=== PATIENT | female | born 1975 | race Hispanic/Latino ===

== ENCOUNTER → 2018-03-12 11:50 | Outpatient (CLI) | payer OTHER, SELFPAY ==
--- NOTE | 2018-03-12 11:51 | DI.MRI.S_ITS ---
BREAST MRI OF BOTH BREASTS - POST LUMPECTOMY: 03/12/2018 CLINICAL: Breast cancer. Comparison is made to exams dated: 11/07/2017 breast MRI, 08/16/2017 breast MRI, and 07/25/2017 ultrasound biopsy [facility]. Informed consent was obtained from the patient. Axial T1, T2, and pre and post contrast T1 images were obtained. Bilateral background breast enhancement is mild. Minimal improvement in size and mild improvement in enhancement of upper outer right breast non masslike enhancement. It demonstrates mixed internal enhancement kinetics. Precise measurements are precluded by the now very indistinct margins of the enhancement. The known post biopsy marker is poorly seen on this study. There is no abnormal enhancement, masses, or distortion in the left breast. There are benign known hepatic hemangiomas. Axillary lymph nodes are normal on MRI. IMPRESSION: KNOWN BIOPSY PROVEN MALIGNANCY 1. Continued improvement in size and enhancement of upper outer right breast non-masslike enhancement representing the known malignancy. Margins are now very indistinct precluding precise measurements. Findings are consistent with a positive response to therapy although radiologically response is less than seen between the 11/07/17 and 08/16/2017 MRIs. 2. There is no MRI evidence of left breast malignancy. This exam was interpreted at Station ID: [id number]. Electronically Signed By: Vish Smith M.D. cj/:03/12/2018 16:51:13 ACR BI-RADS Category 6: Known biopsy proven malignancy 3346F
== END ==
PROVIDERS: PCP Family Medicine; Visit Provider Internal Medicine Hematology & Oncology
DX: C50.411 Malignant neoplasm of upper-outer quadrant of right female breast (principal)
CPT/HCPCS: A9579; C8908

== ENCOUNTER 2018-04-16 09:58 | Inpatient (IN) | payer OTHER, SELFPAY ==
[2018-04-02 13:44] VITALS: BMI 32.1
[2018-04-16] VITALS (14 sets, daily range): BP systolic 113–139; BP diastolic 59–84; PULSE 71–109; RESP 5–24; TEMP 36.1–36.6; O2SAT 93–99; BMI 31.8
--- NOTE | 2018-04-16 | PATH_ITS ---
[facility] Accession Number: [id number] . 01 Material submitted: . PART A: LEFT BREAST (PROPHYLACTIC MASTECTOMY) PART B: RIGHT BREAST PART C: RIGHT AXILLARY CONTENTS . 01 Clinical history: . A: LEFT BREAST (PROPHYLACTIC MASTECTOMY) B: RIGHT BREAST * LONG STITCH TAIL OF HEARD, SHORT SUPERIOR . 02 Diagnosis: A. Left Breast, Prophylactic Skin Sparing Simple Mastectomy: Skin and nipple with no significant histomorphologic abnormality. Benign breast parenchyma; negative for atypia and malignancy. . B. Right Breast, Skin Sparing Simple Mastectomy: Invasive carcinoma of the breast. Please see CAP SUMMARY, below. . C. Right Axillary Contents, Lymph Node Dissection of Level I and II Nodes: Fourteen of twenty lymph nodes positive for metastatic carcinoma by H/E stain (14/20). . CAP CANCER CASE SUMMARY Invasive carcinoma of the right breast with the following features: . Procedure: Skin sparing simple mastectomy with right axillary lymph node dissection including level I and level II lymph nodes. Lymph node sampling: Present as right axillary dissection, level I and level II. Specimen Laterality: Right. . Tumor site: Central breast tissue. Tumor size: Widely dispersed viable tumor foci in a region of dense fibrosis with an overall greatest size of 10.9 cm. Histologic type: Infiltrating ductal carcinoma. Histologic grade: Dariana histologic score 6 of 9. Glandular/Tubular differentiation: Score 2 of 3. Nuclear Pleomorphism: Score 3 of 3. Mitotic Rate: Score 1 of 3. Overall Grade: Grade 2. Tumor focality: Unifocal. Ductal carcinoma in situ: Not identified. Lobular carcinoma in situ: Not identified. . Macroscopic and microscopic extent of tumor Skin: No tumor identified. Nipple: No tumor identified. Tumor is 3 mm from areolar surface. Skeletal muscle: Not applicable. . Margins Invasive carcinoma: Positive at the superior margin. Anterior: 3 mm. Posterior: 6 mm. Superior: Tumor present at the superior margin over a 1 mm region. Inferior: Greater than 10 mm. Medial: Greater than 10 mm. Lateral: Greater than 10 mm. . Lymph nodes Total number of lymph nodes examined: 20. Number of sentinel lymph nodes examined: 0. Lymph Node Involvement: Number of lymph nodes with macrometastases: 8. Number of lymph nodes with micrometastases: 6. Number of lymph nodes with isolated tumor cells: Not applicable. Extranodal Extension: Present in a multifocal fashion, greatest extent: 5 mm. Method of Evaluation of [place] Lymph Nodes: Not applicable. . Treatment effect: Response to Presurgical Therapy Breast: Fibrotic tissue present mixed with viable tumor, possible partial response. Lymph nodes: Two larger lymph nodes with fibrosis, possible partial response. Patient's previous core biopsy was reviewed and no significant modification in cellularity is identified when compared with the excised specimen. . Lymph-vascular invasion: Present. Dermal lymph-vascular invasion: Not identified. Pathologic staging: AJCC, 8th Edition Primary tumor: ypT3 Regional lymph nodes: ypN3a . Additional pathologic findings: Perineural tumor involvement present. . Ancillary studies: Biomarkers Performed Previously on Case: [facility] [id number]; 07/25/2017 Estrogen Receptor (ER) Status: Positive (moderate intensity, 100% of cells). Progesterone Receptor (PgR) Status: Positive (moderate intensity, 80% of cells). HER2 (by immunohistochemistry): Negative (score 1+). HER2 (ERBB2) (by in situ hybridization): Not applicable. I/04/19/2018 . 02 Comment: Results discussed with Dr. Talley at approximately 10:15 a.m. on 04/18/2018. . 02 Electronically signed: . Mirian Prado MD, Pathologist NPI- [id number] . 01 Gross description: . (A) Received in formalin, labeled left breast, is an unoriented breast (17.5 x 14.8 x 4.3 cm) with overlying skin (5.5 x 3.1 cm) containing the nipple areolar complex (3.0 x 2.8 cm). The breast cannot be oriented beyond anterior and posterior. No obvious axillary tail is present. No localization wire is present. The breast tissue is fibrofatty with no nodules, masses or lesions identified. The skin and nipple areolar complex are borja-pink and unremarkable. Ink code: purple-anterior; yellow-posterior. Section code: (A1) nipple; (A2) skin; (A3-A10) breast tissue, sales representative jewelry. (B) Received in formalin, labeled right breast, long stitch tail of staci, short superior, is a right breast (4.3 cm AP, 17.2 cm SI, 19.2 cm ML) with overlying skin (4.2 cm SI, 5.5 cm ML) containing the nipple areolar complex (4.2 x 3.2 cm). The specimen is oriented with two black sutures (long-tail of staci, short-superior). The tail of staci is approximately 9.5 x 5.5 x 4.0 cm, which has been included in the medial to lateral overall measurement. The specimen is serially sectioned ML into 37 slices with the medial and lateral resection margins as slices #1 and #37, respectively. The breast tissue is fatty and focally densely fibrous (10.9 x 10.5 x 7.2 cm) within slices #10-#30. The focally fibrous area is located 0.5 cm from the anterior, 0.8 cm from the posterior, 0.4 cm from the superior, 3.5 cm from the inferior, 4.7 cm from the medial, and 3.5 cm from the lateral resection margins. No definitive nodules masses or lesions are identified. The skin and nipple areolar complex are borja and unremarkable. A lymph node was performed on the portion of patrick of staci with no lymph nodes identified. Ink code: purple-anterior; yellow-posterior; black-superior; orange-inferior; blue-medial; green-lateral. Section code: (B1) nipple; (B2) skin; (B3) medial resection margin, perpendicularly sectioned, sales representative jewelry; (B4) slice #10, sales representative jewelry; (B5) slice #11, sales representative jewelry; (B6) slice #12, sales representative jewelry; (B7) slice #13, sales representative jewelry; (B8) slice #14, sales representative jewelry; (B9) slice #15, sales representative jewelry; (B10) slice #16, sales representative jewelry; (B11) slice #17, sales representative jewelry; (B12) slice #18, sales representative jewelry: (B13) slice #19, sales representative jewelry; (B14) slice #20, sales representative jewelry; (B15) slice #21, sales representative jewelry; (B16) slice #22, sales representative jewelry; (B17) slice #23, sales representative jewelry; (B18) slice #24, sales representative jewelry; (B19) slice #25, sales representative jewelry; (B20) slice #26, sales representative jewelry; (B21) slice #27,sales representative jewelry; (B22) slice #28, sales representative jewelry; (B23) slice #29, sales representative jewelry; (B24) slice #30, sales representative jewelry; (B25) lateral resection margin, perpendicularly sectioned, sales representative jewelry. Note: This specimen has been reviewed by Dr. Hillary Ortiz. Approximate total fixation time in formalin - 39 hours and 30 minutes calculated using a collection date of 04/16/2018 with no collection time given. ([id number]) (C) Received in formalin, labeled right axillary contents, are multiple pieces of adipose tissue (10.7 x 8.2 x 3.3 cm in aggregate) containing multiple possible lymph nodes (0.2 x 0.1 x 0.1 cm - 1.7 x 1.0 x 0.8 cm). Section code: (C1, C2) multiple intact lymph nodes; (C3-C5) two bisected lymph nodes in each cassette, one inked and one not inked; (C6) one bisected lymph node; (C7, C8) one intact lymph node in each cassette; (C9) one bisected lymph node. ([id number]) /[facility] . 02 Pathologist provided ICD-10: C50.911 . 02 CPT . 333406, [id number], [id number] Performed at: 01 [facility] [address] [id number] MD Shubham Farrar MD Phone: [phone] Performed at: 02 [facility] [address] [place], [place] [id number] MD Santos Frausto MD Phone: [phone]
[2018-04-16] MEDS: LACTATED RINGERS 1,000 ML 100 ML IV ×2 (10:40→16:54)
--- NOTE | 2018-04-16 11:37 | PM.PREOP ---
Pre-operative Note Interval Note Pre-op Check: Yes History & Physical Reviewed by Physician and Yes Exam Performed Changes: No H&P completed within 30 days and has changed as indicated here:: Patient seen and examined once again in the preoperative area today. She is marked accordingly for surgery. History physical examination as documented within the last 30 days on the chart has not changed. We will proceed with bilateral mastectomy, right axillary lymph node dissection, and port removal today as planned.
[2018-04-16] MEDS: CEFAZOLIN 2 GM/100 ML FROZ.PIGGY IV (11:45)
--- NOTE | 2018-04-16 12:07 | SUR.OPER ---
Supine on padded OR bed, head on pillow, arms secured on padded arm boards at <90 degrees abduction, legs uncrossed, safety belt at thigh, tape over blanket over lower legs.
[2018-04-16] MEDS: BUPIVACAINE 0.5% (PF) VIAL 30 ML INJ (12:19)
[2018-04-16] MEDS: LIDOCAINE 1% W/EPI INJ 20 ML INJ (12:20)
--- NOTE | 2018-04-16 12:49 | SUR.OPER ---
New consent modified in preop to add port a cath removal from the left chest.
--- NOTE | 2018-04-16 15:47 | SUR.OPER ---
LEFT BREAST WEIGHED 19.5 OZ, RIGHT BREAST WEIGHED 24 OZ
[2018-04-16] MEDS: CEFAZOLIN 1 GM VIAL IV (15:55)
--- NOTE | 2018-04-16 18:18 | SUR.PHASEI ---
o2 sats dropped to 85% on room air while patient dozed. 2lnc reapplied. Deep breaths encouraged. Sats 96% 2lnc.
--- NOTE | 2018-04-16 18:35 | PM.OP.1 ---
Operative Date/Time/Diagnoses Date of procedure: 04/16/18 Time of procedure: 18:35 Pre-op diagnosis: Locally advanced right breast cancer with metastatic Regional axillary lymph nodes status post neoadjuvant chemotherapy Post-op diagnosis: same Procedure & Clinicians Procedure: 1. removal of existing left subclavian vein tunneled central venous port device 2. bilateral skin sparing simple mastectomies 3. right axillary lymph node dissection including level 1 and level 2 lymph nodes Same procedure as scheduled: Yes Indications: 42-year-old female who presented with right breast cancer requiring neoadjuvant chemotherapy. She achieved an excellent response to initial therapy. After lengthy discussion and consultation she elected for bilateral mastectomy with a left mastectomy being for prophylactic purposes. She also agreed to right axillary lymph node dissection. She no longer required her existing Port-A-Cath device so she wished to have that removed as well. Surgeon: Paresh Talley Side Panel Padder: Cinthya Mccauley Click Yes if Unassisted: No Anesthesia Type: General Operative Notes Findings: 1. Intact left subclavian port device subsequently removed without difficulty 2. viable skin flaps and bilateral mastectomy sites at the conclusion of the surgery 3. intact thoracodorsal neurovascular bundle and long thoracic neurovascular bundle in right axillary region following removal of level 1 and level 2 lymph nodes Closure Type: primary Specimen(s): other ( 1. Left breast 2. Right breast 3. Right axillary contents) Implants & Drains: four individual 10 Tariq-Adams drains inserted through separate stab incisions with 2 being placed in the left mastectomy site and the other 2 in the right mastectomy site. Of note, the right lateral Tariq-Adams drain extends into the right axilla. Estimated Blood Loss (mL): 150 Blood products transfused: none Procedure in detail: after obtaining informed consent the patient was brought to the operating room placed supine on the table. After satisfactory induction of anesthesia the chest was prepped and draped in usual sterile fashion. A SCOAP time-out was performed per standard protocol. Attention was turned initially to removal of the existing left subclavian port device. Existing scar was incised with a 15. Scalpel blade. Bovie was used to achieve hemostasis. Dissection proceeded down sharply with Metzenbaum scissors until the port itself was encountered. Overlying fibrous connective tissue was divided sharply and the device was elevated off of the pectoralis fascia including the 2 existing sutures holding it in place. Meticulous sharp and blunt dissection was then employed to gently liberate the distal catheter from the fibrous sheath surrounding it. The catheter was then easily removed from the left subclavian vein. Catheter was noted to be intact. Catheter was discarded. Wound was irrigated with sterile saline solution and hemostasis verified. Skin was closed with running 4 0 Monocryl suture. Steri-Strips were applied. Instruments were discarded off of this stray and the entire field was prepped and draped again in the usual sterile fashion. Separate instruments were then brought onto the field for completion of the mastectomy and axillary dissection portion. I once again perform standard scrub and changed my gown and gloves for the remainder of the case. Bilateral skin sparing mastectomy incisions were then designed taking great care to measure accordingly to achieve the best symmetric cosmetic result possible. Attention was turned initially to the left mastectomy. Skin incision was created with a 10. Scalpel blade. Bovie was used to achieve hemostasis and carried the dissection down through the subcutaneous tissue to the breast tissue. [place] retractors were used to elevate the skin and breast tissue was then dissected along the subcutaneous plane sharply with the Bovie taking great care to avoid injury to the skin flaps as well as devascularization of the skin. [place]ma[place] retractors were then inserted once the dissection proceeded deeply to provide exposure. Large vessels were controlled with the Bovie. Medially the dissection proceeded toward the insertion of the pectoralis muscle at the sternum. Superiorly the margin included the clavipectoral fascia. inferior margin extended along the superior aspect of the costal margin at the insertion of the pectoralis muscle. Lateral border the pectoralis muscle was liberated from the overlying breast tissue extending toward the lateral chest wall and up throughout the entire tail of [place] which was removed as part of the specimen as well. Breast specimen was then liberated from the pectoralis fascia and sent for permanent section. Wound was irrigated with copious amounts of sterile saline solution and hemostasis was verified. 2 individual 10 Tariq-Adams drains were inserted into the wound bed through separate stab incisions laterally and inferiorly. Drains were secured to the skin using 2 individual interrupted 3 0 nylon sutures. Subcutaneous tissue was reapproximated with interrupted 3 0 Vicryl suture. Skin was closed with a running subcuticular 4 O Monocryl suture. Dermal adhesive was applied to the skin. In a similar fashion the right breast was also dissected and excised thereby completing bilateral mastectomies. Attention was then turned to the right axillary dissection. A separate incision was created in existing skin fold in the right axilla with a 10. Scalpel blade. Bovie was used to achieve hemostasis and carried the dissection through the subcutaneous tissue into the right axillary fat pad. Exposure was achieved with the cerebellar retractor. Dissection proceeded down to the border the pectoralis muscle were overlying fascia and lymph node bearing tissue was liberated sharply using the Bovie and Metzenbaum scissors. Dissection then proceeded superiorly deep to the muscle until the axillary vein was encountered. Vein was skeletonized of overlying lymph node bearing tissue. Multiple branches of the axillary vein were controlled with sharp dissection followed by right angle clamp. Vessels were controlled with a combination of 2 0 silk ties and hemoclips. Vessels were then divided. Dissection proceeded laterally and deeply toward the latissimus dorsi muscle. Medially dissection proceeded along the lateral chest wall. The long thoracic neurovascular bundle as well as the thoracodorsal neurovascular bundle were identified and preserved. Great care was taken to avoid injury to these structures. At the end of the case both neurovascular bundles were noted to be entirely intact. Stimulation of the both nerves showed normal muscular response. Level 1 and level 2 lymph node packet was then liberated using a combination of hemoclips and 2 0 silk ties. Specimen was then sent for permanent section. The most inferior aspect of the dissection was noted to connect with the lateral aspect of the right mastectomy through a small soft tissue defect. Two individual 10 Tariq-Adams drains were placed in the right mastectomy wound bed similar to what was previously done on the left side. However, the lateral drain was extended along the lateral mastectomy into the right axilla. Drains were again secured to the skin with 2 individual interrupted 3 0 nylon sutures. Wounds were irrigated and hemostasis verified once again. A 1 1 mixture 1% lidocaine with 1 100,000 epinephrine and 0.5% plain Marcaine was injected in the skin and subcutaneous tissue of the right axilla for postoperative analgesia. Subcutaneous tissue of both incisions on the right side was then reapproximated with interrupted 3 0 Vicryl sutures. Both skin incisions were then closed with running 4 O Monocryl sutures placed in subcuticular fashion. Dermal adhesive was applied. Sterile dressings were placed at the drain sites followed by a breast binder. Anesthesia was then reversed and the patient extubated in the operating room. She was taken recovery stable condition. Complications: none Condition: stable Disposition: PACU Plan for aftercare: 1. Admit to regular surgical floor for ongoing convalescence and drain management
--- NOTE | 2018-04-16 18:36 | SUR.PHASEI ---
Report called to Le
--- NOTE | 2018-04-16 19:01 | SUR.PHASEI ---
Pt transferred to the floor with pulse ox. Report to Marilynn Ortiz. VS stable. O2 sat 88-97%ra, 1lnc applied. Upper left chest guaze, kelly breast and rt axilla incisions lula/cdi. MADAY drain yumikogs cdi. MADAY drains emptied. belongings bag in room, spouse at bedside. IV saline locked.
[2018-04-16] MEDS: LACTATED RINGERS 1,000 ML 84 ML IV (19:18)
[2018-04-16] MEDS: ACETAMINOPHEN 325 MG TABLET 650 MG PO (20:27)
[2018-04-16] MEDS: ESCITALOPRAM 10 MG TABLET PO (20:27)
[2018-04-17] VITALS (8 sets, daily range): BP systolic 105–133; BP diastolic 62–76; PULSE 54–77; RESP 16; TEMP 36.4–37.2; O2SAT 97–100
[2018-04-17] MEDS: OXYCODONE IR 5 MG TABLET PO ×3 (02:20→11:06)
[2018-04-17 05:41] LABS: Add Manual Diff / Slide Review NO; Basophils Percent Auto 0.1 % (0-2); Hematocrit 34.2 % (36-46); Hemoglobin 11.5 g/dL (12.0-16.0); Lymphocytes Percent Auto 9.8 % (25-40); Mean Corpuscular HGB Conc 33.6 % (30-36); Mean Corpuscular Hemoglobin 28.2 PG (26-34); Mean Corpuscular Volume 83.9 fL (80-100); Neutrophils Absolute Auto 11600 /uL (3000-5900); Neutrophils Percent Auto 84.1 % (50-75); Platelet Count 277 X10^3/uL (150-400); Red Blood Cell Count 4.08 X10^6/uL (4.0-5.2); Red Cell Distribution Width 13.7 % (11.6-14.8); White Blood Cell Count 13.8 X10^3/uL (4.5-11.0)
[2018-04-17 05:49] LABS: BUN Creatinine Ratio 16.7 (6-22); Blood Urea Nitrogen 10 mg/dL (7-17); Calcium 9.1 mg/dL (8.4-10.2); Carbon Dioxide 30 mmol/L (22-32); Chloride 101 mmol/L (98-107); Estimated Glomerular Filt Rate > 60.0 mL/min (>60); Glucose 116 mg/dL (70-100); HEMOLYSIS < 15 (0-50); Potassium 4.7 mmol/L (3.4-5.1); Sodium 138 mmol/L (137-145)
[2018-04-17] MEDS: LACTATED RINGERS 1,000 ML 84 ML IV (09:41)
[2018-04-17] MEDS: SENNOSIDES 8.6 MG TABLET PO (11:06)
[2018-04-17] MEDS: DOCUSATE 100 MG CAPSULE PO (11:07)
[2018-04-17] MEDS: CYANOCOBALAMIN (VITAMIN B-12) 500 MCG TABLET 1000 MCG PO (11:07)
--- NOTE | 2018-04-17 13:29 | PM.PN.1 ---
Subjective Date Patient Seen: 04/17/18 Time Patient Seen: 13:29 Interval history: Patient is in good spirits, and her family is at the bedside. She states that her pain is somewhat controlled but not completely. She has been able to urinate without any issues. Denies any flatus or bowel movement since surgery yesterday. No chest pain or shortness of breath. Discomfort is mostly along the right chest wall and axilla. Exam Vital Signs (past 8 hours): - 04/17/18 07:40 04/17/18 07:50 04/17/18 11:35 Temperature 98.3 F 98.9 F Pulse Rate 65 67 Respiratory Rate 16 16 Blood Pressure 133/66 H 112/62 Pulse Oximetry 100 100 100 Oxygen Delivery Method Room Air Oxygen Flow Rate 0 Narrative Exam Narrative: Examination is performed with the at the bedside. Patient is alert oriented x3. Neck is supple All 3 incisions are healing nicely without evidence of any erythema, hematoma, or seroma. Drain sites are clean. Drain output is serosanguineous in all 4 drains. Output has been anywhere from 25 cc over the last 24 hr to 90 cc in the right lateral drain. This is not unanticipated. Skin flaps were flat and otherwise viable. Right axilla is mildly edematous but otherwise soft. No significant right upper extremity edema. Right shoulder range of motion is somewhat limited due to discomfort and edema. She has some chest wall edema superior to the incisions bilaterally exacerbated by breast binder. Abdomen is soft, nondistended, nontender. Objective Labs Result Diagrams: 04/17/18 05:20 04/17/18 05:20 Labs: Laboratory Results - last 24 hr 04/17/18 04/17/18 05:20 05:20 WBC 13.8 H RBC 4.08 Hgb 11.5 L Hct 34.2 L MCV 83.9 MCH 28.2 MCHC 33.6 RDW 13.7 Plt Count 277 Neut % (Auto) 84.1 H Lymph % (Auto) 9.8 L [place] % (Auto) 6.0 Eos % (Auto) 0.0 L Baso % (Auto) 0.1 Neut # (Auto) 24780 H Sodium 138 Potassium 4.7 Chloride 101 Carbon Dioxide 30 BUN 10 Creatinine 0.60 Estimated GFR > 60.0 BUN/Creatinine Ratio 16.7 Glucose 116 H Calcium 9.1 Assessment & Plan Plan: Assessment/Plan Narrative: 42-year-old female postoperative day 1 from bilateral mastectomy and right axillary level 1 and level 2 lymph node dissection along with Port-A-Cath removal who is in good condition. She is healing normally. We will increase her analgesia an attempt to provide better comfort. Drain care and teaching with the patient and her will be completed today. Continue regular diet as tolerated. Ambulate aggressively. Saline lock IV and discontinue all antibiotics at this point. I discussed anticipated ongoing wound healing over the next several weeks to months. Orders were written. All questions were answered to her satisfaction, and she voiced understanding. Possibly home tomorrow if pain control is adequate, and she is comfortable with drain care. Quality VTE Deep Vein Thrombosis/Pulmonary Embolism Present on Admission: No
--- NOTE | 2018-04-17 14:41 | CM.DANOTE ---
Discharge Planning/Care Management DCP: assessment: case received, EMR reviewed and met with pt, her and young child, at bedside. Introduced self and role. Pt is a 42 year old female who admitted for a scheduled Bilateral Simple Skin Sparing Mastectomy Surgeon: Dr. Talley with assist by Dr. Parisa Paul: [facility] Pt carries dx of R breast CA with metastic lymph nodes post chemotherapy. L mastectomy: prophylactic purposes. Dr. Talley notes plan is for home in next day or so, whenever pt is comfortable in terms of pain and able to manage her MADAY drains. Pt is aware DCP team will be checking in to assist with any d/c needs that may unfold. Anticipate she will be following up with [facility] surgeons for further care in the outpt setting. Discharge Assessment Start: 04/17/18 14:39 Freq: Status: Active Protocol: Document 04/17/18 14:40 ITV (Rec: 04/17/18 14:40 ITV [id number]) Discharge Planning Assessment Advance Directives? No: Information mailed to patient Advance Directives on File No History Provided By Patient Family Member Medical Record Prior Living Arrangements House Household Members spouse children Independent with ADL's Yes Is patient alert and oriented? Yes Whiteboard Updated in Patient Room with Yes name and ext. # of Audiologist Review Status In Process Next Review Type Continued Stay Review
[2018-04-17] MEDS: OXYCODONE IR 5 MG TABLET 10 MG PO ×2 (14:54→17:56)
[2018-04-17] MEDS: ESCITALOPRAM 10 MG TABLET PO (20:46)
--- NOTE | 2018-04-17 21:30 | PC.NURSE ---
Latrice shift note: Patient awake, alert, pleasant. Chest binder in place with drains x 4 draining sanguinous drainage, R > L. Patient demonstrated how to empty drain, she states feel comfortable with procedure.
[2018-04-18] MEDS: OXYCODONE IR 5 MG TABLET 10 MG PO ×2 (02:25→08:00)
--- NOTE | 2018-04-18 02:43 | PC.NURSE ---
Addendum entered by Mirza Sanchez R.N. 04/18/18 06:21: 0600: Pt teaching regarding emptying and compressing MADAY drains. Pt return demonstrated 3 of the JPs, and her technique was very good. Original Note: [place] Note: Pt alert, oriented X3. Bra binder intact over breast dressings, and 4 JPs intact and compressed. Dressing over removed portacath site is cdi. Medicated for pain as needed, with Oxycodone. Fresh ice to axillaries per patient request.
[2018-04-18 04:00] VITALS: BP 108/69; PULSE 66; RESP 16; TEMP 36.6; O2SAT 99
[2018-04-18 08:00] VITALS: BP 117/75; PULSE 67; RESP 16; TEMP 36.2; O2SAT 99
[2018-04-18] MEDS: SENNOSIDES 8.6 MG TABLET PO (08:05)
[2018-04-18] MEDS: CYANOCOBALAMIN (VITAMIN B-12) 500 MCG TABLET 1000 MCG PO (08:05)
[2018-04-18] MEDS: DOCUSATE 100 MG CAPSULE PO ×2 (08:06→20:55)
--- NOTE | 2018-04-18 10:44 | P.PN_ITS ---
Subjective Date Patient Seen: 04/18/18 Time Patient Seen: 10:40 Interval history: Patient complaining of persistent pain not entirely relieved with oral analgesics. In addition, the oxycodone she is receiving is making her feel relatively sedated which is inhibiting her ability to ambulate. She is tolerating a regular diet without difficulty. No nausea or vomiting. She has learned Tariq-Adams drain care appropriately and is comfortable with the procedure. Denies any subjective fever or chills. No chest pain or shortness of breath. Pain is mostly in the upper outer quadrant region of the right breast and right axilla. Exam Vital Signs (past 8 hours): - 04/18/18 04:00 04/18/18 08:00 Temperature 97.8 F 97.2 F L Pulse Rate 66 67 Respiratory Rate 16 16 Blood Pressure 108/69 117/75 Pulse Oximetry 99 99 Oxygen Delivery Method Room Air Oxygen Flow Rate 0 Narrative Exam Narrative: Well-nourished well-developed female lying comfortably in bed in no acute distress but she is in a more subdued mood this morning. Alert oriented x3 Sclera nonicteric Right axillary incision and bilateral mastectomy incisions are clean, dry, and intact. Skin flaps were completely viable. No hematomas or seromas. Axilla is soft. No right upper extremity edema. Port-A-Cath removal site is clean, dry , and intact as well. Abdomen soft, nondistended, nontender. Objective Labs Result Diagrams: 04/17/18 05:20 04/17/18 05:20 Labs: No new radiographic or laboratory studies for review Assessment & Plan Plan: Assessment/Plan Narrative: 42-year-old female now postoperative day 2 from bilateral mastectomy and right axillary lymph node dissection in conjunction with Port-A-Cath removal who overall is doing well and healing appropriately, but her analgesia remains an issue. Drain output is as anticipated and is serosanguineous at all drain sites. Continue the drains as she will require these for some time. She is comfortable with care at this point. Encouraged her to ambulate and shower today if she wishes. I encouraged her to ambulate multiple times in the hallway today with assistance. Continue regular diet. We will discontinue the oxycodone at this time and increased the frequency of Dilaudid. Add gabapentin for pain control also. I counseled her that the gabapentin may also make her somewhat sleepy. Final pathology still pending. I discussed all the above with the patient in detail. All questions were answered to her satisfaction, and she voiced understanding. I suspect she will require at least 1 more day in the hospital until her analgesia is better controlled. Orders were written. Quality VTE Deep Vein Thrombosis/Pulmonary Embolism Present on Admission: No
--- NOTE | 2018-04-18 10:59 | PC.NURSE ---
Dr. Talley reports that he changed dressings to incision sites when he checked patient today. Plan to change pain medications and regimen for better pain control today. Drain sites (x4) remain intact. Patient feeling kind of woozy with ambulation, vss, and back in bed at this time to rest. call light within reach.
[2018-04-18] MEDS: GABAPENTIN 300 MG CAPSULE PO ×3 (11:09→20:55)
[2018-04-18 12:00] VITALS: BP 128/87; PULSE 80; RESP 16; TEMP 37.1; O2SAT 98
[2018-04-18] MEDS: ACETAMINOPHEN 325 MG TABLET 650 MG PO ×2 (13:32→20:55)
[2018-04-18] MEDS: HYDROMORPHONE 2 MG TABLET PO ×3 (13:32→20:54)
[2018-04-18 15:37] VITALS: BP 116/61; PULSE 68; RESP 16; TEMP 36.6; O2SAT 99
[2018-04-18 20:22] VITALS: BP 122/76; PULSE 64; RESP 16; TEMP 35.9; O2SAT 99
[2018-04-18] MEDS: ESCITALOPRAM 10 MG TABLET PO (20:55)
[2018-04-18 23:55] VITALS: BP 114/65; PULSE 69; RESP 16; TEMP 36.4; O2SAT 99
[2018-04-19 01:00] VITALS: O2SAT 99
[2018-04-19 01:03] VITALS: TEMP 37
[2018-04-19 05:00] VITALS: BP 122/76; PULSE 66; RESP 16; TEMP 36.4; O2SAT 100
[2018-04-19] MEDS: HYDROMORPHONE 2 MG TABLET PO ×2 (05:14→09:37)
[2018-04-19 08:00] VITALS: BP 134/80; PULSE 92; RESP 16; TEMP 36.9; O2SAT 98
[2018-04-19] MEDS: GABAPENTIN 300 MG CAPSULE PO (09:38)
[2018-04-19] MEDS: DOCUSATE 100 MG CAPSULE PO (09:38)
[2018-04-19] MEDS: CYANOCOBALAMIN (VITAMIN B-12) 500 MCG TABLET 1000 MCG PO (09:38)
[2018-04-19] MEDS: SENNOSIDES 8.6 MG TABLET PO (09:38)
[2018-04-19 10:23] VITALS: O2SAT 98
--- NOTE | 2018-04-19 10:54 | P.DS_ITS ---
History of Present Illness Date Patient Seen: 04/19/18 Time Patient Seen: 10:46 Chief complaint: [id number] DORCAS MASTECTOMY & R AXILLARY DISSECTION Narrative: 42-year-old female with known right breast cancer and regionally metastatic lymph nodes status post neoadjuvant chemotherapy with measurable response who presented for ongoing treatment management. After lengthy discussion she elected for bilateral mastectomy with the left side being prophylactic. Right axillary lymph node dissection was also recommended. Port- A-Cath removal was planned as part of the procedure as she had completed chemotherapy, and medical oncology recommended removal of the device. Discharge Providers Date of admission: 04/16/18 09:58 Primary care physician: Emma Sunshine, Consults: 04/16/18 18:53 Consult to Discharge Planning Routine Comment: Discharge provider: Paresh Talley MD Summary Discharge Diagnosis: 1. Locally advanced infiltrating ductal carcinoma with regionally metastatic lymphadenopathy right breast 2. Neuropathy secondary to chemotherapy 3. History of depression 4. Status post left subclavian vein tunneled central venous port device insertion 5. History of image guided right breast biopsy 6. History of oral surgery 7. Status post bilateral mastectomy with skin sparing technique April 16, 2018 8. Status post right axillary lymph node dissection of level 1 and level 2 nodes April 16, 2018 9. Status post removal of left existing subclavian port device April 16, 2018 Hospital Course: Patient was admitted for the above surgical procedures on April 16, 2018 which she tolerated well. Postoperatively she was admitted to the regular surgical floor for ongoing convalescence and care. While there she remained afebrile and hemodynamically stable. She was tolerating a regular diet by postoperative day 1. She never had any nausea or vomiting. She had spontaneous return of bowel and bladder function. She is ambulating without significant difficulty. She did have issues with postoperative analgesia which required some management changes throughout her stay. At the time of discharge she is now doing quite well on oral Dilaudid and scheduled gabapentin. Her usual home medications have been continued as well. Her wounds are healing nicely without evidence of infection, breakdown, hematoma, or seroma. Skin flaps were viable. Her Tariq-Adams drains are collecting serosanguineous fluid as anticipated. She has been taught drain care and is comfortable with such. Because of her overall good condition she is discharged home on postoperative day 3. She will follow-up as scheduled next week for potential drain removal. She has been instructed to call or return sooner, however, for persistent nausea, vomiting, inability to tolerate diet, abnormal wound drainage , erythema, fever, chills, progressive uncontrolled pain or other concerns. Status at Discharge Cognitive/behavioral status at discharge: Alert oriented x3. She is in good spirits at the time of discharge. Functional status at discharge: independent ambulation Overall status at discharge: patient is progressing back to baseline Time Spent with Patient Less than 30 minutes Exam Vital Signs (past 8 hours): - 04/19/18 05:00 04/19/18 08:00 04/19/18 10:23 Temperature 97.6 F 98.5 F Pulse Rate 66 92 H Respiratory Rate 16 16 Blood Pressure 122/76 H 134/80 H Pulse Oximetry 100 98 98 Oxygen Delivery Method Room Air Oxygen Flow Rate 0 Narrative Exam Narrative: Well-nourished well-developed female resting comfortably in bed in no acute distress. Alert oriented x3 Sclera nonicteric Neck is supple Chest clear to auscultation bilaterally. Regular rate and rhythm. Bilateral mastectomy incisions as well as right axillary incision and are clean , dry, and intact. Skin flaps were viable. No hematoma or seroma. Drain sites are clean. Drains are collecting serosanguineous fluid as anticipated. Abdomen soft, nondistended, nontender Extremities show no clubbing, cyanosis, or edema. Right upper extremity shows no significant edema as well. Objective Labs Result Diagrams: 04/17/18 05:20 04/17/18 05:20 Labs: No new imaging studies review Final pathology is pending at the time of discharge Discharge Plan Discharge Plan Patient Disposition: Home Discharge Med Rec/Prescriptions Prescriptions: New hydromorphone [Dilaudid] 2 mg tablet 2 mg PO Q2H PRN (Reason: pain) Qty: 40 RF: 0 gabapentin 300 mg capsule 300 mg PO TID Qty: 60 RF: 1 docusate sodium [Colace] 100 mg capsule 100 mg PO BID Qty: 14 RF: 1 sennosides [Senokot] 8.6 mg tablet 8.6 mg PO BEDTIME Qty: 10 RF: 1 Continue cyanocobalamin (vitamin B-12) [Vitamin B-12] 1,000 MCG/1 ML drops 1,000 mcg PO Q DAY Qty: 0 RF: 0 escitalopram oxalate [Lexapro] 10 mg tablet 10 mg PO BEDTIME RF: 0 Discontinued hydromorphone [Dilaudid] 2 MG tablet 2 tab PO Q6HP PRN (Reason: Pain (Scale Score 1-3)) RF: 0 Follow up/Referrals: Paresh Talley MD [Physician] - 04/25/18 9:30 am Provider Discharge Instructions Diet: Diet as Tolerated Activity: No heavy lifting more than 20 lb until further notice May walk as much as desired May climb stairs May ride in vehicle No driving until further notice Cold/Heat Therapy: May apply ice packs to incisions as needed for comfort Other treatments: May shower Do not soak incisions in bathtub or pool until further notice Skin/Wound/Dressing Care Report to your healthcare provider any signs of infection, such as:: chills, fever, increased pain and unusual drainage Dressing: May apply gauze dressing over incisions as needed for comfort Continue to wear breast binder Empty and record drain output as instructed Discharge Data Primary Care Provider: Emma Sunshine Attending Provider: Paresh Talley Admit Date/Time: 04/16/18 09:58 Discharge Interventions Interventions: Discharge assessment Last Done: 04/19/18 09:32 Quality VTE Deep Vein Thrombosis/Pulmonary Embolism Present on Admission: No
--- NOTE | 2018-04-19 11:03 | CM.DPC ---
DCP Cont: Patient is to be discharged home today. Patient lives with spouse. Is to follow up next week for drain removal. No concerns returning home, no additional resources needed. P: Discharge home today, post-surgery. Ashley Durbin RN/Supply Service Worker
--- NOTE | 2018-04-19 11:20 | PC.NURSE ---
Pt ready for discharge home with Spouse and Son. Pt IV removed. Reviewed drain care, discharge meds, discussed s/s of infection and when to call MD, encouraged stool softeners and water intake to prevent constipation, and reviewed follow up appointment. Pt would like to shower and then is ready to discharge home with Spouse.
[2018-04-19 12:16] VITALS: BP 125/76; PULSE 64; O2SAT 97
--- NOTE | 2018-04-19 12:17 | PC.NURSE ---
Pt up to shower and upon completing shower because dizzy and light headed. Pt vitals taken and Spouse is at the bedside. Pt now sitting on the side of the bed eating lunch. Dsg's to chest incisions recovered with gauze and binder placed back on. Pt and Spouse state they feel comfortable discharging. Reported incident to Dr. Talley at 1212 and he stated Pt could continue with discharge plan. Pt states she will finish lunch and call when she is ready to be taken out via w/c to pov.
--- NOTE | 2018-04-19 12:39 | PC.NURSE ---
Pt finished lunch and departed the room with her . She did not notify staff that she was leaving but all discharge instructions and information had been reviewed. Pt's Spouse had already removed the bulk of their belongings earlier this morning and the rest when they left.
== END 2018-04-19 12:40 | disposition home or self-care (01) | DRG 580 ==
PROVIDERS: Admitting Provider Surgery; PCP Family Medicine; Visit Provider Surgery
PROC: 0HTV0ZZ Resection of Bilateral Breast, Open Approach (ICD-10-PCS; principal; 2018-04-16 10:15)
PROC: 0HTV0ZZ Resection of Bilateral Breast, Open Approach (ICD-10-PCS; CPT 36590; 2018-04-16 10:15)
DX: C50.911 Malignant neoplasm of unspecified site of right female breast (principal); C77.3 Secondary and unspecified malignant neoplasm of axilla and upper limb lymph nodes; F32.9 Major depressive disorder, single episode, unspecified; Z45.2 Encounter for adjustment and management of vascular access device; Z40.01 Encounter for prophylactic removal of breast; G62.9 Polyneuropathy, unspecified; T45.1X5S Adverse effect of antineoplastic and immunosuppressive drugs, sequela
CPT/HCPCS: 19303; 19307; 36415; 36590; 80048; 85025; J0690; J1100; J1170; J1885; J2250; J2405; J2704; J3010

== ENCOUNTER → 2018-05-02 14:14 | Outpatient (CLI) | payer OTHER, SELFPAY ==
[2018-04-16 19:04] VITALS: BMI 31.8
== END ==
PROVIDERS: PCP Family Medicine; Visit Provider Nurse Practitioner Gerontology
DX: C50.911 Malignant neoplasm of unspecified site of right female breast (principal); C77.3 Secondary and unspecified malignant neoplasm of axilla and upper limb lymph nodes; Z17.0 Estrogen receptor positive status [ER+]
CPT/HCPCS: 36415

== ENCOUNTER → 2018-06-04 11:24 | Outpatient (CLI) | payer OTHER, SELFPAY ==
[2018-04-16 19:04] VITALS: BMI 31.8
[2018-06-04 11:39] LABS: Add Manual Diff / Slide Review NO; Basophils Percent Auto 0.3 % (0-2); Eosinophils Percent Auto 1.1 % (2-4); Hematocrit 38.4 % (36-46); Hemoglobin 12.8 g/dL (12.0-16.0); Lymphocytes Percent Auto 33.9 % (25-40); Mean Corpuscular HGB Conc 33.3 % (30-36); Mean Corpuscular Hemoglobin 27.4 PG (26-34); Mean Corpuscular Volume 82.3 fL (80-100); Monocytes Percent Auto 4.7 % (3-14); Neutrophils Absolute Auto 3900 /uL (3000-5900); Platelet Count 270 X10^3/uL (150-400); Red Blood Cell Count 4.67 X10^6/uL (4.0-5.2); Red Cell Distribution Width 14.5 % (11.6-14.8); White Blood Cell Count 6.5 X10^3/uL (4.5-11.0)
[2018-06-04 12:20] LABS: Alanine Aminotransferase 31 IU/L (9-52); Albumin 4.3 g/dL (3.5-5.0); Albumin Globulin Ratio 1.5 (1.0-2.8); Alkaline Phosphatase 66 U/L (38-126); Aspartate Aminotransferase 26 IU/L (14-36); BUN Creatinine Ratio 16.7 (6-22); Bilirubin Total 0.6 mg/dL (0.2-1.3); Blood Urea Nitrogen 10 mg/dL (7-17); Calcium 9.6 mg/dL (8.4-10.2); Carbon Dioxide 28 mmol/L (22-32); Chloride 104 mmol/L (98-107); Estimated Glomerular Filt Rate > 60.0 mL/min (>60); Globulin 2.9 g/dL (1.7-4.1); Glucose 90 mg/dL (70-100); HEMOLYSIS < 15 (0-50); Potassium 4.6 mmol/L (3.4-5.1); Sodium 142 mmol/L (137-145); Total Protein 7.2 g/dL (6.3-8.2)
== END ==
PROVIDERS: PCP Family Medicine
DX: C50.911 Malignant neoplasm of unspecified site of right female breast (principal)
CPT/HCPCS: 36415; 80053; 85025

== ENCOUNTER → 2018-06-11 13:05 | Outpatient (CLI) | payer OTHER, SELFPAY ==
[2018-04-16 19:04] VITALS: BMI 31.8
[2018-06-11 13:22] LABS: Add Manual Diff / Slide Review NO; Basophils Percent Auto 0.3 % (0-2); Eosinophils Percent Auto 0.8 % (2-4); Hematocrit 39.2 % (36-46); Lymphocytes Percent Auto 19.7 % (25-40); Mean Corpuscular HGB Conc 33.2 % (30-36); Mean Corpuscular Hemoglobin 27.2 PG (26-34); Mean Corpuscular Volume 81.9 fL (80-100); Monocytes Percent Auto 4.8 % (3-14); Neutrophils Absolute Auto 5900 /uL (3000-5900); Neutrophils Percent Auto 74.4 % (50-75); Platelet Count 271 X10^3/uL (150-400); Red Blood Cell Count 4.78 X10^6/uL (4.0-5.2); Red Cell Distribution Width 14.4 % (11.6-14.8); White Blood Cell Count 7.9 X10^3/uL (4.5-11.0)
--- NOTE | 2018-06-11 16:13 | PC.NURSE ---
labs stable, next appt set for 06/18/18
== END ==
PROVIDERS: PCP Family Medicine
DX: C50.911 Malignant neoplasm of unspecified site of right female breast (principal); Z17.0 Estrogen receptor positive status [ER+]
CPT/HCPCS: 36415; 85025

== ENCOUNTER 2018-07-09 08:15 | Outpatient (RCR) | payer OTHER, SELFPAY ==
[2018-04-16 19:04] VITALS: BMI 31.8
--- NOTE | 2018-05-29 11:11 | PT.OIE ---
Current Diagnoses Malignant neoplasm of unspecified site of unspecified female breast (05/29/18) Past Medical History (Last Updated 04/02/18 @ 14:13 by Ines Umanzor RN) Breast cancer, right (Acute) Depression (Acute) History of chemotherapy (Acute) Neuropathy (Acute) Port-A-Cath in place (Acute) Past Surgical History (Last Reviewed 03/21/18 @ 12:11 by Paresh Talley MD) History of oral surgery Provider Visit Care Team Role Provider Type Emma Sunshine DO Primary Care Provider Physician Specialty: Family Practice Address: [address] [place] [address] Email: [email or web address] Paresh Talley MD Attending Provider Physician Specialty: General Surgery Address: [address] [place] [address] Email: [email or web address] Physical Therapy Initial Evaluation PT-OP-A Visit Information Start: 05/29/18 09:03 Freq: Status: Active Protocol: Document 05/29/18 09:03 [facility] (Rec: 05/29/18 11:05 [facility] [id number]) Out-Patient Physical Therapy Visit Information Visit Information Visit Type Initial Evaluation Visit Note 60 visits per year Visit Start Time 09:03 Visit Stop Time 09:48 Total Visit Minutes 45 Visit Number 1 Number of SMALL BUSINESS DIRECTOR Visits 0 Evaluation Information Evaluation Date 05/29/18 PT-OP-B Current Condition Start: 05/29/18 09:03 Freq: Status: Active Protocol: Document 05/29/18 09:03 [facility] (Rec: 05/29/18 09:53 [facility] [id number]) Current Condition History of Current Condition Onset Date 04/15/18 Current Complaints decreased ROM bilateral shoulders, pain left shoulder History of Current Condition bilateral mastectomy with axillary dissection right. Still doing chemo, starting radiation next week. History of injury left shoulder prior to surgery during rafting trip ; worse since surgery. States unable to reach overhead or behind her back due to pain left shoulder, rightness right . Swelling on and off in right axilla. Some neuropathy bilateral hands, knees, and feet. 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 Prior Treatments and Tests Mastectomy and chemo, currently still undergoing chemo, radiation to start 06/04 Treatment Goals Patient/Caregiver Goals Improve bilateral shoulder ROM to normal Prior Functional Status Baseline Function- ADL's Independent Baseline Function- Mobility Independent Baseline Function- Work/School independent without difficulty Current Functional Impairments (Reported) Functional Limitations- ADL's unable to reach fully overhead bilateral UE's left worse than right, unable to reach behind her back with left UE Functional Limitations- Work/School unable PT-OP-C Subjective Start: 05/29/18 09:03 Freq: Status: Active Protocol: Document 05/29/18 09:03 [facility] (Rec: 05/29/18 11:05 [facility] [id number]) Patient Questionnaires Upper Extremity Functional Scale UEFS Score 30 Upper Extremity Functional Scale 20 to 39% Impaired (Score 48- Impairment 62) OP-PT Pain Assessment Pain Assessment Grid Paper Pain Assessment Grid Completed No PT-OP-F Manual Assessment Start: 05/29/18 09:03 Freq: Status: Active Protocol: Document 05/29/18 09:03 [facility] (Rec: 05/29/18 11:05 [facility] [id number]) Manual Assessments Soft Tissue Assessment Soft Tissue Mobility Assessment Mod decrease in scar mobility bilateral mastectomy scars Joint Mobility Assessment Joint Mobility Assessment GH left painful left posterior glide. Decreased mobility in inferior glide, posterior glide left. Distraction GH caused tingling into left UE. Joint mobility WNL right GH. PT-OP-J Posture/Palpation/Skin Start: 05/29/18 09:03 Freq: Status: Active Protocol: Document 05/29/18 09:03 [facility] (Rec: 05/29/18 11:05 [facility] [id number]) Posture Evaluation Position Sitting Head/C-Spine Posture Forward Head T-Spine Posture Increased Kyphosis Shoulder Posture (L) Rounded (R) Rounded Scapula Posture (L) Protracted (R) Protracted (L) Rotated Down Palpation Assessment Location One Palpation Location bilateral UE's Palpation Details No fibrosis, mild increase tissue temperature right UE. No redness. No axillary cording Skin Assessment Incisional Assessment Incision Appearance/Comments well-healed mastectomy scars. PT-OP-K Range of Motion Start: 05/29/18 09:03 Freq: Status: Active Protocol: Document 05/29/18 09:03 [facility] (Rec: 05/29/18 11:05 [facility] [id number]) Shoulder Goniometric Range of Motion Shoulder Measured in Degrees Left Shoulder ROM WFL No Testing Position Sitting Flexion 130 Extension 12 Abduction 81 External Rotation at 45 degrees 20 Abduction Internal Rotation Behind Back (text) L1 Right Shoulder ROM WFL No Testing Position Sitting Flexion 152 Extension 22 Abduction 155 External Rotation at 45 degrees 48 Abduction Internal Rotation Behind Back (text) T4 Shoulder ROM Limitations Shoulder ROM Limitations Soft Tissue Tightness Pain PT-OP-N Lymphedema Start: 05/29/18 09:03 Freq: Status: Active Protocol: Document 05/29/18 09:03 [facility] (Rec: 05/29/18 11:05 [facility] [id number]) Lymphedema Measurements Upper Extremity Circumference Measurements Left MCP 19 cm Wrist 17.7 cm 10 cm From Distal Crease 20.7 cm 20 cm From Distal Crease 26.5 cm 30 cm From Distal Crease 29.3 cm 40 cm From Distal Crease 36.9 cm Axilla 42.3 cm Right MCP 19.8 cm Wrist 16.8 cm 10 cm From Distal Crease 20.8 cm 20 cm From Distal Crease 25.9 cm 30 cm From Distal Crease 28.2 cm 40 cm From Distal Crease 37 cm Axilla 40 cm PT-OP-Q Treatments Start: 05/29/18 09:03 Freq: Status: Active Protocol: Document 05/29/18 09:03 [facility] (Rec: 05/29/18 11:05 [facility] [id number]) Self-Care/Home Management Treatment Education Patient Education Home Exercise Program Other Education for shoulder ROM; instructed to work in pain-free ROM. ex modified for left UE to prevent exacerbation of pain. Lymphedema Treatment Patient Education Lymphedema Prevention handout given Lymphedema Precautions handout given PT-OP-T Assessment and Plan Start: 05/29/18 09:03 Freq: Status: Active Protocol: Document 05/29/18 09:03 [facility] (Rec: 05/29/18 11:05 [facility] [id number]) Physical Therapy Assessment Rehab Potential Rehabilitation Potential Good Evaluation Complexity Number of Personal Factors/Comorbidities 1-2 Number of Body Systems Impaired 3 Clinical Presentation at Evaluation Evolving Impairments Impairments Pain Posture ROM Soft Tissue Mobility Goals Four Impairment soft tissue mobility Three Impairment pain Two Impairment posture One Impairment ROM Assessment Summary Assessment Patient presents s/p bilateral mastectomies with decreased shoulder ROM, decreased soft tissue mobility, pain left shoulder, postural dysfunction . Baseline circumferential measurements taken with no evidence for lymphedema at this time, patient denies swelling except for occasional in right axilla. Additionally patient appears to have suffered a rotator cuff injury which has been exacerbated by overuse of left UE following surgery She was instructed in signs and symptoms and given a written handout regarding lymphedema prevention and precatations. Also instructed in ROM ex and issued written handout with instructions to ex in pain-free ROM. Would benefit from PT for therapeutic exercises, postural correction, pain management, manual techniques, patient education. Physical Therapy Plan Frequency and Duration Frequency of Treatment 2x/Week Duration of Treatment 2 months Plan of Care Start Date 05/29/18 Plan of Care End Date 07/29/18 Therapeutic Interventions Therapeutic Interventions Home Exercise Program Manual Therapy Patient/Caregiver Education Self-Care/Home Management Soft Tissue Mobilization Therapeutic Exercises Other Therapeutic Interventions Monitor for lymphedema, especially as patient begins radiation treatment next week. Next Visit Focus/Plan Next Note Type Treatment Note Next Visit Plan Review HEP, pulleys for shoulder ROM, gentle manual therapy for left shoulder dysfunction with treatment for apparent rotator cuff involvment
--- NOTE | 2018-05-29 11:12 | PT.OPPOC ---
Current Diagnoses Malignant neoplasm of unspecified site of unspecified female breast (05/29/18) Provider Visit Care Team Role Provider Type Emma Sunshine DO Primary Care Provider Physician Specialty: Family Practice Address: [address] [place] [address], [address] Email: [email or web address] Paresh Talley MD Attending Provider Physician Specialty: General Surgery Address: [address] [place] [address], [address] Email: [email or web address] Plan Of Care PT-OP-T Assessment and Plan Start: 05/29/18 09:03 Freq: Status: Active Protocol: Document 05/29/18 09:03 [facility] (Rec: 05/29/18 11:05 [facility] [id number]) Physical Therapy Assessment Rehab Potential Rehabilitation Potential Good Evaluation Complexity Number of Personal Factors/Comorbidities 1-2 Number of Body Systems Impaired 3 Clinical Presentation at Evaluation Evolving Impairments Impairments Pain Posture ROM Soft Tissue Mobility Goals Four Impairment soft tissue mobility Three Impairment pain Two Impairment posture One Impairment ROM Assessment Summary Assessment Patient presents s/p bilateral mastectomies with decreased shoulder ROM, decreased soft tissue mobility, pain left shoulder, postural dysfunction . Baseline circumferential measurements taken with no evidence for lymphedema at this time, patient denies swelling except for occasional in right axilla. Additionally patient appears to have suffered a rotator cuff injury which has been exacerbated by overuse of left UE following surgery She was instructed in signs and symptoms and given a written handout regarding lymphedema prevention and precatations. Also instructed in ROM ex and issued written handout with instructions to ex in pain-free ROM. Would benefit from PT for therapeutic exercises, postural correction, pain management, manual techniques, patient education. Physical Therapy Plan Frequency and Duration Frequency of Treatment 2x/Week Duration of Treatment 2 months Plan of Care Start Date 05/29/18 Plan of Care End Date 07/29/18 Therapeutic Interventions Therapeutic Interventions Home Exercise Program Manual Therapy Patient/Caregiver Education Self-Care/Home Management Soft Tissue Mobilization Therapeutic Exercises Other Therapeutic Interventions Monitor for lymphedema, especially as patient begins radiation treatment next week. Next Visit Focus/Plan Next Note Type Treatment Note Next Visit Plan Review HEP, pulleys for shoulder ROM, gentle manual therapy for left shoulder dysfunction with treatment for apparent rotator cuff involvment Plan of Care Dates Plan of Care Start Date 05/29/18 Plan of Care End Date 07/29/18 Please Sign and Return: I have reviewed this Plan of Care and certify that the skilled therapy services above are required to meet the patient?s needs. Physician Signature Date Printed Name and Credentials Clinical Instructor Signature Printed Name and Credentials
--- NOTE | 2018-06-05 09:43 | PT.OTN ---
Current Diagnoses Malignant neoplasm of unspecified site of unspecified female breast (06/04/18) Physical Therapy Treatment Note PT-OP-A Visit Information Start: 05/29/18 09:03 Freq: Status: Active Protocol: Document 06/04/18 08:13 [facility] (Rec: 06/04/18 08:59 [facility] [id number]) Out-Patient Physical Therapy Visit Information Visit Information Visit Type Treatment Note Visit Start Time 08:15 Visit Stop Time 09:00 Total Visit Minutes 45 Visit Number 2 Number of MOSS PICKER Visits 0 Evaluation Information Evaluation Date 05/29/18 PT-OP-B Current Condition Start: 05/29/18 09:03 Freq: Status: Active Protocol: Document 05/29/18 09:03 [facility] (Rec: 05/29/18 09:53 [facility] [id number]) Current Condition History of Current Condition Onset Date 04/15/18 Current Complaints decreased ROM bilateral shoulders, pain left shoulder History of Current Condition bilateral mastectomy with axillary dissection right. Still doing chemo, starting radiation next week. History of injury left shoulder prior to surgery during rafting trip ; worse since surgery. States unable to reach overhead or behind her back due to pain left shoulder, rightness right . Swelling on and off in right axilla. Some neuropathy bilateral hands, knees, and feet. 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 Prior Treatments and Tests Mastectomy and chemo, currently still undergoing chemo, radiation to start 06/04 Treatment Goals Patient/Caregiver Goals Improve bilateral shoulder ROM to normal Prior Functional Status Baseline Function- ADL's Independent Baseline Function- Mobility Independent Baseline Function- Work/School independent without difficulty Current Functional Impairments (Reported) Functional Limitations- ADL's unable to reach fully overhead bilateral UE's left worse than right, unable to reach behind her back with left UE Functional Limitations- Work/School unable PT-OP-C Subjective Start: 05/29/18 09:03 Freq: Status: Active Protocol: Document 05/29/18 09:03 [facility] (Rec: 05/29/18 11:05 [facility] [id number]) Patient Questionnaires Upper Extremity Functional Scale UEFS Score 30 Upper Extremity Functional Scale 20 to 39% Impaired (Score 48- Impairment 62) OP-PT Pain Assessment Pain Assessment Grid Paper Pain Assessment Grid Completed No PT-OP-F Manual Assessment Start: 05/29/18 09:03 Freq: Status: Active Protocol: Document 05/29/18 09:03 [facility] (Rec: 05/29/18 11:05 [facility] [id number]) Manual Assessments Soft Tissue Assessment Soft Tissue Mobility Assessment Mod decrease in scar mobility bilateral mastectomy scars Joint Mobility Assessment Joint Mobility Assessment GH left painful left posterior glide. Decreased mobility in inferior glide, posterior glide left. Distraction GH caused tingling into left UE. Joint mobility WNL right GH. PT-OP-J Posture/Palpation/Skin Start: 05/29/18 09:03 Freq: Status: Active Protocol: Document 05/29/18 09:03 [facility] (Rec: 05/29/18 11:05 [facility] [id number]) Posture Evaluation Position Sitting Head/C-Spine Posture Forward Head T-Spine Posture Increased Kyphosis Shoulder Posture (L) Rounded (R) Rounded Scapula Posture (L) Protracted (R) Protracted (L) Rotated Down Palpation Assessment Location One Palpation Location bilateral UE's Palpation Details No fibrosis, mild increase tissue temperature right UE. No redness. No axillary cording Skin Assessment Incisional Assessment Incision Appearance/Comments well-healed mastectomy scars. PT-OP-K Range of Motion Start: 05/29/18 09:03 Freq: Status: Active Protocol: Document 05/29/18 09:03 [facility] (Rec: 05/29/18 11:05 [facility] [id number]) Shoulder Goniometric Range of Motion Shoulder Measured in Degrees Left Shoulder ROM WFL No Testing Position Sitting Flexion 130 Extension 12 Abduction 81 External Rotation at 45 degrees 20 Abduction Internal Rotation Behind Back (text) L1 Right Shoulder ROM WFL No Testing Position Sitting Flexion 152 Extension 22 Abduction 155 External Rotation at 45 degrees 48 Abduction Internal Rotation Behind Back (text) T4 Shoulder ROM Limitations Shoulder ROM Limitations Soft Tissue Tightness Pain PT-OP-N Lymphedema Start: 05/29/18 09:03 Freq: Status: Active Protocol: Document 05/29/18 09:03 [facility] (Rec: 05/29/18 11:05 [facility] [id number]) Lymphedema Measurements Upper Extremity Circumference Measurements Left MCP 19 cm Wrist 17.7 cm 10 cm From Distal Crease 20.7 cm 20 cm From Distal Crease 26.5 cm 30 cm From Distal Crease 29.3 cm 40 cm From Distal Crease 36.9 cm Axilla 42.3 cm Right MCP 19.8 cm Wrist 16.8 cm 10 cm From Distal Crease 20.8 cm 20 cm From Distal Crease 25.9 cm 30 cm From Distal Crease 28.2 cm 40 cm From Distal Crease 37 cm Axilla 40 cm PT-OP-Q Treatments Start: 05/29/18 09:03 Freq: Status: Active Protocol: Document 06/04/18 08:13 [facility] (Rec: 06/04/18 08:59 [facility] [id number]) Gym Equipment Therapeutic Ball seated child's pose Exercise Details UE's on ball, roll forward Ball Size/Color 55 cm Body Position Sitting Reps/Duration 10x Therapeutic Exercises Supine Exercises horizontal abd withend-range stretch Reps/Minutes 5x shoulder flexion Equipment Used wand Reps/Minutes 5 Sidelying Exercises shoulder abduction Reps/Minutes 5x reach and roll Side bilateral Reps/Minutes 5x Sitting Exercises pulleys Sitting Exercise Name shoulder flex, scaption Reps/Minutes 10x scapular squeeze Reps/Minutes 5x shoulder shrugs Reps/Minutes 5x Manual Therapy Treatment Soft Tissue Mobilization cervical spine scapular region, pec major, min Mobilization Type Myofascial Release Rolling Intensity/Depth gentle Body Position Hooklying Comments for increased soft tissue and decreased pain Joint Mobilizations GH left Direction inferior glide, posterior glide Grade II Body Position Hooklying Reps/Duration 4 min PT-OP-T Assessment and Plan Start: 05/29/18 09:03 Freq: Status: Active Protocol: Document 06/04/18 08:13 [facility] (Rec: 06/05/18 09:43 [facility] [id number]) Physical Therapy Assessment Goals Five Impairment lacking appropriate HEP Electrotyper Helper Goal (LTG) Patient to be independent with HEP for shoulder ROM, gentle strengthening and pain managment. Four Impairment soft tissue mobility Shelter Goal (LTG) Improve soft tissue mobility of scars to WNL LTG Duration 2 months Three Impairment pain Shelter Goal (LTG) Decrease left shoulder pain to no greater than 1/10 including ability to reach overhead or behind his back LTG Duration 2 months Two Impairment posture Shelter Goal (LTG) Patient to demonstrate neutral postural alignment consistently to correct post- op forward head and shoulder posturing LTG Duration 3 months One Impairment ROM Shelter Goal (LTG) ROM bilateral shoulders WNL LTG Duration 3 months Assessment Summary Assessment Patient verbalized poor compliance to HEP due to busy week, but feels she will be able to this week. Improved ROM with ther ex today, good release of muscle tension throughout c/s and left UT with manual techniques. Physical Therapy Plan Next Visit Focus/Plan Next Note Type Treatment Note Next Visit Plan Continue with ther ex, manual therapy for improved shoulder ROM, left shoulder pain management
--- NOTE | 2018-06-12 09:14 | PT.OTN ---
Current Diagnoses Malignant neoplasm of unspecified site of unspecified female breast (06/12/18) Physical Therapy Treatment Note PT-OP-A Visit Information Start: 05/29/18 09:03 Freq: Status: Active Protocol: Document 06/12/18 08:16 [facility] (Rec: 06/12/18 09:07 [facility] [id number]) Out-Patient Physical Therapy Visit Information Visit Information Visit Type Treatment Note Visit Start Time 08:15 Visit Stop Time 09:00 Total Visit Minutes 45 Visit Number 3 Number of CLEARANCE COORDINATOR Visits 0 Evaluation Information Evaluation Date 05/29/18 PT-OP-B Current Condition Start: 05/29/18 09:03 Freq: Status: Active Protocol: Document 05/29/18 09:03 [facility]AK (Rec: 05/29/18 09:53 [facility] [id number]) Current Condition History of Current Condition Onset Date 04/15/18 Current Complaints decreased ROM bilateral shoulders, pain left shoulder History of Current Condition bilateral mastectomy with axillary dissection right. Still doing chemo, starting radiation next week. History of injury left shoulder prior to surgery during rafting trip ; worse since surgery. States unable to reach overhead or behind her back due to pain left shoulder, rightness right . Swelling on and off in right axilla. Some neuropathy bilateral hands, knees, and feet. 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 Prior Treatments and Tests Mastectomy and chemo, currently still undergoing chemo, radiation to start 06/04 Treatment Goals Patient/Caregiver Goals Improve bilateral shoulder ROM to normal Prior Functional Status Baseline Function- ADL's Independent Baseline Function- Mobility Independent Baseline Function- Work/School independent without difficulty Current Functional Impairments (Reported) Functional Limitations- ADL's unable to reach fully overhead bilateral UE's left worse than right, unable to reach behind her back with left UE Functional Limitations- Work/School unable PT-OP-C Subjective Start: 05/29/18 09:03 Freq: Status: Active Protocol: Document 06/12/18 09:14 [facility] (Rec: 06/12/18 09:14 [facility] [id number]) OP-PT Subjective Patient Comments Patient Comments Better compliance to HEP Patient Reported Progress Improving PT-OP-F Manual Assessment Start: 05/29/18 09:03 Freq: Status: Active Protocol: Document 05/29/18 09:03 [facility]AK (Rec: 05/29/18 11:05 [facility] [id number]) Manual Assessments Soft Tissue Assessment Soft Tissue Mobility Assessment Mod decrease in scar mobility bilateral mastectomy scars Joint Mobility Assessment Joint Mobility Assessment GH left painful left posterior glide. Decreased mobility in inferior glide, posterior glide left. Distraction GH caused tingling into left UE. Joint mobility WNL right GH. PT-OP-J Posture/Palpation/Skin Start: 05/29/18 09:03 Freq: Status: Active Protocol: Document 05/29/18 09:03 [facility] (Rec: 05/29/18 11:05 [facility] [id number]) Posture Evaluation Position Sitting Head/C-Spine Posture Forward Head T-Spine Posture Increased Kyphosis Shoulder Posture (L) Rounded (R) Rounded Scapula Posture (L) Protracted (R) Protracted (L) Rotated Down Palpation Assessment Location One Palpation Location bilateral UE's Palpation Details No fibrosis, mild increase tissue temperature right UE. No redness. No axillary cording Skin Assessment Incisional Assessment Incision Appearance/Comments well-healed mastectomy scars. PT-OP-K Range of Motion Start: 05/29/18 09:03 Freq: Status: Active Protocol: Document 05/29/18 09:03 [facility] (Rec: 05/29/18 11:05 [facility] [id number]) Shoulder Goniometric Range of Motion Shoulder Measured in Degrees Left Shoulder ROM WFL No Testing Position Sitting Flexion 130 Extension 12 Abduction 81 External Rotation at 45 degrees 20 Abduction Internal Rotation Behind Back (text) L1 Right Shoulder ROM WFL No Testing Position Sitting Flexion 152 Extension 22 Abduction 155 External Rotation at 45 degrees 48 Abduction Internal Rotation Behind Back (text) T4 Shoulder ROM Limitations Shoulder ROM Limitations Soft Tissue Tightness Pain PT-OP-N Lymphedema Start: 05/29/18 09:03 Freq: Status: Active Protocol: Document 05/29/18 09:03 [facility] (Rec: 05/29/18 11:05 [facility] [id number]) Lymphedema Measurements Upper Extremity Circumference Measurements Left MCP 19 cm Wrist 17.7 cm 10 cm From Distal Crease 20.7 cm 20 cm From Distal Crease 26.5 cm 30 cm From Distal Crease 29.3 cm 40 cm From Distal Crease 36.9 cm Axilla 42.3 cm Right MCP 19.8 cm Wrist 16.8 cm 10 cm From Distal Crease 20.8 cm 20 cm From Distal Crease 25.9 cm 30 cm From Distal Crease 28.2 cm 40 cm From Distal Crease 37 cm Axilla 40 cm PT-OP-Q Treatments Start: 05/29/18 09:03 Freq: Status: Active Protocol: Document 06/12/18 08:16 [facility] (Rec: 06/12/18 09:07 [facility] [id number]) Gym Equipment Therapeutic Ball seated child's pose Exercise Details UE's on ball, roll forward, lateral flex Ball Size/Color 55 cm Body Position Sitting Reps/Duration 10x Therapeutic Exercises Supine Exercises shoulder ER/IR Equipment Used towel roll under upper arm horizontal abd withend-range stretch Reps/Minutes 5x shoulder flexion Equipment Used wand Reps/Minutes 5 Sidelying Exercises shoulder abduction Reps/Minutes 5x reach and roll Side bilateral Reps/Minutes 5x Sitting Exercises shoulder ER Equipment Used L1 TB pulleys Sitting Exercise Name shoulder flex, scaption Reps/Minutes 10x scapular squeeze Reps/Minutes 5x shoulder shrugs Reps/Minutes 5x Standing Exercises wall slide Standing Exercise Name shoulder flex Equipment Used sliders Reps/Minutes 10x row Equipment Used L1 TB Reps/Minutes 10x Manual Therapy Treatment Soft Tissue Mobilization cervical spine scapular region, pec major, min Mobilization Type Myofascial Release Rolling Intensity/Depth gentle Body Position Hooklying Comments for increased soft tissue and decreased pain Joint Mobilizations GH left Direction inferior glide, posterior glide Grade II Body Position Hooklying Reps/Duration 4 min PT-OP-T Assessment and Plan Start: 05/29/18 09:03 Freq: Status: Active Protocol: Document 06/12/18 08:16 [facility] (Rec: 06/12/18 09:07 [facility] [id number]) Physical Therapy Assessment Goals Five Impairment lacking appropriate HEP Health Education Specialist Goal (LTG) Patient to be independent with HEP for shoulder ROM, gentle strengthening and pain managment. Four Impairment soft tissue mobility Health Education Specialist Goal (LTG) Improve soft tissue mobility of scars to WNL LTG Duration 2 months Three Impairment pain Shelter Goal (LTG) Decrease left shoulder pain to no greater than 1/10 including ability to reach overhead or behind his back LTG Duration 2 months Two Impairment posture Health Education Specialist Goal (LTG) Patient to demonstrate neutral postural alignment consistently to correct post- op forward head and shoulder posturing LTG Duration 3 months One Impairment ROM Shelter Goal (LTG) ROM bilateral shoulders WNL LTG Duration 3 months Assessment Summary Assessment Improving ROM, still with some impingement symptoms. Improved compliance to HEP. Physical Therapy Plan Frequency and Duration Frequency of Treatment 2x/Week Duration of Treatment 2 months Plan of Care Start Date 05/29/18 Plan of Care End Date 07/29/18 Therapeutic Interventions Therapeutic Interventions Home Exercise Program Manual Therapy Patient/Caregiver Education Self-Care/Home Management Soft Tissue Mobilization Therapeutic Exercises Other Therapeutic Interventions Monitor for lymphedema, especially as patient begins radiation treatment next week. Next Visit Focus/Plan Next Note Type Treatment Note Next Visit Plan Continue with ther ex, manual therapy for improved shoulder ROM, left shoulder pain management
--- NOTE | 2018-06-14 15:11 | PT.OTN ---
Current Diagnoses Malignant neoplasm of unspecified site of unspecified female breast (06/14/18) Physical Therapy Treatment Note PT-OP-A Visit Information Start: 05/29/18 09:03 Freq: Status: Active Protocol: Document 06/14/18 08:20 [facility] (Rec: 06/14/18 08:28 [facility] [id number]) Out-Patient Physical Therapy Visit Information Visit Information Visit Type Treatment Note Visit Start Time 08:15 Visit Stop Time 09:00 Total Visit Minutes 45 Visit Number 4 Number of CHIEF MARKETING OFFICER Visits 0 Evaluation Information Evaluation Date 05/29/18 PT-OP-B Current Condition Start: 05/29/18 09:03 Freq: Status: Active Protocol: Document 05/29/18 09:03 [facility] (Rec: 05/29/18 09:53 [facility] [id number]) Current Condition History of Current Condition Onset Date 04/15/18 Current Complaints decreased ROM bilateral shoulders, pain left shoulder History of Current Condition bilateral mastectomy with axillary dissection right. Still doing chemo, starting radiation next week. History of injury left shoulder prior to surgery during rafting trip ; worse since surgery. States unable to reach overhead or behind her back due to pain left shoulder, rightness right . Swelling on and off in right axilla. Some neuropathy bilateral hands, knees, and feet. 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 Prior Treatments and Tests Mastectomy and chemo, currently still undergoing chemo, radiation to start 06/04 Treatment Goals Patient/Caregiver Goals Improve bilateral shoulder ROM to normal Prior Functional Status Baseline Function- ADL's Independent Baseline Function- Mobility Independent Baseline Function- Work/School independent without difficulty Current Functional Impairments (Reported) Functional Limitations- ADL's unable to reach fully overhead bilateral UE's left worse than right, unable to reach behind her back with left UE Functional Limitations- Work/School unable PT-OP-C Subjective Start: 05/29/18 09:03 Freq: Status: Active Protocol: Document 06/14/18 08:20 [facility] (Rec: 06/14/18 15:10 [facility] [id number]) OP-PT Subjective Patient Comments Patient Comments Some soreness after last session, compliant to HEP. PT-OP-F Manual Assessment Start: 05/29/18 09:03 Freq: Status: Active Protocol: Document 05/29/18 09:03 [facility] (Rec: 05/29/18 11:05 [facility] [id number]) Manual Assessments Soft Tissue Assessment Soft Tissue Mobility Assessment Mod decrease in scar mobility bilateral mastectomy scars Joint Mobility Assessment Joint Mobility Assessment GH left painful left posterior glide. Decreased mobility in inferior glide, posterior glide left. Distraction GH caused tingling into left UE. Joint mobility WNL right GH. PT-OP-J Posture/Palpation/Skin Start: 05/29/18 09:03 Freq: Status: Active Protocol: Document 05/29/18 09:03 [facility] (Rec: 05/29/18 11:05 [facility] [id number]) Posture Evaluation Position Sitting Head/C-Spine Posture Forward Head T-Spine Posture Increased Kyphosis Shoulder Posture (L) Rounded (R) Rounded Scapula Posture (L) Protracted (R) Protracted (L) Rotated Down Palpation Assessment Location One Palpation Location bilateral UE's Palpation Details No fibrosis, mild increase tissue temperature right UE. No redness. No axillary cording Skin Assessment Incisional Assessment Incision Appearance/Comments well-healed mastectomy scars. PT-OP-K Range of Motion Start: 05/29/18 09:03 Freq: Status: Active Protocol: Document 05/29/18 09:03 [facility] (Rec: 05/29/18 11:05 [facility] [id number]) Shoulder Goniometric Range of Motion Shoulder Measured in Degrees Left Shoulder ROM WFL No Testing Position Sitting Flexion 130 Extension 12 Abduction 81 External Rotation at 45 degrees 20 Abduction Internal Rotation Behind Back (text) L1 Right Shoulder ROM WFL No Testing Position Sitting Flexion 152 Extension 22 Abduction 155 External Rotation at 45 degrees 48 Abduction Internal Rotation Behind Back (text) T4 Shoulder ROM Limitations Shoulder ROM Limitations Soft Tissue Tightness Pain PT-OP-N Lymphedema Start: 05/29/18 09:03 Freq: Status: Active Protocol: Document 05/29/18 09:03 [facility] (Rec: 05/29/18 11:05 [facility] [id number]) Lymphedema Measurements Upper Extremity Circumference Measurements Left MCP 19 cm Wrist 17.7 cm 10 cm From Distal Crease 20.7 cm 20 cm From Distal Crease 26.5 cm 30 cm From Distal Crease 29.3 cm 40 cm From Distal Crease 36.9 cm Axilla 42.3 cm Right MCP 19.8 cm Wrist 16.8 cm 10 cm From Distal Crease 20.8 cm 20 cm From Distal Crease 25.9 cm 30 cm From Distal Crease 28.2 cm 40 cm From Distal Crease 37 cm Axilla 40 cm PT-OP-Q Treatments Start: 05/29/18 09:03 Freq: Status: Active Protocol: Document 06/14/18 08:20 [facility] (Rec: 06/14/18 08:28 [facility] [id number]) Cardio Equipment Recumbent Elliptical (Biodex) Duration (Minutes) 5 Resistance 1 Gym Equipment Therapeutic Ball seated child's pose Exercise Details UE's on ball, roll forward, lateral flex Ball Size/Color 55 cm Body Position Sitting Reps/Duration 10x Therapeutic Exercises Supine Exercises serratus punch Reps/Minutes 10x shoulder ER/IR Equipment Used towel roll under upper arm horizontal abd withend-range stretch Reps/Minutes 5x shoulder flexion Equipment Used wand Reps/Minutes 5 Prone Exercises scapular clocks Resistance manual facilitation, resistance Sidelying Exercises scapular clock Resistance manual shoulder flexion Reps/Minutes 10x Comments manual scapular rotation shoulder abduction Reps/Minutes 5x reach and roll Side bilateral Reps/Minutes 5x Sitting Exercises shoulder ER Equipment Used L1 TB pulleys Sitting Exercise Name shoulder flex, scaption Reps/Minutes 10x Comments manual scapular rotation scapular squeeze Sitting Exercise Name clocks Reps/Minutes 5x shoulder shrugs Reps/Minutes 5x Manual Therapy Treatment Soft Tissue Mobilization cervical spine scapular region, pec major, min Mobilization Type Myofascial Release Rolling Intensity/Depth gentle Body Position Prone Comments for increased soft tissue and decreased pain. Incorporation of deep breathing to increase thoracic mobility left PT-OP-T Assessment and Plan Start: 05/29/18 09:03 Freq: Status: Active Protocol: Document 06/14/18 08:20 [facility] (Rec: 06/14/18 15:10 [facility] [id number]) Physical Therapy Assessment Goals Five Impairment lacking appropriate HEP Senior Care Goal (LTG) Patient to be independent with HEP for shoulder ROM, gentle strengthening and pain managment. Four Impairment soft tissue mobility Senior Care Goal (LTG) Improve soft tissue mobility of scars to WNL LTG Duration 2 months Three Impairment pain Photonic Laboratory Technician Goal (LTG) Decrease left shoulder pain to no greater than 1/10 including ability to reach overhead or behind his back LTG Duration 2 months Two Impairment posture Senior Care Goal (LTG) Patient to demonstrate neutral postural alignment consistently to correct post- op forward head and shoulder posturing LTG Duration 3 months One Impairment ROM Photonic Laboratory Technician Goal (LTG) ROM bilateral shoulders WNL LTG Duration 3 months Assessment Summary Assessment Further improvement in shoulder ROM especially with scapular mobilization with active movement, scapular clock exercises Physical Therapy Plan Frequency and Duration Frequency of Treatment 2x/Week Duration of Treatment 2 months Plan of Care Start Date 05/29/18 Plan of Care End Date 07/29/18 Therapeutic Interventions Therapeutic Interventions Home Exercise Program Manual Therapy Patient/Caregiver Education Self-Care/Home Management Soft Tissue Mobilization Therapeutic Exercises Other Therapeutic Interventions Monitor for lymphedema, especially as patient begins radiation treatment next week. Next Visit Focus/Plan Next Note Type Treatment Note Next Visit Plan Continue with ther ex, manual therapy for improved shoulder ROM, left shoulder pain management
--- NOTE | 2018-06-17 17:09 | PT.OTN ---
Current Diagnoses Malignant neoplasm of unspecified site of unspecified female breast (06/17/18) Physical Therapy Treatment Note PT-OP-A Visit Information Start: 05/29/18 09:03 Freq: Status: Active Protocol: Document 06/17/18 08:16 [facility] (Rec: 06/17/18 08:38 [facility] [id number]) Out-Patient Physical Therapy Visit Information Visit Information Visit Type Treatment Note Visit Start Time 08:15 Visit Stop Time 09:00 Total Visit Minutes 40 Visit Number 5 Number of SANITATION LABORER Visits 0 Evaluation Information Evaluation Date 05/29/18 PT-OP-B Current Condition Start: 05/29/18 09:03 Freq: Status: Active Protocol: Document 05/29/18 09:03 [facility] (Rec: 05/29/18 09:53 [facility] [id number]) Current Condition History of Current Condition Onset Date 04/15/18 Current Complaints decreased ROM bilateral shoulders, pain left shoulder History of Current Condition bilateral mastectomy with axillary dissection right. Still doing chemo, starting radiation next week. History of injury left shoulder prior to surgery during rafting trip ; worse since surgery. States unable to reach overhead or behind her back due to pain left shoulder, rightness right . Swelling on and off in right axilla. Some neuropathy bilateral hands, knees, and feet. 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 Prior Treatments and Tests Mastectomy and chemo, currently still undergoing chemo, radiation to start 06/04 Treatment Goals Patient/Caregiver Goals Improve bilateral shoulder ROM to normal Prior Functional Status Baseline Function- ADL's Independent Baseline Function- Mobility Independent Baseline Function- Work/School independent without difficulty Current Functional Impairments (Reported) Functional Limitations- ADL's unable to reach fully overhead bilateral UE's left worse than right, unable to reach behind her back with left UE Functional Limitations- Work/School unable PT-OP-C Subjective Start: 05/29/18 09:03 Freq: Status: Active Protocol: Document 06/17/18 08:16 [facility] (Rec: 06/17/18 08:38 [facility] [id number]) OP-PT Subjective Patient Comments Patient Comments A little sore after last session but improved motion Patient Reported Progress Improving PT-OP-F Manual Assessment Start: 05/29/18 09:03 Freq: Status: Active Protocol: Document 05/29/18 09:03 [facility] (Rec: 05/29/18 11:05 [facility] [id number]) Manual Assessments Soft Tissue Assessment Soft Tissue Mobility Assessment Mod decrease in scar mobility bilateral mastectomy scars Joint Mobility Assessment Joint Mobility Assessment GH left painful left posterior glide. Decreased mobility in inferior glide, posterior glide left. Distraction GH caused tingling into left UE. Joint mobility WNL right GH. PT-OP-J Posture/Palpation/Skin Start: 05/29/18 09:03 Freq: Status: Active Protocol: Document 05/29/18 09:03 [facility] (Rec: 05/29/18 11:05 [facility] [id number]) Posture Evaluation Position Sitting Head/C-Spine Posture Forward Head T-Spine Posture Increased Kyphosis Shoulder Posture (L) Rounded (R) Rounded Scapula Posture (L) Protracted (R) Protracted (L) Rotated Down Palpation Assessment Location One Palpation Location bilateral UE's Palpation Details No fibrosis, mild increase tissue temperature right UE. No redness. No axillary cording Skin Assessment Incisional Assessment Incision Appearance/Comments well-healed mastectomy scars. PT-OP-K Range of Motion Start: 05/29/18 09:03 Freq: Status: Active Protocol: Document 05/29/18 09:03 [facility] (Rec: 05/29/18 11:05 [facility] [id number]) Shoulder Goniometric Range of Motion Shoulder Measured in Degrees Left Shoulder ROM WFL No Testing Position Sitting Flexion 130 Extension 12 Abduction 81 External Rotation at 45 degrees 20 Abduction Internal Rotation Behind Back (text) L1 Right Shoulder ROM WFL No Testing Position Sitting Flexion 152 Extension 22 Abduction 155 External Rotation at 45 degrees 48 Abduction Internal Rotation Behind Back (text) T4 Shoulder ROM Limitations Shoulder ROM Limitations Soft Tissue Tightness Pain PT-OP-N Lymphedema Start: 05/29/18 09:03 Freq: Status: Active Protocol: Document 05/29/18 09:03 [facility] (Rec: 05/29/18 11:05 [facility] [id number]) Lymphedema Measurements Upper Extremity Circumference Measurements Left MCP 19 cm Wrist 17.7 cm 10 cm From Distal Crease 20.7 cm 20 cm From Distal Crease 26.5 cm 30 cm From Distal Crease 29.3 cm 40 cm From Distal Crease 36.9 cm Axilla 42.3 cm Right MCP 19.8 cm Wrist 16.8 cm 10 cm From Distal Crease 20.8 cm 20 cm From Distal Crease 25.9 cm 30 cm From Distal Crease 28.2 cm 40 cm From Distal Crease 37 cm Axilla 40 cm PT-OP-Q Treatments Start: 05/29/18 09:03 Freq: Status: Active Protocol: Document 06/17/18 08:16 [facility] (Rec: 06/17/18 08:38 [facility] [id number]) Gym Equipment Therapeutic Ball seated child's pose Exercise Details UE's on ball, roll forward, lateral flex Ball Size/Color 55 cm Body Position Sitting Reps/Duration 10x Therapeutic Exercises Supine Exercises serratus punch Reps/Minutes 10x shoulder ER/IR Equipment Used towel roll under upper arm horizontal abd withend-range stretch Reps/Minutes 5x shoulder flexion Equipment Used wand Reps/Minutes 5 Prone Exercises scapular clocks Resistance manual facilitation, resistance Sidelying Exercises scapular clock Resistance manual shoulder flexion Reps/Minutes 10x Comments manual scapular rotation shoulder abduction Reps/Minutes 5x reach and roll Side bilateral Reps/Minutes 5x Sitting Exercises shoulder ER Equipment Used L1 TB pulleys Sitting Exercise Name shoulder flex, scaption Reps/Minutes 10x Comments manual scapular rotation scapular squeeze Sitting Exercise Name clocks Reps/Minutes 5x shoulder shrugs Reps/Minutes 5x Standing Exercises wall slide Standing Exercise Name shoulder flex Equipment Used sliders Reps/Minutes 10x row Equipment Used L1 TB Reps/Minutes 10x Manual Therapy Treatment Joint Mobilizations GH left Direction inferior glide, posterior glide Grade II Body Position Hooklying Reps/Duration 4 min PT-OP-T Assessment and Plan Start: 05/29/18 09:03 Freq: Status: Active Protocol: Document 06/17/18 08:16 [facility] (Rec: 06/17/18 08:38 [facility] [id number]) Physical Therapy Assessment Goals Five Impairment lacking appropriate HEP Kettle Tender Goal (LTG) Patient to be independent with HEP for shoulder ROM, gentle strengthening and pain managment. Four Impairment soft tissue mobility Skilled Nursing Goal (LTG) Improve soft tissue mobility of scars to WNL LTG Duration 2 months Three Impairment pain Skilled Nursing Goal (LTG) Decrease left shoulder pain to no greater than 1/10 including ability to reach overhead or behind his back LTG Duration 2 months Two Impairment posture Kettle Tender Goal (LTG) Patient to demonstrate neutral postural alignment consistently to correct post- op forward head and shoulder posturing LTG Duration 3 months One Impairment ROM Kettle Tender Goal (LTG) ROM bilateral shoulders WNL LTG Duration 3 months Assessment Summary Assessment cont to improve with ROM especially after scapular mobilization Physical Therapy Plan Frequency and Duration Frequency of Treatment 2x/Week Duration of Treatment 2 months Plan of Care Start Date 05/29/18 Plan of Care End Date 07/29/18 Therapeutic Interventions Therapeutic Interventions Home Exercise Program Manual Therapy Patient/Caregiver Education Self-Care/Home Management Soft Tissue Mobilization Therapeutic Exercises Other Therapeutic Interventions Monitor for lymphedema, especially as patient begins radiation treatment next week. Next Visit Focus/Plan Next Note Type Treatment Note Next Visit Plan Continue PT to improve left shoulder ROM, decrease pain, improve flunction
--- NOTE | 2018-06-20 08:48 | PT.OTN ---
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 Still doing chemo, starting radiation next week. History of injury left shoulder prior to surgery during rafting trip ; worse since surgery. States unable to reach overhead or behind her back due to pain left shoulder, rightness right . Swelling on and off in right axilla. Some neuropathy bilateral hands, knees, and feet. 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 Prior Treatments and Tests Mastectomy and chemo, currently still undergoing chemo, radiation to start 06/04 Treatment Goals Patient/Caregiver Goals Improve bilateral shoulder ROM to normal Prior Functional Status Baseline Function- ADL's Independent Baseline Function- Mobility Independent Baseline Function- Work/School independent without difficulty Current Functional Impairments (Reported) Functional Limitations- ADL's unable to reach fully overhead bilateral UE's left worse than right, unable to reach behind her back with left UE Functional Limitations- Work/School unable PT-OP-C Subjective Start: 05/29/18 09:03 Freq: Status: Active Protocol: Document 06/20/18 08:29 [facility] (Rec: 06/20/18 08:48 [facility] [id number]) OP-PT Subjective Patient Comments Patient Comments No new c/o, saw doctor yesterday. PT-OP-F Manual Assessment Start: 05/29/18 09:03 Freq: Status: Active Protocol: Document 05/29/18 09:03 [facility] (Rec: 05/29/18 11:05 [facility] [id number]) Manual Assessments Soft Tissue Assessment Soft Tissue Mobility Assessment Mod decrease in scar mobility bilateral mastectomy scars Joint Mobility Assessment Joint Mobility Assessment GH left painful left posterior glide. Decreased mobility in inferior glide, posterior glide left. Distraction GH caused tingling into left UE. Joint mobility WNL right GH. PT-OP-J Posture/Palpation/Skin Start: 05/29/18 09:03 Freq: Status: Active Protocol: Document 05/29/18 09:03 [facility] (Rec: 05/29/18 11:05 [facility] [id number]) Posture Evaluation Position Sitting Head/C-Spine Posture Forward Head T-Spine Posture Increased Kyphosis Shoulder Posture (L) Rounded (R) Rounded Scapula Posture (L) Protracted (R) Protracted (L) Rotated Down Palpation Assessment Location One Palpation Location bilateral UE's Palpation Details No fibrosis, mild increase tissue temperature right UE. No redness. No axillary cording Skin Assessment Incisional Assessment Incision Appearance/Comments well-healed mastectomy scars. PT-OP-K Range of Motion Start: 05/29/18 09:03 Freq: Status: Active Protocol: Document 05/29/18 09:03 [facility] (Rec: 05/29/18 11:05 [facility] [id number]) Shoulder Goniometric Range of Motion Shoulder Measured in Degrees Left Shoulder ROM WFL No Testing Position Sitting Flexion 130 Extension 12 Abduction 81 External Rotation at 45 degrees 20 Abduction Internal Rotation Behind Back (text) L1 Right Shoulder ROM WFL No Testing Position Sitting Flexion 152 Extension 22 Abduction 155 External Rotation at 45 degrees 48 Abduction Internal Rotation Behind Back (text) T4 Shoulder ROM Limitations Shoulder ROM Limitations Soft Tissue Tightness Pain PT-OP-N Lymphedema Start: 05/29/18 09:03 Freq: Status: Active Protocol: Document 05/29/18 09:03 [facility] (Rec: 05/29/18 11:05 [facility] [id number]) Lymphedema Measurements Upper Extremity Circumference Measurements Left MCP 19 cm Wrist 17.7 cm 10 cm From Distal Crease 20.7 cm 20 cm From Distal Crease 26.5 cm 30 cm From Distal Crease 29.3 cm 40 cm From Distal Crease 36.9 cm Axilla 42.3 cm Right MCP 19.8 cm Wrist 16.8 cm 10 cm From Distal Crease 20.8 cm 20 cm From Distal Crease 25.9 cm 30 cm From Distal Crease 28.2 cm 40 cm From Distal Crease 37 cm Axilla 40 cm PT-OP-Q Treatments Start: 05/29/18 09:03 Freq: Status: Active Protocol: Document 06/20/18 08:29 [facility] (Rec: 06/20/18 08:48 [facility] [id number]) Cardio Equipment Recumbent Elliptical (Biodex) Duration (Minutes) 5 Resistance 1 Gym Equipment Therapeutic Ball seated child's pose Exercise Details UE's on ball, roll forward, lateral flex Ball Size/Color 55 cm Body Position Sitting Reps/Duration 10x Therapeutic Exercises Supine Exercises serratus punch Reps/Minutes 10x shoulder ER/IR Equipment Used towel roll under upper arm horizontal abd withend-range stretch Reps/Minutes 5x shoulder flexion Equipment Used wand Reps/Minutes 5 Sitting Exercises row Side bilateral Resistance L1 Reps/Minutes 10x Manual Therapy Treatment Joint Mobilizations GH left Direction inferior glide, posterior glide Grade II Body Position Hooklying Reps/Duration 4 min PT-OP-T Assessment and Plan Start: 05/29/18 09:03 Freq: Status: Active Protocol: Document 06/20/18 08:29 [facility] (Rec: 06/20/18 08:48 [facility] [id number]) Physical Therapy Assessment Goals Five Impairment lacking appropriate HEP Skin Drier Goal (LTG) Patient to be independent with HEP for shoulder ROM, gentle strengthening and pain managment. Four Impairment soft tissue mobility Skin Drier Goal (LTG) Improve soft tissue mobility of scars to WNL LTG Duration 2 months Three Impairment pain Fpc Goal (LTG) Decrease left shoulder pain to no greater than 1/10 including ability to reach overhead or behind his back LTG Duration 2 months Two Impairment posture Skin Drier Goal (LTG) Patient to demonstrate neutral postural alignment consistently to correct post- op forward head and shoulder posturing LTG Duration 3 months One Impairment ROM Fpc Goal (LTG) ROM bilateral shoulders WNL LTG Duration 3 months Assessment Summary Assessment cont to improve with ROM especially after scapular mobilization Physical Therapy Plan Frequency and Duration Frequency of Treatment 2x/Week Duration of Treatment 2 months Plan of Care Start Date 05/29/18 Plan of Care End Date 07/29/18 Therapeutic Interventions Therapeutic Interventions Home Exercise Program Manual Therapy Patient/Caregiver Education Self-Care/Home Management Soft Tissue Mobilization Therapeutic Exercises Other Therapeutic Interventions Monitor for lymphedema, especially as patient begins radiation treatment next week. Next Visit Focus/Plan Next Note Type Treatment Note Next Visit Plan Continue PT per POC.
--- NOTE | 2018-06-25 09:43 | PT.OTN ---
Current Diagnoses Malignant neoplasm of unspecified site of unspecified female breast (06/25/18) Physical Therapy Treatment Note PT-OP-A Visit Information Start: 05/29/18 09:03 Freq: Status: Active Protocol: Document 06/25/18 08:17 [facility] (Rec: 06/25/18 08:38 [facility] [id number]) Out-Patient Physical Therapy Visit Information Visit Information Visit Type Treatment Note Visit Start Time 08:15 Visit Stop Time 09:00 Total Visit Minutes 45 Visit Number 7 Number of IMPLEMENTATION ANALYST Visits 0 Evaluation Information Evaluation Date 05/29/18 PT-OP-B Current Condition Start: 05/29/18 09:03 Freq: Status: Active Protocol: Document 05/29/18 09:03 [facility] (Rec: 05/29/18 09:53 [facility] [id number]) Current Condition History of Current Condition Onset Date 04/15/18 Current Complaints decreased ROM bilateral shoulders, pain left shoulder History of Current Condition bilateral mastectomy with axillary dissection right. Still doing chemo, starting radiation next week. History of injury left shoulder prior to surgery during rafting trip ; worse since surgery. States unable to reach overhead or behind her back due to pain left shoulder, rightness right . Swelling on and off in right axilla. Some neuropathy bilateral hands, knees, and feet. 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 Prior Treatments and Tests Mastectomy and chemo, currently still undergoing chemo, radiation to start 06/04 Treatment Goals Patient/Caregiver Goals Improve bilateral shoulder ROM to normal Prior Functional Status Baseline Function- ADL's Independent Baseline Function- Mobility Independent Baseline Function- Work/School independent without difficulty Current Functional Impairments (Reported) Functional Limitations- ADL's unable to reach fully overhead bilateral UE's left worse than right, unable to reach behind her back with left UE Functional Limitations- Work/School unable PT-OP-C Subjective Start: 05/29/18 09:03 Freq: Status: Active Protocol: Document 06/25/18 08:17 [facility] (Rec: 06/25/18 08:38 [facility] [id number]) OP-PT Subjective Patient Comments Patient Comments Left shoulder doing better, right shoulder being a bit cranky PT-OP-F Manual Assessment Start: 05/29/18 09:03 Freq: Status: Active Protocol: Document 05/29/18 09:03 [facility] (Rec: 05/29/18 11:05 [facility] [id number]) Manual Assessments Soft Tissue Assessment Soft Tissue Mobility Assessment Mod decrease in scar mobility bilateral mastectomy scars Joint Mobility Assessment Joint Mobility Assessment GH left painful left posterior glide. Decreased mobility in inferior glide, posterior glide left. Distraction GH caused tingling into left UE. Joint mobility WNL right GH. PT-OP-J Posture/Palpation/Skin Start: 05/29/18 09:03 Freq: Status: Active Protocol: Document 05/29/18 09:03 [facility] (Rec: 05/29/18 11:05 [facility] [id number]) Posture Evaluation Position Sitting Head/C-Spine Posture Forward Head T-Spine Posture Increased Kyphosis Shoulder Posture (L) Rounded (R) Rounded Scapula Posture (L) Protracted (R) Protracted (L) Rotated Down Palpation Assessment Location One Palpation Location bilateral UE's Palpation Details No fibrosis, mild increase tissue temperature right UE. No redness. No axillary cording Skin Assessment Incisional Assessment Incision Appearance/Comments well-healed mastectomy scars. PT-OP-K Range of Motion Start: 05/29/18 09:03 Freq: Status: Active Protocol: Document 05/29/18 09:03 [facility] (Rec: 05/29/18 11:05 [facility] [id number]) Shoulder Goniometric Range of Motion Shoulder Measured in Degrees Left Shoulder ROM WFL No Testing Position Sitting Flexion 130 Extension 12 Abduction 81 External Rotation at 45 degrees 20 Abduction Internal Rotation Behind Back (text) L1 Right Shoulder ROM WFL No Testing Position Sitting Flexion 152 Extension 22 Abduction 155 External Rotation at 45 degrees 48 Abduction Internal Rotation Behind Back (text) T4 Shoulder ROM Limitations Shoulder ROM Limitations Soft Tissue Tightness Pain PT-OP-N Lymphedema Start: 05/29/18 09:03 Freq: Status: Active Protocol: Document 05/29/18 09:03 [facility] (Rec: 05/29/18 11:05 [facility] [id number]) Lymphedema Measurements Upper Extremity Circumference Measurements Left MCP 19 cm Wrist 17.7 cm 10 cm From Distal Crease 20.7 cm 20 cm From Distal Crease 26.5 cm 30 cm From Distal Crease 29.3 cm 40 cm From Distal Crease 36.9 cm Axilla 42.3 cm Right MCP 19.8 cm Wrist 16.8 cm 10 cm From Distal Crease 20.8 cm 20 cm From Distal Crease 25.9 cm 30 cm From Distal Crease 28.2 cm 40 cm From Distal Crease 37 cm Axilla 40 cm PT-OP-Q Treatments Start: 05/29/18 09:03 Freq: Status: Active Protocol: Document 06/25/18 08:17 [facility] (Rec: 06/25/18 08:38 [facility] [id number]) Cardio Equipment Recumbent Elliptical (Biodex) Duration (Minutes) 5 Resistance 1 Therapeutic Exercises Supine Exercises serratus punch Reps/Minutes 10x shoulder ER/IR Equipment Used towel roll under upper arm horizontal abd withend-range stretch Reps/Minutes 5x shoulder flexion Equipment Used wand Reps/Minutes 5 Prone Exercises scapular clocks Resistance manual facilitation, resistance Sidelying Exercises shoulder flexion Reps/Minutes 10x Comments manual scapular rotation shoulder abduction Reps/Minutes 5x reach and roll Side bilateral Reps/Minutes 5x Sitting Exercises pulleys Sitting Exercise Name shoulder flex, scaption Reps/Minutes 10x Comments manual scapular rotation scapular squeeze Sitting Exercise Name clocks Reps/Minutes 5x shoulder shrugs Reps/Minutes 10x Comments shoulder rolls Standing Exercises shld IR Equipment Used L1 TB Reps/Minutes 10x shld ER Equipment Used L1 TB Reps/Minutes 10x shoulder ext Equipment Used wand Reps/Minutes 10x shld ad Resistance L1 Reps/Minutes 10x sh ext Equipment Used L1 TB Reps/Minutes 10x wall slide Standing Exercise Name shoulder flex Equipment Used sliders Reps/Minutes 10x row Equipment Used L1 TB Reps/Minutes 10x Manual Therapy Treatment Soft Tissue Mobilization cervical spine scapular region, pec major, min Mobilization Type Myofascial Release Rolling Intensity/Depth gentle Body Position Prone Comments for increased soft tissue and decreased pain. Incorporation of deep breathing to increase thoracic mobility left Joint Mobilizations GH left Direction inferior glide, posterior glide Grade II Body Position Hooklying Reps/Duration 4 min PT-OP-T Assessment and Plan Start: 05/29/18 09:03 Freq: Status: Active Protocol: Document 06/25/18 08:17 [facility] (Rec: 06/25/18 09:42 [facility] [id number]) Physical Therapy Assessment Goals Five Impairment lacking appropriate HEP Chcf Goal (LTG) Patient to be independent with HEP for shoulder ROM, gentle strengthening and pain managment. Four Impairment soft tissue mobility Chcf Goal (LTG) Improve soft tissue mobility of scars to WNL LTG Duration 2 months Three Impairment pain Em Physician Goal (LTG) Decrease left shoulder pain to no greater than 1/10 including ability to reach overhead or behind his back LTG Duration 2 months Two Impairment posture Chcf Goal (LTG) Patient to demonstrate neutral postural alignment consistently to correct post- op forward head and shoulder posturing LTG Duration 3 months One Impairment ROM Em Physician Goal (LTG) ROM bilateral shoulders WNL LTG Duration 3 months Progress Towards Goals Progress Towards Goals Progressing Toward Goals Assessment Summary Assessment Good progress with shoulder ROM, some symptoms of impingement, so scapular stren gthening and stabiliztion continue. Physical Therapy Plan Frequency and Duration Frequency of Treatment 2x/Week Duration of Treatment 2 months Plan of Care Start Date 05/29/18 Plan of Care End Date 07/29/18 Therapeutic Interventions Therapeutic Interventions Home Exercise Program Manual Therapy Patient/Caregiver Education Self-Care/Home Management Soft Tissue Mobilization Therapeutic Exercises Other Therapeutic Interventions Monitor for lymphedema, especially as patient begins radiation treatment next week. Next Visit Focus/Plan Next Note Type Treatment Note Next Visit Plan Continue PT per to improve ROM , decrease pain.
--- NOTE | 2018-06-28 12:41 | PT.OTN ---
Current Diagnoses Malignant neoplasm of unspecified site of unspecified female breast (06/28/18) Physical Therapy Treatment Note PT-OP-A Visit Information Start: 05/29/18 09:03 Freq: Status: Active Protocol: Document 06/28/18 08:27 ML (Rec: 06/28/18 08:46 ML [id number]) Out-Patient Physical Therapy Visit Information Visit Information Visit Type Treatment Note Visit Start Time 08:25 Visit Stop Time 09:05 Total Visit Minutes 40 Visit Number 8 Number of EXTENSION CLERK Visits 0 PT-OP-B Current Condition Start: 05/29/18 09:03 Freq: Status: Active Protocol: Document 05/29/18 09:03 SAK (Rec: 05/29/18 09:53 SAK [id number]) Current Condition History of Current Condition Onset Date 04/15/18 Current Complaints decreased ROM bilateral shoulders, pain left shoulder History of Current Condition bilateral mastectomy with axillary dissection right. Still doing chemo, starting radiation next week. History of injury left shoulder prior to surgery during rafting trip ; worse since surgery. States unable to reach overhead or behind her back due to pain left shoulder, rightness right . Swelling on and off in right axilla. Some neuropathy bilateral hands, knees, and feet. 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 Prior Treatments and Tests Mastectomy and chemo, currently still undergoing chemo, radiation to start 06/04 Treatment Goals Patient/Caregiver Goals Improve bilateral shoulder ROM to normal Prior Functional Status Baseline Function- ADL's Independent Baseline Function- Mobility Independent Baseline Function- Work/School independent without difficulty Current Functional Impairments (Reported) Functional Limitations- ADL's unable to reach fully overhead bilateral UE's left worse than right, unable to reach behind her back with left UE Functional Limitations- Work/School unable PT-OP-C Subjective Start: 05/29/18 09:03 Freq: Status: Active Protocol: Document 06/28/18 08:27 ML (Rec: 06/28/18 08:46 ML [id number]) OP-PT Subjective Patient Comments Patient Comments Pt requests today that we take it easy today in therapy . The pt notes that she has had R shoulder pain, pointing to the lat delt. PT-OP-F Manual Assessment Start: 05/29/18 09:03 Freq: Status: Active Protocol: Document 05/29/18 09:03 SAK (Rec: 05/29/18 11:05 [facility] [id number]) Manual Assessments Soft Tissue Assessment Soft Tissue Mobility Assessment Mod decrease in scar mobility bilateral mastectomy scars Joint Mobility Assessment Joint Mobility Assessment GH left painful left posterior glide. Decreased mobility in inferior glide, posterior glide left. Distraction GH caused tingling into left UE. Joint mobility WNL right GH. PT-OP-J Posture/Palpation/Skin Start: 05/29/18 09:03 Freq: Status: Active Protocol: Document 05/29/18 09:03 [facility] (Rec: 05/29/18 11:05 [facility] [id number]) Posture Evaluation Position Sitting Head/C-Spine Posture Forward Head T-Spine Posture Increased Kyphosis Shoulder Posture (L) Rounded (R) Rounded Scapula Posture (L) Protracted (R) Protracted (L) Rotated Down Palpation Assessment Location One Palpation Location bilateral UE's Palpation Details No fibrosis, mild increase tissue temperature right UE. No redness. No axillary cording Skin Assessment Incisional Assessment Incision Appearance/Comments well-healed mastectomy scars. PT-OP-K Range of Motion Start: 05/29/18 09:03 Freq: Status: Active Protocol: Document 05/29/18 09:03 [facility] (Rec: 05/29/18 11:05 [facility] [id number]) Shoulder Goniometric Range of Motion Shoulder Measured in Degrees Left Shoulder ROM WFL No Testing Position Sitting Flexion 130 Extension 12 Abduction 81 External Rotation at 45 degrees 20 Abduction Internal Rotation Behind Back (text) L1 Right Shoulder ROM WFL No Testing Position Sitting Flexion 152 Extension 22 Abduction 155 External Rotation at 45 degrees 48 Abduction Internal Rotation Behind Back (text) T4 Shoulder ROM Limitations Shoulder ROM Limitations Soft Tissue Tightness Pain PT-OP-N Lymphedema Start: 05/29/18 09:03 Freq: Status: Active Protocol: Document 05/29/18 09:03 [facility] (Rec: 05/29/18 11:05 [facility] [id number]) Lymphedema Measurements Upper Extremity Circumference Measurements Left MCP 19 cm Wrist 17.7 cm 10 cm From Distal Crease 20.7 cm 20 cm From Distal Crease 26.5 cm 30 cm From Distal Crease 29.3 cm 40 cm From Distal Crease 36.9 cm Axilla 42.3 cm Right MCP 19.8 cm Wrist 16.8 cm 10 cm From Distal Crease 20.8 cm 20 cm From Distal Crease 25.9 cm 30 cm From Distal Crease 28.2 cm 40 cm From Distal Crease 37 cm Axilla 40 cm PT-OP-Q Treatments Start: 05/29/18 09:03 Freq: Status: Active Protocol: Document 06/28/18 08:27 ML (Rec: 06/28/18 08:46 ML [id number]) Therapeutic Exercises Sitting Exercises scapular squeeze Sitting Exercise Name scapular squeeze Reps/Minutes 15x Comments mirror in front, tactile and verbal cueing for dec elevation/trap activatio Manual Therapy Treatment Soft Tissue Mobilization upper trap Body Location bilateral Mobilization Type Myofascial Release Rolling Sustained Pressure Intensity/Depth Moderate Body Position Hooklying Comments R>L Joint Mobilizations GH right Direction long axis distraction Grade II Body Position Hooklying Comments Pt reports pain when relaxing arm unsupported, supported with pillow to relieve pain Manual Techniques Pec stretch Type manual Body Position Hooklying passive ER Type ROM Body Location R shoulder Body Position Hooklying Comments few reps, terminated due to pain Self-Care/Home Management Treatment Education Patient Education Pain Management Posture Other Education use of gentle ice and heat PT-OP-R Modalities Start: 06/28/18 08:46 Freq: Status: Active Protocol: Document 06/28/18 08:27 ML (Rec: 06/28/18 08:48 ML [id number]) Electric Stimulation Electric Stimulation Interferential Current (IFC) Body Location R GH Duration (Minutes) 15 Combined With Heat/Cold Cold Pack PT-OP-T Assessment and Plan Start: 05/29/18 09:03 Freq: Status: Active Protocol: Document 06/28/18 08:27 ML (Rec: 06/28/18 08:46 ML [id number]) Physical Therapy Assessment Goals Five Impairment lacking appropriate HEP Service Loss Control Consultant Goal (LTG) Patient to be independent with HEP for shoulder ROM, gentle strengthening and pain managment. Four Impairment soft tissue mobility Service Loss Control Consultant Goal (LTG) Improve soft tissue mobility of scars to WNL LTG Duration 2 months Three Impairment pain Service Loss Control Consultant Goal (LTG) Decrease left shoulder pain to no greater than 1/10 including ability to reach overhead or behind his back LTG Duration 2 months Two Impairment posture Skilled Nursing Goal (LTG) Patient to demonstrate neutral postural alignment consistently to correct post- op forward head and shoulder posturing LTG Duration 3 months One Impairment ROM Service Loss Control Consultant Goal (LTG) ROM bilateral shoulders WNL LTG Duration 3 months Assessment Summary Assessment The pt presents to therapy with her R shoulder more ant than L. The pt's R shoulder pain was assessed with a belly press test that was positive and the pt indicates her pain on her lat deltoid. Pain was elicitied with ER and contralateral head tilt. When assessed for palpation, the pt indicates pain on the lat deltoid region, slightly ant, and some inflammation in the shoulder region. Pt shows signs and symptoms of impingement, especially rotator cuff (subscap). The pt 's R shoulder pain was addressed with gentle ROM, distraction, soft tissue mobilizations, and modalities. Physical Therapy Plan Frequency and Duration Frequency of Treatment 2x/Week Duration of Treatment 2 months Plan of Care Start Date 05/29/18 Plan of Care End Date 07/29/18 Next Visit Focus/Plan Next Note Type Treatment Note Next Visit Plan Reassess R shoulder pain, improve ROM, dec pain
--- NOTE | 2018-07-02 17:10 | PT.OTN ---
Current Diagnoses Malignant neoplasm of unspecified site of unspecified female breast (07/02/18) Physical Therapy Treatment Note PT-OP-A Visit Information Start: 05/29/18 09:03 Freq: Status: Active Protocol: Document 07/02/18 08:09 [facility] (Rec: 07/02/18 08:18 [facility] [id number]) Out-Patient Physical Therapy Visit Information Visit Information Visit Type Treatment Note Visit Start Time 08:10 Visit Stop Time 08:55 Total Visit Minutes 45 Visit Number 9 Number of LANDSCAPE PAINTER Visits 0 Evaluation Information Evaluation Date 05/29/18 PT-OP-B Current Condition Start: 05/29/18 09:03 Freq: Status: Active Protocol: Document 05/29/18 09:03 [facility] (Rec: 05/29/18 09:53 [facility] [id number]) Current Condition History of Current Condition Onset Date 04/15/18 Current Complaints decreased ROM bilateral shoulders, pain left shoulder History of Current Condition bilateral mastectomy with axillary dissection right. Still doing chemo, starting radiation next week. History of injury left shoulder prior to surgery during rafting trip ; worse since surgery. States unable to reach overhead or behind her back due to pain left shoulder, rightness right . Swelling on and off in right axilla. Some neuropathy bilateral hands, knees, and feet. 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 Prior Treatments and Tests Mastectomy and chemo, currently still undergoing chemo, radiation to start 06/04 Treatment Goals Patient/Caregiver Goals Improve bilateral shoulder ROM to normal Prior Functional Status Baseline Function- ADL's Independent Baseline Function- Mobility Independent Baseline Function- Work/School independent without difficulty Current Functional Impairments (Reported) Functional Limitations- ADL's unable to reach fully overhead bilateral UE's left worse than right, unable to reach behind her back with left UE Functional Limitations- Work/School unable PT-OP-C Subjective Start: 05/29/18 09:03 Freq: Status: Active Protocol: Document 07/02/18 08:09 [facility] (Rec: 07/02/18 08:18 [facility] [id number]) OP-PT Subjective Patient Comments Patient Comments Slipped and hit right shoulder against cupboards, reports increased pain. Also c/o pain and edema from radiation, requests gentle treatment today. PT-OP-F Manual Assessment Start: 05/29/18 09:03 Freq: Status: Active Protocol: Document 05/29/18 09:03 SAK (Rec: 05/29/18 11:05 [facility] [id number]) Manual Assessments Soft Tissue Assessment Soft Tissue Mobility Assessment Mod decrease in scar mobility bilateral mastectomy scars Joint Mobility Assessment Joint Mobility Assessment GH left painful left posterior glide. Decreased mobility in inferior glide, posterior glide left. Distraction GH caused tingling into left UE. Joint mobility WNL right GH. PT-OP-J Posture/Palpation/Skin Start: 05/29/18 09:03 Freq: Status: Active Protocol: Document 05/29/18 09:03 SAK (Rec: 05/29/18 11:05 [facility] [id number]) Posture Evaluation Position Sitting Head/C-Spine Posture Forward Head T-Spine Posture Increased Kyphosis Shoulder Posture (L) Rounded (R) Rounded Scapula Posture (L) Protracted (R) Protracted (L) Rotated Down Palpation Assessment Location One Palpation Location bilateral UE's Palpation Details No fibrosis, mild increase tissue temperature right UE. No redness. No axillary cording Skin Assessment Incisional Assessment Incision Appearance/Comments well-healed mastectomy scars. PT-OP-K Range of Motion Start: 05/29/18 09:03 Freq: Status: Active Protocol: Document 05/29/18 09:03 SAK (Rec: 05/29/18 11:05 [facility] [id number]) Shoulder Goniometric Range of Motion Shoulder Measured in Degrees Left Shoulder ROM WFL No Testing Position Sitting Flexion 130 Extension 12 Abduction 81 External Rotation at 45 degrees 20 Abduction Internal Rotation Behind Back (text) L1 Right Shoulder ROM WFL No Testing Position Sitting Flexion 152 Extension 22 Abduction 155 External Rotation at 45 degrees 48 Abduction Internal Rotation Behind Back (text) T4 Shoulder ROM Limitations Shoulder ROM Limitations Soft Tissue Tightness Pain PT-OP-N Lymphedema Start: 05/29/18 09:03 Freq: Status: Active Protocol: Document 05/29/18 09:03 SAK (Rec: 05/29/18 11:05 [facility] [id number]) Lymphedema Measurements Upper Extremity Circumference Measurements Left MCP 19 cm Wrist 17.7 cm 10 cm From Distal Crease 20.7 cm 20 cm From Distal Crease 26.5 cm 30 cm From Distal Crease 29.3 cm 40 cm From Distal Crease 36.9 cm Axilla 42.3 cm Right MCP 19.8 cm Wrist 16.8 cm 10 cm From Distal Crease 20.8 cm 20 cm From Distal Crease 25.9 cm 30 cm From Distal Crease 28.2 cm 40 cm From Distal Crease 37 cm Axilla 40 cm PT-OP-Q Treatments Start: 05/29/18 09:03 Freq: Status: Active Protocol: Document 07/02/18 08:09 SAK (Rec: 07/02/18 08:18 SAK [id number]) Therapeutic Exercises Supine Exercises shoulder ER/IR Reps/Minutes 10x Comments AAROM Manual Therapy Treatment Manual Techniques Pec stretch Type manual Body Position Hooklying passive ER Type ROM Body Location R shoulder Body Position Hooklying Comments few reps, terminated due to pain Self-Care/Home Management Treatment Education Patient Education Pain Management Posture Lymphedema Treatment Manual Lymphatic Drainage Location bilateral UE's, right anterior chest, lateral trunk Duration 40 Comments due to patient c/o right shoulder pain, feeling of swelling/edema with radiation right chest PT-OP-R Modalities Start: 06/28/18 08:46 Freq: Status: Active Protocol: Document 06/28/18 08:27 ML (Rec: 06/28/18 08:48 ML [id number]) Electric Stimulation Electric Stimulation Interferential Current (IFC) Body Location R GH Duration (Minutes) 15 Combined With Heat/Cold Cold Pack PT-OP-T Assessment and Plan Start: 05/29/18 09:03 Freq: Status: Active Protocol: Document 07/02/18 08:09 [facility] (Rec: 07/02/18 08:18 SAK [id number]) Physical Therapy Assessment Goals Five Impairment lacking appropriate HEP [facility] Goal (LTG) Patient to be independent with HEP for shoulder ROM, gentle strengthening and pain managment. Four Impairment soft tissue mobility [facility] Goal (LTG) Improve soft tissue mobility of scars to WNL LTG Duration 2 months Three Impairment pain [facility] Goal (LTG) Decrease left shoulder pain to no greater than 1/10 including ability to reach overhead or behind his back LTG Duration 2 months Two Impairment posture General Manager In Training Goal (LTG) Patient to demonstrate neutral postural alignment consistently to correct post- op forward head and shoulder posturing LTG Duration 3 months One Impairment ROM [facility] Goal (LTG) ROM bilateral shoulders WNL LTG Duration 3 months Assessment Summary Assessment Treatment modified today due to high pain level, swelling. Patient presented with increased reddening anterior right chest with small area opened skin in subaxillary region. Reported decreased pain after treatment. Physical Therapy Plan Frequency and Duration Frequency of Treatment 2x/Week Duration of Treatment 2 months Plan of Care Start Date 05/29/18 Plan of Care End Date 07/29/18 Therapeutic Interventions Therapeutic Interventions Home Exercise Program Manual Therapy Patient/Caregiver Education Self-Care/Home Management Soft Tissue Mobilization Therapeutic Exercises Other Therapeutic Interventions Monitor for lymphedema Next Visit Focus/Plan Next Note Type Treatment Note Next Visit Plan circumferential measurements, discuss and make recommendations regarding compression sleeve(s), gauntlet
--- NOTE | 2018-07-07 11:26 | PT.OTN ---
Current Diagnoses Malignant neoplasm of unspecified site of unspecified female breast (07/05/18) Physical Therapy Treatment Note PT-OP-A Visit Information Start: 05/29/18 09:03 Freq: Status: Active Protocol: Document 07/05/18 08:14 [facility] (Rec: 07/05/18 09:48 [facility] [id number]) Out-Patient Physical Therapy Visit Information Visit Information Visit Type Treatment Note Visit Start Time 08:15 Visit Stop Time 09:00 Total Visit Minutes 45 Visit Number 10 Number of COMMUNITY DEVELOPMENT AIDE Visits 0 Evaluation Information Evaluation Date 05/29/18 PT-OP-B Current Condition Start: 05/29/18 09:03 Freq: Status: Active Protocol: Document 05/29/18 09:03 SAK (Rec: 05/29/18 09:53 [facility] [id number]) Current Condition History of Current Condition Onset Date 04/15/18 Current Complaints decreased ROM bilateral shoulders, pain left shoulder History of Current Condition bilateral mastectomy with axillary dissection right. Still doing chemo, starting radiation next week. History of injury left shoulder prior to surgery during rafting trip ; worse since surgery. States unable to reach overhead or behind her back due to pain left shoulder, rightness right . Swelling on and off in right axilla. Some neuropathy bilateral hands, knees, and feet. 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 Prior Treatments and Tests Mastectomy and chemo, currently still undergoing chemo, radiation to start 06/04 Treatment Goals Patient/Caregiver Goals Improve bilateral shoulder ROM to normal Prior Functional Status Baseline Function- ADL's Independent Baseline Function- Mobility Independent Baseline Function- Work/School independent without difficulty Current Functional Impairments (Reported) Functional Limitations- ADL's unable to reach fully overhead bilateral UE's left worse than right, unable to reach behind her back with left UE Functional Limitations- Work/School unable PT-OP-C Subjective Start: 05/29/18 09:03 Freq: Status: Active Protocol: Document 07/05/18 08:14 [facility] (Rec: 07/05/18 09:48 [facility] [id number]) OP-PT Subjective Patient Comments Patient Comments Antibacterial prescribed due to open area in radiation region right chest. Still very sore, 9more radiation treatments scheduled. PT-OP-F Manual Assessment Start: 05/29/18 09:03 Freq: Status: Active Protocol: Document 05/29/18 09:03 [facility] (Rec: 05/29/18 11:05 [facility] [id number]) Manual Assessments Soft Tissue Assessment Soft Tissue Mobility Assessment Mod decrease in scar mobility bilateral mastectomy scars Joint Mobility Assessment Joint Mobility Assessment GH left painful left posterior glide. Decreased mobility in inferior glide, posterior glide left. Distraction GH caused tingling into left UE. Joint mobility WNL right GH. PT-OP-J Posture/Palpation/Skin Start: 05/29/18 09:03 Freq: Status: Active Protocol: Document 05/29/18 09:03 [facility] (Rec: 05/29/18 11:05 [facility] [id number]) Posture Evaluation Position Sitting Head/C-Spine Posture Forward Head T-Spine Posture Increased Kyphosis Shoulder Posture (L) Rounded (R) Rounded Scapula Posture (L) Protracted (R) Protracted (L) Rotated Down Palpation Assessment Location One Palpation Location bilateral UE's Palpation Details No fibrosis, mild increase tissue temperature right UE. No redness. No axillary cording Skin Assessment Incisional Assessment Incision Appearance/Comments well-healed mastectomy scars. PT-OP-K Range of Motion Start: 05/29/18 09:03 Freq: Status: Active Protocol: Document 05/29/18 09:03 [facility] (Rec: 05/29/18 11:05 [facility] [id number]) Shoulder Goniometric Range of Motion Shoulder Measured in Degrees Left Shoulder ROM WFL No Testing Position Sitting Flexion 130 Extension 12 Abduction 81 External Rotation at 45 degrees 20 Abduction Internal Rotation Behind Back (text) L1 Right Shoulder ROM WFL No Testing Position Sitting Flexion 152 Extension 22 Abduction 155 External Rotation at 45 degrees 48 Abduction Internal Rotation Behind Back (text) T4 Shoulder ROM Limitations Shoulder ROM Limitations Soft Tissue Tightness Pain PT-OP-N Lymphedema Start: 05/29/18 09:03 Freq: Status: Active Protocol: Document 05/29/18 09:03 [facility] (Rec: 05/29/18 11:05 [facility] [id number]) Lymphedema Measurements Upper Extremity Circumference Measurements Left MCP 19 cm Wrist 17.7 cm 10 cm From Distal Crease 20.7 cm 20 cm From Distal Crease 26.5 cm 30 cm From Distal Crease 29.3 cm 40 cm From Distal Crease 36.9 cm Axilla 42.3 cm Right MCP 19.8 cm Wrist 16.8 cm 10 cm From Distal Crease 20.8 cm 20 cm From Distal Crease 25.9 cm 30 cm From Distal Crease 28.2 cm 40 cm From Distal Crease 37 cm Axilla 40 cm PT-OP-Q Treatments Start: 05/29/18 09:03 Freq: Status: Active Protocol: Document 07/05/18 08:14 [facility] (Rec: 07/07/18 11:25 SAK [id number]) Manual Therapy Treatment Manual Techniques Pec stretch Type manual Body Position Hooklying passive ER Type ROM Body Location R shoulder Body Position Hooklying Comments few reps, terminated due to pain Self-Care/Home Management Treatment Education Patient Education Pain Management Posture Lymphedema Treatment Manual Lymphatic Drainage Location bilateral UE's, right anterior chest, lateral trunk Duration 40 Comments due to patient c/o right shoulder pain, feeling of swelling/edema with radiation right chest Other Other obtain compression sleeve, shapewear for compression to decrease edema PT-OP-R Modalities Start: 06/28/18 08:46 Freq: Status: Active Protocol: Document 06/28/18 08:27 ML (Rec: 06/28/18 08:48 ML [id number]) Electric Stimulation Electric Stimulation Interferential Current (IFC) Body Location R GH Duration (Minutes) 15 Combined With Heat/Cold Cold Pack PT-OP-T Assessment and Plan Start: 05/29/18 09:03 Freq: Status: Active Protocol: Document 07/05/18 08:14 [facility] (Rec: 07/07/18 11:25 [facility] [id number]) Physical Therapy Assessment Goals Six Impairment lymphedema Snf Goal (LTG) monitor for any increase in edema, especially related to radiation treatments and treat as indicated Five Impairment lacking appropriate HEP Production Aide Goal (LTG) Patient to be independent with HEP for shoulder ROM, gentle strengthening and pain managment. Four Impairment soft tissue mobility Production Aide Goal (LTG) Improve soft tissue mobility of scars to WNL LTG Duration 2 months Three Impairment pain Production Aide Goal (LTG) Decrease left shoulder pain to no greater than 1/10 including ability to reach overhead or behind his back LTG Duration 2 months Two Impairment posture Production Aide Goal (LTG) Patient to demonstrate neutral postural alignment consistently to correct post- op forward head and shoulder posturing LTG Duration 3 months One Impairment ROM Production Aide Goal (LTG) ROM bilateral shoulders WNL LTG Duration 3 months Assessment Summary Assessment circumferential measurements reveal increased edema subaxillary region, and right UE. Patient demonstrated good understanding of need for compression. Physical Therapy Plan Frequency and Duration Frequency of Treatment 2x/Week Duration of Treatment 2 months Plan of Care Start Date 05/29/18 Plan of Care End Date 07/29/18 Therapeutic Interventions Therapeutic Interventions Home Exercise Program Manual Therapy Patient/Caregiver Education Self-Care/Home Management Soft Tissue Mobilization Therapeutic Exercises Other Therapeutic Interventions Monitor for lymphedema Next Visit Focus/Plan Next Note Type Treatment Note Next Visit Plan circumferential measurements, discuss and make recommendations regarding compression sleeve(s), gauntlet
--- NOTE | 2018-07-09 11:13 | PT.OTN ---
Current Diagnoses Malignant neoplasm of unspecified site of unspecified female breast (07/09/18) Physical Therapy Treatment Note PT-OP-A Visit Information Start: 05/29/18 09:03 Freq: Status: Active Protocol: Document 07/09/18 08:14 [facility] (Rec: 07/09/18 08:59 [facility] [id number]) Out-Patient Physical Therapy Visit Information Visit Information Visit Type Treatment Note Visit Start Time 08:15 Visit Stop Time 09:00 Total Visit Minutes 45 Visit Number 11 Number of VESSEL ENGINEER Visits 0 Evaluation Information Evaluation Date 05/29/18 PT-OP-B Current Condition Start: 05/29/18 09:03 Freq: Status: Active Protocol: Document 05/29/18 09:03 [facility] (Rec: 05/29/18 09:53 [facility] [id number]) Current Condition History of Current Condition Onset Date 04/15/18 Current Complaints decreased ROM bilateral shoulders, pain left shoulder History of Current Condition bilateral mastectomy with axillary dissection right. Still doing chemo, starting radiation next week. History of injury left shoulder prior to surgery during rafting trip ; worse since surgery. States unable to reach overhead or behind her back due to pain left shoulder, rightness right . Swelling on and off in right axilla. Some neuropathy bilateral hands, knees, and feet. 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 Prior Treatments and Tests Mastectomy and chemo, currently still undergoing chemo, radiation to start 06/04 Treatment Goals Patient/Caregiver Goals Improve bilateral shoulder ROM to normal Prior Functional Status Baseline Function- ADL's Independent Baseline Function- Mobility Independent Baseline Function- Work/School independent without difficulty Current Functional Impairments (Reported) Functional Limitations- ADL's unable to reach fully overhead bilateral UE's left worse than right, unable to reach behind her back with left UE Functional Limitations- Work/School unable PT-OP-C Subjective Start: 05/29/18 09:03 Freq: Status: Active Protocol: Document 07/09/18 08:14 [facility] (Rec: 07/09/18 08:59 [facility] [id number]) OP-PT Subjective Patient Comments Patient Comments Open area under arm worse, radiation in that area was held; just doing targeted on scar. Will do 3 further radiation treatments next week . PT-OP-F Manual Assessment Start: 05/29/18 09:03 Freq: Status: Active Protocol: Document 05/29/18 09:03 [facility] (Rec: 05/29/18 11:05 [facility] [id number]) Manual Assessments Soft Tissue Assessment Soft Tissue Mobility Assessment Mod decrease in scar mobility bilateral mastectomy scars Joint Mobility Assessment Joint Mobility Assessment GH left painful left posterior glide. Decreased mobility in inferior glide, posterior glide left. Distraction GH caused tingling into left UE. Joint mobility WNL right GH. PT-OP-J Posture/Palpation/Skin Start: 05/29/18 09:03 Freq: Status: Active Protocol: Document 05/29/18 09:03 [facility] (Rec: 05/29/18 11:05 [facility] [id number]) Posture Evaluation Position Sitting Head/C-Spine Posture Forward Head T-Spine Posture Increased Kyphosis Shoulder Posture (L) Rounded (R) Rounded Scapula Posture (L) Protracted (R) Protracted (L) Rotated Down Palpation Assessment Location One Palpation Location bilateral UE's Palpation Details No fibrosis, mild increase tissue temperature right UE. No redness. No axillary cording Skin Assessment Incisional Assessment Incision Appearance/Comments well-healed mastectomy scars. PT-OP-K Range of Motion Start: 05/29/18 09:03 Freq: Status: Active Protocol: Document 05/29/18 09:03 [facility] (Rec: 05/29/18 11:05 [facility] [id number]) Shoulder Goniometric Range of Motion Shoulder Measured in Degrees Left Shoulder ROM WFL No Testing Position Sitting Flexion 130 Extension 12 Abduction 81 External Rotation at 45 degrees 20 Abduction Internal Rotation Behind Back (text) L1 Right Shoulder ROM WFL No Testing Position Sitting Flexion 152 Extension 22 Abduction 155 External Rotation at 45 degrees 48 Abduction Internal Rotation Behind Back (text) T4 Shoulder ROM Limitations Shoulder ROM Limitations Soft Tissue Tightness Pain PT-OP-N Lymphedema Start: 05/29/18 09:03 Freq: Status: Active Protocol: Document 05/29/18 09:03 [facility] (Rec: 05/29/18 11:05 [facility] [id number]) Lymphedema Measurements Upper Extremity Circumference Measurements Left MCP 19 cm Wrist 17.7 cm 10 cm From Distal Crease 20.7 cm 20 cm From Distal Crease 26.5 cm 30 cm From Distal Crease 29.3 cm 40 cm From Distal Crease 36.9 cm Axilla 42.3 cm Right MCP 19.8 cm Wrist 16.8 cm 10 cm From Distal Crease 20.8 cm 20 cm From Distal Crease 25.9 cm 30 cm From Distal Crease 28.2 cm 40 cm From Distal Crease 37 cm Axilla 40 cm PT-OP-Q Treatments Start: 05/29/18 09:03 Freq: Status: Active Protocol: Document 07/09/18 08:14 [facility] (Rec: 07/09/18 08:59 [facility] [id number]) Lymphedema Treatment Manual Lymphatic Drainage Location bilateral UE's, right anterior chest, lateral trunk Duration 40 Comments due to patient c/o right shoulder pain, feeling of swelling/edema with radiation right chest. Left anterior chest scar mobilization with myofascial release. Compression Garment Assessment Compression Garment Assessment Details Patient wearing under armor compression compression shirt with good fit. Patient Education Compression Garments patient has ordered per recommendations PT-OP-R Modalities Start: 06/28/18 08:46 Freq: Status: Active Protocol: Document 06/28/18 08:27 [facility] (Rec: 06/28/18 08:48 [facility] [id number]) Electric Stimulation Electric Stimulation Interferential Current (IFC) Body Location R GH Duration (Minutes) 15 Combined With Heat/Cold Cold Pack PT-OP-T Assessment and Plan Start: 05/29/18 09:03 Freq: Status: Active Protocol: Document 07/09/18 08:14 [facility] (Rec: 07/09/18 11:12 [facility] [id number]) Physical Therapy Assessment Goals Six Impairment lymphedema Neuropsychology Division Chief Goal (LTG) monitor for any increase in edema, especially related to radiation treatments and treat as indicated Five Impairment lacking appropriate HEP Neuropsychology Division Chief Goal (LTG) Patient to be independent with HEP for shoulder ROM, gentle strengthening and pain managment. Four Impairment soft tissue mobility [facility] Goal (LTG) Improve soft tissue mobility of scars to WNL LTG Duration 2 months Three Impairment pain Neuropsychology Division Chief Goal (LTG) Decrease left shoulder pain to no greater than 1/10 including ability to reach overhead or behind his back LTG Duration 2 months Two Impairment posture Neuropsychology Division Chief Goal (LTG) Patient to demonstrate neutral postural alignment consistently to correct post- op forward head and shoulder posturing LTG Duration 3 months One Impairment ROM [facility] Goal (LTG) ROM bilateral shoulders WNL LTG Duration 3 months Assessment Summary Assessment Swelling reduces with treatment, has ordered compression sleeve and wearing compression shirt. Open area subaxillary region on left. Physical Therapy Plan Frequency and Duration Frequency of Treatment 2x/Week Duration of Treatment 2 months Plan of Care Start Date 05/29/18 Plan of Care End Date 07/29/18 Therapeutic Interventions Therapeutic Interventions Home Exercise Program Manual Therapy Patient/Caregiver Education Self-Care/Home Management Soft Tissue Mobilization Therapeutic Exercises Other Therapeutic Interventions Monitor for lymphedema Next Visit Focus/Plan Next Note Type Treatment Note Next Visit Plan Continue PT for lymphedema mangement, ROM, pain management.
--- NOTE | 2018-09-30 16:00 | PT.OPDS ---
Current Diagnoses Malignant neoplasm of unspecified site of unspecified female breast (07/09/18) Provider Visit Care Team Role Provider Type Emma Sunshine DO Primary Care Provider Physician Specialty: Family Practice Address: [address] [place] [address], [id number] Email: [email or web address] Paresh Talley MD Attending Provider Physician Specialty: General Surgery Address: [address] [place] [address], [id number] Email: [email or web address] Visit Number Visit Number 11 Discharge Summary PT-OP-B Current Condition Start: 05/29/18 09:03 Freq: Status: Active Protocol: Document 05/29/18 09:03 [facility] (Rec: 05/29/18 09:53 [facility] [id number]) Current Condition History of Current Condition Onset Date 04/15/18 Current Complaints decreased ROM bilateral shoulders, pain left shoulder History of Current Condition bilateral mastectomy with axillary dissection right. Still doing chemo, starting radiation next week. History of injury left shoulder prior to surgery during rafting trip ; worse since surgery. States unable to reach overhead or behind her back due to pain left shoulder, rightness right . Swelling on and off in right axilla. Some neuropathy bilateral hands, knees, and feet. 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 Prior Treatments and Tests Mastectomy and chemo, currently still undergoing chemo, radiation to start 06/04 Treatment Goals Patient/Caregiver Goals Improve bilateral shoulder ROM to normal Prior Functional Status Baseline Function- ADL's Independent Baseline Function- Mobility Independent Baseline Function- Work/School independent without difficulty Current Functional Impairments (Reported) Functional Limitations- ADL's unable to reach fully overhead bilateral UE's left worse than right, unable to reach behind her back with left UE Functional Limitations- Work/School unable PT-OP-C Subjective Start: 05/29/18 09:03 Freq: Status: Active Protocol: Document 07/09/18 08:14 [facility] (Rec: 07/09/18 08:59 [facility]AK [id number]) OP-PT Subjective Patient Comments Patient Comments Open area under arm worse, radiation in that area was held; just doing targeted on scar. Will do 3 further radiation treatments next week . PT-OP-F Manual Assessment Start: 05/29/18 09:03 Freq: Status: Active Protocol: Document 05/29/18 09:03 [facility] (Rec: 05/29/18 11:05 [facility] [id number]) Manual Assessments Soft Tissue Assessment Soft Tissue Mobility Assessment Mod decrease in scar mobility bilateral mastectomy scars Joint Mobility Assessment Joint Mobility Assessment GH left painful left posterior glide. Decreased mobility in inferior glide, posterior glide left. Distraction GH caused tingling into left UE. Joint mobility WNL right GH. PT-OP-J Posture/Palpation/Skin Start: 05/29/18 09:03 Freq: Status: Active Protocol: Document 05/29/18 09:03 [facility] (Rec: 05/29/18 11:05 [facility] [id number]) Posture Evaluation Position Sitting Head/C-Spine Posture Forward Head T-Spine Posture Increased Kyphosis Shoulder Posture (L) Rounded (R) Rounded Scapula Posture (L) Protracted (R) Protracted (L) Rotated Down Palpation Assessment Location One Palpation Location bilateral UE's Palpation Details No fibrosis, mild increase tissue temperature right UE. No redness. No axillary cording Skin Assessment Incisional Assessment Incision Appearance/Comments well-healed mastectomy scars. PT-OP-K Range of Motion Start: 05/29/18 09:03 Freq: Status: Active Protocol: Document 05/29/18 09:03 [facility] (Rec: 05/29/18 11:05 [facility] [id number]) Shoulder Goniometric Range of Motion Shoulder Measured in Degrees Left Shoulder ROM WFL No Testing Position Sitting Flexion 130 Extension 12 Abduction 81 External Rotation at 45 degrees 20 Abduction Internal Rotation Behind Back (text) L1 Right Shoulder ROM WFL No Testing Position Sitting Flexion 152 Extension 22 Abduction 155 External Rotation at 45 degrees 48 Abduction Internal Rotation Behind Back (text) T4 Shoulder ROM Limitations Shoulder ROM Limitations Soft Tissue Tightness Pain PT-OP-N Lymphedema Start: 05/29/18 09:03 Freq: Status: Active Protocol: Document 05/29/18 09:03 [facility] (Rec: 05/29/18 11:05 [facility] [id number]) Lymphedema Measurements Upper Extremity Circumference Measurements Left MCP 19 cm Wrist 17.7 cm 10 cm From Distal Crease 20.7 cm 20 cm From Distal Crease 26.5 cm 30 cm From Distal Crease 29.3 cm 40 cm From Distal Crease 36.9 cm Axilla 42.3 cm Right MCP 19.8 cm Wrist 16.8 cm 10 cm From Distal Crease 20.8 cm 20 cm From Distal Crease 25.9 cm 30 cm From Distal Crease 28.2 cm 40 cm From Distal Crease 37 cm Axilla 40 cm PT-OP-T Assessment and Plan Start: 05/29/18 09:03 Freq: Status: Active Protocol: Document 09/30/18 15:58 [facility] (Rec: 09/30/18 16:00 [facility] [id number]) Physical Therapy Assessment Goals Six Impairment lymphedema Nursing Home Goal (LTG) monitor for any increase in edema, especially related to radiation treatments and treat as indicated Five Impairment lacking appropriate HEP Nursing Home Goal (LTG) Patient to be independent with HEP for shoulder ROM, gentle strengthening and pain managment. Four Impairment soft tissue mobility Nursing Home Goal (LTG) Improve soft tissue mobility of scars to WNL LTG Duration 2 months Three Impairment pain Service Support Representative Goal (LTG) Decrease left shoulder pain to no greater than 1/10 including ability to reach overhead or behind his back LTG Duration 2 months Two Impairment posture Nursing Home Goal (LTG) Patient to demonstrate neutral postural alignment consistently to correct post- op forward head and shoulder posturing LTG Duration 3 months One Impairment ROM Nursing Home Goal (LTG) ROM bilateral shoulders WNL LTG Duration 3 months Progress Towards Goals Progress Towards Goals Goals Met Assessment Summary Assessment Patient had appointment scheduled to obtain compression sleeve and was following up with her physician regarding open agea subaxillary region. No further PT needs at this time. Physical Therapy Plan Discharge Physical Therapy Discharge Reasons Goals Met
== END 2018-10-01 14:50 ==
LOC: PHYS 08:15
PROVIDERS: PCP Family Medicine; Visit Provider Surgery
DX: C50.919 Malignant neoplasm of unspecified site of unspecified female breast (principal)
CPT/HCPCS: 97014; 97110; 97140; 97162; 97535; G0283

== ENCOUNTER → 2018-08-26 09:03 | Outpatient (CLI) | payer OTHER, SELFPAY ==
[2018-04-16 19:04] VITALS: BMI 31.8
[2018-08-26 09:23] LABS: Add Manual Diff / Slide Review NO; Basophils Percent Auto 0.2 % (0-2); Eosinophils Percent Auto 1.5 % (2-4); Hematocrit 39.7 % (36-46); Hemoglobin 13.3 g/dL (12.0-16.0); Lymphocytes Percent Auto 21.6 % (25-40); Mean Corpuscular HGB Conc 33.5 % (30-36); Mean Corpuscular Hemoglobin 28.7 PG (26-34); Mean Corpuscular Volume 85.6 fL (80-100); Monocytes Percent Auto 6.7 % (3-14); Neutrophils Absolute Auto 3800 /uL (1500-7000); Platelet Count 257 X10^3/uL (150-400); Red Blood Cell Count 4.63 X10^6/uL (4.0-5.2); Red Cell Distribution Width 16.9 % (11.6-14.8); White Blood Cell Count 5.4 X10^3/uL (4.5-11.0)
[2018-08-26 09:31] LABS: Alanine Aminotransferase 24 IU/L (9-52); Albumin 4.1 g/dL (3.5-5.0); Albumin Globulin Ratio 1.5 (1.0-2.8); Alkaline Phosphatase 78 U/L (38-126); Aspartate Aminotransferase 41 IU/L (14-36); Bilirubin Total 0.7 mg/dL (0.2-1.3); Blood Urea Nitrogen 12 mg/dL (7-17); Calcium 9.1 mg/dL (8.4-10.2); Carbon Dioxide 24 mmol/L (22-32); Chloride 106 mmol/L (98-107); Estimated Glomerular Filt Rate > 60.0 mL/min (>60); Globulin 2.7 g/dL (1.7-4.1); Glucose 100 mg/dL (70-100); HEMOLYSIS < 15 (0-50); Potassium 4.3 mmol/L (3.4-5.1); Sodium 140 mmol/L (137-145); Total Protein 6.8 g/dL (6.3-8.2)
== END ==
PROVIDERS: Family Provider Family Medicine; PCP Family Medicine
DX: C50.919 Malignant neoplasm of unspecified site of unspecified female breast (principal)
CPT/HCPCS: 36415; 80053; 85025

== ENCOUNTER → 2019-03-07 12:53 | Outpatient (CLI) | payer OTHER, SELFPAY ==
[2018-04-16 19:04] VITALS: BMI 31.8
== END ==
PROVIDERS: Family Provider Family Medicine; PCP Family Medicine
DX: C50.911 Malignant neoplasm of unspecified site of right female breast (principal); M85.851 Other specified disorders of bone density and structure, right thigh; Z78.0 Asymptomatic menopausal state; Z82.62 Family history of osteoporosis
CPT/HCPCS: 77080

== ENCOUNTER → 2019-11-19 14:00 | Oncology outpatient (ONC) | payer OTHER, SELFPAY ==
[2018-04-16 19:04] VITALS: BMI 31.8
[2018-05-21 09:04] VITALS: BP 134/67; PULSE 81; RESP 18; TEMP 37; O2SAT 100
--- NOTE | 2018-05-21 09:37 | P.PNONC_ITS ---
PN -Subjective Interval history: Diagnosis: Breast cancer, ERPR positive HER2 negative. Previous treatment: 1. Neoadjuvant chemotherapy with 4 cycles of Adriamycin and Cytoxan followed by 12 weeks of Taxol. 2. Bilateral mastectomy in March 2018 with residual [id number] disease. Interval history: The patient is a 42-year-old woman who has history of breast cancer. She palpated a lesion in her right breast in June of 2017. She underwent a mammogram and ultrasound confirmed a suspicious lesion. 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 Her initial MRI showed a lesion that measured 2 cm with an additional 5.6 cm of a adjacent enhancement without any obvious mass. She underwent preoperative chemotherapy with Adriamycin and Cytoxan for 4 cycles. MRI showed improvement. She then had 12 weeks of Taxol. In March she had bilateral mastectomies performed. Unfortunately, pathology revealed 10.9 cm of residual tumor in the breast. There were 14 positive lymph nodes. She was seen at [facility]. Was recommended that she undergo radiation therapy with concurrent Xeloda followed by 6 months of adjuvant Xeloda. She will require hormone therapy after that. They also recommended a restaging with the PET scan. A Today, she is feeling reasonably well. She has had some postoperative pain in the axilla and along the chest wall. She has been using Dilaudid but has been cutting down on her dose. She is currently taking between 2 and 4 mg a day. She denies any nausea or vomiting. Her appetite his fair. Strength and energy level have been stable. Bowels have been moving normally. She denies any shortness of breath or cough. She has not noted any adenopathy. No fevers chills or sweats. She tells me that she was postmenopausal and replacement prior to her diagnosis of breast cancer. She did recently see a dentist. It appears that she may need a root canal. She would like to get the performed prior to starting her chemotherapy and radiation. She did meet with the radiation oncologist on and had simulation done. She has not yet heard back about when she will actually start. Her medications include Lexapro gabapentin and Dilaudid. - Additional ROS Additional ROS: She does have some residual neuropathy in the hands and feet from the Taxol. It is slowly improving. Home Medications and Allergies Home Medications Medication Instructions Recorded Confirmed Type cyanocobalamin (vitamin B-12) 1,000 mcg PO Q DAY #0 04/24/18 09/25/18 History [Vitamin B-12] hydromorphone [Dilaudid] 2 tab PO Q6HP PRN 01/01/18 05/21/18 History escitalopram oxalate [Lexapro] 10 mg PO BEDTIME 04/02/18 05/21/18 History gabapentin 300 mg PO TID #60 cap 04/19/18 05/21/18 Rx hydromorphone [Dilaudid] 2 mg PO Q2H PRN #40 tab 04/19/18 05/21/18 Rx hydromorphone 2 mg tablet 2 mg PO Q3H PRN #30 tab 05/01/18 05/21/18 Rx gabapentin 300 mg capsule 300 mg PO TID #90 cap 05/07/18 05/21/18 Rx capecitabine 625 mg/m2 PO Q12H #120 tab 05/21/18 Rx capecitabine 625 mg/m2 PO Q12H 30 Days #60 tab 05/21/18 Rx Allergies Allergy/AdvReac Type Severity Reaction Status Date / Time lactose Allergy Intermediate Gastrointestinal Verified 05/01/18 10:23 Upset Sulfa (Sulfonamide Allergy Mild Hives Verified 05/01/18 10:23 Antibiotics) egg AdvReac Intermediate Gastrointestinal Verified 05/01/18 10:23 Upset Exam Vital signs: Last Vital Signs Temp 98.6 F 05/21/18 09:04 Pulse 81 05/21/18 09:04 Resp 18 05/21/18 09:04 BP 134/67 05/21/18 09:04 Pulse Ox 100 05/21/18 09:04 - Constitutional positive no acute distress, positive average body habitus - Routine HEENT Exam Head: Present: normocephalic, atraumatic Eye: Present: EOMI, PERRL. Absent: conjunctival icterus, scleral injection ENT: Present: mucous membranes moist, oropharynx clear Comments: She does have some erythema on the buccal mucosa around the left upper tooth. - Routine Neck Exam Present: supple. Absent: lymphadenopathy, thyromegaly - Routine Chest/Breast/Axilla Exam Chest wall exam standard: Absent: tenderness, mass Breast: Present: right mastectomy, left mastectomy Axillae: Absent: lymphadenopathy - Routine Respiratory Exam Present: Clear to auscultation bilaterally. Absent: rales, wheezes - Routine Cardiovascular Exam Present: RRR, S1, S2. Absent: murmur - Routine Abdominal Exam Present: soft, normoactive bowel sounds. Absent: organomegaly, mass - Routine Extremities Exam Absent: cyanosis, clubbing, edema - Routine Back/Spine Exam Back/Spine: Absent: paraspinal tenderness, vertebral tenderness - Routine Skin Exam Present: intact. Absent: petechiae, rash - Routine Neurological Exam Present: alert, oriented X3 - Routine Psychiatric Exam Present: normal affect, normal thought process Results - Imaging Additional studies: Procedures Drainage of Chest Wall with Drainage Device, Open Approach (04/16/18) Excision of Right Axillary Lymphatic, Open Approach (04/16/18) Removal of Totally Implantable Vascular Access Device from Upper Extremity Subcutaneous Tissue and Fascia, Open Approach (04/16/18) Resection of Bilateral Breast, Open Approach (04/16/18) Assessment and Plan (1) Breast cancer Problem details: 42-year-old woman with aggressive breast cancer with the large residual tumor and many positive nodes following neoadjuvant chemotherapy. She will require postoperative radiation along with concurrent Xeloda. Will also plan on treating the full-dose Xeloda following the completion of radiation. Side effects including a low risk for alopecia nausea vomiting and myelosuppression reviewed. Higher risk for mucositis diarrhea and hand-foot reaction were reviewed. She is willing to proceed. She will call her dentist in trying proceed as quickly as possible for never procedures are needed there. I will also try and get her scheduled for a restaging evaluation with a PET scan. She return to clinic in about 3 weeks or so for follow-up but sooner should the need arise. Current visit: No Status : Acute
[2018-06-19 14:24] LABS: Add Manual Diff / Slide Review NO; Basophils Percent Auto 0.5 % (0-2); Eosinophils Percent Auto 0.7 % (2-4); Hemoglobin 13.1 g/dL (12.0-16.0); Lymphocytes Percent Auto 21.9 % (25-40); Mean Corpuscular HGB Conc 32.9 % (30-36); Mean Corpuscular Hemoglobin 27.1 PG (26-34); Mean Corpuscular Volume 82.5 fL (80-100); Monocytes Percent Auto 6.9 % (3-14); Neutrophils Absolute Auto 4900 /uL (3000-5900); Platelet Count 261 X10^3/uL (150-400); Red Blood Cell Count 4.85 X10^6/uL (4.0-5.2); Red Cell Distribution Width 14.9 % (11.6-14.8)
[2018-06-19 14:41] LABS: Alanine Aminotransferase 23 IU/L (9-52); Albumin 4.5 g/dL (3.5-5.0); Albumin Globulin Ratio 1.7 (1.0-2.8); Alkaline Phosphatase 75 U/L (38-126); Aspartate Aminotransferase 17 IU/L (14-36); BUN Creatinine Ratio 21.7 (6-22); Bilirubin Total 0.6 mg/dL (0.2-1.3); Blood Urea Nitrogen 13 mg/dL (7-17); Calcium 9.4 mg/dL (8.4-10.2); Carbon Dioxide 26 mmol/L (22-32); Chloride 103 mmol/L (98-107); Estimated Glomerular Filt Rate > 60.0 mL/min (>60); Globulin 2.7 g/dL (1.7-4.1); Glucose 108 mg/dL (70-100); HEMOLYSIS < 15 (0-50); Potassium 4.4 mmol/L (3.4-5.1); Sodium 143 mmol/L (137-145); Total Protein 7.2 g/dL (6.3-8.2)
[2018-06-19 14:49] VITALS: BP 127/92; PULSE 86; RESP 18; TEMP 36.2; O2SAT 99
--- NOTE | 2018-06-19 15:00 | ONC.PN ---
PN -Subjective Interval history: Diagnosis: Breast cancer, ERPR positive HER2 negative. Previous treatment: 1. Neoadjuvant chemotherapy with 4 cycles of Adriamycin and Cytoxan followed by 12 weeks of Taxol. 2. Bilateral mastectomy in March 2018 with residual [id number] disease. 3. Radiation therapy to the chest wall with concurrent Xeloda. She has completed about 2 and half weeks of treatment thus far Interval history: The patient is a 42-year-old woman who has history of breast cancer. She palpated a lesion in her right breast in June of 2017. She underwent a mammogram and ultrasound confirmed a suspicious lesion. 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 Her initial MRI showed a lesion that measured 2 cm with an additional 5.6 cm of a adjacent enhancement without any obvious mass. She underwent preoperative chemotherapy with Adriamycin and Cytoxan for 4 cycles. MRI showed improvement. She then had 12 weeks of Taxol. In March she had bilateral mastectomies performed. Unfortunately, pathology revealed 10.9 cm of residual tumor in the breast. There were 14 positive lymph nodes. She was seen at [facility]. Was recommended that she undergo radiation therapy with concurrent Xeloda followed by 6 months of adjuvant Xeloda. She will require hormone therapy after that. Since her last visit here, she started on radiation therapy. She has completed about 2 and half weeks of treatment and has about 4 weeks remaining. She has been tolerating it well to this point. She has had some fatigue although it has not been severe. He has had a little bit of discomfort in the axilla but no blistering or peeling. She has had some mild pinkish discoloration of the skin. She denies any shortness of breath or cough. She has had some nausea but no vomiting. No diarrhea. No mouth sores or skin rash. She has not noted any adenopathy. She denies any other changes in her health. Her medications include Lexapro Zofran and Xeloda - Patient Self-Reported Symptoms SR Constitution: Fatigue/Malaise SR Skin issues: Dry skin, Skin rash or itching, Nail changes SR Gastrointestinal issues: Poor or no appetite, Abdominal pain SR Genitourinary issues: Frequent urination SR Musculoskeletal issues: Joint pain or swelling, Back or neck pain SR Neuro issues: Headache Home Medications and Allergies Home Medications Medication Instructions Recorded Confirmed Type escitalopram oxalate [Lexapro] 10 mg PO BEDTIME 04/02/18 05/23/18 History capecitabine 625 mg/m2 PO Q12H #120 tab 05/21/18 05/23/18 Rx capecitabine 625 mg/m2 PO Q12H 30 Days #60 tab 05/21/18 05/23/18 Rx ondansetron HCl [Zofran] 8 mg PO Q6-12H PRN 06/19/18 06/19/18 History Allergies Allergy/AdvReac Type Severity Reaction Status Date / Time lactose Allergy Intermediate Gastrointestinal Verified 05/01/18 10:23 Upset Sulfa (Sulfonamide Allergy Mild Hives Verified 05/01/18 10:23 Antibiotics) egg AdvReac Intermediate Gastrointestinal Verified 05/01/18 10:23 Upset Exam - Constitutional positive no acute distress, positive average body habitus - Routine HEENT Exam Head: Present: normocephalic, atraumatic Eye: Present: EOMI, PERRL. Absent: scleral injection, conjunctivae pink ENT: Present: mucous membranes moist, oropharynx clear - Routine Neck Exam Present: supple. Absent: lymphadenopathy, thyromegaly - Routine Chest/Breast/Axilla Exam Breast: Present: right mastectomy Comments: This some very mild erythema of the chest wall on the right. There is no blistering or peeling. Her incision is healing well. There are no masses. - Routine Respiratory Exam Present: Clear to auscultation bilaterally. Absent: rales, wheezes - Routine Cardiovascular Exam Present: RRR, S1, S2. Absent: murmur - Routine Abdominal Exam Present: soft, normoactive bowel sounds. Absent: tenderness, organomegaly, mass - Routine Extremities Exam Absent: cyanosis, clubbing, edema - Routine Skin Exam Present: intact. Absent: petechiae, rash - Routine Neurological Exam Present: alert, oriented X3 - Routine Psychiatric Exam Present: normal affect, normal thought process Results - Labs Laboratory Last Values WBC 7.0 X10^3/uL (4.5-11.0) 06/19/18 14:14 RBC 4.85 X10^6/uL (4.0-5.2) 06/19/18 14:14 Hgb 13.1 g/dL (12.0-16.0) 06/19/18 14:14 Hct 40.0 % (36-46) 06/19/18 14:14 MCV 82.5 fL (80-100) 06/19/18 14:14 MCH 27.1 PG (26-34) 06/19/18 14:14 MCHC 32.9 % (30-36) 06/19/18 14:14 RDW 14.9 % (11.6-14.8) H 06/19/18 14:14 Plt Count 261 X10^3/uL (150-400) 06/19/18 14:14 Neut % (Auto) 70.0 % (50-75) 06/19/18 14:14 Lymph % (Auto) 21.9 % (25-40) L 06/19/18 14:14 [place] % (Auto) 6.9 % (3-14) 06/19/18 14:14 Eos % (Auto) 0.7 % (2-4) L 06/19/18 14:14 Baso % (Auto) 0.5 % (0-2) 06/19/18 14:14 Neut # (Auto) 4900 /uL (7871-2977) 06/19/18 14:14 Sodium 143 mmol/L (137-145) 06/19/18 14:15 Potassium 4.4 mmol/L (3.4-5.1) 06/19/18 14:15 Chloride 103 mmol/L (98-107) 06/19/18 14:15 Carbon Dioxide 26 mmol/L (22-32) 06/19/18 14:15 BUN 13 mg/dL (7-17) 06/19/18 14:15 Creatinine 0.60 mg/dL (0.52-1.04) 06/19/18 14:15 Estimated GFR > 60.0 mL/min (>60) 06/19/18 14:15 BUN/Creatinine Ratio 21.7 (6-22) 06/19/18 14:15 Glucose 108 mg/dL (70-100) H 06/19/18 14:15 Calcium 9.4 mg/dL (8.4-10.2) 06/19/18 14:15 Total Bilirubin 0.6 mg/dL (0.2-1.3) 06/19/18 14:15 AST 17 IU/L (14-36) 06/19/18 14:15 ALT 23 IU/L (9-52) 06/19/18 14:15 Alkaline Phosphatase 75 U/L (38-126) 06/19/18 14:15 Total Protein 7.2 g/dL (6.3-8.2) 06/19/18 14:15 Albumin 4.5 g/dL (3.5-5.0) 06/19/18 14:15 Globulin 2.7 g/dL (1.7-4.1) 06/19/18 14:15 Albumin/Globulin Ratio 1.7 (1.0-2.8) 06/19/18 14:15 - Imaging Additional studies: Procedures Drainage of Chest Wall with Drainage Device, Open Approach (04/16/18) Excision of Right Axillary Lymphatic, Open Approach (04/16/18) Removal of Totally Implantable Vascular Access Device from Upper Extremity Subcutaneous Tissue and Fascia, Open Approach (04/16/18) Resection of Bilateral Breast, Open Approach (04/16/18) Assessment and Plan (1) Breast cancer Problem details: 42-year-old woman with aggressive breast cancer with the large residual tumor and many positive nodes following neoadjuvant chemotherapy. Fortunately, her PET scan did not show any evidence of distant metastasis. She has been tolerating her radiation and chemotherapy well to this point and will continue with her current regimen. She will return to clinic in about 3 weeks for follow-up. After the completion of her chemo radiation, we will proceed with the Xeloda as a single agent. She did have a my Risk Assessment done. That did not show any clinically significant mutations. Current visit: No Status: Acute
[2018-06-26 11:54] LABS: Add Manual Diff / Slide Review NO; Basophils Percent Auto 0.3 % (0-2); Eosinophils Percent Auto 0.7 % (2-4); Hemoglobin 13.1 g/dL (12.0-16.0); Lymphocytes Percent Auto 23.4 % (25-40); Mean Corpuscular HGB Conc 33.5 % (30-36); Mean Corpuscular Hemoglobin 27.7 PG (26-34); Mean Corpuscular Volume 82.8 fL (80-100); Monocytes Percent Auto 6.6 % (3-14); Neutrophils Absolute Auto 3800 /uL (3000-5900); Platelet Count 242 X10^3/uL (150-400); Red Blood Cell Count 4.71 X10^6/uL (4.0-5.2); Red Cell Distribution Width 15.3 % (11.6-14.8); White Blood Cell Count 5.5 X10^3/uL (4.5-11.0)
[2018-07-03 08:45] LABS: Add Manual Diff / Slide Review NO; Basophils Percent Auto 0.4 % (0-2); Eosinophils Percent Auto 1.3 % (2-4); Hematocrit 39.1 % (36-46); Hemoglobin 13.1 g/dL (12.0-16.0); Lymphocytes Percent Auto 20.6 % (25-40); Mean Corpuscular HGB Conc 33.6 % (30-36); Mean Corpuscular Hemoglobin 28.1 PG (26-34); Mean Corpuscular Volume 83.7 fL (80-100); Monocytes Percent Auto 5.8 % (3-14); Neutrophils Absolute Auto 3600 /uL (3000-5900); Neutrophils Percent Auto 71.9 % (50-75); Platelet Count 207 X10^3/uL (150-400); Red Blood Cell Count 4.67 X10^6/uL (4.0-5.2); Red Cell Distribution Width 15.7 % (11.6-14.8); White Blood Cell Count 4.9 X10^3/uL (4.5-11.0)
[2018-07-10 13:26] LABS: Add Manual Diff / Slide Review NO; Basophils Percent Auto 0.3 % (0-2); Eosinophils Percent Auto 0.9 % (2-4); Hematocrit 38.9 % (36-46); Hemoglobin 12.9 g/dL (12.0-16.0); Lymphocytes Percent Auto 17.4 % (25-40); Mean Corpuscular HGB Conc 33.2 % (30-36); Mean Corpuscular Hemoglobin 27.8 PG (26-34); Mean Corpuscular Volume 83.7 fL (80-100); Monocytes Percent Auto 5.8 % (3-14); Neutrophils Absolute Auto 5600 /uL (3000-5900); Neutrophils Percent Auto 75.6 % (50-75); Platelet Count 249 X10^3/uL (150-400); Red Blood Cell Count 4.64 X10^6/uL (4.0-5.2); Red Cell Distribution Width 17.2 % (11.6-14.8); White Blood Cell Count 7.4 X10^3/uL (4.5-11.0)
[2018-07-10 13:39] LABS: Alanine Aminotransferase 25 IU/L (9-52); Albumin 4.3 g/dL (3.5-5.0); Albumin Globulin Ratio 1.6 (1.0-2.8); Alkaline Phosphatase 76 U/L (38-126); Aspartate Aminotransferase 20 IU/L (14-36); BUN Creatinine Ratio 23.3 (6-22); Bilirubin Total 0.7 mg/dL (0.2-1.3); Blood Urea Nitrogen 14 mg/dL (7-17); Calcium 9.3 mg/dL (8.4-10.2); Carbon Dioxide 26 mmol/L (22-32); Chloride 107 mmol/L (98-107); Estimated Glomerular Filt Rate > 60.0 mL/min (>60); Globulin 2.7 g/dL (1.7-4.1); Glucose 98 mg/dL (70-100); HEMOLYSIS < 15 (0-50); Potassium 4.6 mmol/L (3.4-5.1); Sodium 144 mmol/L (137-145)
[2018-07-10 13:41] VITALS: BP 140/91; PULSE 66; RESP 18; TEMP 36; O2SAT 99
--- NOTE | 2018-07-10 13:52 | P.PNONC_ITS ---
PN -Subjective Interval history: Diagnosis: Breast cancer, ERPR positive HER2 negative. BRCA 1 and 2 were wild type Previous treatment: 1. Neoadjuvant chemotherapy with 4 cycles of Adriamycin and Cytoxan followed by 12 weeks of Taxol. 2. Bilateral mastectomy in March 2018 with residual [id number] disease. 3. Radiation therapy to the chest wall with concurrent Xeloda. She has completed about 2 and half weeks of treatment thus far Interval history: The patient is a 42-year-old woman who has history of breast cancer. She palpated a lesion in her right breast in June of 2017. She underwent a mammogram and ultrasound confirmed a suspicious lesion. 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 Her initial MRI showed a lesion that measured 2 cm with an additional 5.6 cm of a adjacent enhancement without any obvious mass. She underwent preoperative chemotherapy with Adriamycin and Cytoxan for 4 cycles. MRI showed improvement. She then had 12 weeks of Taxol. In March she had bilateral mastectomies performed. Unfortunately, pathology revealed 10.9 cm of residual tumor in the breast. There were 14 positive lymph nodes. She was seen at [facility]. Was recommended that she undergo radiation therapy with concurrent Xeloda followed by 6 months of adjuvant Xeloda. She will require hormone therapy after that. Since her last visit here, she has been tolerating her radiation and chemotherapy without too much difficulty. She notes that she has had some skin reaction particularly in the axilla. There has been some blistering and desquamation. She has been using Silvadene cream. She denies any shortness of breath or cough. No chest pain. Appetite and energy level have been low but stable. She does have some fatigue occasionally but finds it manageable. No nausea or vomiting. No mouth sores or skin rash on the hands or feet. She denies any diarrhea. She has noticed some swelling in her right arm and has ordered a lymphedema sleeve but has not started using it yet. She denies any other changes in her health. Her medications include Lexapro Zofran and Xeloda - Patient Self-Reported Symptoms SR Constitution: Fatigue/Malaise SR ears, nose, mouth, throat issues: Hoarseness, Swollen glands SR respiratory issues: Cough SR Cardiovascular issues: Chest pain, discomfort, tightness, Extreme swelling SR Skin issues: Dry skin, Blistering or peeling, Nail changes SR Gastrointestinal issues: Poor or no appetite SR Genitourinary issues: Frequent urination SR Musculoskeletal issues: Joint pain or swelling, Back or neck pain SR Neuro issues: Numbness or tingling Home Medications and Allergies Home Medications Medication Instructions Recorded Confirmed Type escitalopram oxalate [Lexapro] 10 mg PO BEDTIME 04/02/18 07/08/18 History capecitabine 625 mg/m2 PO Q12H #120 tab 05/21/18 07/08/18 Rx ondansetron HCl [Zofran] 8 mg PO Q6-12H PRN 06/19/18 07/08/18 History Allergies Allergy/AdvReac Type Severity Reaction Status Date / Time lactose Allergy Intermediate Gastrointestinal Verified 05/01/18 10:23 Upset Sulfa (Sulfonamide Allergy Mild Hives Verified 05/01/18 10:23 Antibiotics) egg AdvReac Intermediate Gastrointestinal Verified 05/01/18 10:23 Upset Exam - Constitutional positive no acute distress, positive average body habitus - Routine HEENT Exam Head: Present: normocephalic, atraumatic Eye: Present: EOMI, PERRL. Absent: conjunctival icterus, scleral injection ENT: Present: mucous membranes moist, oropharynx clear - Routine Neck Exam Present: supple. Absent: lymphadenopathy, thyromegaly - Routine Chest/Breast/Axilla Exam Breast: Present: right mastectomy Comments: She does have an area of erythema and desquamation in the axilla as well as some darkening of the skin along her mastectomy incision. There is no nodularity or masses. No skin rash or masses on the left side. - Routine Respiratory Exam Present: Clear to auscultation bilaterally. Absent: rales, wheezes - Routine Cardiovascular Exam Present: RRR, S1, S2. Absent: murmur - Routine Abdominal Exam Present: soft, normoactive bowel sounds. Absent: tenderness, organomegaly, mass - Routine Extremities Exam Absent: cyanosis, clubbing, edema - Routine Back/Spine Exam Back/Spine: Absent: vertebral tenderness - Routine Skin Exam Present: intact, erythema. Absent: petechiae - Routine Neurological Exam Present: alert, oriented X3 - Routine Psychiatric Exam Present: normal affect, normal thought process Results - Labs Laboratory Last Values WBC 7.4 X10^3/uL (4.5-11.0) 07/10/18 13:19 RBC 4.64 X10^6/uL (4.0-5.2) 07/10/18 13:19 Hgb 12.9 g/dL (12.0-16.0) 07/10/18 13:19 Hct 38.9 % (36-46) 07/10/18 13:19 MCV 83.7 fL (80-100) 07/10/18 13:19 MCH 27.8 PG (26-34) 07/10/18 13:19 MCHC 33.2 % (30-36) 07/10/18 13:19 RDW 17.2 % (11.6-14.8) H 07/10/18 13:19 Plt Count 249 X10^3/uL (150-400) 07/10/18 13:19 Neut % (Auto) 75.6 % (50-75) H 07/10/18 13:19 Lymph % (Auto) 17.4 % (25-40) L 07/10/18 13:19 [place] % (Auto) 5.8 % (3-14) 07/10/18 13:19 Eos % (Auto) 0.9 % (2-4) L 07/10/18 13:19 Baso % (Auto) 0.3 % (0-2) 07/10/18 13:19 Neut # (Auto) 5600 /uL (1718-7152) 07/10/18 13:19 Sodium 144 mmol/L (137-145) 07/10/18 13:19 Potassium 4.6 mmol/L (3.4-5.1) 07/10/18 13:19 Chloride 107 mmol/L (98-107) 07/10/18 13:19 Carbon Dioxide 26 mmol/L (22-32) 07/10/18 13:19 BUN 14 mg/dL (7-17) 07/10/18 13:19 Creatinine 0.60 mg/dL (0.52-1.04) 07/10/18 13:19 Estimated GFR > 60.0 mL/min (>60) 07/10/18 13:19 BUN/Creatinine Ratio 23.3 (6-22) H 07/10/18 13:19 Glucose 98 mg/dL (70-100) 07/10/18 13:19 Calcium 9.3 mg/dL (8.4-10.2) 07/10/18 13:19 Total Bilirubin 0.7 mg/dL (0.2-1.3) 07/10/18 13:19 AST 20 IU/L (14-36) 07/10/18 13:19 ALT 25 IU/L (9-52) 07/10/18 13:19 Alkaline Phosphatase 76 U/L (38-126) 07/10/18 13:19 Total Protein 7.0 g/dL (6.3-8.2) 07/10/18 13:19 Albumin 4.3 g/dL (3.5-5.0) 07/10/18 13:19 Globulin 2.7 g/dL (1.7-4.1) 07/10/18 13:19 Albumin/Globulin Ratio 1.6 (1.0-2.8) 07/10/18 13:19 - Imaging Additional studies: Procedures Drainage of Chest Wall with Drainage Device, Open Approach (04/16/18) Excision of Right Axillary Lymphatic, Open Approach (04/16/18) Removal of Totally Implantable Vascular Access Device from Upper Extremity Subcutaneous Tissue and Fascia, Open Approach (04/16/18) Resection of Bilateral Breast, Open Approach (04/16/18) Assessment and Plan (1) Breast cancer Problem details: 42-year-old woman with aggressive breast cancer with the large residual tumor and many positive nodes following neoadjuvant chemotherapy. Fortunately, her PET scan did not show any evidence of distant metastasis. She has been tolerating her radiation and chemotherapy well to this point and will continue with her current regimen. She has only 1 more week of treatment remaining. She will then have a couple of weeks to recover. She will return to clinic in about 3 weeks for follow-up. After the completion of her chemo radiation, we will proceed with the Xeloda as a single agent. Current visit: No Status: Acute
[2018-07-29 09:44] LABS: Add Manual Diff / Slide Review NO; Basophils Percent Auto 0.4 % (0-2); Eosinophils Percent Auto 1.4 % (2-4); Hematocrit 38.6 % (36-46); Lymphocytes Percent Auto 16.3 % (25-40); Mean Corpuscular HGB Conc 33.5 % (30-36); Mean Corpuscular Hemoglobin 28.6 PG (26-34); Mean Corpuscular Volume 85.2 fL (80-100); Monocytes Percent Auto 10.4 % (3-14); Neutrophils Absolute Auto 3600 /uL (3000-5900); Neutrophils Percent Auto 71.5 % (50-75); Platelet Count 232 X10^3/uL (150-400); Red Blood Cell Count 4.54 X10^6/uL (4.0-5.2); Red Cell Distribution Width 17.9 % (11.6-14.8)
[2018-07-29 09:59] LABS: Alanine Aminotransferase 29 IU/L (9-52); Albumin 4.3 g/dL (3.5-5.0); Albumin Globulin Ratio 1.5 (1.0-2.8); Alkaline Phosphatase 81 U/L (38-126); Aspartate Aminotransferase 21 IU/L (14-36); BUN Creatinine Ratio 16.7 (6-22); Bilirubin Total 0.9 mg/dL (0.2-1.3); Blood Urea Nitrogen 10 mg/dL (7-17); Calcium 9.3 mg/dL (8.4-10.2); Carbon Dioxide 26 mmol/L (22-32); Chloride 104 mmol/L (98-107); Estimated Glomerular Filt Rate > 60.0 mL/min (>60); Globulin 2.9 g/dL (1.7-4.1); Glucose 91 mg/dL (70-100); HEMOLYSIS < 15 (0-50); Potassium 4.6 mmol/L (3.4-5.1); Sodium 143 mmol/L (137-145); Total Protein 7.2 g/dL (6.3-8.2)
[2018-07-30 16:03] LABS: CA 15-3 9 U/mL (< 32)
[2018-07-31 13:17] VITALS: BP 125/77; PULSE 69; RESP 18; TEMP 36.8; O2SAT 100
--- NOTE | 2018-07-31 13:39 | P.PNONC_ITS ---
PN -Subjective Interval history: Diagnosis: Breast cancer, ERPR positive HER2 negative. BRCA 1 and 2 were wild type Previous treatment: 1. Neoadjuvant chemotherapy with 4 cycles of Adriamycin and Cytoxan followed by 12 weeks of Taxol. 2. Bilateral mastectomy in March 2018 with residual [id number] disease. 3. Radiation therapy to the chest wall with concurrent Xeloda finishing June 2018. Interval history: The patient is a 42-year-old woman who has history of breast cancer. Since her last visit here, she has completed her radiation. She finished just before . She notes that she is starting to feel somewhat better though still has some areas of desquamation along her mastectomy incision. There has been clearish drainage. It is moderately tender. She denies any other new aches or pains. Her appetite and energy level have been good. She denies any nausea or vomiting. No diarrhea. No skin rash. No fevers chills or sweats. She has had some recent sinus congestion but denies any other changes in her health. Her medications include Lexapro Zofran and Xeloda - Patient Self-Reported Symptoms SR Constitution: Chills, Fatigue/Malaise SR ears, nose, mouth, throat issues: Congestion SR respiratory issues: Mucous SR Cardiovascular issues: Extreme swelling SR Skin issues: Skin rash or itching, Blistering or peeling, Nail changes SR Gastrointestinal issues: Poor or no appetite SR Genitourinary issues: Frequent urination, Sexual difficulties SR Musculoskeletal issues: Joint pain or swelling, Muscle weakness, Cold hands or feet, Bone pain SR Neuro issues: Numbness or tingling SR Hematologic issues: Slow healing SR Endocrine issues: Cold intolerance Home Medications and Allergies Home Medications Medication Instructions Recorded Confirmed Type escitalopram oxalate [Lexapro] 10 mg PO BEDTIME 04/02/18 07/08/18 History capecitabine 625 mg/m2 PO Q12H #120 tab 05/21/18 07/10/18 Rx ondansetron HCl [Zofran] 8 mg PO Q6-12H PRN 06/19/18 07/08/18 History capecitabine 1,000 mg/m2 PO Q12H 14 Days #112 07/31/18 Rx tab Allergies Allergy/AdvReac Type Severity Reaction Status Date / Time lactose Allergy Intermediate Gastrointestinal Verified 05/01/18 10:23 Upset Sulfa (Sulfonamide Allergy Mild Hives Verified 05/01/18 10:23 Antibiotics) egg AdvReac Intermediate Gastrointestinal Verified 05/01/18 10:23 Upset Exam - Constitutional positive no acute distress, positive average body habitus - Routine HEENT Exam Head: Present: normocephalic, atraumatic Eye: Present: EOMI, PERRL. Absent: conjunctival icterus, scleral injection ENT: Present: mucous membranes moist, oropharynx clear - Routine Neck Exam Present: supple. Absent: lymphadenopathy, thyromegaly - Routine Chest/Breast/Axilla Exam Comments: Chest wall shows a mastectomy incision. There is some erythema and desquamation with granulation tissue. There is no purulence. There is no axillary adenopathy. - Routine Respiratory Exam Present: Clear to auscultation bilaterally. Absent: rales, wheezes - Routine Cardiovascular Exam Present: RRR, S1, S2. Absent: murmur - Routine Abdominal Exam Present: soft, normoactive bowel sounds. Absent: tenderness, organomegaly, mass - Routine Extremities Exam Comments: She does have lymphedema sleeve. - Routine Back/Spine Exam Back/Spine: Absent: paraspinal tenderness, vertebral tenderness - Routine Skin Exam Present: intact. Absent: petechiae, rash - Routine Neurological Exam Present: alert, oriented X3 - Routine Psychiatric Exam Present: normal affect, normal thought process Results - Labs Laboratory Last Values WBC 5.0 X10^3/uL (4.5-11.0) 07/29/18 09:28 RBC 4.54 X10^6/uL (4.0-5.2) 07/29/18 09:28 Hgb 13.0 g/dL (12.0-16.0) 07/29/18 09:28 Hct 38.6 % (36-46) 07/29/18 09:28 MCV 85.2 fL (80-100) 07/29/18 09:28 MCH 28.6 PG (26-34) 07/29/18 09:28 MCHC 33.5 % (30-36) 07/29/18 09:28 RDW 17.9 % (11.6-14.8) H 07/29/18 09:28 Plt Count 232 X10^3/uL (150-400) 07/29/18 09:28 Neut % (Auto) 71.5 % (50-75) 07/29/18 09: Lymph % (Auto) 16.3 % (25-40) L 07/29/18 09: [place] % (Auto) 10.4 % (3-14) 07/29/18: Eos % (Auto) 1.4 % (2-4) L 07/29/18 09: Baso % (Auto) 0.4 % (0-2) 07/29/18 09: Neut # (Auto) 3600 /uL (0067-2210) 07/29/18 09:28 Sodium 143 mmol/L (137-145) 07/29/18 09:28 Potassium 4.6 mmol/L (3.4-5.1) 07/29/18: Chloride 104 mmol/L (98-107) 07/29/18: Carbon Dioxide 26 mmol/L (22-32) 07/29/18 09:28 BUN 10 mg/dL (7-17) 07/29/18: Creatinine 0.60 mg/dL (0.52-1.04) 07/29/18 09: Estimated GFR > 60.0 mL/min (>60) 07/29/18 09: BUN/Creatinine Ratio 16.7 (6-22) 07/29/18: Glucose 91 mg/dL (70-100) 07/29/18: Calcium 9.3 mg/dL (8.4-10.2) 07/29/18 09: Total Bilirubin 0.9 mg/dL (0.2-1.3) 07/29/18: AST 21 IU/L (14-36) 07/29/18 09:28 ALT 29 IU/L (9-52) 07/29/18 09:28 Alkaline Phosphatase 81 U/L (38-126) 07/29/18 09:28 Total Protein 7.2 g/dL (6.3-8.2) 07/29/18:28 Albumin 4.3 g/dL (3.5-5.0) 07/29/18:28 Globulin 2.9 g/dL (1.7-4.1) 07/29/18 09:28 Albumin/Globulin Ratio 1.5 (1.0-2.8) 07/29/18 09:28 Breast [employer] Ag 9 U/mL (< 32) 07/29/18 09:28 - Imaging Additional studies: Procedures Drainage of Chest Wall with Drainage Device, Open Approach (04/16/18) Excision of Right Axillary Lymphatic, Open Approach (04/16/18) Removal of Totally Implantable Vascular Access Device from Upper Extremity Subcutaneous Tissue and Fascia, Open Approach (04/16/18) Resection of Bilateral Breast, Open Approach (04/16/18) Assessment and Plan (1) Breast cancer Problem details: 42-year-old woman with aggressive breast cancer with the large residual tumor and many positive nodes following neoadjuvant chemotherapy. She is healing from her radiation. I think she will be ready to start her Xeloda in about a week and a half. She return to clinic here in about 4 weeks or so for follow-up but sooner should the need arise. I will plan on treating for a total of 8 cycles of Xeloda. Current visit: No Status: Acute
--- NOTE | 2018-07-31 14:33 | ONC.SCHED ---
Capecitabine-script faxed to [facility].
[2018-08-29 12:19] VITALS: BP 139/83; PULSE 69; RESP 18; TEMP 37; O2SAT 99
--- NOTE | 2018-08-29 12:53 | ONC.APRN.PN ---
PN -Subjective Interval history: Diagnosis: Breast cancer, ERPR positive HER2 negative. BRCA 1 and 2 were wild type Previous treatment: 1. Neoadjuvant chemotherapy with 4 cycles of Adriamycin and Cytoxan followed by 12 weeks of Taxol. 2. Bilateral mastectomy in March 2018 with residual [id number] disease. 3. Radiation therapy to the chest wall with concurrent Xeloda finishing June 2018. She remains on Xeloda 14 days on, 7 days off. Interval history: The patient is a 43-year-old woman who has history of breast cancer. Since her last visit here, she has completed her radiation with her last treatment late June 2018. She notes that she is starting to feel somewhat better though still has some fatigue. Per pt report chest wall is all better. She denies any other new aches or pains, no new lumps or bumps. Reports some mild swelling right upper extremity for which she is wearing a compression sleeve with good results. Her appetite is just ok. Some mild intermittent nause for which zofran has been effective. No vomiting. No diarrhea. No skin rash. No fevers chills or sweats. Her medications include Lexapro Zofran and Xeloda - Patient Self-Reported Symptoms SR Constitution: Chills, Fatigue/Malaise SR ears, nose, mouth, throat issues: Congestion SR respiratory issues: Mucous SR Cardiovascular issues: Extreme swelling SR Skin issues: Skin rash or itching, Blistering or peeling, Nail changes SR Gastrointestinal issues: Poor or no appetite SR Genitourinary issues: Frequent urination, Sexual difficulties SR Musculoskeletal issues: Joint pain or swelling, Muscle weakness, Cold hands or feet, Bone pain SR Neuro issues: Numbness or tingling SR Hematologic issues: Slow healing SR Endocrine issues: Cold intolerance Home Medications and Allergies Home Medications Medication Instructions Recorded Confirmed Type escitalopram oxalate [Lexapro] 10 mg PO BEDTIME 04/02/18 08/07/18 History capecitabine 625 mg/m2 PO Q12H #120 tab 05/21/18 08/07/18 Rx capecitabine 1,000 mg/m2 PO Q12H 14 Days #112 07/31/18 08/07/18 Rx tab ondansetron HCl [Zofran] 8 mg PO Q6-12H PRN #60 tab 08/29/18 Rx Allergies Allergy/AdvReac Type Severity Reaction Status Date / Time lactose Allergy Intermediate Gastrointestinal Verified 05/01/18 10:23 Upset Sulfa (Sulfonamide Allergy Mild Hives Verified 05/01/18 10:23 Antibiotics) egg AdvReac Intermediate Gastrointestinal Verified 05/01/18 10:23 Upset Exam - Constitutional positive no acute distress - Routine HEENT Exam Eye: Present: conjunctivae pink. Absent: conjunctival icterus, scleral injection ENT: Present: mucous membranes moist. Absent: oropharynx clear - Routine Neck Exam Present: supple. Absent: lymphadenopathy - Routine Chest/Breast/Axilla Exam Chest wall exam standard: Absent: tenderness, mass Axillae: Absent: lymphadenopathy, mass, tenderness - Routine Respiratory Exam Present: Clear to auscultation bilaterally. Absent: rales, rhonchi, wheezes - Routine Cardiovascular Exam Present: RRR, S1, S2. Absent: murmur, gallop, rubs, JVD - Routine Abdominal Exam Present: soft, normoactive bowel sounds. Absent: tenderness, distended, organomegaly - Routine Extremities Exam Present: edema. Absent: calf tenderness Comments: RUE lymphedema, mild. - Routine Skin Exam Present: intact, normal turgor. Absent: erythema, petechiae, rash - Routine Neurological Exam Present: alert, oriented X3 - Routine Psychiatric Exam Present: normal affect Results - Labs Laboratory Last Values WBC 5.0 X10^3/uL (4.5-11.0) 07/29/18 09:28 RBC 4.54 X10^6/uL (4.0-5.2) 07/29/18 09:28 Hgb 13.0 g/dL (12.0-16.0) 07/29/18 09:28 Hct 38.6 % (36-46) 07/29/18 09:28 MCV 85.2 fL (80-100) 07/29/18 09:28 MCH 28.6 PG (26-34) 07/29/18 09:28 MCHC 33.5 % (30-36) 07/29/18 09:28 RDW 17.9 % (11.6-14.8) H 07/29/18 09:28 Plt Count 232 X10^3/uL (150-400) 07/29/18 09:28 Neut % (Auto) 71.5 % (50-75) 07/29/18 09:28 Lymph % (Auto) 16.3 % (25-40) L 07/29/18: [place] % (Auto) 10.4 % (3-14) 07/29/18: Eos % (Auto) 1.4 % (2-4) L 07/29/18: Baso % (Auto) 0.4 % (0-2) 07/29/18: Neut # (Auto) 3600 /uL (4094-9181) 07/29/18: Sodium 143 mmol/L (137-145) 07/29/18: Potassium 4.6 mmol/L (3.4-5.1) 07/29/18: Chloride 104 mmol/L (98-107) 07/29/18 Carbon Dioxide 26 mmol/L (22-32) 07/29/18: BUN 10 mg/dL (7-17) 07/29/18: Creatinine 0.60 mg/dL (0.52-1.04) 07/29/18 Estimated GFR > 60.0 mL/min (>60) 07/29/18 BUN/Creatinine Ratio 16.7 (6-22) 07/29/18 Glucose 91 mg/dL (70-100) 07/29/18: Calcium 9.3 mg/dL (8.4-10.2) 07/29/18: Total Bilirubin 0.9 mg/dL (0.2-1.3) 07/29/18 AST 21 IU/L (14-36) 07/29/18: ALT 29 IU/L (9-52) 07/29/18: Alkaline Phosphatase 81 U/L (38-126) 07/29/18: Total Protein 7.2 g/dL (6.3-8.2) 07/29/18: Albumin 4.3 g/dL (3.5-5.0) 07/29/18: Globulin 2.9 g/dL (1.7-4.1) 07/29/18: Albumin/Globulin Ratio 1.5 (1.0-2.8) 07/29/18: Breast [employer] 9 U/mL (< 32) 07/29/18 09:28 - Imaging Additional studies: Procedures Drainage of Chest Wall with Drainage Device, Open Approach (04/16/18) Excision of Right Axillary Lymphatic, Open Approach (04/16/18) Removal of Totally Implantable Vascular Access Device from Upper Extremity Subcutaneous Tissue and Fascia, Open Approach (04/16/18) Resection of Bilateral Breast, Open Approach (04/16/18) Assessment and Plan (1) Breast cancer Problem details: 42-year-old woman with aggressive breast cancer with the large residual tumor and many positive nodes following neoadjuvant chemotherapy. She is healing from her radiation. I think she will be ready to start her Xeloda in about a week and a half. She return to clinic here in about 4 weeks or so for follow-up but sooner should the need arise. I will plan on treating for a total of 8 cycles of Xeloda. Current visit: No Status: Acute 43-year-old female with aggressive breast cancer ER SC positive, HER2 negative. BRCA 1 and 2 were wild type. Previous treatment: 1. Neoadjuvant chemotherapy with 4 cycles of Adriamycin and Cytoxan followed by 12 weeks of Taxol. 2. Bilateral mastectomy in March 2018 with residual [id number] disease. 3. Radiation therapy to the chest wall with concurrent Xeloda finishing June 2018. She remains on Xeloda 14 days on, 7 days off. Tolerating is xeloda without significant adverse effects. No diarrhea. No numbness tingling or pain in hands or feet. Activity level is stable. No shortness of breath. CBC unremarkable. CMP also unremarkable aside from very mild transaminitis with mildly elevated AST at 48 ALT 60. Bilirubin within normal limits at 0.8. RTC in 2 weeks cbc cmp only RTC [address] Lora cbc cmp Continue xeloda 14 days on, 7 days off. Plan remains to cont xeloda for a total of 8 weeks. Cont compression sleeve PRN (1) Breast cancer Qualifiers: Patient sex: female Laterality: right
--- NOTE | 2018-08-29 12:59 | P.PNONC_ITS ---
PN -Subjective Interval history: Diagnosis: Breast cancer, ERPR positive HER2 negative. BRCA 1 and 2 were wild type Previous treatment: 1. Neoadjuvant chemotherapy with 4 cycles of Adriamycin and Cytoxan followed by 12 weeks of Taxol. 2. Bilateral mastectomy in March 2018 with residual [id number] disease. 3. Radiation therapy to the chest wall with concurrent Xeloda finishing June 2018. She remains on Xeloda 14 days on, 7 days off. Interval history: The patient is a 43-year-old woman who has history of breast cancer. Since her last visit here, she has completed her radiation with her last treatment late June 2018. She notes that she is starting to feel somewhat better though still has some fatigue. Per pt report chest wall is all better. She denies any other new aches or pains, no new lumps or bumps. Reports some mild swelling right upper extremity for which she is wearing a compression sleeve with good results. Her appetite is just ok. Some mild intermittent nause for which zofran has been effective. No vomiting. No diarrhea. No skin rash. No fevers chills or sweats. Her medications include Lexapro Zofran and Xeloda - Patient Self-Reported Symptoms SR Constitution: Chills, Fatigue/Malaise SR ears, nose, mouth, throat issues: Congestion SR respiratory issues: Mucous SR Cardiovascular issues: Extreme swelling SR Skin issues: Skin rash or itching, Blistering or peeling, Nail changes SR Gastrointestinal issues: Poor or no appetite SR Genitourinary issues: Frequent urination, Sexual difficulties SR Musculoskeletal issues: Joint pain or swelling, Muscle weakness, Cold hands or feet, Bone pain SR Neuro issues: Numbness or tingling SR Hematologic issues: Slow healing SR Endocrine issues: Cold intolerance Home Medications and Allergies Home Medications Medication Instructions Recorded Confirmed Type escitalopram oxalate [Lexapro] 10 mg PO BEDTIME 04/02/18 08/07/18 History capecitabine 625 mg/m2 PO Q12H #120 tab 05/21/18 08/07/18 Rx capecitabine 1,000 mg/m2 PO Q12H 14 Days #112 07/31/18 08/07/18 Rx tab ondansetron HCl [Zofran] 8 mg PO Q6-12H PRN #60 tab 08/29/18 Rx Allergies Allergy/AdvReac Type Severity Reaction Status Date / Time lactose Allergy Intermediate Gastrointestinal Verified 05/01/18 10:23 Upset Sulfa (Sulfonamide Allergy Mild Hives Verified 05/01/18 10:23 Antibiotics) egg AdvReac Intermediate Gastrointestinal Verified 05/01/18 10:23 Upset Exam - Constitutional positive no acute distress - Routine HEENT Exam Eye: Present: conjunctivae pink. Absent: conjunctival icterus, scleral injection ENT: Present: mucous membranes moist. Absent: oropharynx clear - Routine Neck Exam Present: supple. Absent: lymphadenopathy - Routine Chest/Breast/Axilla Exam Chest wall exam standard: Absent: tenderness, mass Axillae: Absent: lymphadenopathy, mass, tenderness - Routine Respiratory Exam Present: Clear to auscultation bilaterally. Absent: rales, rhonchi, wheezes - Routine Cardiovascular Exam Present: RRR, S1, S2. Absent: murmur, gallop, rubs, JVD - Routine Abdominal Exam Present: soft, normoactive bowel sounds. Absent: tenderness, distended, organomegaly - Routine Extremities Exam Present: edema. Absent: calf tenderness Comments: RUE lymphedema, mild. - Routine Skin Exam Present: intact, normal turgor. Absent: erythema, petechiae, rash - Routine Neurological Exam Present: alert, oriented X3 - Routine Psychiatric Exam Present: normal affect Results - Labs Laboratory Last Values WBC 5.0 X10^3/uL (4.5-11.0) 07/29/18 09:28 RBC 4.54 X10^6/uL (4.0-5.2) 07/29/18 09:28 Hgb 13.0 g/dL (12.0-16.0) 07/29/18 09:28 Hct 38.6 % (36-46) 07/29/18 09:28 MCV 85.2 fL (80-100) 07/29/18 09:28 MCH 28.6 PG (26-34) 07/29/18 09:28 MCHC 33.5 % (30-36) 07/29/18 09:28 RDW 17.9 % (11.6-14.8) H 07/29/18 09:28 Plt Count 232 X10^3/uL (150-400) 07/29/18 09:28 Neut % (Auto) 71.5 % (50-75) 07/29/18 09:28 Lymph % (Auto) 16.3 % (25-40) L 07/29/18: [place] % (Auto) 10.4 % (3-14) 07/29/18: Eos % (Auto) 1.4 % (2-4) L 07/29/18: Baso % (Auto) 0.4 % (0-2) 07/29/18: Neut # (Auto) 3600 /uL (9161-2191) 07/29/18: Sodium 143 mmol/L (137-145) 07/29/18: Potassium 4.6 mmol/L (3.4-5.1) 07/29/18: Chloride 104 mmol/L (98-107) 07/29/18 Carbon Dioxide 26 mmol/L (22-32) 07/29/18: BUN 10 mg/dL (7-17) 07/29/18: Creatinine 0.60 mg/dL (0.52-1.04) 07/29/18 Estimated GFR > 60.0 mL/min (>60) 07/29/18 BUN/Creatinine Ratio 16.7 (6-22) 07/29/18 Glucose 91 mg/dL (70-100) 07/29/18: Calcium 9.3 mg/dL (8.4-10.2) 07/29/18: Total Bilirubin 0.9 mg/dL (0.2-1.3) 07/29/18 AST 21 IU/L (14-36) 07/29/18: ALT 29 IU/L (9-52) 07/29/18: Alkaline Phosphatase 81 U/L (38-126) 07/29/18: Total Protein 7.2 g/dL (6.3-8.2) 07/29/18: Albumin 4.3 g/dL (3.5-5.0) 07/29/18: Globulin 2.9 g/dL (1.7-4.1) 07/29/18: Albumin/Globulin Ratio 1.5 (1.0-2.8) 07/29/18: Breast [employer] Ag 9 U/mL (< 32) 07/29/18 09:28 - Imaging Additional studies: Procedures Drainage of Chest Wall with Drainage Device, Open Approach (04/16/18) Excision of Right Axillary Lymphatic, Open Approach (04/16/18) Removal of Totally Implantable Vascular Access Device from Upper Extremity Subcutaneous Tissue and Fascia, Open Approach (04/16/18) Resection of Bilateral Breast, Open Approach (04/16/18) Assessment and Plan (1) Breast cancer Problem details: 42-year-old woman with aggressive breast cancer with the large residual tumor and many positive nodes following neoadjuvant chemotherapy. She is healing from her radiation. I think she will be ready to start her Xeloda in about a week and a half. She return to clinic here in about 4 weeks or so for follow-up but sooner should the need arise. I will plan on treating for a total of 8 cycles of Xeloda. Current visit: No Status: Acute 43-year-old female with aggressive breast cancer ER MS positive, HER2 negative. BRCA 1 and 2 were wild type. Previous treatment: 1. Neoadjuvant chemotherapy with 4 cycles of Adriamycin and Cytoxan followed by 12 weeks of Taxol. 2. Bilateral mastectomy in March 2018 with residual [id number] disease. 3. Radiation therapy to the chest wall with concurrent Xeloda finishing June 2018. She remains on Xeloda 14 days on, 7 days off. Tolerating is xeloda without significant adverse effects. No diarrhea. No numbness tingling or pain in hands or feet. Activity level is stable. No shortness of breath. CBC unremarkable. CMP also unremarkable aside from very mild transaminitis with mildly elevated AST at 48 ALT 60. Bilirubin within normal limits at 0.8. RTC in 2 weeks cbc cmp only RTC [address] Lora cbc cmp Continue xeloda 14 days on, 7 days off. Plan remains to cont xeloda for a total of 8 weeks. Cont compression sleeve PRN (1) Breast cancer Qualifiers: Patient sex: female Laterality: right
[2018-09-12 10:50] LABS: Add Manual Diff / Slide Review NO; Basophils Absolute Auto 0 /uL (0-100); Basophils Percent Auto 0.6 % (0-2); Eosinophils Absolute Auto 100 /uL (0-450); Eosinophils Percent Auto 1.4 % (2-4); Hematocrit 40.3 % (36-46); Hemoglobin 13.4 g/dL (12.0-16.0); Lymphocytes Absolute Auto 1200 /uL (1100-4500); Mean Corpuscular HGB Conc 33.2 % (30-36); Mean Corpuscular Hemoglobin 29.1 PG (26-34); Mean Corpuscular Volume 87.6 fL (80-100); Monocytes Absolute Auto 400 /uL (0-900); Monocytes Percent Auto 5.8 % (3-14); Neutrophils Absolute Auto 4800 /uL (1500-7000); Neutrophils Percent Auto 74.2 % (50-75); Platelet Count 216 X10^3/uL (150-400); Red Blood Cell Count 4.59 X10^6/uL (4.0-5.2); Red Cell Distribution Width 16.3 % (11.6-14.8); White Blood Cell Count 6.4 X10^3/uL (4.5-11.0)
[2018-09-12 11:09] LABS: Alanine Aminotransferase 20 IU/L (9-52); Albumin 4.2 g/dL (3.5-5.0); Albumin Globulin Ratio 1.4 (1.0-2.8); Alkaline Phosphatase 79 U/L (38-126); Aspartate Aminotransferase 19 IU/L (14-36); BUN Creatinine Ratio 11.4 (6-22); Bilirubin Total 1.2 mg/dL (0.2-1.3); Blood Urea Nitrogen 8 mg/dL (7-17); Calcium 9.2 mg/dL (8.4-10.2); Carbon Dioxide 24 mmol/L (22-32); Chloride 105 mmol/L (98-107); Estimated Glomerular Filt Rate > 60.0 mL/min (>60); Glucose 104 mg/dL (70-100); HEMOLYSIS < 15 (0-50); Potassium 4.5 mmol/L (3.4-5.1); Sodium 142 mmol/L (137-145); Total Protein 7.2 g/dL (6.3-8.2)
--- NOTE | 2018-09-19 11:23 | ONC.NAV ---
Description: T/C re: FMLA questions Activity: Left a message for pt's , Rajinder, re: the FMLA forms he's wanting us to complete. Requested return call.
--- NOTE | 2018-09-23 11:17 | ONC.NAV ---
Description: FMLA forms Activity: Completed pt's spouse's FMLA forms. Will obtain signature from Dr. Lora tomorrow, then send out to the family.
[2018-09-25 12:49] LABS: Add Manual Diff / Slide Review NO; Basophils Absolute Auto 0 /uL (0-100); Basophils Percent Auto 0.5 % (0-2); Eosinophils Absolute Auto 100 /uL (0-450); Eosinophils Percent Auto 1.3 % (2-4); Hematocrit 39.8 % (36-46); Hemoglobin 13.3 g/dL (12.0-16.0); Lymphocytes Absolute Auto 1600 /uL (1100-4500); Mean Corpuscular HGB Conc 33.3 % (30-36); Mean Corpuscular Hemoglobin 29.9 PG (26-34); Mean Corpuscular Volume 89.7 fL (80-100); Monocytes Absolute Auto 400 /uL (0-900); Monocytes Percent Auto 6.4 % (3-14); Neutrophils Absolute Auto 3400 /uL (1500-7000); Neutrophils Percent Auto 62.8 % (50-75); Platelet Count 257 X10^3/uL (150-400); Red Blood Cell Count 4.44 X10^6/uL (4.0-5.2); Red Cell Distribution Width 17.4 % (11.6-14.8); White Blood Cell Count 5.5 X10^3/uL (4.5-11.0)
[2018-09-25 12:59] VITALS: BP 130/91; PULSE 73; RESP 18; TEMP 36.4; O2SAT 98
[2018-09-25 13:02] LABS: Alanine Aminotransferase 30 IU/L (9-52); Albumin 4.5 g/dL (3.5-5.0); Albumin Globulin Ratio 1.6 (1.0-2.8); Alkaline Phosphatase 113 U/L (38-126); Aspartate Aminotransferase 22 IU/L (14-36); BUN Creatinine Ratio 12.9 (6-22); Bilirubin Total 1.3 mg/dL (0.2-1.3); Blood Urea Nitrogen 9 mg/dL (7-17); Calcium 9.2 mg/dL (8.4-10.2); Carbon Dioxide 23 mmol/L (22-32); Chloride 106 mmol/L (98-107); Estimated Glomerular Filt Rate > 60.0 mL/min (>60); Globulin 2.9 g/dL (1.7-4.1); Glucose 92 mg/dL (70-100); HEMOLYSIS < 15 (0-50); Potassium 4.1 mmol/L (3.4-5.1); Sodium 140 mmol/L (137-145); Total Protein 7.4 g/dL (6.3-8.2)
--- NOTE | 2018-09-25 13:08 | ONC.PN ---
PN -Subjective Interval history: Diagnosis: Breast cancer, ERPR positive HER2 negative. BRCA 1 and 2 were wild type Previous treatment: 1. Neoadjuvant chemotherapy with 4 cycles of Adriamycin and Cytoxan followed by 12 weeks of Taxol. 2. Bilateral mastectomy in March 2018 with residual [id number] disease. 3. Radiation therapy to the chest wall with concurrent Xeloda finishing June 2018. 4. Xeloda 14 days on, 7 days off. She has completed 2 cycles. She currently is in the middle of her 3rd of 8 planned Interval history: The patient is a 43-year-old woman who has history of breast cancer. She unfortunately had extensive lymph node involvement following neoadjuvant chemotherapy. Postoperatively, she has had adjuvant radiation with concurrent Xeloda and has continued with adjuvant Xeloda. She has completed 2 cycles and is about mcc through the 3rd. She has been tolerating it fairly well. She has noted some fatigue has been relatively mild. She has noticed some decrease in her appetite. She denies any nausea or vomiting. She notes that the food still has some flavor. She has had some tingling in the mouth but no open sores or pain. No diarrhea. No skin rash. She notes that just after Hedy both her and her son had what sounds like gastroenteritis. It has since resolved. She has noted some tenderness in the right axilla but has not felt any masses. She denies any other changes in her health. Her medications include Lexapro Zofran and Xeloda - Patient Self-Reported Symptoms SR Constitution: Fatigue/Malaise SR eye issues: Vision changes SR ears, nose, mouth, throat issues: Ears ringing, Changes in taste SR respiratory issues: Mucous SR Cardiovascular issues: Chest pain, discomfort, tightness, Extreme swelling, Dizzy/lightheaded SR Skin issues: Dry skin SR Gastrointestinal issues: Poor or no appetite SR Genitourinary issues: Frequent urination, Sexual difficulties SR Musculoskeletal issues: Joint pain or swelling, Muscle weakness, Muscle pain or cramps, Cold hands or feet SR Neuro issues: Headache, Lightheaded/dizzy, Numbness or tingling SR Hematologic issues: Swollen lymph nodes SR Endocrine issues: Cold intolerance Home Medications and Allergies Home Medications Medication Instructions Recorded Confirmed Type escitalopram oxalate [Lexapro] 10 mg PO BEDTIME 04/02/18 08/07/18 History capecitabine 625 mg/m2 PO Q12H #120 tab 05/21/18 08/07/18 Rx capecitabine 1,000 mg/m2 PO Q12H 14 Days #112 07/31/18 08/07/18 Rx tab ondansetron HCl [Zofran] 8 mg PO Q6-12H PRN #60 tab 08/29/18 Rx Allergies Allergy/AdvReac Type Severity Reaction Status Date / Time lactose Allergy Intermediate Gastrointestinal Verified 05/01/18 10:23 Upset Sulfa (Sulfonamide Allergy Mild Hives Verified 05/01/18 10:23 Antibiotics) egg AdvReac Intermediate Gastrointestinal Verified 05/01/18 10:23 Upset Exam - Constitutional positive no acute distress, positive average body habitus - Routine HEENT Exam Head: Present: normocephalic, atraumatic Eye: Present: EOMI, PERRL. Absent: conjunctival icterus, scleral injection ENT: Present: mucous membranes moist, oropharynx clear - Routine Neck Exam Present: supple. Absent: lymphadenopathy, thyromegaly - Routine Chest/Breast/Axilla Exam Axillae: Absent: lymphadenopathy, tenderness Comments: She has radiation changes to the skin on the chest wall and axilla. I do not feel any masses or adenopathy. - Routine Respiratory Exam Present: Clear to auscultation bilaterally. Absent: rales, wheezes - Routine Cardiovascular Exam Present: RRR, S1, S2. Absent: murmur - Routine Abdominal Exam Present: soft, normoactive bowel sounds. Absent: tenderness, organomegaly, mass - Routine Extremities Exam Absent: cyanosis, clubbing, edema Comments: She does have a lymphedema sleeve on her right arm. - Routine Skin Exam Present: intact. Absent: petechiae, rash - Routine Neurological Exam Present: alert, oriented X3 Results - Labs Laboratory Last Values WBC 5.5 X10^3/uL (4.5-11.0) 09/25/18 12:43 RBC 4.44 X10^6/uL (4.0-5.2) 09/25/18 12:43 Hgb 13.3 g/dL (12.0-16.0) 09/25/18 12:43 Hct 39.8 % (36-46) 09/25/18 12:43 MCV 89.7 fL (80-100) 09/25/18 12:43 MCH 29.9 PG (26-34) 09/25/18 12:43 MCHC 33.3 % (30-36) 09/25/18 12:43 RDW 17.4 % (11.6-14.8) H 09/25/18 12:43 Plt Count 257 X10^3/uL (150-400) 09/25/18 12:43 Neut % (Auto) 62.8 % (50-75) 09/25/18 12:43 Lymph % (Auto) 29.0 % (25-40) 09/25/18 12:43 [place] % (Auto) 6.4 % (3-14) 09/25/18 12:43 Eos % (Auto) 1.3 % (2-4) L 09/25/18 12:43 Baso % (Auto) 0.5 % (0-2) 09/25/18 12:43 Neut # (Auto) 3400 /uL (1275-5220) 09/25/18 12:43 Lymph # (Auto) 1600 /uL (7966-4315) 09/25/18 12:43 [place] # (Auto) 400 /uL (0-900) 09/25/18 12:43 Eos # (Auto) 100 /uL (0-450) 09/25/18 12:43 Baso # (Auto) 0 /uL (0-100) 09/25/18 12:43 Sodium 140 mmol/L (137-145) 09/25/18 12:43 Potassium 4.1 mmol/L (3.4-5.1) 09/25/18 12:43 Chloride 106 mmol/L (98-107) 09/25/18 12:43 Carbon Dioxide 23 mmol/L (22-32) 09/25/18 12:43 BUN 9 mg/dL (7-17) 09/25/18 12:43 Creatinine 0.70 mg/dL (0.52-1.04) 09/25/18 12:43 Estimated GFR > 60.0 mL/min (>60) 09/25/18 12:43 BUN/Creatinine Ratio 12.9 (6-22) 09/25/18 12:43 Glucose 92 mg/dL (70-100) 09/25/18 12:43 Calcium 9.2 mg/dL (8.4-10.2) 09/25/18 12:43 Total Bilirubin 1.3 mg/dL (0.2-1.3) 09/25/18 12:43 AST 22 IU/L (14-36) 09/25/18 12:43 ALT 30 IU/L (9-52) 09/25/18 12:43 Alkaline Phosphatase 113 U/L (38-126) 09/25/18 12:43 Total Protein 7.4 g/dL (6.3-8.2) 09/25/18 12:43 Albumin 4.5 g/dL (3.5-5.0) 09/25/18 12:43 Globulin 2.9 g/dL (1.7-4.1) 09/25/18 12:43 Albumin/Globulin Ratio 1.6 (1.0-2.8) 09/25/18 12:43 Breast [employer] 9 U/mL (< 32) 07/29/18 09:28 - Imaging Additional studies: Procedures Drainage of Chest Wall with Drainage Device, Open Approach (04/16/18) Excision of Right Axillary Lymphatic, Open Approach (04/16/18) Removal of Totally Implantable Vascular Access Device from Upper Extremity Subcutaneous Tissue and Fascia, Open Approach (04/16/18) Resection of Bilateral Breast, Open Approach (04/16/18) Assessment and Plan (1) Breast cancer Problem details: 42-year-old woman with aggressive breast cancer with the large residual tumor and many positive nodes following neoadjuvant chemotherapy. She is tolerating her adjuvant Xeloda reasonably well. She will continue with her 3rd cycle. She will return to clinic in about 3 weeks for follow-up. She will be due for her 4th cycle around that time. Current visit: No Status: Acute (1) Breast cancer Qualifiers: Patient sex: female Laterality: right
--- NOTE | 2018-09-25 13:13 | P.PNONC_ITS ---
PN -Subjective Interval history: Diagnosis: Breast cancer, ERPR positive HER2 negative. BRCA 1 and 2 were wild type Previous treatment: 1. Neoadjuvant chemotherapy with 4 cycles of Adriamycin and Cytoxan followed by 12 weeks of Taxol. 2. Bilateral mastectomy in March 2018 with residual [id number] disease. 3. Radiation therapy to the chest wall with concurrent Xeloda finishing June 2018. 4. Xeloda 14 days on, 7 days off. She has completed 2 cycles. She currently is in the middle of her 3rd of 8 planned Interval history: The patient is a 43-year-old woman who has history of breast cancer. She unfortunately had extensive lymph node involvement following neoadjuvant chemotherapy. Postoperatively, she has had adjuvant radiation with concurrent Xeloda and has continued with adjuvant Xeloda. She has completed 2 cycles and is about prison through the 3rd. She has been tolerating it fairly well. She has noted some fatigue has been relatively mild. She has noticed some decrease in her appetite. She denies any nausea or vomiting. She notes that the food still has some flavor. She has had some tingling in the mouth but no open sores or pain. No diarrhea. No skin rash. She notes that just after Hedy both her and her son had what sounds like gastroenteritis. It has since resolved. She has noted some tenderness in the right axilla but has not felt any masses. She denies any other changes in her health. Her medications include Lexapro Zofran and Xeloda - Patient Self-Reported Symptoms SR Constitution: Fatigue/Malaise SR eye issues: Vision changes SR ears, nose, mouth, throat issues: Ears ringing, Changes in taste SR respiratory issues: Mucous SR Cardiovascular issues: Chest pain, discomfort, tightness, Extreme swelling, Dizzy/lightheaded SR Skin issues: Dry skin SR Gastrointestinal issues: Poor or no appetite SR Genitourinary issues: Frequent urination, Sexual difficulties SR Musculoskeletal issues: Joint pain or swelling, Muscle weakness, Muscle pain or cramps, Cold hands or feet SR Neuro issues: Headache, Lightheaded/dizzy, Numbness or tingling SR Hematologic issues: Swollen lymph nodes SR Endocrine issues: Cold intolerance Home Medications and Allergies Home Medications Medication Instructions Recorded Confirmed Type escitalopram oxalate [Lexapro] 10 mg PO BEDTIME 04/02/18 08/07/18 History capecitabine 625 mg/m2 PO Q12H #120 tab 05/21/18 08/07/18 Rx capecitabine 1,000 mg/m2 PO Q12H 14 Days #112 07/31/18 08/07/18 Rx tab ondansetron HCl [Zofran] 8 mg PO Q6-12H PRN #60 tab 08/29/18 Rx Allergies Allergy/AdvReac Type Severity Reaction Status Date / Time lactose Allergy Intermediate Gastrointestinal Verified 05/01/18 10:23 Upset Sulfa (Sulfonamide Allergy Mild Hives Verified 05/01/18 10:23 Antibiotics) egg AdvReac Intermediate Gastrointestinal Verified 05/01/18 10:23 Upset Exam - Constitutional positive no acute distress, positive average body habitus - Routine HEENT Exam Head: Present: normocephalic, atraumatic Eye: Present: EOMI, PERRL. Absent: conjunctival icterus, scleral injection ENT: Present: mucous membranes moist, oropharynx clear - Routine Neck Exam Present: supple. Absent: lymphadenopathy, thyromegaly - Routine Chest/Breast/Axilla Exam Axillae: Absent: lymphadenopathy, tenderness Comments: She has radiation changes to the skin on the chest wall and axilla. I do not feel any masses or adenopathy. - Routine Respiratory Exam Present: Clear to auscultation bilaterally. Absent: rales, wheezes - Routine Cardiovascular Exam Present: RRR, S1, S2. Absent: murmur - Routine Abdominal Exam Present: soft, normoactive bowel sounds. Absent: tenderness, organomegaly, mass - Routine Extremities Exam Absent: cyanosis, clubbing, edema Comments: She does have a lymphedema sleeve on her right arm. - Routine Skin Exam Present: intact. Absent: petechiae, rash - Routine Neurological Exam Present: alert, oriented X3 Results - Labs Laboratory Last Values WBC 5.5 X10^3/uL (4.5-11.0) 09/25/18 12:43 RBC 4.44 X10^6/uL (4.0-5.2) 09/25/18 12:43 Hgb 13.3 g/dL (12.0-16.0) 09/25/18 12:43 Hct 39.8 % (36-46) 09/25/18 12:43 MCV 89.7 fL (80-100) 09/25/18 12:43 MCH 29.9 PG (26-34) 09/25/18 12:43 MCHC 33.3 % (30-36) 09/25/18 12:43 RDW 17.4 % (11.6-14.8) H 09/25/18 12:43 Plt Count 257 X10^3/uL (150-400) 09/25/18 12:43 Neut % (Auto) 62.8 % (50-75) 09/25/18 12:43 Lymph % (Auto) 29.0 % (25-40) 09/25/18 12:43 [place] % (Auto) 6.4 % (3-14) 09/25/18 12:43 Eos % (Auto) 1.3 % (2-4) L 09/25/18 12:43 Baso % (Auto) 0.5 % (0-2) 09/25/18 12:43 Neut # (Auto) 3400 /uL (6857-1786) 09/25/18 12:43 Lymph # (Auto) 1600 /uL (5640-3005) 09/25/18 12:43 [place] # (Auto) 400 /uL (0-900) 09/25/18 12:43 Eos # (Auto) 100 /uL (0-450) 09/25/18 12:43 Baso # (Auto) 0 /uL (0-100) 09/25/18 12:43 Sodium 140 mmol/L (137-145) 09/25/18 12:43 Potassium 4.1 mmol/L (3.4-5.1) 09/25/18 12:43 Chloride 106 mmol/L (98-107) 09/25/18 12:43 Carbon Dioxide 23 mmol/L (22-32) 09/25/18 12:43 BUN 9 mg/dL (7-17) 09/25/18 12:43 Creatinine 0.70 mg/dL (0.52-1.04) 09/25/18 12:43 Estimated GFR > 60.0 mL/min (>60) 09/25/18 12:43 BUN/Creatinine Ratio 12.9 (6-22) 09/25/18 12:43 Glucose 92 mg/dL (70-100) 09/25/18 12:43 Calcium 9.2 mg/dL (8.4-10.2) 09/25/18 12:43 Total Bilirubin 1.3 mg/dL (0.2-1.3) 09/25/18 12:43 AST 22 IU/L (14-36) 09/25/18 12:43 ALT 30 IU/L (9-52) 09/25/18 12:43 Alkaline Phosphatase 113 U/L (38-126) 09/25/18 12:43 Total Protein 7.4 g/dL (6.3-8.2) 09/25/18 12:43 Albumin 4.5 g/dL (3.5-5.0) 09/25/18 12:43 Globulin 2.9 g/dL (1.7-4.1) 09/25/18 12:43 Albumin/Globulin Ratio 1.6 (1.0-2.8) 09/25/18 12:43 Breast [facility] Ag 9 U/mL (< 32) 07/29/18 09:28 - Imaging Additional studies: Procedures Drainage of Chest Wall with Drainage Device, Open Approach (04/16/18) Excision of Right Axillary Lymphatic, Open Approach (04/16/18) Removal of Totally Implantable Vascular Access Device from Upper Extremity Subcutaneous Tissue and Fascia, Open Approach (04/16/18) Resection of Bilateral Breast, Open Approach (04/16/18) Assessment and Plan (1) Breast cancer Problem details: 42-year-old woman with aggressive breast cancer with the large residual tumor and many positive nodes following neoadjuvant chemotherapy. She is tolerating her adjuvant Xeloda reasonably well. She will continue with her 3rd cycle. She will return to clinic in about 3 weeks for follow-up. She will be due for her 4th cycle around that time. Current visit: No Status: Acute (1) Breast cancer Qualifiers: Patient sex: female Laterality: right
--- NOTE | 2018-10-15 09:32 | P.PNONC_ITS ---
PN -Subjective Interval history: Diagnosis: Breast cancer, ERPR positive HER2 negative. BRCA 1 and 2 were wild type Previous treatment: 1. Neoadjuvant chemotherapy with 4 cycles of Adriamycin and Cytoxan followed by 12 weeks of Taxol. 2. Bilateral mastectomy in March 2018 with residual [id number] disease. 3. Radiation therapy to the chest wall with concurrent Xeloda finishing June 2018. 4. Xeloda 14 days on, 7 days off. She has completed 2 cycles. Today is day one of her 4th cycle. Interval history: The patient is a 43-year-old woman who has history of breast cancer. She unfortunately had extensive lymph node involvement following neoadjuvant chemotherapy. Postoperatively, she has had adjuvant radiation with concurrent X eloda and has continued with adjuvant Xeloda. She has completed 3 cycles and just began her 4th today. She reports dizziness which is associated with activity and change in position. No falls, no fainting episodes. Resolves when she sits down. She has noted some fatigue has been relatively mild. She has noticed some decrease in her appetite. She denies any nausea or vomiting. She notes that the food still has some flavor. She has had some tingling in the mouth but no open sores or pain. No diarrhea. No skin rash. Reports tingling in fingers and feet, specifically toes, all since her initial chemo. Denies pain. She has appointment with her surgeon Dr Talley Oct 23. Her medications include Lexapro Zofran and Xeloda - Patient Self-Reported Symptoms SR Constitution: Fatigue/Malaise SR eye issues: Vision changes SR ears, nose, mouth, throat issues: Ears ringing, Changes in taste SR respiratory issues: Mucous SR Cardiovascular issues: Chest pain, discomfort, tightness, Extreme swelling, Dizzy/lightheaded SR Skin issues: Dry skin SR Gastrointestinal issues: Poor or no appetite SR Genitourinary issues: Frequent urination, Sexual difficulties SR Musculoskeletal issues: Joint pain or swelling, Muscle weakness, Muscle pain or cramps, Cold hands or feet SR Neuro issues: Headache, Lightheaded/dizzy, Numbness or tingling SR Hematologic issues: Swollen lymph nodes SR Endocrine issues: Cold intolerance Home Medications and Allergies Home Medications Medication Instructions Recorded Confirmed Type escitalopram oxalate [Lexapro] 10 mg PO BEDTIME 04/02/18 08/07/18 History capecitabine 1,000 mg/m2 PO Q12H 14 Days #112 07/31/18 08/07/18 Rx tab ondansetron HCl [Zofran] 8 mg PO Q6-12H PRN #60 tab 08/29/18 Rx celecoxib [Celebrex] 100 mg PO BID #90 cap 10/15/18 Rx Allergies Allergy/AdvReac Type Severity Reaction Status Date / Time lactose Allergy Intermediate Gastrointestinal Verified 05/01/18 10:23 Upset Sulfa (Sulfonamide Allergy Mild Hives Verified 05/01/18 10:23 Antibiotics) egg AdvReac Intermediate Gastrointestinal Verified 05/01/18 10:23 Upset Exam - Constitutional positive no acute distress - Routine HEENT Exam Eye: Present: conjunctivae pink. Absent: conjunctival icterus, scleral injection ENT: Present: mucous membranes moist, oropharynx clear - Routine Neck Exam Present: supple. Absent: lymphadenopathy - Routine Chest/Breast/Axilla Exam Axillae: Present: tenderness, swelling. Absent: lymphadenopathy, mass - Routine Respiratory Exam Present: Clear to auscultation bilaterally. Absent: rales, rhonchi, wheezes - Routine Cardiovascular Exam Present: RRR, S1, S2. Absent: murmur, gallop, rubs, JVD - Routine Abdominal Exam Present: soft, normoactive bowel sounds. Absent: tenderness, distended, organomegaly - Routine Extremities Exam Absent: edema, calf tenderness - Routine Skin Exam Present: intact, normal turgor. Absent: rash - Routine Neurological Exam Present: alert, oriented X3 - Routine Psychiatric Exam Present: normal affect Results - Labs Laboratory Last Values WBC 5.5 X10^3/uL (4.5-11.0) 09/25/18 12:43 RBC 4.44 X10^6/uL (4.0-5.2) 09/25/18 12:43 Hgb 13.3 g/dL (12.0-16.0) 09/25/18 12:43 Hct 39.8 % (36-46) 09/25/18 12:43 MCV 89.7 fL (80-100) 09/25/18 12:43 MCH 29.9 PG (26-34) 09/25/18 12:43 MCHC 33.3 % (30-36) 09/25/18 12:43 RDW 17.4 % (11.6-14.8) H 09/25/18 12:43 Plt Count 257 X10^3/uL (150-400) 09/25/18 12:43 Neut % (Auto) 62.8 % (50-75) 09/25/18 12:43 Lymph % (Auto) 29.0 % (25-40) 09/25/18 12:43 [place] % (Auto) 6.4 % (3-14) 09/25/18 12:43 Eos % (Auto) 1.3 % (2-4) L 09/25/18 12:43 Baso % (Auto) 0.5 % (0-2) 09/25/18 12:43 Neut # (Auto) 3400 /uL (2976-7489) 09/25/18 12:43 Lymph # (Auto) 1600 /uL (3881-2391) 09/25/18 12:43 [place] # (Auto) 400 /uL (0-900) 09/25/18 12:43 Eos # (Auto) 100 /uL (0-450) 09/25/18 12:43 Baso # (Auto) 0 /uL (0-100) 09/25/18 12:43 Sodium 140 mmol/L (137-145) 09/25/18 12:43 Potassium 4.1 mmol/L (3.4-5.1) 09/25/18 12:43 Chloride 106 mmol/L (98-107) 09/25/18 12:43 Carbon Dioxide 23 mmol/L (22-32) 09/25/18 12:43 BUN 9 mg/dL (7-17) 09/25/18 12:43 Creatinine 0.70 mg/dL (0.52-1.04) 09/25/18 12:43 Estimated GFR > 60.0 mL/min (>60) 09/25/18 12:43 BUN/Creatinine Ratio 12.9 (6-22) 09/25/18 12:43 Glucose 92 mg/dL (70-100) 09/25/18 12:43 Calcium 9.2 mg/dL (8.4-10.2) 09/25/18 12:43 Total Bilirubin 1.3 mg/dL (0.2-1.3) 09/25/18 12:43 AST 22 IU/L (14-36) 09/25/18 12:43 ALT 30 IU/L (9-52) 09/25/18 12:43 Alkaline Phosphatase 113 U/L (38-126) 09/25/18 12:43 Total Protein 7.4 g/dL (6.3-8.2) 09/25/18 12:43 Albumin 4.5 g/dL (3.5-5.0) 09/25/18 12:43 Globulin 2.9 g/dL (1.7-4.1) 09/25/18 12:43 Albumin/Globulin Ratio 1.6 (1.0-2.8) 09/25/18 12:43 Breast [facility] [employer] Ag 9 U/mL (< 32) 07/29/18 09:28 - Imaging Additional studies: Procedures Drainage of Chest Wall with Drainage Device, Open Approach (04/16/18) Excision of Right Axillary Lymphatic, Open Approach (04/16/18) Removal of Totally Implantable Vascular Access Device from Upper Extremity Subcutaneous Tissue and Fascia, Open Approach (04/16/18) Resection of Bilateral Breast, Open Approach (04/16/18) Assessment and Plan (1) Breast cancer Problem details: 42-year-old woman with aggressive breast cancer with the large residual tumor and many positive nodes following neoadjuvant chemotherapy. She is tolerating her adjuvant Xeloda reasonably well. She will continue with her 3rd cycle. She will return to clinic in about 3 weeks for follow-up. She will be due for her 4th cycle around that time. Current visit: No Status: Acute 43-year-old female with aggressive breast cancer ER GA positive, HER2 negative. BRCA 1 and 2 were wild type. Previous treatment: 1. Neoadjuvant chemotherapy with 4 cycles of Adriamycin and Cytoxan followed by 12 weeks of Taxol. 2. Bilateral mastectomy in March 2018 with residual [id number] disease. 3. Radiation therapy to the chest wall with concurrent Xeloda finishing June 2018. She remains on Xeloda 14 days on, 7 days off, she began cycle 4 today . Tolerating Xeloda without diarrhea, nausea. She does report loss of appetite this is grade 1. Also fatigue which is grade 1 as well. She continues to have some tingling in her fingers and feet does not seem to be getting progressively worse. She does report ?bad? joint pain and swelling specifically fingers. I discussed with the patient will prescribe Celebrex 100 mg twice daily. I discussed the cardiac black box warning with the patient we also discussed this is very similar to the side effect profile of [id number] Motrin. Patient verbalizes understanding and agrees to try the prescription plan at this point is to continue for 4-6 weeks. Patient denies cough, fever, chills. No shortness of breath. CBC unremarkable. CMP also unremarkable. Bilirubin within normal limits at 0.8. RTC in 3 weeks cbc cmp only RTC [address] Lora cbc cmp Continue xeloda 14 days on, 7 days off, cycle 4 day 1 10/15/2018 Cont compression sleeve PRN Has follow up with Dr Urias surgeon Oct 23 (1) Breast cancer Qualifiers: Patient sex: female Laterality: right
[2018-10-15 10:58] VITALS: BP 123/77; PULSE 61; RESP 18; TEMP 36.4; O2SAT 99
[2018-10-15 10:59] LABS: Add Manual Diff / Slide Review NO; Basophils Absolute Auto 0 /uL (0-100); Basophils Percent Auto 0.4 % (0-2); Eosinophils Absolute Auto 100 /uL (0-450); Eosinophils Percent Auto 1.8 % (2-4); Lymphocytes Absolute Auto 1400 /uL (1100-4500); Lymphocytes Percent Auto 25.5 % (25-40); Mean Corpuscular HGB Conc 33.2 % (30-36); Mean Corpuscular Hemoglobin 30.2 PG (26-34); Mean Corpuscular Volume 90.9 fL (80-100); Monocytes Absolute Auto 300 /uL (0-900); Monocytes Percent Auto 5.9 % (3-14); Neutrophils Absolute Auto 3700 /uL (1500-7000); Neutrophils Percent Auto 66.4 % (50-75); Platelet Count 251 X10^3/uL (150-400); Red Blood Cell Count 4.63 X10^6/uL (4.0-5.2); Red Cell Distribution Width 17.7 % (11.6-14.8); White Blood Cell Count 5.6 X10^3/uL (4.5-11.0)
[2018-10-15 11:11] LABS: Alanine Aminotransferase 25 IU/L (9-52); Albumin 4.6 g/dL (3.5-5.0); Albumin Globulin Ratio 1.5 (1.0-2.8); Alkaline Phosphatase 107 U/L (38-126); Aspartate Aminotransferase 24 IU/L (14-36); BUN Creatinine Ratio 12.9 (6-22); Bilirubin Total 1.4 mg/dL (0.2-1.3); Blood Urea Nitrogen 9 mg/dL (7-17); Calcium 9.5 mg/dL (8.4-10.2); Carbon Dioxide 26 mmol/L (22-32); Chloride 103 mmol/L (98-107); Estimated Glomerular Filt Rate > 60.0 mL/min (>60); Globulin 3.1 g/dL (1.7-4.1); Glucose 94 mg/dL (70-100); HEMOLYSIS < 15 (0-50); Potassium 4.3 mmol/L (3.4-5.1); Sodium 139 mmol/L (137-145); Total Protein 7.7 g/dL (6.3-8.2)
[2018-10-22 14:17] VITALS: BP 138/87; PULSE 68; RESP 18; TEMP 36.4; O2SAT 98
--- NOTE | 2018-10-22 16:55 | ONC.APRN.PN ---
PN -Subjective Interval history: Diagnosis: Breast cancer, ERPR positive HER2 negative. BRCA 1 and 2 were wild type Previous treatment: 1. Neoadjuvant chemotherapy with 4 cycles of Adriamycin and Cytoxan followed by 12 weeks of Taxol. 2. Bilateral mastectomy in March 2018 with residual [id number] disease. 3. Radiation therapy to the chest wall with concurrent Xeloda finishing June 2018. 4. Xeloda 14 days on, 7 days off. She has completed 2 cycles. Today is day one of her 4th cycle. Interval history: The patient is a 43-year-old woman who has history of breast cancer. She unfortunately had extensive lymph node involvement following neoadjuvant chemotherapy. Postoperatively, she has had adjuvant radiation with concurrent Xeloda and has continued with adjuvant Xeloda. She has completed 3 cycles and just began her 4th today. She presents today for same day visit reporting chest congestion, hoarse voice. Symptoms began about 4-5 days ago. Patient denies fever. Denies chills. Denies fatigue, myalgias, arthralgias. No change in appetite patient states actually she has been feeling quite well aside from chest congestion, hoarse voice. No lumps or bumps. She occasionally does cough up some sputum which she states is yellow in color. No one else in the house seems to be sick at this point in time. She has appointment with her surgeon Dr Talley Oct 23. Her medications include Lexapro Zofran and Xeloda - Patient Self-Reported Symptoms SR Constitution: Fatigue/Malaise SR eye issues: Vision changes SR ears, nose, mouth, throat issues: Cough, Hoarseness SR respiratory issues: Mucous SR Cardiovascular issues: Chest pain, discomfort, tightness, Extreme swelling, Dizzy/lightheaded SR Skin issues: Dry skin SR Gastrointestinal issues: Poor or no appetite SR Genitourinary issues: Frequent urination, Sexual difficulties SR Musculoskeletal issues: Joint pain or swelling, Muscle weakness, Muscle pain or cramps, Cold hands or feet SR Neuro issues: Lightheaded/dizzy SR Hematologic issues: Swollen lymph nodes SR Endocrine issues: Cold intolerance Home Medications and Allergies Home Medications Medication Instructions Recorded Confirmed Type escitalopram oxalate [Lexapro] 10 mg PO BEDTIME 04/02/18 08/07/18 History capecitabine 1,000 mg/m2 PO Q12H 14 Days #112 07/31/18 08/07/18 Rx tab ondansetron HCl [Zofran] 8 mg PO Q6-12H PRN #60 tab 08/29/18 Rx celecoxib [Celebrex] 100 mg PO BID #90 cap 10/15/18 Rx azithromycin [Zithromax Z-Armani] See Rx Instructions .ROUTE 10/22/18 Rx .COMPLEX #6 tab Allergies Allergy/AdvReac Type Severity Reaction Status Date / Time lactose Allergy Intermediate Gastrointestinal Verified 05/01/18 10:23 Upset Sulfa (Sulfonamide Allergy Mild Hives Verified 05/01/18 10:23 Antibiotics) egg AdvReac Intermediate Gastrointestinal Verified 05/01/18 10:23 Upset Exam Vital signs: Vital Signs Temp Pulse Resp BP Pulse Ox 10/22/18 14:17 97.6 F 68 18 138/87 98 Intake and Output 10/22/18 10/22/18 10/22/18 07:59 15:59 23:59 Other: Weight 84.8 kg Patient Weight 10/23/18 07:59 Weight 84.8 kg - Constitutional positive no acute distress - Routine HEENT Exam Eye: Present: conjunctivae pink. Absent: conjunctival icterus, scleral injection ENT: Present: mucous membranes moist, oropharynx clear - Routine Neck Exam Present: supple. Absent: lymphadenopathy - Routine Respiratory Exam Present: Clear to auscultation bilaterally. Absent: rales, rhonchi, wheezes - Routine Cardiovascular Exam Present: RRR, S1, S2. Absent: murmur, gallop, rubs, JVD - Routine Skin Exam Present: intact, normal turgor. Absent: rash - Routine Neurological Exam Present: alert, oriented X3 Results - Labs Laboratory Last Values WBC 5.6 X10^3/uL (4.5-11.0) 10/15/18 10:38 RBC 4.63 X10^6/uL (4.0-5.2) 10/15/18 10:38 Hgb 14.0 g/dL (12.0-16.0) 10/15/18 10:38 Hct 42.0 % (36-46) 10/15/18 10:38 MCV 90.9 fL (80-100) 10/15/18 10:38 MCH 30.2 PG (26-34) 10/15/18 10:38 MCHC 33.2 % (30-36) 10/15/18 10:38 RDW 17.7 % (11.6-14.8) H 10/15/18 10:38 Plt Count 251 X10^3/uL (150-400) 10/15/18 10:38 Neut % (Auto) 66.4 % (50-75) 10/15/18 10:38 Lymph % (Auto) 25.5 % (25-40) 10/15/18 10:38 [place] % (Auto) 5.9 % (3-14) 10/15/18 10:38 Eos % (Auto) 1.8 % (2-4) L 10/15/18 10:38 Baso % (Auto) 0.4 % (0-2) 10/15/18 10:38 Neut # (Auto) 3700 /uL (3575-7531) 10/15/18 10:38 Lymph # (Auto) 1400 /uL (0744-3628) 10/15/18 10:38 [place] # (Auto) 300 /uL (0-900) 10/15/18 10:38 Eos # (Auto) 100 /uL (0-450) 10/15/18 10:38 Baso # (Auto) 0 /uL (0-100) 10/15/18 10:38 Sodium 139 mmol/L (137-145) 10/15/18 10:38 Potassium 4.3 mmol/L (3.4-5.1) 10/15/18 10:38 Chloride 103 mmol/L (98-107) 10/15/18 10:38 Carbon Dioxide 26 mmol/L (22-32) 10/15/18 10:38 BUN 9 mg/dL (7-17) 10/15/18 10:38 Creatinine 0.70 mg/dL (0.52-1.04) 10/15/18 10:38 Estimated GFR > 60.0 mL/min (>60) 10/15/18 10:38 BUN/Creatinine Ratio 12.9 (6-22) 10/15/18 10:38 Glucose 94 mg/dL (70-100) 10/15/18 10:38 Calcium 9.5 mg/dL (8.4-10.2) 10/15/18 10:38 Total Bilirubin 1.4 mg/dL (0.2-1.3) H 10/15/18 10:38 AST 24 IU/L (14-36) 10/15/18 10:38 ALT 25 IU/L (9-52) 10/15/18 10:38 Alkaline Phosphatase 107 U/L (38-126) 10/15/18 10:38 Total Protein 7.7 g/dL (6.3-8.2) 10/15/18 10:38 Albumin 4.6 g/dL (3.5-5.0) 10/15/18 10:38 Globulin 3.1 g/dL (1.7-4.1) 10/15/18 10:38 Albumin/Globulin Ratio 1.5 (1.0-2.8) 10/15/18 10:38 Breast [facility] [employer] Ag 9 U/mL (< 32) 07/29/18 09:28 - Imaging Additional studies: Procedures Drainage of Chest Wall with Drainage Device, Open Approach (04/16/18) Excision of Right Axillary Lymphatic, Open Approach (04/16/18) Removal of Totally Implantable Vascular Access Device from Upper Extremity Subcutaneous Tissue and Fascia, Open Approach (04/16/18) Resection of Bilateral Breast, Open Approach (04/16/18) Assessment and Plan (1) Breast cancer Problem details: 42-year-old woman with aggressive breast cancer with the large residual tumor and many positive nodes following neoadjuvant chemotherapy. She is tolerating her adjuvant Xeloda reasonably well. She will continue with her 3rd cycle. She will return to clinic in about 3 weeks for follow-up. She will be due for her 4th cycle around that time. Current visit: No Status: Acute 43-year-old female with aggressive breast cancer ER NV positive, HER2 negative. BRCA 1 and 2 were wild type. Previous treatment: 1. Neoadjuvant chemotherapy with 4 cycles of Adriamycin and Cytoxan followed by 12 weeks of Taxol. 2. Bilateral mastectomy in March 2018 with residual [id number] disease. 3. Radiation therapy to the chest wall with concurrent Xeloda finishing June 2018. She remains on Xeloda 14 days on, 7 days off, she began cycle 4 today 10/15/20179. Tolerating Xeloda without diarrhea, nausea. She does report loss of appetite this is grade 1. Also fatigue which is grade 1 as well. She continues to have some tingling in her fingers and feet does not seem to be getting progressively worse. She does report ?bad? joint pain and swelling specifically fingers. I discussed with the patient will prescribe Celebrex 100 mg twice daily. I discussed the cardiac black box warning with the patient we also discussed this is very similar to the side effect profile of [id number] Motrin. Patient verbalizes understanding and agrees to try the prescription plan at this point is to continue for 4-6 weeks. Patient denies cough, fever, chills. No shortness of breath. CBC unremarkable. CMP also unremarkable. Bilirubin within normal limits at 0.8. RTC in 3 weeks cbc cmp only RTC [address] Lora cbc cmp Continue xeloda 14 days on, 7 days off, cycle 4 day 1 10/15/2018 Cont compression sleeve PRN Has follow up with Dr Urias surgeon Oct 23 (2) Viral URI Current visit: Yes Status: Acute Patient is reporting chest congestion, hoarse voice for the last few days. No constitutional symptoms including fever, chills, malaise, myalgias, arthralgias. No other sick family members at this time. I do think this is most likely a viral upper respiratory infection. Recommend cool mist humidifier for her bedroom, warm saltwater gargles as needed. However, noting recent aggressive chemotherapy compromised immune system will prescribe a Z-Armani. Patient is instructed to return to clinic if symptoms not improving in the next 2 days or if at any time symptoms worsen. (1) Breast cancer Qualifiers: Patient sex: female Laterality: right
--- NOTE | 2018-10-22 17:01 | P.PNONC_ITS ---
PN -Subjective Interval history: Diagnosis: Breast cancer, ERPR positive HER2 negative. BRCA 1 and 2 were wild type Previous treatment: 1. Neoadjuvant chemotherapy with 4 cycles of Adriamycin and Cytoxan followed by 12 weeks of Taxol. 2. Bilateral mastectomy in March 2018 with residual [id number] disease. 3. Radiation therapy to the chest wall with concurrent Xeloda finishing June 2018. 4. Xeloda 14 days on, 7 days off. She has completed 2 cycles. Today is day one of her 4th cycle. Interval history: The patient is a 43-year-old woman who has history of breast cancer. She unfortunately had extensive lymph node involvement following neoadjuvant chemotherapy. Postoperatively, she has had adjuvant radiation with concurrent X eloda and has continued with adjuvant Xeloda. She has completed 3 cycles and just began her 4th today. She presents today for same day visit reporting chest congestion, hoarse voice. Symptoms began about 4-5 days ago. Patient denies fever. Denies chills. Denies fatigue, myalgias, arthralgias. No change in appetite patient states actually she has been feeling quite well aside from chest congestion, hoarse voice. No lumps or bumps. She occasionally does cough up some sputum which she states is yellow in color. No one else in the house seems to be sick at this point in time. She has appointment with her surgeon Dr Talley Oct 23. Her medications include Lexapro Zofran and Xeloda - Patient Self-Reported Symptoms SR Constitution: Fatigue/Malaise SR eye issues: Vision changes SR ears, nose, mouth, throat issues: Cough, Hoarseness SR respiratory issues: Mucous SR Cardiovascular issues: Chest pain, discomfort, tightness, Extreme swelling, Dizzy/lightheaded SR Skin issues: Dry skin SR Gastrointestinal issues: Poor or no appetite SR Genitourinary issues: Frequent urination, Sexual difficulties SR Musculoskeletal issues: Joint pain or swelling, Muscle weakness, Muscle pain or cramps, Cold hands or feet SR Neuro issues: Lightheaded/dizzy SR Hematologic issues: Swollen lymph nodes SR Endocrine issues: Cold intolerance Home Medications and Allergies Home Medications Medication Instructions Recorded Confirmed Type escitalopram oxalate [Lexapro] 10 mg PO BEDTIME 04/02/18 08/07/18 History capecitabine 1,000 mg/m2 PO Q12H 14 Days #112 07/31/18 08/07/18 Rx tab ondansetron HCl [Zofran] 8 mg PO Q6-12H PRN #60 tab 08/29/18 Rx celecoxib [Celebrex] 100 mg PO BID #90 cap 10/15/18 Rx azithromycin [Zithromax Z-Armani] See Rx Instructions .ROUTE 10/22/18 Rx .COMPLEX #6 tab Allergies Allergy/AdvReac Type Severity Reaction Status Date / Time lactose Allergy Intermediate Gastrointestinal Verified 05/01/18 10:23 Upset Sulfa (Sulfonamide Allergy Mild Hives Verified 05/01/18 10:23 Antibiotics) egg AdvReac Intermediate Gastrointestinal Verified 05/01/18 10:23 Upset Exam Vital signs: Vital Signs Temp Pulse Resp BP Pulse Ox 10/22/18 14:17 97.6 F 68 18 138/87 98 Intake and Output 10/22/18 10/22/18 10/22/18 07:59 15:59 23:59 Other: Weight 84.8 kg Patient Weight 10/23/18 07:59 Weight 84.8 kg - Constitutional positive no acute distress - Routine HEENT Exam Eye: Present: conjunctivae pink. Absent: conjunctival icterus, scleral injection ENT: Present: mucous membranes moist, oropharynx clear - Routine Neck Exam Present: supple. Absent: lymphadenopathy - Routine Respiratory Exam Present: Clear to auscultation bilaterally. Absent: rales, rhonchi, wheezes - Routine Cardiovascular Exam Present: RRR, S1, S2. Absent: murmur, gallop, rubs, JVD - Routine Skin Exam Present: intact, normal turgor. Absent: rash - Routine Neurological Exam Present: alert, oriented X3 Results - Labs Laboratory Last Values WBC 5.6 X10^3/uL (4.5-11.0) 10/15/18 10:38 RBC 4.63 X10^6/uL (4.0-5.2) 10/15/18 10:38 Hgb 14.0 g/dL (12.0-16.0) 10/15/18 10:38 Hct 42.0 % (36-46) 10/15/18 10:38 MCV 90.9 fL (80-100) 10/15/18 10:38 MCH 30.2 PG (26-34) 10/15/18 10:38 MCHC 33.2 % (30-36) 10/15/18 10:38 RDW 17.7 % (11.6-14.8) H 10/15/18 10:38 Plt Count 251 X10^3/uL (150-400) 10/15/18 10:38 Neut % (Auto) 66.4 % (50-75) 10/15/18 10:38 Lymph % (Auto) 25.5 % (25-40) 10/15/18 10:38 [place] % (Auto) 5.9 % (3-14) 10/15/18 10:38 Eos % (Auto) 1.8 % (2-4) L 10/15/18 10:38 Baso % (Auto) 0.4 % (0-2) 10/15/18 10:38 Neut # (Auto) 3700 /uL (4308-4902) 10/15/18 10:38 Lymph # (Auto) 1400 /uL (3916-4229) 10/15/18 10:38 [place] # (Auto) 300 /uL (0-900) 10/15/18 10:38 Eos # (Auto) 100 /uL (0-450) 10/15/18 10:38 Baso # (Auto) 0 /uL (0-100) 10/15/18 10:38 Sodium 139 mmol/L (137-145) 10/15/18 10:38 Potassium 4.3 mmol/L (3.4-5.1) 10/15/18 10:38 Chloride 103 mmol/L (98-107) 10/15/18 10:38 Carbon Dioxide 26 mmol/L (22-32) 10/15/18 10:38 BUN 9 mg/dL (7-17) 10/15/18 10:38 Creatinine 0.70 mg/dL (0.52-1.04) 10/15/18 10:38 Estimated GFR > 60.0 mL/min (>60) 10/15/18 10:38 BUN/Creatinine Ratio 12.9 (6-22) 10/15/18 10:38 Glucose 94 mg/dL (70-100) 10/15/18 10:38 Calcium 9.5 mg/dL (8.4-10.2) 10/15/18 10:38 Total Bilirubin 1.4 mg/dL (0.2-1.3) H 10/15/18 10:38 AST 24 IU/L (14-36) 10/15/18 10:38 ALT 25 IU/L (9-52) 10/15/18 10:38 Alkaline Phosphatase 107 U/L (38-126) 10/15/18 10:38 Total Protein 7.7 g/dL (6.3-8.2) 10/15/18 10:38 Albumin 4.6 g/dL (3.5-5.0) 10/15/18 10:38 Globulin 3.1 g/dL (1.7-4.1) 10/15/18 10:38 Albumin/Globulin Ratio 1.5 (1.0-2.8) 10/15/18 10:38 Breast [facility] [employer] Ag 9 U/mL (< 32) 07/29/18 09:28 - Imaging Additional studies: Procedures Drainage of Chest Wall with Drainage Device, Open Approach (04/16/18) Excision of Right Axillary Lymphatic, Open Approach (04/16/18) Removal of Totally Implantable Vascular Access Device from Upper Extremity Subcutaneous Tissue and Fascia, Open Approach (04/16/18) Resection of Bilateral Breast, Open Approach (04/16/18) Assessment and Plan (1) Breast cancer Problem details: 42-year-old woman with aggressive breast cancer with the large residual tumor and many positive nodes following neoadjuvant chemotherapy. She is tolerating her adjuvant Xeloda reasonably well. She will continue with her 3rd cycle. She will return to clinic in about 3 weeks for follow-up. She will be due for her 4th cycle around that time. Current visit: No Status: Acute 43-year-old female with aggressive breast cancer ER [place] positive, HER2 negative. BRCA 1 and 2 were wild type. Previous treatment: 1. Neoadjuvant chemotherapy with 4 cycles of Adriamycin and Cytoxan followed by 12 weeks of Taxol. 2. Bilateral mastectomy in March 2018 with residual [id number] disease. 3. Radiation therapy to the chest wall with concurrent Xeloda finishing June 2018. She remains on Xeloda 14 days on, 7 days off, she began cycle 4 today 10/15/20179. Tolerating Xeloda without diarrhea, nausea. She does report loss of appetite this is grade 1. Also fatigue which is grade 1 as well. She continues to have some tingling in her fingers and feet does not seem to be getting progressively worse. She does report ?bad? joint pain and swelling specifically fingers. I discussed with the patient will prescribe Celebrex 100 mg twice daily. I discussed the cardiac black box warning with the patient we also discussed this is very similar to the side effect profile of [id number] Motrin. Patient verbalizes understanding and agrees to try the prescription plan at this point is to continue for 4-6 weeks. Patient denies cough, fever, chills. No shortness of breath. CBC unremarkable. CMP also unremarkable. Bilirubin within normal limits at 0.8. RTC in 3 weeks cbc cmp only RTC [address] Lora cbc cmp Continue xeloda 14 days on, 7 days off, cycle 4 day 1 10/15/2018 Cont compression sleeve PRN Has follow up with Dr Urias surgeon Oct 23 (2) Viral URI Current visit: Yes Status: Acute Patient is reporting chest congestion, hoarse voice for the last few days. No constitutional symptoms including fever, chills, malaise, myalgias, arthralgias. No other sick family members at this time. I do think this is most likely a viral upper respiratory infection. Recommend cool mist humidifier for her bedroom, warm saltwater gargles as needed. However, noting recent aggressive chemotherapy compromised immune system will prescribe a Z-Armani. Patient is instructed to return to clinic if symptoms not improving in the next 2 days or if at any time symptoms worsen. (1) Breast cancer Qualifiers: Patient sex: female Laterality: right
[2018-11-05 11:39] LABS: Add Manual Diff / Slide Review NO; Basophils Absolute Auto 0 /uL (0-100); Basophils Percent Auto 0.4 % (0-2); Eosinophils Absolute Auto 100 /uL (0-450); Eosinophils Percent Auto 1.6 % (2-4); Hematocrit 38.9 % (36-46); Hemoglobin 13.4 g/dL (12.0-16.0); Lymphocytes Absolute Auto 1200 /uL (1100-4500); Lymphocytes Percent Auto 24.9 % (25-40); Mean Corpuscular HGB Conc 34.5 % (30-36); Mean Corpuscular Hemoglobin 31.5 PG (26-34); Mean Corpuscular Volume 91.2 fL (80-100); Monocytes Absolute Auto 300 /uL (0-900); Monocytes Percent Auto 6.9 % (3-14); Neutrophils Absolute Auto 3200 /uL (1500-7000); Neutrophils Percent Auto 66.2 % (50-75); Platelet Count 222 X10^3/uL (150-400); Red Blood Cell Count 4.26 X10^6/uL (4.0-5.2); Red Cell Distribution Width 18.9 % (11.6-14.8); White Blood Cell Count 4.9 X10^3/uL (4.5-11.0)
[2018-11-05 11:51] LABS: Alanine Aminotransferase 24 IU/L (9-52); Albumin 4.2 g/dL (3.5-5.0); Albumin Globulin Ratio 1.4 (1.0-2.8); Alkaline Phosphatase 96 U/L (38-126); Aspartate Aminotransferase 17 IU/L (14-36); Bilirubin Total 1.8 mg/dL (0.2-1.3); Blood Urea Nitrogen 9 mg/dL (7-17); Calcium 9.2 mg/dL (8.4-10.2); Carbon Dioxide 24 mmol/L (22-32); Chloride 105 mmol/L (98-107); Estimated Glomerular Filt Rate > 60.0 mL/min (>60); Glucose 102 mg/dL (70-100); HEMOLYSIS < 15 (0-50); Potassium 4.3 mmol/L (3.4-5.1); Sodium 140 mmol/L (137-145); Total Protein 7.2 g/dL (6.3-8.2)
[2018-11-05 11:55] VITALS: BP 139/78; PULSE 82; RESP 18; TEMP 36.8; O2SAT 100
--- NOTE | 2018-11-05 13:00 | P.PNONC_ITS ---
PN -Subjective Interval history: Diagnosis: Breast cancer, ERPR positive HER2 negative. BRCA 1 and 2 were wild type Previous treatment: 1. Neoadjuvant chemotherapy with 4 cycles of Adriamycin and Cytoxan followed by 12 weeks of Taxol. 2. Bilateral mastectomy in March 2018 with residual [id number] disease. 3. Radiation therapy to the chest wall with concurrent Xeloda finishing June 2018. 4. Xeloda 14 days on, 7 days off. She has completed 4 cycles. Interval history: The patient is a 43-year-old woman who has history of breast cancer. She unfortunately had extensive lymph node involvement following neoadjuvant chemotherapy. Postoperatively, she has had adjuvant radiation with concurrent Xeloda and has continued with adjuvant Xeloda. She has completed 4 cycles and just began her 5th cycle yesterday. Since her last visit here, she has had an upper respiratory infection which has since resolved. She notes that she did have some coughing congestion. No fevers or chills. She has not had any mouth sores or skin rash. She denies any diarrhea. Her strength and energy level have been up and down through the cycles but overall fairly good. She denies any shortness of breath or chest pain. Appetite is fair. She denies any other changes in her health. Her medications include Lexapro Zofran and Xeloda - Patient Self-Reported Symptoms SR Constitution: Fatigue/Malaise SR eye issues: Eye pain SR ears, nose, mouth, throat issues: Congestion, Cough SR respiratory issues: Cough, Mucous SR Cardiovascular issues: Shortness of breath with activity or lying flat SR Skin issues: Dry skin SR Gastrointestinal issues: Poor or no appetite SR Genitourinary issues: Frequent urination, Sexual difficulties SR Musculoskeletal issues: Joint pain or swelling, Bone pain SR Neuro issues: Lightheaded/dizzy SR Hematologic issues: Swollen lymph nodes SR Endocrine issues: Cold intolerance Home Medications and Allergies Home Medications Medication Instructions Recorded Confirmed Type escitalopram oxalate [Lexapro] 10 mg PO BEDTIME 04/02/18 08/07/18 History capecitabine 1,000 mg/m2 PO Q12H 14 Days #112 07/31/18 08/07/18 Rx tab ondansetron HCl [Zofran] 8 mg PO Q6-12H PRN #60 tab 08/29/18 Rx celecoxib [Celebrex] 100 mg PO BID #90 cap 10/15/18 Rx azithromycin [Zithromax Z-Armani] See Rx Instructions .ROUTE 10/22/18 Rx .COMPLEX #6 tab Allergies Allergy/AdvReac Type Severity Reaction Status Date / Time lactose Allergy Intermediate Gastrointestinal Verified 05/01/18 10:23 Upset Sulfa (Sulfonamide Allergy Mild Hives Verified 05/01/18 10:23 Antibiotics) egg AdvReac Intermediate Gastrointestinal Verified 05/01/18 10:23 Upset Exam Vital signs: Vital Signs Temp Pulse Resp BP Pulse Ox 11/05/18 11:55 98.3 F 82 18 139/78 100 Intake and Output 11/04/18 11/05/18 11/05/18 23:59 07:59 15:59 Other: Weight 85 kg Patient Weight 11/06/18 07:59 Weight 85 kg - Constitutional positive no acute distress, positive average body habitus - Routine HEENT Exam Head: Present: normocephalic, atraumatic Eye: Present: EOMI, PERRL. Absent: conjunctival icterus, scleral injection ENT: Present: mucous membranes moist, oropharynx clear - Routine Neck Exam Present: supple. Absent: lymphadenopathy, thyromegaly - Routine Respiratory Exam Present: Clear to auscultation bilaterally. Absent: rales, wheezes - Routine Cardiovascular Exam Present: RRR, S1, S2. Absent: murmur - Routine Abdominal Exam Present: soft, normoactive bowel sounds. Absent: tenderness, organomegaly - Routine Extremities Exam Absent: cyanosis, clubbing, edema - Routine Skin Exam Present: intact. Absent: petechiae, rash - Routine Neurological Exam Present: alert, oriented X3 - Routine Psychiatric Exam Present: normal affect, normal thought process Results - Labs Laboratory Last Values WBC 4.9 X10^3/uL (4.5-11.0) 11/05/18 08:19 RBC 4.26 X10^6/uL (4.0-5.2) 11/05/18 08:19 Hgb 13.4 g/dL (12.0-16.0) 11/05/18 08:19 Hct 38.9 % (36-46) 11/05/18 08:19 MCV 91.2 fL (80-100) 11/05/18 08:19 MCH 31.5 PG (26-34) 11/05/18 08:19 MCHC 34.5 % (30-36) 11/05/18 08:19 RDW 18.9 % (11.6-14.8) H 11/05/18 08:19 Plt Count 222 X10^3/uL (150-400) 11/05/18 08:19 Neut % (Auto) 66.2 % (50-75) 11/05/18 08:19 Lymph % (Auto) 24.9 % (25-40) L 11/05/18 08:19 [place] % (Auto) 6.9 % (3-14) 11/05/18 08:19 Eos % (Auto) 1.6 % (2-4) L 11/05/18 08:19 Baso % (Auto) 0.4 % (0-2) 11/05/18 08:19 Neut # (Auto) 3200 /uL (7750-1780) 11/05/18 08:19 Lymph # (Auto) 1200 /uL (0074-8086) 11/05/18 08:19 [place] # (Auto) 300 /uL (0-900) 11/05/18 08:19 Eos # (Auto) 100 /uL (0-450) 11/05/18 08:19 Baso # (Auto) 0 /uL (0-100) 11/05/18 08:19 Sodium 140 mmol/L (137-145) 11/05/18 08:19 Potassium 4.3 mmol/L (3.4-5.1) 11/05/18 08:19 Chloride 105 mmol/L (98-107) 11/05/18 08:19 Carbon Dioxide 24 mmol/L (22-32) 11/05/18 08:19 BUN 9 mg/dL (7-17) 11/05/18 08:19 Creatinine 0.60 mg/dL (0.52-1.04) 11/05/18 08:19 Estimated GFR > 60.0 mL/min (>60) 11/05/18 08:19 BUN/Creatinine Ratio 15.0 (6-22) 11/05/18 08:19 Glucose 102 mg/dL (70-100) H 11/05/18 08:19 Calcium 9.2 mg/dL (8.4-10.2) 11/05/18 08:19 Total Bilirubin 1.8 mg/dL (0.2-1.3) H 11/05/18 08:19 AST 17 IU/L (14-36) 11/05/18 08:19 ALT 24 IU/L (9-52) 11/05/18 08:19 Alkaline Phosphatase 96 U/L (38-126) 11/05/18 08:19 Total Protein 7.2 g/dL (6.3-8.2) 11/05/18 08:19 Albumin 4.2 g/dL (3.5-5.0) 11/05/18 08:19 Globulin 3.0 g/dL (1.7-4.1) 11/05/18 08:19 Albumin/Globulin Ratio 1.4 (1.0-2.8) 11/05/18 08:19 Breast [facility] Ag 9 U/mL (< 32) 07/29/18 09:28 - Imaging Additional studies: Procedures Drainage of Chest Wall with Drainage Device, Open Approach (04/16/18) Excision of Right Axillary Lymphatic, Open Approach (04/16/18) Removal of Totally Implantable Vascular Access Device from Upper Extremity Subcutaneous Tissue and Fascia, Open Approach (04/16/18) Resection of Bilateral Breast, Open Approach (04/16/18) Assessment and Plan (1) Breast cancer Problem details: 42-year-old woman with aggressive breast cancer with the large residual tumor and many positive nodes following neoadjuvant chemotherapy. She is tolerating her adjuvant Xeloda reasonably well. She will continue with her 5th cycle of treatment. She will return to clinic in 3 weeks for follow-up. She will be due to start her 6th of 8 cycles at that time. Current visit: No Status: Acute (1) Breast cancer Qualifiers: Patient sex: female Laterality: right
[2018-11-25 10:54] LABS: Alanine Aminotransferase 26 IU/L (9-52); Albumin 4.2 g/dL (3.5-5.0); Albumin Globulin Ratio 1.4 (1.0-2.8); Alkaline Phosphatase 91 U/L (38-126); Aspartate Aminotransferase 19 IU/L (14-36); BUN Creatinine Ratio 23.3 (6-22); Bilirubin Total 1.9 mg/dL (0.2-1.3); Blood Urea Nitrogen 14 mg/dL (7-17); Calcium 9.4 mg/dL (8.4-10.2); Carbon Dioxide 26 mmol/L (22-32); Chloride 106 mmol/L (98-107); Estimated Glomerular Filt Rate > 60.0 mL/min (>60); Globulin 2.9 g/dL (1.7-4.1); Glucose 88 mg/dL (70-100); HEMOLYSIS < 15 (0-50); Potassium 4.2 mmol/L (3.4-5.1); Sodium 142 mmol/L (137-145); Total Protein 7.1 g/dL (6.3-8.2)
[2018-11-25 11:00] LABS: Add Manual Diff / Slide Review NO; Basophils Absolute Auto 0 /uL (0-100); Basophils Percent Auto 0.3 % (0-2); Eosinophils Absolute Auto 100 /uL (0-450); Eosinophils Percent Auto 1.8 % (2-4); Hematocrit 39.8 % (36-46); Hemoglobin 13.2 g/dL (12.0-16.0); Lymphocytes Absolute Auto 1300 /uL (1100-4500); Lymphocytes Percent Auto 22.3 % (25-40); Mean Corpuscular HGB Conc 33.2 % (30-36); Mean Corpuscular Hemoglobin 31.5 PG (26-34); Monocytes Absolute Auto 400 /uL (0-900); Monocytes Percent Auto 6.1 % (3-14); Neutrophils Absolute Auto 4100 /uL (1500-7000); Neutrophils Percent Auto 69.5 % (50-75); Platelet Count 221 X10^3/uL (150-400); Red Blood Cell Count 4.19 X10^6/uL (4.0-5.2); Red Cell Distribution Width 18.9 % (11.6-14.8); White Blood Cell Count 5.9 X10^3/uL (4.5-11.0)
[2018-11-26 16:14] VITALS: BP 153/78; PULSE 78; RESP 16; TEMP 36.7; O2SAT 100
--- NOTE | 2018-11-26 16:25 | ONC.PN ---
PN -Subjective Interval history: Diagnosis: Breast cancer, ER/UT positive HER2 negative. BRCA 1 and 2 were wild type Previous treatment: 1. Neoadjuvant chemotherapy with 4 cycles of Adriamycin and Cytoxan followed by 12 weeks of Taxol. 2. Bilateral mastectomy in March 2018 with residual [id number] disease. 3. Radiation therapy to the chest wall with concurrent Xeloda finishing June 2018. 4. Xeloda 14 days on, 7 days off. She has completed 5 cycles. Interval history: The patient is a 43-year-old woman who has history of breast cancer. She unfortunately had extensive lymph node involvement following neoadjuvant chemotherapy. Postoperatively, she has had adjuvant radiation with concurrent Xeloda and has continued with adjuvant Xeloda. She has completed 5 cycles and just began her 6th cycle yesterday. Since her last visit here, she has felt about the same. She has had some tenderness in the mouth but no open sores. She is able to eat bland food but spicy food is uncomfortable. She has not had any nausea or vomiting. No diarrhea. She has had a little bit of skin rash on her hands and feet. No fevers or chills. No shortness of breath or cough. Strength and energy level have been low but stable. She denies any other changes in her health. Her medications include Lexapro Zofran and Xeloda - Patient Self-Reported Symptoms SR Constitution: Fatigue/Malaise SR eye issues: Eye pain SR ears, nose, mouth, throat issues: Congestion, Cough SR respiratory issues: Mucous SR Cardiovascular issues: Shortness of breath with activity or lying flat, Extreme swelling SR Skin issues: Dry skin, Skin rash or itching, Skin color changes, Skin lesions or moles, Nail changes SR Gastrointestinal issues: Poor or no appetite SR Genitourinary issues: Frequent urination SR Musculoskeletal issues: Joint pain or swelling, Bone pain SR Neuro issues: Numbness or tingling SR Hematologic issues: Slow healing, Bleeding/bruising SR Endocrine issues: Hot flashes Home Medications and Allergies Home Medications Medication Instructions Recorded Confirmed Type escitalopram oxalate [Lexapro] 10 mg PO BEDTIME 04/02/18 11/26/18 History ondansetron HCl [Zofran] 8 mg PO Q6-12H PRN #60 tab 08/29/18 11/26/18 Rx celecoxib [Celebrex] 100 mg PO BID #90 cap 10/15/18 11/26/18 Rx azithromycin [Zithromax Z-Armani] See Rx Instructions .ROUTE 10/22/18 11/26/18 Rx .COMPLEX #6 tab Allergies Allergy/AdvReac Type Severity Reaction Status Date / Time lactose Allergy Intermediate Gastrointestinal Verified 05/01/18 10:23 Upset Sulfa (Sulfonamide Allergy Mild Hives Verified 05/01/18 10:23 Antibiotics) egg AdvReac Intermediate Gastrointestinal Verified 05/01/18 10:23 Upset Exam Vital signs: Vital Signs Temp Pulse Resp BP Pulse Ox 11/26/18 16:14 98.1 F 78 16 153/78 H 100 Intake and Output 11/26/18 11/26/18 11/26/18 07:59 15:59 23:59 Other: Weight 85.9 kg Patient Weight 11/26/18 23:59 Weight 85.9 kg - Constitutional positive no acute distress, positive average body habitus - Routine HEENT Exam Head: Present: normocephalic, atraumatic Eye: Present: EOMI, PERRL. Absent: conjunctival icterus, scleral injection ENT: Present: mucous membranes moist, oropharynx clear - Routine Neck Exam Present: supple. Absent: lymphadenopathy, thyromegaly - Routine Chest/Breast/Axilla Exam Axillae: Absent: lymphadenopathy - Routine Respiratory Exam Present: Clear to auscultation bilaterally. Absent: rales, wheezes - Routine Cardiovascular Exam Present: RRR, S1, S2. Absent: murmur - Routine Abdominal Exam Present: soft, normoactive bowel sounds. Absent: tenderness, organomegaly - Routine Extremities Exam Absent: cyanosis, clubbing, edema - Routine Back/Spine Exam Back/Spine: Absent: paraspinal tenderness, vertebral tenderness - Routine Skin Exam Present: erythema, dry. Absent: petechiae, rash - Routine Neurological Exam Present: alert, oriented X3 - Routine Psychiatric Exam Present: normal affect, normal thought process Results - Labs Laboratory Last Values WBC 5.9 X10^3/uL (4.5-11.0) 11/25/18 10:08 RBC 4.19 X10^6/uL (4.0-5.2) 11/25/18 10:08 Hgb 13.2 g/dL (12.0-16.0) 11/25/18 10:08 Hct 39.8 % (36-46) 11/25/18 10:08 MCV 95.0 fL (80-100) 11/25/18 10:08 MCH 31.5 PG (26-34) 11/25/18 10:08 MCHC 33.2 % (30-36) 11/25/18 10:08 RDW 18.9 % (11.6-14.8) H 11/25/18 10:08 Plt Count 221 X10^3/uL (150-400) 11/25/18 10:08 Neut % (Auto) 69.5 % (50-75) 11/25/18 10:08 Lymph % (Auto) 22.3 % (25-40) L 11/25/18 10:08 [place] % (Auto) 6.1 % (3-14) 11/25/18 10:08 Eos % (Auto) 1.8 % (2-4) L 11/25/18 10:08 Baso % (Auto) 0.3 % (0-2) 11/25/18 10:08 Neut # (Auto) 4100 /uL (0953-7595) 11/25/18 10:08 Lymph # (Auto) 1300 /uL (4822-0354) 11/25/18 10:08 [place] # (Auto) 400 /uL (0-900) 11/25/18 10:08 Eos # (Auto) 100 /uL (0-450) 11/25/18 10:08 Baso # (Auto) 0 /uL (0-100) 11/25/18 10:08 Sodium 142 mmol/L (137-145) 11/25/18 10:08 Potassium 4.2 mmol/L (3.4-5.1) 11/25/18 10:08 Chloride 106 mmol/L (98-107) 11/25/18 10:08 Carbon Dioxide 26 mmol/L (22-32) 11/25/18 10:08 BUN 14 mg/dL (7-17) 11/25/18 10:08 Creatinine 0.60 mg/dL (0.52-1.04) 11/25/18 10:08 Estimated GFR > 60.0 mL/min (>60) 11/25/18 10:08 BUN/Creatinine Ratio 23.3 (6-22) H 11/25/18 10:08 Glucose 88 mg/dL (70-100) 11/25/18 10:08 Calcium 9.4 mg/dL (8.4-10.2) 11/25/18 10:08 Total Bilirubin 1.9 mg/dL (0.2-1.3) H 11/25/18 10:08 AST 19 IU/L (14-36) 11/25/18 10:08 ALT 26 IU/L (9-52) 11/25/18 10:08 Alkaline Phosphatase 91 U/L (38-126) 11/25/18 10:08 Total Protein 7.1 g/dL (6.3-8.2) 11/25/18 10:08 Albumin 4.2 g/dL (3.5-5.0) 11/25/18 10:08 Globulin 2.9 g/dL (1.7-4.1) 11/25/18 10:08 Albumin/Globulin Ratio 1.4 (1.0-2.8) 11/25/18 10:08 Breast [facility] Ag 9 U/mL (< 32) 07/29/18 09:28 - Imaging Additional studies: Procedures Drainage of Chest Wall with Drainage Device, Open Approach (04/16/18) Excision of Right Axillary Lymphatic, Open Approach (04/16/18) Removal of Totally Implantable Vascular Access Device from Upper Extremity Subcutaneous Tissue and Fascia, Open Approach (04/16/18) Resection of Bilateral Breast, Open Approach (04/16/18) Assessment and Plan (1) Breast cancer Problem details: 42-year-old woman with aggressive breast cancer with the large residual tumor and many positive nodes following neoadjuvant chemotherapy. She is tolerating her adjuvant Xeloda reasonably well. She will continue with her 6th cycle of treatment. She will return to clinic in 3 weeks for follow-up. She will be due to start her 7th of 8 cycles at that time. She may be eligible for a clinical trial of an aromatase inhibitor with or without everolimus. She will schedule follow-up appointment in [place] for the completion of her chemotherapy. She will return to clinic in 3 weeks for follow-up. Current visit: No Status: Acute 43-year-old female with aggressive breast cancer ER UT positive, HER2 negative. BRCA 1 and 2 were wild type. Previous treatment: 1. Neoadjuvant chemotherapy with 4 cycles of Adriamycin and Cytoxan followed by 12 weeks of Taxol. 2. Bilateral mastectomy in March 2018 with residual [id number] disease. 3. Radiation therapy to the chest wall with concurrent Xeloda finishing June 2018. She remains on Xeloda 14 days on, 7 days off, she began cycle 4 today 10/15/20179. Tolerating Xeloda without diarrhea, nausea. She does report loss of appetite this is grade 1. Also fatigue which is grade 1 as well. She continues to have some tingling in her fingers and feet does not seem to be getting progressively worse. She does report ?bad? joint pain and swelling specifically fingers. I discussed with the patient will prescribe Celebrex 100 mg twice daily. I discussed the cardiac black box warning with the patient we also discussed this is very similar to the side effect profile of [id number] Motrin. Patient verbalizes understanding and agrees to try the prescription plan at this point is to continue for 4-6 weeks. Patient denies cough, fever, chills. No shortness of breath. CBC unremarkable. CMP also unremarkable. Bilirubin within normal limits at 0.8. RTC in 3 weeks cbc cmp only RTC [address] Lora cbc cmp Continue xeloda 14 days on, 7 days off, cycle 4 day 1 10/15/2018 Cont compression sleeve PRN Has follow up with Dr Urias surgeon Oct 23 (1) Breast cancer Qualifiers: Patient sex: female Laterality: right
--- NOTE | 2018-11-26 16:39 | P.PNONC_ITS ---
PN -Subjective Interval history: Diagnosis: Breast cancer, ER/RI positive HER2 negative. BRCA 1 and 2 were wild type Previous treatment: 1. Neoadjuvant chemotherapy with 4 cycles of Adriamycin and Cytoxan followed by 12 weeks of Taxol. 2. Bilateral mastectomy in March 2018 with residual [id number] disease. 3. Radiation therapy to the chest wall with concurrent Xeloda finishing June 2018. 4. Xeloda 14 days on, 7 days off. She has completed 5 cycles. Interval history: The patient is a 43-year-old woman who has history of breast cancer. She unfortunately had extensive lymph node involvement following neoadjuvant chemotherapy. Postoperatively, she has had adjuvant radiation with concurrent Xeloda and has continued with adjuvant Xeloda. She has completed 5 cycles and just began her 6th cycle yesterday. Since her last visit here, she has felt about the same. She has had some tenderness in the mouth but no open sores. She is able to eat bland food but spicy food is uncomfortable. She has not had any nausea or vomiting. No diarrhea. She has had a little bit of skin rash on her hands and feet. No fevers or chills. No shortness of breath or cough. Strength and energy level have been low but stable. She denies any other changes in her health. Her medications include Lexapro Zofran and Xeloda - Patient Self-Reported Symptoms SR Constitution: Fatigue/Malaise SR eye issues: Eye pain SR ears, nose, mouth, throat issues: Congestion, Cough SR respiratory issues: Mucous SR Cardiovascular issues: Shortness of breath with activity or lying flat, Extreme swelling SR Skin issues: Dry skin, Skin rash or itching, Skin color changes, Skin lesions or moles, Nail changes SR Gastrointestinal issues: Poor or no appetite SR Genitourinary issues: Frequent urination SR Musculoskeletal issues: Joint pain or swelling, Bone pain SR Neuro issues: Numbness or tingling SR Hematologic issues: Slow healing, Bleeding/bruising SR Endocrine issues: Hot flashes Home Medications and Allergies Home Medications Medication Instructions Recorded Confirmed Type escitalopram oxalate [Lexapro] 10 mg PO BEDTIME 04/02/18 11/26/18 History ondansetron HCl [Zofran] 8 mg PO Q6-12H PRN #60 tab 08/29/18 11/26/18 Rx celecoxib [Celebrex] 100 mg PO BID #90 cap 10/15/18 11/26/18 Rx azithromycin [Zithromax Z-Armani] See Rx Instructions .ROUTE 10/22/18 11/26/18 Rx .COMPLEX #6 tab Allergies Allergy/AdvReac Type Severity Reaction Status Date / Time lactose Allergy Intermediate Gastrointestinal Verified 05/01/18 10:23 Upset Sulfa (Sulfonamide Allergy Mild Hives Verified 05/01/18 10:23 Antibiotics) egg AdvReac Intermediate Gastrointestinal Verified 05/01/18 10:23 Upset Exam Vital signs: Vital Signs Temp Pulse Resp BP Pulse Ox 11/26/18 16:14 98.1 F 78 16 153/78 H 100 Intake and Output 11/26/18 11/26/18 11/26/18 07:59 15:59 23:59 Other: Weight 85.9 kg Patient Weight 11/26/18 23:59 Weight 85.9 kg - Constitutional positive no acute distress, positive average body habitus - Routine HEENT Exam Head: Present: normocephalic, atraumatic Eye: Present: EOMI, PERRL. Absent: conjunctival icterus, scleral injection ENT: Present: mucous membranes moist, oropharynx clear - Routine Neck Exam Present: supple. Absent: lymphadenopathy, thyromegaly - Routine Chest/Breast/Axilla Exam Axillae: Absent: lymphadenopathy - Routine Respiratory Exam Present: Clear to auscultation bilaterally. Absent: rales, wheezes - Routine Cardiovascular Exam Present: RRR, S1, S2. Absent: murmur - Routine Abdominal Exam Present: soft, normoactive bowel sounds. Absent: tenderness, organomegaly - Routine Extremities Exam Absent: cyanosis, clubbing, edema - Routine Back/Spine Exam Back/Spine: Absent: paraspinal tenderness, vertebral tenderness - Routine Skin Exam Present: erythema, dry. Absent: petechiae, rash - Routine Neurological Exam Present: alert, oriented X3 - Routine Psychiatric Exam Present: normal affect, normal thought process Results - Labs Laboratory Last Values WBC 5.9 X10^3/uL (4.5-11.0) 11/25/18 10:08 RBC 4.19 X10^6/uL (4.0-5.2) 11/25/18 10:08 Hgb 13.2 g/dL (12.0-16.0) 11/25/18 10:08 Hct 39.8 % (36-46) 11/25/18 10:08 MCV 95.0 fL (80-100) 11/25/18 10:08 MCH 31.5 PG (26-34) 11/25/18 10:08 MCHC 33.2 % (30-36) 11/25/18 10:08 RDW 18.9 % (11.6-14.8) H 11/25/18 10:08 Plt Count 221 X10^3/uL (150-400) 11/25/18 10:08 Neut % (Auto) 69.5 % (50-75) 11/25/18 10:08 Lymph % (Auto) 22.3 % (25-40) L 11/25/18 10:08 [place] % (Auto) 6.1 % (3-14) 11/25/18 10:08 Eos % (Auto) 1.8 % (2-4) L 11/25/18 10:08 Baso % (Auto) 0.3 % (0-2) 11/25/18 10:08 Neut # (Auto) 4100 /uL (3283-5702) 11/25/18 10:08 Lymph # (Auto) 1300 /uL (6263-6233) 11/25/18 10:08 [place] # (Auto) 400 /uL (0-900) 11/25/18 10:08 Eos # (Auto) 100 /uL (0-450) 11/25/18 10:08 Baso # (Auto) 0 /uL (0-100) 11/25/18 10:08 Sodium 142 mmol/L (137-145) 11/25/18 10:08 Potassium 4.2 mmol/L (3.4-5.1) 11/25/18 10:08 Chloride 106 mmol/L (98-107) 11/25/18 10:08 Carbon Dioxide 26 mmol/L (22-32) 11/25/18 10:08 BUN 14 mg/dL (7-17) 11/25/18 10:08 Creatinine 0.60 mg/dL (0.52-1.04) 11/25/18 10:08 Estimated GFR > 60.0 mL/min (>60) 11/25/18 10:08 BUN/Creatinine Ratio 23.3 (6-22) H 11/25/18 10:08 Glucose 88 mg/dL (70-100) 11/25/18 10:08 Calcium 9.4 mg/dL (8.4-10.2) 11/25/18 10:08 Total Bilirubin 1.9 mg/dL (0.2-1.3) H 11/25/18 10:08 AST 19 IU/L (14-36) 11/25/18 10:08 ALT 26 IU/L (9-52) 11/25/18 10:08 Alkaline Phosphatase 91 U/L (38-126) 11/25/18 10:08 Total Protein 7.1 g/dL (6.3-8.2) 11/25/18 10:08 Albumin 4.2 g/dL (3.5-5.0) 11/25/18 10:08 Globulin 2.9 g/dL (1.7-4.1) 11/25/18 10:08 Albumin/Globulin Ratio 1.4 (1.0-2.8) 11/25/18 10:08 Breast [facility] Ag 9 U/mL (< 32) 07/29/18 09:28 - Imaging Additional studies: Procedures Drainage of Chest Wall with Drainage Device, Open Approach (04/16/18) Excision of Right Axillary Lymphatic, Open Approach (04/16/18) Removal of Totally Implantable Vascular Access Device from Upper Extremity Subcutaneous Tissue and Fascia, Open Approach (04/16/18) Resection of Bilateral Breast, Open Approach (04/16/18) Assessment and Plan (1) Breast cancer Problem details: 42-year-old woman with aggressive breast cancer with the large residual tumor and many positive nodes following neoadjuvant chemotherapy. She is tolerating her adjuvant Xeloda reasonably well. She will continue with her 6th cycle of treatment. She will return to clinic in 3 weeks for follow-up. She will be due to start her 7th of 8 cycles at that time. She may be eligible for a clinical trial of an aromatase inhibitor with or without everolimus. She will schedule follow-up appointment in [place] for the completion of her chemotherapy. She will return to clinic in 3 weeks for follow-up. Current visit: No Status: Acute 43-year-old female with aggressive breast cancer ER RI positive, HER2 negative. BRCA 1 and 2 were wild type. Previous treatment: 1. Neoadjuvant chemotherapy with 4 cycles of Adriamycin and Cytoxan followed by 12 weeks of Taxol. 2. Bilateral mastectomy in March 2018 with residual [id number] disease. 3. Radiation therapy to the chest wall with concurrent Xeloda finishing June 2018. She remains on Xeloda 14 days on, 7 days off, she began cycle 4 today 10/15/20179. Tolerating Xeloda without diarrhea, nausea. She does report loss of appetite this is grade 1. Also fatigue which is grade 1 as well. She continues to have some tingling in her fingers and feet does not seem to be getting progressively worse. She does report ?bad? joint pain and swelling specifically fingers. I discussed with the patient will prescribe Celebrex 100 mg twice daily. I discussed the cardiac black box warning with the patient we also discussed this is very similar to the side effect profile of [id number] Motrin. Patient verbalizes understanding and agrees to try the prescription plan at this point is to continue for 4-6 weeks. Patient denies cough, fever, chills. No shortne ss of breath. CBC unremarkable. CMP also unremarkable. Bilirubin within normal limits at 0.8. RTC in 3 weeks cbc cmp only RTC [address] Lora cbc cmp Continue xeloda 14 days on, 7 days off, cycle 4 day 1 10/15/2018 Cont compression sleeve PRN Has follow up with Dr Urias surgeon Oct 23 (1) Breast cancer Qualifiers: Patient sex: female Laterality: right
[2018-12-16 09:44] LABS: Add Manual Diff / Slide Review NO; Basophils Absolute Auto 0 /uL (0-100); Basophils Percent Auto 0.4 % (0-2); Eosinophils Absolute Auto 100 /uL (0-450); Eosinophils Percent Auto 1.6 % (2-4); Hematocrit 38.7 % (36-46); Hemoglobin 13.2 g/dL (12.0-16.0); Lymphocytes Absolute Auto 1300 /uL (1100-4500); Lymphocytes Percent Auto 23.1 % (25-40); Mean Corpuscular HGB Conc 34.1 % (30-36); Mean Corpuscular Hemoglobin 32.8 PG (26-34); Mean Corpuscular Volume 96.1 fL (80-100); Monocytes Absolute Auto 400 /uL (0-900); Monocytes Percent Auto 6.4 % (3-14); Neutrophils Absolute Auto 3800 /uL (1500-7000); Neutrophils Percent Auto 68.5 % (50-75); Platelet Count 206 X10^3/uL (150-400); Red Blood Cell Count 4.02 X10^6/uL (4.0-5.2); Red Cell Distribution Width 17.7 % (11.6-14.8); White Blood Cell Count 5.5 X10^3/uL (4.5-11.0)
[2018-12-16 10:38] LABS: Alanine Aminotransferase 16 IU/L (9-52); Albumin 4.4 g/dL (3.5-5.0); Albumin Globulin Ratio 1.7 (1.0-2.8); Alkaline Phosphatase 101 U/L (38-126); Aspartate Aminotransferase 19 IU/L (14-36); Bilirubin Total 1.2 mg/dL (0.2-1.3); Blood Urea Nitrogen 12 mg/dL (7-17); Calcium 9.2 mg/dL (8.4-10.2); Carbon Dioxide 23 mmol/L (22-32); Chloride 107 mmol/L (98-107); Estimated Glomerular Filt Rate > 60.0 mL/min (>60); Globulin 2.6 g/dL (1.7-4.1); Glucose 110 mg/dL (70-100); HEMOLYSIS < 15 (0-50); Potassium 4.7 mmol/L (3.4-5.1); Sodium 141 mmol/L (137-145)
[2018-12-17 16:20] VITALS: BP 134/96; PULSE 82; RESP 18; TEMP 36.5; O2SAT 98
--- NOTE | 2018-12-17 16:34 | ONC.PN ---
PN -Subjective Interval history: Diagnosis: Breast cancer, ER/ID positive HER2 negative. BRCA 1 and 2 were wild type Previous treatment: 1. Neoadjuvant chemotherapy with 4 cycles of Adriamycin and Cytoxan followed by 12 weeks of Taxol. 2. Bilateral mastectomy in March 2018 with residual [id number] disease. 3. Radiation therapy to the chest wall with concurrent Xeloda finishing June 2018. 4. Xeloda 14 days on, 7 days off. She has completed 6 cycles. Interval history: The patient is a 43-year-old woman who has history of breast cancer. She unfortunately had extensive lymph node involvement following neoadjuvant chemotherapy. Postoperatively, she has had adjuvant radiation with concurrent Xeloda and has continued with adjuvant Xeloda. She has completed 6 cycles and just began her 7th cycle yesterday. Since her last visit here, she has felt about the same. She has noted some increasing fatigue. She has also had some pain and stiffness in her knees particularly after exerting herself. She has been using some Celebrex which has been helpful although does not completely relieve her symptoms. She has not had any mouth sores or diarrhea. She has had some erythema on her hands but no blistering or peeling. No fevers or chills. No shortness of breath or cough. Appetite has been somewhat low but her weight has been stable. She denies any other changes in her health. Her medications include Lexapro Zofran and Xeloda - Patient Self-Reported Symptoms SR Constitution: Weight loss/gain, Fatigue/Malaise SR eye issues: Eye pain SR ears, nose, mouth, throat issues: Nose bleeds SR respiratory issues: Shortness of breath, Mucous SR Cardiovascular issues: Shortness of breath with activity or lying flat, Extreme swelling SR Skin issues: Dry skin, Skin rash or itching, Skin color changes, Skin lesions or moles, Nail changes SR Gastrointestinal issues: Poor or no appetite SR Genitourinary issues: Frequent urination SR Musculoskeletal issues: Joint pain or swelling, Bone pain SR Neuro issues: Numbness or tingling SR Hematologic issues: Slow healing SR Endocrine issues: Hot flashes Home Medications and Allergies Home Medications Medication Instructions Recorded Confirmed Type escitalopram oxalate [Lexapro] 10 mg PO BEDTIME 04/02/18 11/26/18 History ondansetron HCl [Zofran] 8 mg PO Q6-12H PRN #60 tab 08/29/18 11/26/18 Rx celecoxib [Celebrex] 100 mg PO BID #90 cap 10/15/18 11/26/18 Rx capecitabine [Xeloda] 2,000 mg PO Q12H 12/17/18 12/17/18 History Allergies Allergy/AdvReac Type Severity Reaction Status Date / Time lactose Allergy Intermediate Gastrointestinal Verified 05/01/18 10:23 Upset Sulfa (Sulfonamide Allergy Mild Hives Verified 05/01/18 10:23 Antibiotics) egg AdvReac Intermediate Gastrointestinal Verified 05/01/18 10:23 Upset Exam Vital signs: Vital Signs Temp Pulse Resp BP Pulse Ox 12/17/18 16:20 97.7 F 82 18 134/96 H 98 Intake and Output 12/17/18 12/17/18 12/17/18 07:59 15:59 23:59 Other: Weight 85.5 kg Patient Weight 12/17/18 23:59 Weight 85.5 kg - Constitutional positive no acute distress, positive average body habitus - Routine HEENT Exam Head: Present: normocephalic, atraumatic Eye: Present: EOMI, PERRL. Absent: conjunctival icterus, scleral injection ENT: Present: mucous membranes moist, oropharynx clear - Routine Neck Exam Present: supple. Absent: lymphadenopathy, thyromegaly - Routine Respiratory Exam Present: Clear to auscultation bilaterally. Absent: rales, wheezes - Routine Cardiovascular Exam Present: RRR, S1, S2. Absent: murmur - Routine Abdominal Exam Present: soft, normoactive bowel sounds. Absent: tenderness, organomegaly, mass - Routine Extremities Exam Absent: cyanosis, clubbing, edema - Routine Back/Spine Exam Back/Spine: Absent: vertebral tenderness - Routine Skin Exam Present: intact. Absent: petechiae Comments: She does have some erythema the skin on her hands. - Routine Neurological Exam Present: alert, oriented X3 - Routine Psychiatric Exam Present: normal affect, normal thought process Results - Labs Laboratory Last Values WBC 5.5 X10^3/uL (4.5-11.0) 12/16/18 09:12 RBC 4.02 X10^6/uL (4.0-5.2) 12/16/18 09:12 Hgb 13.2 g/dL (12.0-16.0) 12/16/18 09:12 Hct 38.7 % (36-46) 12/16/18 09:12 MCV 96.1 fL (80-100) 12/16/18 09:12 MCH 32.8 PG (26-34) 12/16/18 09:12 MCHC 34.1 % (30-36) 12/16/18 09:12 RDW 17.7 % (11.6-14.8) H 12/16/18 09:12 Plt Count 206 X10^3/uL (150-400) 12/16/18 09:12 Neut % (Auto) 68.5 % (50-75) 12/16/18 09:12 Lymph % (Auto) 23.1 % (25-40) L 12/16/18 09:12 [place] % (Auto) 6.4 % (3-14) 12/16/18 09:12 Eos % (Auto) 1.6 % (2-4) L 12/16/18 09:12 Baso % (Auto) 0.4 % (0-2) 12/16/18 09:12 Neut # (Auto) 3800 /uL (5909-6849) 12/16/18 09:12 Lymph # (Auto) 1300 /uL (7070-2691) 12/16/18 09:12 [place] # (Auto) 400 /uL (0-900) 12/16/18 09:12 Eos # (Auto) 100 /uL (0-450) 12/16/18 09:12 Baso # (Auto) 0 /uL (0-100) 12/16/18 09:12 Sodium 141 mmol/L (137-145) 12/16/18 09:12 Potassium 4.7 mmol/L (3.4-5.1) 12/16/18 09:12 Chloride 107 mmol/L (98-107) 12/16/18 09:12 Carbon Dioxide 23 mmol/L (22-32) 12/16/18 09:12 BUN 12 mg/dL (7-17) 12/16/18 09:12 Creatinine 0.60 mg/dL (0.52-1.04) 12/16/18 09:12 Estimated GFR > 60.0 mL/min (>60) 12/16/18 09:12 BUN/Creatinine Ratio 20.0 (6-22) 12/16/18 09:12 Glucose 110 mg/dL (70-100) H 12/16/18 09:12 Calcium 9.2 mg/dL (8.4-10.2) 12/16/18 09:12 Total Bilirubin 1.2 mg/dL (0.2-1.3) 12/16/18 09:12 AST 19 IU/L (14-36) 12/16/18 09:12 ALT 16 IU/L (9-52) 12/16/18 09:12 Alkaline Phosphatase 101 U/L (38-126) 12/16/18 09:12 Total Protein 7.0 g/dL (6.3-8.2) 12/16/18 09:12 Albumin 4.4 g/dL (3.5-5.0) 12/16/18 09:12 Globulin 2.6 g/dL (1.7-4.1) 12/16/18 09:12 Albumin/Globulin Ratio 1.7 (1.0-2.8) 12/16/18 09:12 Breast [employer] Ag 9 U/mL (< 32) 07/29/18 09:28 - Imaging Additional studies: Procedures Drainage of Chest Wall with Drainage Device, Open Approach (04/16/18) Excision of Right Axillary Lymphatic, Open Approach (04/16/18) Removal of Totally Implantable Vascular Access Device from Upper Extremity Subcutaneous Tissue and Fascia, Open Approach (04/16/18) Resection of Bilateral Breast, Open Approach (04/16/18) Assessment and Plan (1) Breast cancer Problem details: 42-year-old woman with aggressive breast cancer with the large residual tumor and many positive nodes following neoadjuvant chemotherapy. She is tolerating her adjuvant Xeloda reasonably well. She will continue with her 7th cycle of treatment. She will return to clinic in 3 weeks for follow-up. She will be due to start her final cycle of chemotherapy at that time. She is planning a follow-up in [place] to see if she is eligible for an adjuvant endocrine therapy with aromatase inhibitor with or without everolimus. Current visit: No Status: Acute 43-year-old female with aggressive breast cancer ER ID positive, HER2 negative. BRCA 1 and 2 were wild type. Previous treatment: 1. Neoadjuvant chemotherapy with 4 cycles of Adriamycin and Cytoxan followed by 12 weeks of Taxol. 2. Bilateral mastectomy in March 2018 with residual [id number] disease. 3. Radiation therapy to the chest wall with concurrent Xeloda finishing June 2018. She remains on Xeloda 14 days on, 7 days off, she began cycle 4 today 10/15/20179. Tolerating Xeloda without diarrhea, nausea. She does report loss of appetite this is grade 1. Also fatigue which is grade 1 as well. She continues to have some tingling in her fingers and feet does not seem to be getting progressively worse. She does report ?bad? joint pain and swelling specifically fingers. I discussed with the patient will prescribe Celebrex 100 mg twice daily. I discussed the cardiac black box warning with the patient we also discussed this is very similar to the side effect profile of [id number] Motrin. Patient verbalizes understanding and agrees to try the prescription plan at this point is to continue for 4-6 weeks. Patient denies cough, fever, chills. No shortness of breath. CBC unremarkable. CMP also unremarkable. Bilirubin within normal limits at 0.8. RTC in 3 weeks cbc cmp only RTC [address] Lora cbc cmp Continue xeloda 14 days on, 7 days off, cycle 4 day 1 10/15/2018 Cont compression sleeve PRN Has follow up with Dr Urias surgeon Oct 23 (1) Breast cancer Qualifiers: Patient sex: female Laterality: right
--- NOTE | 2018-12-17 16:37 | P.PNONC_ITS ---
PN -Subjective Interval history: Diagnosis: Breast cancer, ER/MI positive HER2 negative. BRCA 1 and 2 were wild type Previous treatment: 1. Neoadjuvant chemotherapy with 4 cycles of Adriamycin and Cytoxan followed by 12 weeks of Taxol. 2. Bilateral mastectomy in March 2018 with residual [id number] disease. 3. Radiation therapy to the chest wall with concurrent Xeloda finishing June 2018. 4. Xeloda 14 days on, 7 days off. She has completed 6 cycles. Interval history: The patient is a 43-year-old woman who has history of breast cancer. She unfortunately had extensive lymph node involvement following neoadjuvant chemotherapy. Postoperatively, she has had adjuvant radiation with concurrent Xeloda and has continued with adjuvant Xeloda. She has completed 6 cycles and just began her 7th cycle yesterday. Since her last visit here, she has felt about the same. She has noted some increasing fatigue. She has also had some pain and stiffness in her knees particularly after exerting herself. She has been using some Celebrex which has been helpful although does not completely relieve her symptoms. She has not had any mouth sores or diarrhea. She has had some erythema on her hands but no blistering or peeling. No fevers or chills. No shortness of breath or cough. Appetite has been somewhat low but her weight has been stable. She denies any other changes in her health. Her medications include Lexapro Zofran and Xeloda - Patient Self-Reported Symptoms SR Constitution: Weight loss/gain, Fatigue/Malaise SR eye issues: Eye pain SR ears, nose, mouth, throat issues: Nose bleeds SR respiratory issues: Shortness of breath, Mucous SR Cardiovascular issues: Shortness of breath with activity or lying flat, Extreme swelling SR Skin issues: Dry skin, Skin rash or itching, Skin color changes, Skin lesions or moles, Nail changes SR Gastrointestinal issues: Poor or no appetite SR Genitourinary issues: Frequent urination SR Musculoskeletal issues: Joint pain or swelling, Bone pain SR Neuro issues: Numbness or tingling SR Hematologic issues: Slow healing SR Endocrine issues: Hot flashes Home Medications and Allergies Home Medications Medication Instructions Recorded Confirmed Type escitalopram oxalate [Lexapro] 10 mg PO BEDTIME 04/02/18 11/26/18 History ondansetron HCl [Zofran] 8 mg PO Q6-12H PRN #60 tab 08/29/18 11/26/18 Rx celecoxib [Celebrex] 100 mg PO BID #90 cap 10/15/18 11/26/18 Rx capecitabine [Xeloda] 2,000 mg PO Q12H 12/17/18 12/17/18 History Allergies Allergy/AdvReac Type Severity Reaction Status Date / Time lactose Allergy Intermediate Gastrointestinal Verified 05/01/18 10:23 Upset Sulfa (Sulfonamide Allergy Mild Hives Verified 05/01/18 10:23 Antibiotics) egg AdvReac Intermediate Gastrointestinal Verified 05/01/18 10:23 Upset Exam Vital signs: Vital Signs Temp Pulse Resp BP Pulse Ox 12/17/18 16:20 97.7 F 82 18 134/96 H 98 Intake and Output 12/17/18 12/17/18 12/17/18 07:59 15:59 23:59 Other: Weight 85.5 kg Patient Weight 12/17/18 23:59 Weight 85.5 kg - Constitutional positive no acute distress, positive average body habitus - Routine HEENT Exam Head: Present: normocephalic, atraumatic Eye: Present: EOMI, PERRL. Absent: conjunctival icterus, scleral injection ENT: Present: mucous membranes moist, oropharynx clear - Routine Neck Exam Present: supple. Absent: lymphadenopathy, thyromegaly - Routine Respiratory Exam Present: Clear to auscultation bilaterally. Absent: rales, wheezes - Routine Cardiovascular Exam Present: RRR, S1, S2. Absent: murmur - Routine Abdominal Exam Present: soft, normoactive bowel sounds. Absent: tenderness, organomegaly, mass - Routine Extremities Exam Absent: cyanosis, clubbing, edema - Routine Back/Spine Exam Back/Spine: Absent: vertebral tenderness - Routine Skin Exam Present: intact. Absent: petechiae Comments: She does have some erythema the skin on her hands. - Routine Neurological Exam Present: alert, oriented X3 - Routine Psychiatric Exam Present: normal affect, normal thought process Results - Labs Laboratory Last Values WBC 5.5 X10^3/uL (4.5-11.0) 12/16/18 09:12 RBC 4.02 X10^6/uL (4.0-5.2) 12/16/18 09:12 Hgb 13.2 g/dL (12.0-16.0) 12/16/18 09:12 Hct 38.7 % (36-46) 12/16/18 09:12 MCV 96.1 fL (80-100) 12/16/18 09:12 MCH 32.8 PG (26-34) 12/16/18 09:12 MCHC 34.1 % (30-36) 12/16/18 09:12 RDW 17.7 % (11.6-14.8) H 12/16/18 09:12 Plt Count 206 X10^3/uL (150-400) 12/16/18 09:12 Neut % (Auto) 68.5 % (50-75) 12/16/18 09:12 Lymph % (Auto) 23.1 % (25-40) L 12/16/18 09:12 [place] % (Auto) 6.4 % (3-14) 12/16/18 09:12 Eos % (Auto) 1.6 % (2-4) L 12/16/18 09:12 Baso % (Auto) 0.4 % (0-2) 12/16/18 09:12 Neut # (Auto) 3800 /uL (7696-1208) 12/16/18 09:12 Lymph # (Auto) 1300 /uL (3217-3822) 12/16/18 09:12 [place] # (Auto) 400 /uL (0-900) 12/16/18 09:12 Eos # (Auto) 100 /uL (0-450) 12/16/18 09:12 Baso # (Auto) 0 /uL (0-100) 12/16/18 09:12 Sodium 141 mmol/L (137-145) 12/16/18 09:12 Potassium 4.7 mmol/L (3.4-5.1) 12/16/18 09:12 Chloride 107 mmol/L (98-107) 12/16/18 09:12 Carbon Dioxide 23 mmol/L (22-32) 12/16/18 09:12 BUN 12 mg/dL (7-17) 12/16/18 09:12 Creatinine 0.60 mg/dL (0.52-1.04) 12/16/18 09:12 Estimated GFR > 60.0 mL/min (>60) 12/16/18 09:12 BUN/Creatinine Ratio 20.0 (6-22) 12/16/18 09:12 Glucose 110 mg/dL (70-100) H 12/16/18 09:12 Calcium 9.2 mg/dL (8.4-10.2) 12/16/18 09:12 Total Bilirubin 1.2 mg/dL (0.2-1.3) 12/16/18 09:12 AST 19 IU/L (14-36) 12/16/18 09:12 ALT 16 IU/L (9-52) 12/16/18 09:12 Alkaline Phosphatase 101 U/L (38-126) 12/16/18 09:12 Total Protein 7.0 g/dL (6.3-8.2) 12/16/18 09:12 Albumin 4.4 g/dL (3.5-5.0) 12/16/18 09:12 Globulin 2.6 g/dL (1.7-4.1) 12/16/18 09:12 Albumin/Globulin Ratio 1.7 (1.0-2.8) 12/16/18 09:12 Breast [facility] Ag 9 U/mL (< 32) 07/29/18 09:28 - Imaging Additional studies: Procedures Drainage of Chest Wall with Drainage Device, Open Approach (04/16/18) Excision of Right Axillary Lymphatic, Open Approach (04/16/18) Removal of Totally Implantable Vascular Access Device from Upper Extremity Subcutaneous Tissue and Fascia, Open Approach (04/16/18) Resection of Bilateral Breast, Open Approach (04/16/18) Assessment and Plan (1) Breast cancer Problem details: 42-year-old woman with aggressive breast cancer with the large residual tumor and many positive nodes following neoadjuvant chemotherapy. She is tolerating her adjuvant Xeloda reasonably well. She will continue with her 7th cycle of treatment. She will return to clinic in 3 weeks for follow-up. She will be due to start her final cycle of chemotherapy at that time. She is planning a follow-up in [place] to see if she is eligible for an adjuvant endocrine therapy with aromatase inhibitor with or without everolimus. Current visit: No Status: Acute 43-year-old female with aggressive breast cancer ER MI positive, HER2 negative. BRCA 1 and 2 were wild type. Previous treatment: 1. Neoadjuvant chemotherapy with 4 cycles of Adriamycin and Cytoxan followed by 12 weeks of Taxol. 2. Bilateral mastectomy in March 2018 with residual [id number] disease. 3. Radiation therapy to the chest wall with concurrent Xeloda finishing June 2018. She remains on Xeloda 14 days on, 7 days off, she began cycle 4 today 10/15/20179. Tolerating Xeloda without diarrhea, nausea. She does report loss of appetite this is grade 1. Also fatigue which is grade 1 as well. She continues to have some tingling in her fingers and feet does not seem to be getting progressively worse. She does report ?bad? joint pain and swelling specifically fingers. I discussed with the patient will prescribe Celebrex 100 mg twice daily. I discussed the cardiac black box warning with the patient we also discussed this is very similar to the side effect profile of [id number] Motrin. Patient verbalizes understanding and agrees to try the prescription plan at this point is to continue for 4-6 weeks. Patient denies cough, fever, chills. No shortness of breath. CBC unremarkable. CMP also unremarkable. Bilirubin within normal limits at 0.8. RTC in 3 weeks cbc cmp only RTC [address] Lora cbc cmp Continue xeloda 14 days on, 7 days off, cycle 4 day 1 10/15/2018 Cont compression sleeve PRN Has follow up with Dr Urias surgeon Oct 23 (1) Breast cancer Qualifiers: Patient sex: female Laterality: right
--- NOTE | 2018-12-30 10:10 | PC.NURSE ---
Received message from [facility] requesting verification of pt contact info. Apparantly, [facility] has attempted to contact pt to set up delivery, unsuccessfully. This sign writer hand spoke with pt on the phone, per pt, she had called them Sunday and scheduled delivery for tom. Thank pt and phone called ended. Returned kareen delcid's call to relay message and they confirmed scheduled delivery for tomorrow 12/31/18.
[2019-01-06 09:37] LABS: Add Manual Diff / Slide Review NO; Basophils Absolute Auto 0 /uL (0-100); Basophils Percent Auto 0.3 % (0-2); Eosinophils Absolute Auto 100 /uL (0-450); Hematocrit 38.6 % (36-46); Hemoglobin 13.3 g/dL (12.0-16.0); Lymphocytes Absolute Auto 1500 /uL (1100-4500); Lymphocytes Percent Auto 24.4 % (25-40); Mean Corpuscular HGB Conc 34.5 % (30-36); Mean Corpuscular Volume 95.9 fL (80-100); Monocytes Absolute Auto 300 /uL (0-900); Monocytes Percent Auto 5.1 % (3-14); Neutrophils Absolute Auto 4100 /uL (1500-7000); Neutrophils Percent Auto 68.2 % (50-75); Platelet Count 215 X10^3/uL (150-400); Red Blood Cell Count 4.03 X10^6/uL (4.0-5.2); Red Cell Distribution Width 16.6 % (11.6-14.8)
[2019-01-06 10:02] LABS: Alanine Aminotransferase 22 IU/L (9-52); Albumin Globulin Ratio 1.6 (1.0-2.8); Alkaline Phosphatase 110 U/L (38-126); Aspartate Aminotransferase 20 IU/L (14-36); Bilirubin Total 1.4 mg/dL (0.2-1.3); Blood Urea Nitrogen 14 mg/dL (7-17); Calcium 9.4 mg/dL (8.4-10.2); Carbon Dioxide 27 mmol/L (22-32); Chloride 104 mmol/L (98-107); Estimated Glomerular Filt Rate > 60.0 mL/min (>60); Globulin 2.5 g/dL (1.7-4.1); Glucose 126 mg/dL (70-100); HEMOLYSIS < 15 (0-50); Potassium 4.5 mmol/L (3.4-5.1); Sodium 140 mmol/L (137-145); Total Protein 6.5 g/dL (6.3-8.2)
[2019-01-07 13:55] VITALS: BP 139/77; PULSE 69; RESP 18; TEMP 36.7; O2SAT 99
--- NOTE | 2019-01-07 15:00 | ONC.PN ---
PN -Subjective Interval history: Diagnosis: Breast cancer, ER/PA positive HER2 negative. BRCA 1 and 2 were wild type Previous treatment: 1. Neoadjuvant chemotherapy with 4 cycles of Adriamycin and Cytoxan followed by 12 weeks of Taxol. 2. Bilateral mastectomy in March 2018 with residual [id number] disease. 3. Radiation therapy to the chest wall with concurrent Xeloda finishing June 2018. 4. Xeloda 14 days on, 7 days off. She has completed 7 cycles. Interval history: The patient is a 43-year-old woman who has history of breast cancer. She unfortunately had extensive lymph node involvement following neoadjuvant chemotherapy. Postoperatively, she has had adjuvant radiation with concurrent Xeloda and has continued with adjuvant Xeloda. She has completed 7 cycles and just began her 8th and final cycle yesterday. Since her last visit here, she has been feeling about the same. She has had some fatigue but has been able to go about all of her normal activities. She has not had any nausea or vomiting. She denies any diarrhea. She has had some tenderness in the mouth but no open sores. She has had a little bit of peeling on her feet but no pain. She has had minimal erythema on her hands. She denies any shortness of breath or cough. No new aches or pains. She has not noticed any changes on the chest wall. Her medications include Lexapro Zofran and Xeloda - Patient Self-Reported Symptoms SR Constitution: Weight loss/gain, Fatigue/Malaise SR eye issues: Eye pain SR ears, nose, mouth, throat issues: Ears ringing, Congestion, Nose bleeds, Changes in taste SR respiratory issues: Mucous SR Cardiovascular issues: Shortness of breath with activity or lying flat, Extreme swelling SR Skin issues: Dry skin, Skin rash or itching, Skin color changes, Blistering or peeling, Nail changes SR Gastrointestinal issues: Poor or no appetite SR Genitourinary issues: Frequent urination SR Musculoskeletal issues: Joint pain or swelling, Bone pain SR Neuro issues: Numbness or tingling SR Hematologic issues: Slow healing, Bleeding/bruising SR Endocrine issues: Heat intolerance Home Medications and Allergies Home Medications Medication Instructions Recorded Confirmed Type escitalopram oxalate [Lexapro] 10 mg PO BEDTIME 04/02/18 01/07/19 History ondansetron HCl [Zofran] 8 mg PO Q6-12H PRN #60 tab 08/29/18 01/07/19 Rx celecoxib [Celebrex] 100 mg PO BID #90 cap 10/15/18 01/07/19 Rx capecitabine [Xeloda] 2,000 mg PO Q12H 12/17/18 01/07/19 History Allergies Allergy/AdvReac Type Severity Reaction Status Date / Time lactose Allergy Intermediate Gastrointestinal Verified 05/01/18 10:23 Upset Sulfa (Sulfonamide Allergy Mild Hives Verified 05/01/18 10:23 Antibiotics) egg AdvReac Intermediate Gastrointestinal Verified 05/01/18 10:23 Upset Exam Vital signs: Vital Signs Temp Pulse Resp BP Pulse Ox 01/07/19 13:55 98.1 F 69 18 139/77 99 Intake and Output 01/06/19 01/07/19 01/07/19 23:59 07:59 15:59 Other: Weight 86.5 kg Patient Weight 01/07/19 23:59 Weight 86.5 kg - Constitutional positive no acute distress, positive average body habitus - Routine HEENT Exam Head: Present: normocephalic, atraumatic Eye: Present: EOMI, PERRL. Absent: conjunctival icterus, scleral injection ENT: Present: mucous membranes moist, oropharynx clear - Routine Neck Exam Present: supple. Absent: lymphadenopathy, thyromegaly - Routine Respiratory Exam Present: Clear to auscultation bilaterally. Absent: rales, wheezes - Routine Cardiovascular Exam Present: RRR, S1, S2. Absent: murmur - Routine Abdominal Exam Present: soft, normoactive bowel sounds. Absent: tenderness, organomegaly, mass - Routine Extremities Exam Absent: cyanosis, clubbing, edema - Routine Back/Spine Exam Back/Spine: Absent: vertebral tenderness - Routine Skin Exam Present: intact. Absent: petechiae, rash - Routine Neurological Exam Present: alert, oriented X3 Results - Labs Laboratory Last Values WBC 6.0 X10^3/uL (4.5-11.0) 01/06/19 08:11 RBC 4.03 X10^6/uL (4.0-5.2) 01/06/19 08:11 Hgb 13.3 g/dL (12.0-16.0) 01/06/19 08:11 Hct 38.6 % (36-46) 01/06/19 08:11 MCV 95.9 fL (80-100) 01/06/19 08:11 MCH 33.0 PG (26-34) 01/06/19 08:11 MCHC 34.5 % (30-36) 01/06/19 08:11 RDW 16.6 % (11.6-14.8) H 01/06/19 08:11 Plt Count 215 X10^3/uL (150-400) 01/06/19 08:11 Neut % (Auto) 68.2 % (50-75) 01/06/19 08:11 Lymph % (Auto) 24.4 % (25-40) L 01/06/19 08:11 [place] % (Auto) 5.1 % (3-14) 01/06/19 08:11 Eos % (Auto) 2.0 % (2-4) 01/06/19 08:11 Baso % (Auto) 0.3 % (0-2) 01/06/19 08:11 Neut # (Auto) 4100 /uL (2588-3462) 01/06/19 08:11 Lymph # (Auto) 1500 /uL (4350-4593) 01/06/19 08:11 [place] # (Auto) 300 /uL (0-900) 01/06/19 08:11 Eos # (Auto) 100 /uL (0-450) 01/06/19 08:11 Baso # (Auto) 0 /uL (0-100) 01/06/19 08:11 Sodium 140 mmol/L (137-145) 01/06/19 08:11 Potassium 4.5 mmol/L (3.4-5.1) 01/06/19 08:11 Chloride 104 mmol/L (98-107) 01/06/19 08:11 Carbon Dioxide 27 mmol/L (22-32) 01/06/19 08:11 BUN 14 mg/dL (7-17) 01/06/19 08:11 Creatinine 0.70 mg/dL (0.52-1.04) 01/06/19 08:11 Estimated GFR > 60.0 mL/min (>60) 01/06/19 08:11 BUN/Creatinine Ratio 20.0 (6-22) 01/06/19 08:11 Glucose 126 mg/dL (70-100) H 01/06/19 08:11 Calcium 9.4 mg/dL (8.4-10.2) 01/06/19 08:11 Total Bilirubin 1.4 mg/dL (0.2-1.3) H 01/06/19 08:11 AST 20 IU/L (14-36) 01/06/19 08:11 ALT 22 IU/L (9-52) 01/06/19 08:11 Alkaline Phosphatase 110 U/L (38-126) 01/06/19 08:11 Total Protein 6.5 g/dL (6.3-8.2) 01/06/19 08:11 Albumin 4.0 g/dL (3.5-5.0) 01/06/19 08:11 Globulin 2.5 g/dL (1.7-4.1) 01/06/19 08:11 Albumin/Globulin Ratio 1.6 (1.0-2.8) 01/06/19 08:11 Breast [facility] Ag 9 U/mL (< 32) 07/29/18 09:28 - Imaging Additional studies: Procedures Drainage of Chest Wall with Drainage Device, Open Approach (04/16/18) Excision of Right Axillary Lymphatic, Open Approach (04/16/18) Removal of Totally Implantable Vascular Access Device from Upper Extremity Subcutaneous Tissue and Fascia, Open Approach (04/16/18) Resection of Bilateral Breast, Open Approach (04/16/18) Assessment and Plan (1) Breast cancer Problem details: 42-year-old woman with aggressive breast cancer with the large residual tumor and many positive nodes following neoadjuvant chemotherapy. She is tolerating her adjuvant Xeloda reasonably well. She will continue with her 8th and final cycle of treatment. She will return to clinic in 6 weeks for follow-up. She will be due to start her endocrine therapy at that time. She may be eligible for clinical trial and will follow-up in [place] to see if that is an option for her. Current visit: No Status: Acute 43-year-old female with aggressive breast cancer ER PA positive, HER2 negative. BRCA 1 and 2 were wild type. Previous treatment: 1. Neoadjuvant chemotherapy with 4 cycles of Adriamycin and Cytoxan followed by 12 weeks of Taxol. 2. Bilateral mastectomy in March 2018 with residual [id number] disease. 3. Radiation therapy to the chest wall with concurrent Xeloda finishing June 2018. She remains on Xeloda 14 days on, 7 days off, she began cycle 4 today . Tolerating Xeloda without diarrhea, nausea. She does report loss of appetite this is grade 1. Also fatigue which is grade 1 as well. She continues to have some tingling in her fingers and feet does not seem to be getting progressively worse. She does report ?bad? joint pain and swelling specifically fingers. I discussed with the patient will prescribe Celebrex 100 mg twice daily. I discussed the cardiac black box warning with the patient we also discussed this is very similar to the side effect profile of [id number] Motrin. Patient verbalizes understanding and agrees to try the prescription plan at this point is to continue for 4-6 weeks. Patient denies cough, fever, chills. No shortness of breath. CBC unremarkable. CMP also unremarkable. Bilirubin within normal limits at 0.8. RTC in 3 weeks cbc cmp only RTC [address] Lora cbc cmp Continue xeloda 14 days on, 7 days off, cycle 4 day 1 10/15/2018 Cont compression sleeve PRN Has follow up with Dr Urias surgeon Oct 23 (1) Breast cancer Qualifiers: Patient sex: female Laterality: right
--- NOTE | 2019-01-07 15:03 | P.PNONC_ITS ---
PN -Subjective Interval history: Diagnosis: Breast cancer, ER/[place] positive HER2 negative. BRCA 1 and 2 were wild type Previous treatment: 1. Neoadjuvant chemotherapy with 4 cycles of Adriamycin and Cytoxan followed by 12 weeks of Taxol. 2. Bilateral mastectomy in March 2018 with residual [id number] disease. 3. Radiation therapy to the chest wall with concurrent Xeloda finishing June 2018. 4. Xeloda 14 days on, 7 days off. She has completed 7 cycles. Interval history: The patient is a 43-year-old woman who has history of breast cancer. She unfortunately had extensive lymph node involvement following neoadjuvant chemotherapy. Postoperatively, she has had adjuvant radiation with concurrent Xeloda and has continued with adjuvant Xeloda. She has completed 7 cycles and just began her 8th and final cycle yesterday. Since her last visit here, she has been feeling about the same. She has had some fatigue but has been able to go about all of her normal activities. She has not had any nausea or vomiting. She denies any diarrhea. She has had some tenderness in the mouth but no open sores. She has had a little bit of peeling on her feet but no pain. She has had minimal erythema on her hands. She denies any shortness of breath or cough. No new aches or pains. She has not noticed any changes on the chest wall. Her medications include Lexapro Zofran and Xeloda - Patient Self-Reported Symptoms SR Constitution: Weight loss/gain, Fatigue/Malaise SR eye issues: Eye pain SR ears, nose, mouth, throat issues: Ears ringing, Congestion, Nose bleeds, Changes in taste SR respiratory issues: Mucous SR Cardiovascular issues: Shortness of breath with activity or lying flat, Extreme swelling SR Skin issues: Dry skin, Skin rash or itching, Skin color changes, Blistering or peeling, Nail changes SR Gastrointestinal issues: Poor or no appetite SR Genitourinary issues: Frequent urination SR Musculoskeletal issues: Joint pain or swelling, Bone pain SR Neuro issues: Numbness or tingling SR Hematologic issues: Slow healing, Bleeding/bruising SR Endocrine issues: Heat intolerance Home Medications and Allergies Home Medications Medication Instructions Recorded Confirmed Type escitalopram oxalate [Lexapro] 10 mg PO BEDTIME 04/02/18 01/07/19 History ondansetron HCl [Zofran] 8 mg PO Q6-12H PRN #60 tab 08/29/18 01/07/19 Rx celecoxib [Celebrex] 100 mg PO BID #90 cap 10/15/18 01/07/19 Rx capecitabine [Xeloda] 2,000 mg PO Q12H 12/17/18 01/07/19 History Allergies Allergy/AdvReac Type Severity Reaction Status Date / Time lactose Allergy Intermediate Gastrointestinal Verified 05/01/18 10:23 Upset Sulfa (Sulfonamide Allergy Mild Hives Verified 05/01/18 10:23 Antibiotics) egg AdvReac Intermediate Gastrointestinal Verified 05/01/18 10:23 Upset Exam Vital signs: Vital Signs Temp Pulse Resp BP Pulse Ox 01/07/19 13:55 98.1 F 69 18 139/77 99 Intake and Output 01/06/19 01/07/19 01/07/19 23:59 07:59 15:59 Other: Weight 86.5 kg Patient Weight 01/07/19 23:59 Weight 86.5 kg - Constitutional positive no acute distress, positive average body habitus - Routine HEENT Exam Head: Present: normocephalic, atraumatic Eye: Present: EOMI, PERRL. Absent: conjunctival icterus, scleral injection ENT: Present: mucous membranes moist, oropharynx clear - Routine Neck Exam Present: supple. Absent: lymphadenopathy, thyromegaly - Routine Respiratory Exam Present: Clear to auscultation bilaterally. Absent: rales, wheezes - Routine Cardiovascular Exam Present: RRR, S1, S2. Absent: murmur - Routine Abdominal Exam Present: soft, normoactive bowel sounds. Absent: tenderness, organomegaly, mass - Routine Extremities Exam Absent: cyanosis, clubbing, edema - Routine Back/Spine Exam Back/Spine: Absent: vertebral tenderness - Routine Skin Exam Present: intact. Absent: petechiae, rash - Routine Neurological Exam Present: alert, oriented X3 Results - Labs Laboratory Last Values WBC 6.0 X10^3/uL (4.5-11.0) 01/06/19 08:11 RBC 4.03 X10^6/uL (4.0-5.2) 01/06/19 08:11 Hgb 13.3 g/dL (12.0-16.0) 01/06/19 08:11 Hct 38.6 % (36-46) 01/06/19 08:11 MCV 95.9 fL (80-100) 01/06/19 08:11 MCH 33.0 PG (26-34) 01/06/19 08:11 MCHC 34.5 % (30-36) 01/06/19 08:11 RDW 16.6 % (11.6-14.8) H 01/06/19 08:11 Plt Count 215 X10^3/uL (150-400) 01/06/19 08:11 Neut % (Auto) 68.2 % (50-75) 01/06/19 08:11 Lymph % (Auto) 24.4 % (25-40) L 01/06/19 08:11 [place] % (Auto) 5.1 % (3-14) 01/06/19 08:11 Eos % (Auto) 2.0 % (2-4) 01/06/19 08:11 Baso % (Auto) 0.3 % (0-2) 01/06/19 08:11 Neut # (Auto) 4100 /uL (5798-5759) 01/06/19 08:11 Lymph # (Auto) 1500 /uL (9287-7736) 01/06/19 08:11 [place] # (Auto) 300 /uL (0-900) 01/06/19 08:11 Eos # (Auto) 100 /uL (0-450) 01/06/19 08:11 Baso # (Auto) 0 /uL (0-100) 01/06/19 08:11 Sodium 140 mmol/L (137-145) 01/06/19 08:11 Potassium 4.5 mmol/L (3.4-5.1) 01/06/19 08:11 Chloride 104 mmol/L (98-107) 01/06/19 08:11 Carbon Dioxide 27 mmol/L (22-32) 01/06/19 08:11 BUN 14 mg/dL (7-17) 01/06/19 08:11 Creatinine 0.70 mg/dL (0.52-1.04) 01/06/19 08:11 Estimated GFR > 60.0 mL/min (>60) 01/06/19 08:11 BUN/Creatinine Ratio 20.0 (6-22) 01/06/19 08:11 Glucose 126 mg/dL (70-100) H 01/06/19 08:11 Calcium 9.4 mg/dL (8.4-10.2) 01/06/19 08:11 Total Bilirubin 1.4 mg/dL (0.2-1.3) H 01/06/19 08:11 AST 20 IU/L (14-36) 01/06/19 08:11 ALT 22 IU/L (9-52) 01/06/19 08:11 Alkaline Phosphatase 110 U/L (38-126) 01/06/19 08:11 Total Protein 6.5 g/dL (6.3-8.2) 01/06/19 08:11 Albumin 4.0 g/dL (3.5-5.0) 01/06/19 08:11 Globulin 2.5 g/dL (1.7-4.1) 01/06/19 08:11 Albumin/Globulin Ratio 1.6 (1.0-2.8) 01/06/19 08:11 Breast [facility] Ag 9 U/mL (< 32) 07/29/18 09:28 - Imaging Additional studies: Procedures Drainage of Chest Wall with Drainage Device, Open Approach (04/16/18) Excision of Right Axillary Lymphatic, Open Approach (04/16/18) Removal of Totally Implantable Vascular Access Device from Upper Extremity Subcutaneous Tissue and Fascia, Open Approach (04/16/18) Resection of Bilateral Breast, Open Approach (04/16/18) Assessment and Plan (1) Breast cancer Problem details: 42-year-old woman with aggressive breast cancer with the large residual tumor and many positive nodes following neoadjuvant chemotherapy. She is tolerating her adjuvant Xeloda reasonably well. She will continue with her 8th and final cycle of treatment. She will return to clinic in 6 weeks for follow-up. She will be due to start her endocrine therapy at that time. She may be eligible for clinical trial and will follow-up in [place] to see if that is an option for her. Current visit: No Status: Acute 43-year-old female with aggressive breast cancer ER [place] positive, HER2 negative. BRCA 1 and 2 were wild type. Previous treatment: 1. Neoadjuvant chemotherapy with 4 cycles of Adriamycin and Cytoxan followed by 12 weeks of Taxol. 2. Bilateral mastectomy in March 2018 with residual [id number] disease. 3. Radiation therapy to the chest wall with concurrent Xeloda finishing June 2018. She remains on Xeloda 14 days on, 7 days off, she began cycle 4 today . Tolerating Xeloda without diarrhea, nausea. She does report loss of appetite this is grade 1. Also fatigue which is grade 1 as well. She continues to have some tingling in her fingers and feet does not seem to be getting progressively worse. She does report ?bad? joint pain and swelling specifically fingers. I discussed with the patient will prescribe Celebrex 100 mg twice daily. I discussed the cardiac black box warning with the patient we also discussed this is very similar to the side effect profile of [id number]-[id number] Motrin. Patient verbalizes understanding and agrees to try the prescription plan at this point is to continue for 4-6 weeks. Patient denies cough, fever, chills. No shortness of breath. CBC unremarkable. CMP also unremarkable. Bilirubin within normal limits at 0.8. RTC in 3 weeks cbc cmp only RTC [address] Lora cbc cmp Continue xeloda 14 days on, 7 days off, cycle 4 day 1 10/15/2018 Cont compression sleeve PRN Has follow up with Dr Urias surgeon Oct 23 (1) Breast cancer Qualifiers: Patient sex: female Laterality: right
--- NOTE | 2019-01-15 12:08 | PC.NURSE ---
Addendum entered by Jolene Cummins R.N. 01/15/19 15:15: Per Dr. Lora patient has completed her Xeloda treatment. This was communicated to patient's pharmacist today. Original Note: Patient's pharmacist called in to verify that patient's Xeloda treatment is now complete and needs no more refills as she would be due for a refill today and patient stated to them that she has completed her treatment. This will be verified with Dr. Lora as this nurse could not determine definitively from the plan written in last Dr's visit report. A call will be made by [employer] consultant according to answer to pharmacy at [phone].
[2019-02-18 08:09] LABS: Add Manual Diff / Slide Review NO; Basophils Absolute Auto 0 /uL (0-100); Basophils Percent Auto 0.5 % (0-2); Eosinophils Absolute Auto 100 /uL (0-450); Eosinophils Percent Auto 1.8 % (2-4); Hematocrit 38.3 % (36-46); Lymphocytes Absolute Auto 1500 /uL (1100-4500); Lymphocytes Percent Auto 24.2 % (25-40); Mean Corpuscular Hemoglobin 31.9 PG (26-34); Mean Corpuscular Volume 93.9 fL (80-100); Monocytes Absolute Auto 500 /uL (0-900); Monocytes Percent Auto 7.5 % (3-14); Neutrophils Absolute Auto 4000 /uL (1500-7000); Platelet Count 235 X10^3/uL (150-400); Red Blood Cell Count 4.08 X10^6/uL (4.0-5.2); Red Cell Distribution Width 14.6 % (11.6-14.8); White Blood Cell Count 6.1 X10^3/uL (4.5-11.0)
[2019-02-18 08:21] LABS: Alanine Aminotransferase 24 IU/L (9-52); Albumin 4.1 g/dL (3.5-5.0); Albumin Globulin Ratio 1.4 (1.0-2.8); Alkaline Phosphatase 100 U/L (38-126); Aspartate Aminotransferase 21 IU/L (14-36); BUN Creatinine Ratio 21.7 (6-22); Bilirubin Total 0.9 mg/dL (0.2-1.3); Blood Urea Nitrogen 13 mg/dL (7-17); Calcium 9.4 mg/dL (8.4-10.2); Carbon Dioxide 27 mmol/L (22-32); Chloride 108 mmol/L (98-107); Estimated Glomerular Filt Rate > 60.0 mL/min (>60); Glucose 107 mg/dL (70-100); HEMOLYSIS < 15 (0-50); Potassium 4.9 mmol/L (3.4-5.1); Sodium 142 mmol/L (137-145); Total Protein 7.1 g/dL (6.3-8.2)
[2019-02-19 15:42] VITALS: BP 123/77; PULSE 80; RESP 18; TEMP 36.7; O2SAT 99
--- NOTE | 2019-02-19 16:16 | ONC.PN ---
PN -Subjective Interval history: Diagnosis: Breast cancer, ER/[place] positive HER2 negative. BRCA 1 and 2 were wild type Previous treatment: 1. Neoadjuvant chemotherapy with 4 cycles of Adriamycin and Cytoxan followed by 12 weeks of Taxol. 2. Bilateral mastectomy in March 2018 with residual [id number] disease. 3. Radiation therapy to the chest wall with concurrent Xeloda finishing June 2018. 4. Xeloda 14 days on, 7 days off for 8 cycles finishing in January 2019 Interval history: The patient is a 43-year-old woman who has history of breast cancer. She unfortunately had extensive lymph node involvement following neoadjuvant chemotherapy. Postoperatively, she has had adjuvant radiation with concurrent Xeloda and has continued with adjuvant Xeloda for 8 cycles which she just completed. She notes that her strength and energy level have been low but stable. She has had some generalized achiness in her legs. She has had some peeling of the skin on her feet but no mouth sores or diarrhea. She denies any other new aches or pains. No fevers chills or sweats. No shortness of breath or cough. She has not noted any adenopathy. She has not had any sores mouth but notes that her taste has been somewhat low. She denies any other changes in her health. She does have a follow-up scheduled down in [place] next week to consider clinical trial with hormone therapy. Her medications include only Lexapro - Patient Self-Reported Symptoms SR Constitution: Fatigue/Malaise SR eye issues: Eye pain SR ears, nose, mouth, throat issues: Ears ringing, Congestion SR respiratory issues: Mucous SR Cardiovascular issues: Extreme swelling SR Skin issues: Dry skin, Skin rash or itching, Skin color changes, Blistering or peeling, Nail changes SR Gastrointestinal issues: Poor or no appetite SR Genitourinary issues: Frequent urination SR Musculoskeletal issues: Joint pain or swelling SR Neuro issues: Numbness or tingling SR Hematologic issues: Slow healing, Bleeding/bruising SR Endocrine issues: Heat intolerance Home Medications and Allergies Home Medications Medication Instructions Recorded Confirmed Type escitalopram oxalate [Lexapro] 10 mg PO BEDTIME 04/02/18 02/19/19 History Allergies Allergy/AdvReac Type Severity Reaction Status Date / Time lactose Allergy Intermediate Gastrointestinal Verified 05/01/18 10:23 Upset Sulfa (Sulfonamide Allergy Mild Hives Verified 05/01/18 10:23 Antibiotics) egg AdvReac Intermediate Gastrointestinal Verified 05/01/18 10:23 Upset Exam Vital signs: Vital Signs Temp Pulse Resp BP Pulse Ox 02/19/19 15:42 98.1 F 80 18 123/77 99 Intake and Output 02/19/19 02/19/19 02/19/19 07:59 15:59 23:59 Other: Weight 85.4 kg Patient Weight 02/19/19 23:59 Weight 85.4 kg - Constitutional positive no acute distress, positive average body habitus Comments: She is not further examined. Results - Labs Laboratory Last Values WBC 6.1 X10^3/uL (4.5-11.0) 02/18/19 08:01 RBC 4.08 X10^6/uL (4.0-5.2) 02/18/19 08:01 Hgb 13.0 g/dL (12.0-16.0) 02/18/19 08:01 Hct 38.3 % (36-46) 02/18/19 08:01 MCV 93.9 fL (80-100) 02/18/19 08:01 MCH 31.9 PG (26-34) 02/18/19 08:01 MCHC 34.0 % (30-36) 02/18/19 08:01 RDW 14.6 % (11.6-14.8) 02/18/19 08:01 Plt Count 235 X10^3/uL (150-400) 02/18/19 08:01 Neut % (Auto) 66.0 % (50-75) 02/18/19 08:01 Lymph % (Auto) 24.2 % (25-40) L 02/18/19 08:01 [place] % (Auto) 7.5 % (3-14) 02/18/19 08:01 Eos % (Auto) 1.8 % (2-4) L 02/18/19 08:01 Baso % (Auto) 0.5 % (0-2) 02/18/19 08:01 Neut # (Auto) 4000 /uL (0824-0994) 02/18/19 08:01 Lymph # (Auto) 1500 /uL (0779-2392) 02/18/19 08:01 [place] # (Auto) 500 /uL (0-900) 02/18/19 08:01 Eos # (Auto) 100 /uL (0-450) 02/18/19 08:01 Baso # (Auto) 0 /uL (0-100) 02/18/19 08:01 Sodium 142 mmol/L (137-145) 02/18/19 08:01 Potassium 4.9 mmol/L (3.4-5.1) 02/18/19 08:01 Chloride 108 mmol/L (98-107) H 02/18/19 08:01 Carbon Dioxide 27 mmol/L (22-32) 02/18/19 08:01 BUN 13 mg/dL (7-17) 02/18/19 08:01 Creatinine 0.60 mg/dL (0.52-1.04) 02/18/19 08:01 Estimated GFR > 60.0 mL/min (>60) 02/18/19 08:01 BUN/Creatinine Ratio 21.7 (6-22) 02/18/19 08:01 Glucose 107 mg/dL (70-100) H 02/18/19 08:01 Calcium 9.4 mg/dL (8.4-10.2) 02/18/19 08:01 Total Bilirubin 0.9 mg/dL (0.2-1.3) 02/18/19 08:01 AST 21 IU/L (14-36) 02/18/19 08:01 ALT 24 IU/L (9-52) 02/18/19 08:01 Alkaline Phosphatase 100 U/L (38-126) 02/18/19 08:01 Total Protein 7.1 g/dL (6.3-8.2) 02/18/19 08:01 Albumin 4.1 g/dL (3.5-5.0) 02/18/19 08:01 Globulin 3.0 g/dL (1.7-4.1) 02/18/19 08:01 Albumin/Globulin Ratio 1.4 (1.0-2.8) 02/18/19 08:01 Breast [facility] [employer] Ag 9 U/mL (< 32) 07/29/18 09:28 - Imaging Additional studies: Procedures Drainage of Chest Wall with Drainage Device, Open Approach (04/16/18) Excision of Right Axillary Lymphatic, Open Approach (04/16/18) Removal of Totally Implantable Vascular Access Device from Upper Extremity Subcutaneous Tissue and Fascia, Open Approach (04/16/18) Resection of Bilateral Breast, Open Approach (04/16/18) Assessment and Plan (1) Breast cancer Problem details: 42-year-old woman with aggressive breast cancer with the large residual tumor and many positive nodes following neoadjuvant chemotherapy. She has completed her adjuvant Xeloda. She will follow-up with [place] next week to see about hormone therapy trial. Explained that I would expect her chemotherapy side effects to slowly resolve. She will return to clinic in about 6 weeks or so for follow-up. Hopefully, by that time she will be feeling substantially better. Current visit: No Status: Acute (1) Breast cancer Qualifiers: Patient sex: female Laterality: right
--- NOTE | 2019-02-19 16:19 | P.PNONC_ITS ---
PN -Subjective Interval history: Diagnosis: Breast cancer, ER/MI positive HER2 negative. BRCA 1 and 2 were wild type Previous treatment: 1. Neoadjuvant chemotherapy with 4 cycles of Adriamycin and Cytoxan followed by 12 weeks of Taxol. 2. Bilateral mastectomy in March 2018 with residual [id number] disease. 3. Radiation therapy to the chest wall with concurrent Xeloda finishing June 2018. 4. Xeloda 14 days on, 7 days off for 8 cycles finishing in January 2019 Interval history: The patient is a 43-year-old woman who has history of breast cancer. She unfortunately had extensive lymph node involvement following neoadjuvant chemotherapy. Postoperatively, she has had adjuvant radiation with concurrent Xeloda and has continued with adjuvant Xeloda for 8 cycles which she just completed. She notes that her strength and energy level have been low but stable. She has had some generalized achiness in her legs. She has had some peeling of the skin on her feet but no mouth sores or diarrhea. She denies any other new aches or pains. No fevers chills or sweats. No shortness of breath or cough. She has not noted any adenopathy. She has not had any sores mouth but notes that her taste has been somewhat low. She denies any other changes in her health. She does have a follow-up scheduled down in [place] next week to consider clinical trial with hormone therapy. Her medications include only Lexapro - Patient Self-Reported Symptoms SR Constitution: Fatigue/Malaise SR eye issues: Eye pain SR ears, nose, mouth, throat issues: Ears ringing, Congestion SR respiratory issues: Mucous SR Cardiovascular issues: Extreme swelling SR Skin issues: Dry skin, Skin rash or itching, Skin color changes, Blistering or peeling, Nail changes SR Gastrointestinal issues: Poor or no appetite SR Genitourinary issues: Frequent urination SR Musculoskeletal issues: Joint pain or swelling SR Neuro issues: Numbness or tingling SR Hematologic issues: Slow healing, Bleeding/bruising SR Endocrine issues: Heat intolerance Home Medications and Allergies Home Medications Medication Instructions Recorded Confirmed Type escitalopram oxalate [Lexapro] 10 mg PO BEDTIME 04/02/18 02/19/19 History Allergies Allergy/AdvReac Type Severity Reaction Status Date / Time lactose Allergy Intermediate Gastrointestinal Verified 05/01/18 10:23 Upset Sulfa (Sulfonamide Allergy Mild Hives Verified 05/01/18 10:23 Antibiotics) egg AdvReac Intermediate Gastrointestinal Verified 05/01/18 10:23 Upset Exam Vital signs: Vital Signs Temp Pulse Resp BP Pulse Ox 02/19/19 15:42 98.1 F 80 18 123/77 99 Intake and Output 02/19/19 02/19/19 02/19/19 07:59 15:59 23:59 Other: Weight 85.4 kg Patient Weight 02/19/19 23:59 Weight 85.4 kg - Constitutional positive no acute distress, positive average body habitus Comments: She is not further examined. Results - Labs Laboratory Last Values WBC 6.1 X10^3/uL (4.5-11.0) 02/18/19 08:01 RBC 4.08 X10^6/uL (4.0-5.2) 02/18/19 08:01 Hgb 13.0 g/dL (12.0-16.0) 02/18/19 08:01 Hct 38.3 % (36-46) 02/18/19 08:01 MCV 93.9 fL (80-100) 02/18/19 08:01 MCH 31.9 PG (26-34) 02/18/19 08:01 MCHC 34.0 % (30-36) 02/18/19 08:01 RDW 14.6 % (11.6-14.8) 02/18/19 08:01 Plt Count 235 X10^3/uL (150-400) 02/18/19 08:01 Neut % (Auto) 66.0 % (50-75) 02/18/19 08:01 Lymph % (Auto) 24.2 % (25-40) L 02/18/19 08:01 [place] % (Auto) 7.5 % (3-14) 02/18/19 08:01 Eos % (Auto) 1.8 % (2-4) L 02/18/19 08:01 Baso % (Auto) 0.5 % (0-2) 02/18/19 08:01 Neut # (Auto) 4000 /uL (9009-9044) 02/18/19 08:01 Lymph # (Auto) 1500 /uL (7487-9913) 02/18/19 08:01 [place] # (Auto) 500 /uL (0-900) 02/18/19 08:01 Eos # (Auto) 100 /uL (0-450) 02/18/19 08:01 Baso # (Auto) 0 /uL (0-100) 02/18/19 08:01 Sodium 142 mmol/L (137-145) 02/18/19 08:01 Potassium 4.9 mmol/L (3.4-5.1) 02/18/19 08:01 Chloride 108 mmol/L (98-107) H 02/18/19 08:01 Carbon Dioxide 27 mmol/L (22-32) 02/18/19 08:01 BUN 13 mg/dL (7-17) 02/18/19 08:01 Creatinine 0.60 mg/dL (0.52-1.04) 02/18/19 08:01 Estimated GFR > 60.0 mL/min (>60) 02/18/19 08:01 BUN/Creatinine Ratio 21.7 (6-22) 02/18/19 08:01 Glucose 107 mg/dL (70-100) H 02/18/19 08:01 Calcium 9.4 mg/dL (8.4-10.2) 02/18/19 08:01 Total Bilirubin 0.9 mg/dL (0.2-1.3) 02/18/19 08:01 AST 21 IU/L (14-36) 02/18/19 08:01 ALT 24 IU/L (9-52) 02/18/19 08:01 Alkaline Phosphatase 100 U/L (38-126) 02/18/19 08:01 Total Protein 7.1 g/dL (6.3-8.2) 02/18/19 08:01 Albumin 4.1 g/dL (3.5-5.0) 02/18/19 08:01 Globulin 3.0 g/dL (1.7-4.1) 02/18/19 08:01 Albumin/Globulin Ratio 1.4 (1.0-2.8) 02/18/19 08:01 Breast [facility] Ag 9 U/mL (< 32) 07/29/18 09:28 - Imaging Additional studies: Procedures Drainage of Chest Wall with Drainage Device, Open Approach (04/16/18) Excision of Right Axillary Lymphatic, Open Approach (04/16/18) Removal of Totally Implantable Vascular Access Device from Upper Extremity Subcutaneous Tissue and Fascia, Open Approach (04/16/18) Resection of Bilateral Breast, Open Approach (04/16/18) Assessment and Plan (1) Breast cancer Problem details: 42-year-old woman with aggressive breast cancer with the large residual tumor and many positive nodes following neoadjuvant chemotherapy. She has completed her adjuvant Xeloda. She will follow-up with [place] next week to see about hormone therapy trial. Explained that I would expect her chemotherapy side effects to slowly resolve. She will return to clinic in about 6 weeks or so for follow-up. Hopefully, by that time she will be feeling substantially better. Current visit: No Status: Acute (1) Breast cancer Qualifiers: Patient sex: female Laterality: right
[2019-03-04 10:43] VITALS: BP 122/66; PULSE 65; RESP 18; TEMP 36.8; O2SAT 97
--- NOTE | 2019-03-04 11:23 | ONC.PN ---
PN -Subjective Interval history: Diagnosis: Breast cancer, ER/ND positive HER2 negative. BRCA 1 and 2 were wild type Previous treatment: 1. Neoadjuvant chemotherapy with 4 cycles of Adriamycin and Cytoxan followed by 12 weeks of Taxol. 2. Bilateral mastectomy in March 2018 with residual [id number] disease. 3. Radiation therapy to the chest wall with concurrent Xeloda finishing June 2018. 4. Xeloda 14 days on, 7 days off for 8 cycles finishing in January 2019 Interval history: The patient is a 43-year-old woman who has history of breast cancer. She unfortunately had extensive lymph node involvement following neoadjuvant chemotherapy. Postoperatively, she has had adjuvant radiation with concurrent Xeloda and has continued with adjuvant Xeloda for 8 cycles which she just completed. Since her last visit here, she has been feeling about the same. She denies any nausea or vomiting. No new aches or pains. She has noted some joint pain and stiffness particularly in her feet in the mornings. It seems to improve with activity. No shortness of breath or cough. Her appetite has been good. Bowels have been moving normally. She did have a follow-up appointment in [place]. They recommended adjuvant endocrine therapy with ovarian suppression and an aromatase inhibitor. She may be eligible for a clinical trial evaluating the role of a CDK inhibitor. That trials expected open in about a month. She will get started on her hormone therapy here in the interim. She is otherwise without complaint and denies any other changes in her health. Her medications include only Lexapro - Patient Self-Reported Symptoms SR Constitution: Fatigue/Malaise SR eye issues: Eye pain SR ears, nose, mouth, throat issues: Ears ringing, Congestion SR respiratory issues: Mucous SR Cardiovascular issues: Extreme swelling, Dizzy/lightheaded SR Skin issues: Blistering or peeling SR Gastrointestinal issues: Poor or no appetite SR Genitourinary issues: Frequent urination SR Musculoskeletal issues: Joint pain or swelling, Difficulty walking, Bone pain SR Neuro issues: Headache, Difficulty balancing SR Hematologic issues: Slow healing, Bleeding/bruising SR Endocrine issues: Heat intolerance Home Medications and Allergies Home Medications Medication Instructions Recorded Confirmed Type escitalopram oxalate [Lexapro] 10 mg PO BEDTIME 04/02/18 02/19/19 History letrozole 2.5 mg PO DAILY 100 Days #100 tab 03/04/19 Rx Allergies Allergy/AdvReac Type Severity Reaction Status Date / Time lactose Allergy Intermediate Gastrointestinal Verified 05/01/18 10:23 Upset Sulfa (Sulfonamide Allergy Mild Hives Verified 05/01/18 10:23 Antibiotics) egg AdvReac Intermediate Gastrointestinal Verified 05/01/18 10:23 Upset Exam Vital signs: Vital Signs Temp Pulse Resp BP Pulse Ox 03/04/19 10:43 98.3 F 65 18 122/66 97 Intake and Output 03/03/19 03/04/19 03/04/19 23:59 07:59 15:59 Other: Weight 85.3 kg Patient Weight 03/04/19 23:59 Weight 85.3 kg - Constitutional positive no acute distress, positive average body habitus - Routine HEENT Exam Head: Present: normocephalic, atraumatic Eye: Present: EOMI, PERRL. Absent: conjunctival icterus, scleral injection ENT: Present: mucous membranes moist, oropharynx clear - Routine Neck Exam Present: supple. Absent: lymphadenopathy, thyromegaly - Routine Respiratory Exam Present: Clear to auscultation bilaterally. Absent: rales, wheezes - Routine Cardiovascular Exam Present: RRR, S1, S2. Absent: murmur - Routine Abdominal Exam Present: soft, normoactive bowel sounds. Absent: tenderness, organomegaly, mass - Routine Extremities Exam Absent: cyanosis, clubbing, edema - Routine Back/Spine Exam Back/Spine: Absent: vertebral tenderness - Routine Skin Exam Present: intact. Absent: petechiae, rash - Routine Neurological Exam Present: alert, oriented X3 - Routine Psychiatric Exam Present: normal affect, normal thought process Results - Labs Laboratory Last Values WBC 6.1 X10^3/uL (4.5-11.0) 02/18/19 08:01 RBC 4.08 X10^6/uL (4.0-5.2) 02/18/19 08:01 Hgb 13.0 g/dL (12.0-16.0) 02/18/19 08:01 Hct 38.3 % (36-46) 02/18/19 08:01 MCV 93.9 fL (80-100) 02/18/19 08:01 MCH 31.9 PG (26-34) 02/18/19 08:01 MCHC 34.0 % (30-36) 02/18/19 08:01 RDW 14.6 % (11.6-14.8) 02/18/19 08:01 Plt Count 235 X10^3/uL (150-400) 02/18/19 08:01 Neut % (Auto) 66.0 % (50-75) 02/18/19 08:01 Lymph % (Auto) 24.2 % (25-40) L 02/18/19 08:01 [place] % (Auto) 7.5 % (3-14) 02/18/19 08:01 Eos % (Auto) 1.8 % (2-4) L 02/18/19 08:01 Baso % (Auto) 0.5 % (0-2) 02/18/19 08:01 Neut # (Auto) 4000 /uL (0372-0892) 02/18/19 08:01 Lymph # (Auto) 1500 /uL (2012-9930) 02/18/19 08:01 [place] # (Auto) 500 /uL (0-900) 02/18/19 08:01 Eos # (Auto) 100 /uL (0-450) 02/18/19 08:01 Baso # (Auto) 0 /uL (0-100) 02/18/19 08:01 Sodium 142 mmol/L (137-145) 02/18/19 08:01 Potassium 4.9 mmol/L (3.4-5.1) 02/18/19 08:01 Chloride 108 mmol/L (98-107) H 02/18/19 08:01 Carbon Dioxide 27 mmol/L (22-32) 02/18/19 08:01 BUN 13 mg/dL (7-17) 02/18/19 08:01 Creatinine 0.60 mg/dL (0.52-1.04) 02/18/19 08:01 Estimated GFR > 60.0 mL/min (>60) 02/18/19 08:01 BUN/Creatinine Ratio 21.7 (6-22) 02/18/19 08:01 Glucose 107 mg/dL (70-100) H 02/18/19 08:01 Calcium 9.4 mg/dL (8.4-10.2) 02/18/19 08:01 Total Bilirubin 0.9 mg/dL (0.2-1.3) 02/18/19 08:01 AST 21 IU/L (14-36) 02/18/19 08:01 ALT 24 IU/L (9-52) 02/18/19 08:01 Alkaline Phosphatase 100 U/L (38-126) 02/18/19 08:01 Total Protein 7.1 g/dL (6.3-8.2) 02/18/19 08:01 Albumin 4.1 g/dL (3.5-5.0) 02/18/19 08:01 Globulin 3.0 g/dL (1.7-4.1) 02/18/19 08:01 Albumin/Globulin Ratio 1.4 (1.0-2.8) 02/18/19 08:01 Breast [facility] Ag 9 U/mL (< 32) 07/29/18 09:28 - Imaging Additional studies: Procedures Drainage of Chest Wall with Drainage Device, Open Approach (04/16/18) Excision of Right Axillary Lymphatic, Open Approach (04/16/18) Removal of Totally Implantable Vascular Access Device from Upper Extremity Subcutaneous Tissue and Fascia, Open Approach (04/16/18) Resection of Bilateral Breast, Open Approach (04/16/18) Assessment and Plan (1) Breast cancer Problem details: 42-year-old woman with aggressive breast cancer with the large residual tumor and many positive nodes following neoadjuvant chemotherapy. She has completed her adjuvant Xeloda. I did give her prescription for letrozole. We will plan on starting Zoladex monthly. She will return to clinic in about a month for follow-up. Will trying get her scheduled for a baseline DEXA scan. Current visit: No Status: Acute (1) Breast cancer Qualifiers: Patient sex: female Laterality: right
--- NOTE | 2019-03-04 11:26 | P.PNONC_ITS ---
PN -Subjective Interval history: Diagnosis: Breast cancer, ER/MD positive HER2 negative. BRCA 1 and 2 were wild type Previous treatment: 1. Neoadjuvant chemotherapy with 4 cycles of Adriamycin and Cytoxan followed by 12 weeks of Taxol. 2. Bilateral mastectomy in March 2018 with residual [id number] disease. 3. Radiation therapy to the chest wall with concurrent Xeloda finishing June 2018. 4. Xeloda 14 days on, 7 days off for 8 cycles finishing in January 2019 Interval history: The patient is a 43-year-old woman who has history of breast cancer. She unfortunately had extensive lymph node involvement following neoadjuvant chemotherapy. Postoperatively, she has had adjuvant radiation with concurrent Xeloda and has continued with adjuvant Xeloda for 8 cycles which she just completed. Since her last visit here, she has been feeling about the same. She denies any nausea or vomiting. No new aches or pains. She has noted some joint pain and stiffness particularly in her feet in the mornings. It seems to improve with activity. No shortness of breath or cough. Her appetite has been good. Bowels have been moving normally. She did have a follow-up appointment in [place]. They recommended adjuvant endocrine therapy with ovarian suppression and an aromatase inhibitor. She may be eligible for a clinical trial evaluating the role of a CDK inhibitor. That trials expected open in about a month. She will get started on her hormone therapy here in the interim. She is otherwise without complaint and denies any other changes in her health. Her medications include only Lexapro - Patient Self-Reported Symptoms SR Constitution: Fatigue/Malaise SR eye issues: Eye pain SR ears, nose, mouth, throat issues: Ears ringing, Congestion SR respiratory issues: Mucous SR Cardiovascular issues: Extreme swelling, Dizzy/lightheaded SR Skin issues: Blistering or peeling SR Gastrointestinal issues: Poor or no appetite SR Genitourinary issues: Frequent urination SR Musculoskeletal issues: Joint pain or swelling, Difficulty walking, Bone pain SR Neuro issues: Headache, Difficulty balancing SR Hematologic issues: Slow healing, Bleeding/bruising SR Endocrine issues: Heat intolerance Home Medications and Allergies Home Medications Medication Instructions Recorded Confirmed Type escitalopram oxalate [Lexapro] 10 mg PO BEDTIME 04/02/18 02/19/19 History letrozole 2.5 mg PO DAILY 100 Days #100 tab 03/04/19 Rx Allergies Allergy/AdvReac Type Severity Reaction Status Date / Time lactose Allergy Intermediate Gastrointestinal Verified 05/01/18 10:23 Upset Sulfa (Sulfonamide Allergy Mild Hives Verified 05/01/18 10:23 Antibiotics) egg AdvReac Intermediate Gastrointestinal Verified 05/01/18 10:23 Upset Exam Vital signs: Vital Signs Temp Pulse Resp BP Pulse Ox 03/04/19 10:43 98.3 F 65 18 122/66 97 Intake and Output 03/03/19 03/04/19 03/04/19 23:59 07:59 15:59 Other: Weight 85.3 kg Patient Weight 03/04/19 23:59 Weight 85.3 kg - Constitutional positive no acute distress, positive average body habitus - Routine HEENT Exam Head: Present: normocephalic, atraumatic Eye: Present: EOMI, PERRL. Absent: conjunctival icterus, scleral injection ENT: Present: mucous membranes moist, oropharynx clear - Routine Neck Exam Present: supple. Absent: lymphadenopathy, thyromegaly - Routine Respiratory Exam Present: Clear to auscultation bilaterally. Absent: rales, wheezes - Routine Cardiovascular Exam Present: RRR, S1, S2. Absent: murmur - Routine Abdominal Exam Present: soft, normoactive bowel sounds. Absent: tenderness, organomegaly, mass - Routine Extremities Exam Absent: cyanosis, clubbing, edema - Routine Back/Spine Exam Back/Spine: Absent: vertebral tenderness - Routine Skin Exam Present: intact. Absent: petechiae, rash - Routine Neurological Exam Present: alert, oriented X3 - Routine Psychiatric Exam Present: normal affect, normal thought process Results - Labs Laboratory Last Values WBC 6.1 X10^3/uL (4.5-11.0) 02/18/19 08:01 RBC 4.08 X10^6/uL (4.0-5.2) 02/18/19 08:01 Hgb 13.0 g/dL (12.0-16.0) 02/18/19 08:01 Hct 38.3 % (36-46) 02/18/19 08:01 MCV 93.9 fL (80-100) 02/18/19 08:01 MCH 31.9 PG (26-34) 02/18/19 08:01 MCHC 34.0 % (30-36) 02/18/19 08:01 RDW 14.6 % (11.6-14.8) 02/18/19 08:01 Plt Count 235 X10^3/uL (150-400) 02/18/19 08:01 Neut % (Auto) 66.0 % (50-75) 02/18/19 08:01 Lymph % (Auto) 24.2 % (25-40) L 02/18/19 08:01 [place] % (Auto) 7.5 % (3-14) 02/18/19 08:01 Eos % (Auto) 1.8 % (2-4) L 02/18/19 08:01 Baso % (Auto) 0.5 % (0-2) 02/18/19 08:01 Neut # (Auto) 4000 /uL (6186-0485) 02/18/19 08:01 Lymph # (Auto) 1500 /uL (3544-9529) 02/18/19 08:01 [place] # (Auto) 500 /uL (0-900) 02/18/19 08:01 Eos # (Auto) 100 /uL (0-450) 02/18/19 08:01 Baso # (Auto) 0 /uL (0-100) 02/18/19 08:01 Sodium 142 mmol/L (137-145) 02/18/19 08:01 Potassium 4.9 mmol/L (3.4-5.1) 02/18/19 08:01 Chloride 108 mmol/L (98-107) H 02/18/19 08:01 Carbon Dioxide 27 mmol/L (22-32) 02/18/19 08:01 BUN 13 mg/dL (7-17) 02/18/19 08:01 Creatinine 0.60 mg/dL (0.52-1.04) 02/18/19 08:01 Estimated GFR > 60.0 mL/min (>60) 02/18/19 08:01 BUN/Creatinine Ratio 21.7 (6-22) 02/18/19 08:01 Glucose 107 mg/dL (70-100) H 02/18/19 08:01 Calcium 9.4 mg/dL (8.4-10.2) 02/18/19 08:01 Total Bilirubin 0.9 mg/dL (0.2-1.3) 02/18/19 08:01 AST 21 IU/L (14-36) 02/18/19 08:01 ALT 24 IU/L (9-52) 02/18/19 08:01 Alkaline Phosphatase 100 U/L (38-126) 02/18/19 08:01 Total Protein 7.1 g/dL (6.3-8.2) 02/18/19 08:01 Albumin 4.1 g/dL (3.5-5.0) 02/18/19 08:01 Globulin 3.0 g/dL (1.7-4.1) 02/18/19 08:01 Albumin/Globulin Ratio 1.4 (1.0-2.8) 02/18/19 08:01 Breast [facility] Ag 9 U/mL (< 32) 07/29/18 09:28 - Imaging Additional studies: Procedures Drainage of Chest Wall with Drainage Device, Open Approach (04/16/18) Excision of Right Axillary Lymphatic, Open Approach (04/16/18) Removal of Totally Implantable Vascular Access Device from Upper Extremity Subcutaneous Tissue and Fascia, Open Approach (04/16/18) Resection of Bilateral Breast, Open Approach (04/16/18) Assessment and Plan (1) Breast cancer Problem details: 42-year-old woman with aggressive breast cancer with the large residual tumor and many positive nodes following neoadjuvant chemotherapy. She has completed her adjuvant Xeloda. I did give her prescription for letrozole. We will plan on starting Zoladex monthly. She will return to clinic in about a month for follow-up. Will trying get her scheduled for a baseline DEXA scan. Current visit: No Status: Acute (1) Breast cancer Qualifiers: Patient sex: female Laterality: right
--- NOTE | 2019-03-04 16:00 | ONC.SCHED ---
Talked to Susannah regarding Goserelin needing PA. according to Susannah, this drug does not need PA as long as its used in an outpatient basis
[2019-03-12 11:15] VITALS: BP 124/74; PULSE 64; RESP 16; TEMP 36.7; O2SAT 99
--- NOTE | 2019-03-12 11:28 | PC.NURSE ---
Patient anxious about interactions between zoladex, lexapro and letrazole. Patient concerns relayed with Laura Palmer RN who spoke with Dr. Lora about concerns. Dr. Lora states that it is okay to have patient receive injection. This discussed with patient who agrees to have the SQ zoladex injection. Patient denies need to have more medication information printed.
[2019-03-12] MEDS: GOSERELIN 3.6 MG SUBCUT (11:45)
[2019-04-08 09:42] LABS: Add Manual Diff / Slide Review NO; Basophils Absolute Auto 0 /uL (0-100); Basophils Percent Auto 0.5 % (0-2); Eosinophils Absolute Auto 100 /uL (0-450); Eosinophils Percent Auto 1.7 % (2-4); Hematocrit 40.2 % (36-46); Hemoglobin 13.7 g/dL (12.0-16.0); Lymphocytes Absolute Auto 2000 /uL (1100-4500); Lymphocytes Percent Auto 32.6 % (25-40); Mean Corpuscular Volume 88.2 fL (80-100); Monocytes Absolute Auto 400 /uL (0-900); Monocytes Percent Auto 6.1 % (3-14); Neutrophils Absolute Auto 3500 /uL (1500-7000); Neutrophils Percent Auto 59.1 % (50-75); Platelet Count 264 X10^3/uL (150-400); Red Blood Cell Count 4.56 X10^6/uL (4.0-5.2); Red Cell Distribution Width 13.3 % (11.6-14.8)
[2019-04-08 09:56] LABS: Alanine Aminotransferase 15 IU/L (9-52); Albumin 4.2 g/dL (3.5-5.0); Albumin Globulin Ratio 1.4 (1.0-2.8); Alkaline Phosphatase 88 U/L (38-126); Aspartate Aminotransferase 20 IU/L (14-36); BUN Creatinine Ratio 15.7 (6-22); Bilirubin Total 0.9 mg/dL (0.2-1.3); Blood Urea Nitrogen 11 mg/dL (7-17); Calcium 9.6 mg/dL (8.4-10.2); Carbon Dioxide 27 mmol/L (22-32); Chloride 106 mmol/L (98-107); Estimated Glomerular Filt Rate > 60.0 mL/min (>60); Globulin 2.9 g/dL (1.7-4.1); Glucose 97 mg/dL (70-100); HEMOLYSIS < 15 (0-50); Potassium 4.9 mmol/L (3.4-5.1); Sodium 141 mmol/L (137-145); Total Protein 7.1 g/dL (6.3-8.2)
[2019-04-08 10:27] VITALS: BP 134/77; PULSE 66; RESP 18; TEMP 36.8; O2SAT 99
--- NOTE | 2019-04-08 11:13 | ONC.PN ---
PN -Subjective Interval history: Diagnosis: Breast cancer, ER/CT positive HER2 negative. BRCA 1 and 2 were wild type Previous treatment: 1. Neoadjuvant chemotherapy with 4 cycles of Adriamycin and Cytoxan followed by 12 weeks of Taxol. 2. Bilateral mastectomy in March 2018 with residual [id number] disease. 3. Radiation therapy to the chest wall with concurrent Xeloda finishing June 2018. 4. Xeloda 14 days on, 7 days off for 8 cycles finishing in January 2019 5. Goserlin Niesha with letrozole beginning in February 2019 Interval history: The patient is a 43-year-old woman who has history of breast cancer. She unfortunately had extensive lymph node involvement following neoadjuvant chemotherapy. Postoperatively, she has had adjuvant radiation with concurrent Xeloda and has continued with adjuvant Xeloda for 8 cycles which she just completed in January. Since her last visit here, she has started on hormone therapy. She has been tolerating it fairly well. She does note some ongoing fatigue that is been present since the end of her chemotherapy. It has not improved very much. She is having some sweats but denies any fabrice hot flashes. She has not noticed any new aches or pains. No shortness of breath or cough. Appetite has been good. Bowels have been moving normally. She has not noticed any changes in the chest wall. She has not noticed any joint pain or stiffness. She denies any other changes in her health. Her medications include only Lexapro and letrozole. - Patient Self-Reported Symptoms SR Constitution: Fatigue/Malaise SR eye issues: Eye pain SR ears, nose, mouth, throat issues: Ears ringing, Congestion SR respiratory issues: Mucous SR Cardiovascular issues: Extreme swelling, Dizzy/lightheaded SR Skin issues: Blistering or peeling SR Gastrointestinal issues: Poor or no appetite SR Genitourinary issues: Frequent urination SR Musculoskeletal issues: Joint pain or swelling, Difficulty walking, Bone pain SR Neuro issues: Headache, Difficulty balancing SR Hematologic issues: Slow healing, Bleeding/bruising SR Endocrine issues: Heat intolerance Home Medications and Allergies Home Medications Medication Instructions Recorded Confirmed Type escitalopram oxalate [Lexapro] 10 mg PO BEDTIME 04/02/18 02/19/19 History letrozole 2.5 mg PO DAILY 100 Days #100 tab 03/04/19 Rx Allergies Allergy/AdvReac Type Severity Reaction Status Date / Time lactose Allergy Intermediate Gastrointestinal Verified 05/01/18 10:23 Upset Sulfa (Sulfonamide Allergy Mild Hives Verified 05/01/18 10:23 Antibiotics) egg AdvReac Intermediate Gastrointestinal Verified 05/01/18 10:23 Upset Exam Vital signs: Vital Signs Temp Pulse Resp BP Pulse Ox 04/08/19 10:27 98.2 F 66 18 134/77 99 Intake and Output 04/07/19 04/08/19 04/08/19 23:59 07:59 15:59 Other: Weight 86.1 kg Patient Weight 04/08/19 23:59 Weight 86.1 kg - Constitutional positive no acute distress, positive average body habitus - Routine HEENT Exam Head: Present: normocephalic, atraumatic Eye: Present: EOMI, PERRL. Absent: conjunctival icterus, scleral injection ENT: Present: mucous membranes moist, oropharynx clear - Routine Neck Exam Present: supple. Absent: lymphadenopathy, thyromegaly - Routine Respiratory Exam Present: Clear to auscultation bilaterally. Absent: rales, wheezes - Routine Cardiovascular Exam Present: RRR, S1, S2. Absent: murmur - Routine Abdominal Exam Present: soft, normoactive bowel sounds. Absent: tenderness, organomegaly, mass - Routine Extremities Exam Absent: cyanosis, clubbing, edema - Routine Back/Spine Exam Back/Spine: Absent: vertebral tenderness - Routine Skin Exam Present: intact. Absent: petechiae, rash - Routine Neurological Exam Present: alert, oriented X3 - Routine Psychiatric Exam Present: normal affect, normal thought process Results - Labs Laboratory Last Values WBC 6.0 X10^3/uL (4.5-11.0) 04/08/19 09:34 RBC 4.56 X10^6/uL (4.0-5.2) 04/08/19 09:34 Hgb 13.7 g/dL (12.0-16.0) 04/08/19 09:34 Hct 40.2 % (36-46) 04/08/19 09:34 MCV 88.2 fL (80-100) 04/08/19 09:34 MCH 30.0 PG (26-34) 04/08/19 09:34 MCHC 34.0 % (30-36) 04/08/19 09:34 RDW 13.3 % (11.6-14.8) 04/08/19 09:34 Plt Count 264 X10^3/uL (150-400) 04/08/19 09:34 Neut % (Auto) 59.1 % (50-75) 04/08/19 09:34 Lymph % (Auto) 32.6 % (25-40) 04/08/19 09:34 [place] % (Auto) 6.1 % (3-14) 04/08/19 09:34 Eos % (Auto) 1.7 % (2-4) L 04/08/19 09:34 Baso % (Auto) 0.5 % (0-2) 04/08/19 09:34 Neut # (Auto) 3500 /uL (3421-9907) 04/08/19 09:34 Lymph # (Auto) 2000 /uL ([id number]) 04/08/19 09:34 [place] # (Auto) 400 /uL (0-900) 04/08/19 09:34 Eos # (Auto) 100 /uL (0-450) 04/08/19 09:34 Baso # (Auto) 0 /uL (0-100) 04/08/19 09:34 Sodium 141 mmol/L (137-145) 04/08/19 09:34 Potassium 4.9 mmol/L (3.4-5.1) 04/08/19 09:34 Chloride 106 mmol/L (98-107) 04/08/19 09:34 Carbon Dioxide 27 mmol/L (22-32) 04/08/19 09:34 BUN 11 mg/dL (7-17) 04/08/19 09:34 Creatinine 0.70 mg/dL (0.52-1.04) 04/08/19 09:34 Estimated GFR > 60.0 mL/min (>60) 04/08/19 09:34 BUN/Creatinine Ratio 15.7 (6-22) 04/08/19 09:34 Glucose 97 mg/dL (70-100) 04/08/19 09:34 Calcium 9.6 mg/dL (8.4-10.2) 04/08/19 09:34 Total Bilirubin 0.9 mg/dL (0.2-1.3) 04/08/19 09:34 AST 20 IU/L (14-36) 04/08/19 09:34 ALT 15 IU/L (9-52) 04/08/19 09:34 Alkaline Phosphatase 88 U/L (38-126) 04/08/19 09:34 Total Protein 7.1 g/dL (6.3-8.2) 04/08/19 09:34 Albumin 4.2 g/dL (3.5-5.0) 04/08/19 09:34 Globulin 2.9 g/dL (1.7-4.1) 04/08/19 09:34 Albumin/Globulin Ratio 1.4 (1.0-2.8) 04/08/19 09:34 Breast [facility] [facility] 9 U/mL (< 32) 07/29/18 09:28 - Imaging Additional studies: Procedures Drainage of Chest Wall with Drainage Device, Open Approach (04/16/18) Excision of Right Axillary Lymphatic, Open Approach (04/16/18) Removal of Totally Implantable Vascular Access Device from Upper Extremity Subcutaneous Tissue and Fascia, Open Approach (04/16/18) Resection of Bilateral Breast, Open Approach (04/16/18) Assessment and Plan (1) Breast cancer Problem details: 42-year-old woman with aggressive breast cancer with the large residual tumor and many positive nodes following neoadjuvant chemotherapy. She has completed her adjuvant Xeloda. She will continue with letrozole and monthly Zoladex. She is due for an injection today. Current visit: No Status: Acute (2) Osteopenia Current visit: Yes Status: Acute Her DEXA scan shows osteopenia with a T-score as low as -1.9 in the femoral head neck. She is now on aromatase inhibitor and is effectively postmenopausal because of her hormone therapy. She is at risk for worsening bone density and risk for fracture. I think she would benefit from bisphosphonate. I will plan on treating her with Zometa every 6 months. Hopefully will be able to get started next month. (1) Breast cancer Qualifiers: Patient sex: female Laterality: right
--- NOTE | 2019-04-08 11:17 | P.PNONC_ITS ---
PN -Subjective Interval history: Diagnosis: Breast cancer, ER/MN positive HER2 negative. BRCA 1 and 2 were wild type Previous treatment: 1. Neoadjuvant chemotherapy with 4 cycles of Adriamycin and Cytoxan followed by 12 weeks of Taxol. 2. Bilateral mastectomy in March 2018 with residual [id number] disease. 3. Radiation therapy to the chest wall with concurrent Xeloda finishing June 2018. 4. Xeloda 14 days on, 7 days off for 8 cycles finishing in January 2019 5. Goserlin Niesha with letrozole beginning in February 2019 Interval history: The patient is a 43-year-old woman who has history of breast cancer. She unfortunately had extensive lymph node involvement following neoadjuvant chemotherapy. Postoperatively, she has had adjuvant radiation with concurrent Xeloda and has continued with adjuvant Xeloda for 8 cycles which she just completed in January. Since her last visit here, she has started on hormone therapy. She has been tolerating it fairly well. She does note some ongoing fatigue that is been present since the end of her chemotherapy. It has not improved very much. She is having some sweats but denies any fabrice hot flashes. She has not noticed any new aches or pains. No shortness of breath or cough. Appetite has been good. Bowels have been moving normally. She has not noticed any changes in the chest wall. She has not noticed any joint pain or stiffness. She denies any other changes in her health. Her medications include only Lexapro and letrozole. - Patient Self-Reported Symptoms SR Constitution: Fatigue/Malaise SR eye issues: Eye pain SR ears, nose, mouth, throat issues: Ears ringing, Congestion SR respiratory issues: Mucous SR Cardiovascular issues: Extreme swelling, Dizzy/lightheaded SR Skin issues: Blistering or peeling SR Gastrointestinal issues: Poor or no appetite SR Genitourinary issues: Frequent urination SR Musculoskeletal issues: Joint pain or swelling, Difficulty walking, Bone pain SR Neuro issues: Headache, Difficulty balancing SR Hematologic issues: Slow healing, Bleeding/bruising SR Endocrine issues: Heat intolerance Home Medications and Allergies Home Medications Medication Instructions Recorded Confirmed Type escitalopram oxalate [Lexapro] 10 mg PO BEDTIME 04/02/18 02/19/19 History letrozole 2.5 mg PO DAILY 100 Days #100 tab 03/04/19 Rx Allergies Allergy/AdvReac Type Severity Reaction Status Date / Time lactose Allergy Intermediate Gastrointestinal Verified 05/01/18 10:23 Upset Sulfa (Sulfonamide Allergy Mild Hives Verified 05/01/18 10:23 Antibiotics) egg AdvReac Intermediate Gastrointestinal Verified 05/01/18 10:23 Upset Exam Vital signs: Vital Signs Temp Pulse Resp BP Pulse Ox 04/08/19 10:27 98.2 F 66 18 134/77 99 Intake and Output 04/07/19 04/08/19 04/08/19 23:59 07:59 15:59 Other: Weight 86.1 kg Patient Weight 04/08/19 23:59 Weight 86.1 kg - Constitutional positive no acute distress, positive average body habitus - Routine HEENT Exam Head: Present: normocephalic, atraumatic Eye: Present: EOMI, PERRL. Absent: conjunctival icterus, scleral injection ENT: Present: mucous membranes moist, oropharynx clear - Routine Neck Exam Present: supple. Absent: lymphadenopathy, thyromegaly - Routine Respiratory Exam Present: Clear to auscultation bilaterally. Absent: rales, wheezes - Routine Cardiovascular Exam Present: RRR, S1, S2. Absent: murmur - Routine Abdominal Exam Present: soft, normoactive bowel sounds. Absent: tenderness, organomegaly, mass - Routine Extremities Exam Absent: cyanosis, clubbing, edema - Routine Back/Spine Exam Back/Spine: Absent: vertebral tenderness - Routine Skin Exam Present: intact. Absent: petechiae, rash - Routine Neurological Exam Present: alert, oriented X3 - Routine Psychiatric Exam Present: normal affect, normal thought process Results - Labs Laboratory Last Values WBC 6.0 X10^3/uL (4.5-11.0) 04/08/19 09:34 RBC 4.56 X10^6/uL (4.0-5.2) 04/08/19 09:34 Hgb 13.7 g/dL (12.0-16.0) 04/08/19 09:34 Hct 40.2 % (36-46) 04/08/19 09:34 MCV 88.2 fL (80-100) 04/08/19 09:34 MCH 30.0 PG (26-34) 04/08/19 09:34 MCHC 34.0 % (30-36) 04/08/19 09:34 RDW 13.3 % (11.6-14.8) 04/08/19 09:34 Plt Count 264 X10^3/uL (150-400) 04/08/19 09:34 Neut % (Auto) 59.1 % (50-75) 04/08/19 09:34 Lymph % (Auto) 32.6 % (25-40) 04/08/19 09:34 [place] % (Auto) 6.1 % (3-14) 04/08/19 09:34 Eos % (Auto) 1.7 % (2-4) L 04/08/19 09:34 Baso % (Auto) 0.5 % (0-2) 04/08/19 09:34 Neut # (Auto) 3500 /uL (5888-5798) 04/08/19 09:34 Lymph # (Auto) 2000 /uL (1361-6432) 04/08/19 09:34 [place] # (Auto) 400 /uL (0-900) 04/08/19 09:34 Eos # (Auto) 100 /uL (0-450) 04/08/19 09:34 Baso # (Auto) 0 /uL (0-100) 04/08/19 09:34 Sodium 141 mmol/L (137-145) 04/08/19 09:34 Potassium 4.9 mmol/L (3.4-5.1) 04/08/19 09:34 Chloride 106 mmol/L (98-107) 04/08/19 09:34 Carbon Dioxide 27 mmol/L (22-32) 04/08/19 09:34 BUN 11 mg/dL (7-17) 04/08/19 09:34 Creatinine 0.70 mg/dL (0.52-1.04) 04/08/19 09:34 Estimated GFR > 60.0 mL/min (>60) 04/08/19 09:34 BUN/Creatinine Ratio 15.7 (6-22) 04/08/19 09:34 Glucose 97 mg/dL (70-100) 04/08/19 09:34 Calcium 9.6 mg/dL (8.4-10.2) 04/08/19 09:34 Total Bilirubin 0.9 mg/dL (0.2-1.3) 04/08/19 09:34 AST 20 IU/L (14-36) 04/08/19 09:34 ALT 15 IU/L (9-52) 04/08/19 09:34 Alkaline Phosphatase 88 U/L (38-126) 04/08/19 09:34 Total Protein 7.1 g/dL (6.3-8.2) 04/08/19 09:34 Albumin 4.2 g/dL (3.5-5.0) 04/08/19 09:34 Globulin 2.9 g/dL (1.7-4.1) 04/08/19 09:34 Albumin/Globulin Ratio 1.4 (1.0-2.8) 04/08/19 09:34 Breast [facility] [facility] 9 U/mL (< 32) 07/29/18 09:28 - Imaging Additional studies: Procedures Drainage of Chest Wall with Drainage Device, Open Approach (04/16/18) Excision of Right Axillary Lymphatic, Open Approach (04/16/18) Removal of Totally Implantable Vascular Access Device from Upper Extremity Subcutaneous Tissue and Fascia, Open Approach (04/16/18) Resection of Bilateral Breast, Open Approach (04/16/18) Assessment and Plan (1) Breast cancer Problem details: 42-year-old woman with aggressive breast cancer with the large residual tumor and many positive nodes following neoadjuvant chemotherapy. She has completed her adjuvant Xeloda. She will continue with letrozole and monthly Zoladex. She is due for an injection today. Current visit: No Status: Acute (2) Osteopenia Current visit: Yes Status: Acute Her DEXA scan shows osteopenia with a T-score as low as -1.9 in the femoral head neck. She is now on aromatase inhibitor and is effectively postmenopausal because of her hormone therapy. She is at risk for worsening bone density and risk for fracture. I think she would benefit from bisphosphonate. I will plan on treating her with Zometa every 6 months. Hopefully will be able to get started next month. (1) Breast cancer Qualifiers: Patient sex: female Laterality: right
[2019-04-08] MEDS: GOSERELIN 3.6 MG SUBCUT (11:27)
[2019-05-05 07:54] LABS: Add Manual Diff / Slide Review NO; Basophils Absolute Auto 0 /uL (0-100); Basophils Percent Auto 0.7 % (0-2); Eosinophils Absolute Auto 100 /uL (0-450); Eosinophils Percent Auto 1.2 % (2-4); Hematocrit 41.5 % (36-46); Hemoglobin 13.8 g/dL (12.0-16.0); Lymphocytes Absolute Auto 1900 /uL (1100-4500); Lymphocytes Percent Auto 31.5 % (25-40); Mean Corpuscular HGB Conc 33.3 % (30-36); Mean Corpuscular Hemoglobin 28.7 PG (26-34); Mean Corpuscular Volume 86.2 fL (80-100); Monocytes Absolute Auto 400 /uL (0-900); Monocytes Percent Auto 6.1 % (3-14); Neutrophils Absolute Auto 3700 /uL (1500-7000); Neutrophils Percent Auto 60.5 % (50-75); Platelet Count 251 X10^3/uL (150-400); Red Blood Cell Count 4.81 X10^6/uL (4.0-5.2); White Blood Cell Count 6.1 X10^3/uL (4.5-11.0)
[2019-05-05 08:22] LABS: Alanine Aminotransferase 22 IU/L (9-52); Albumin 4.4 g/dL (3.5-5.0); Albumin Globulin Ratio 1.6 (1.0-2.8); Alkaline Phosphatase 76 U/L (38-126); BUN Creatinine Ratio 23.3 (6-22); Bilirubin Total 1.2 mg/dL (0.2-1.3); Blood Urea Nitrogen 14 mg/dL (7-17); Calcium 9.9 mg/dL (8.4-10.2); Carbon Dioxide 28 mmol/L (22-32); Chloride 103 mmol/L (98-107); Estimated Glomerular Filt Rate > 60.0 mL/min (>60); Globulin 2.8 g/dL (1.7-4.1); Glucose 90 mg/dL (70-100); Sodium 140 mmol/L (137-145); Total Protein 7.2 g/dL (6.3-8.2)
[2019-05-05 08:23] LABS: HEMOLYSIS 51 (0-50); Potassium 4.9 mmol/L (3.4-5.1)
[2019-05-05 08:24] LABS: Aspartate Aminotransferase 24 IU/L (14-36)
[2019-05-06 11:04] VITALS: BP 133/78; PULSE 67; RESP 16; TEMP 37.1; O2SAT 96
--- NOTE | 2019-05-06 11:30 | P.PNONC_ITS ---
PN -Subjective Interval history: Diagnosis: Breast cancer, ER/NH positive HER2 negative. BRCA 1 and 2 were wild type Previous treatment: 1. Neoadjuvant chemotherapy with 4 cycles of Adriamycin and Cytoxan followed by 12 weeks of Taxol. 2. Bilateral mastectomy in March 2018 with residual [id number] disease. 3. Radiation therapy to the chest wall with concurrent Xeloda finishing June 2018. 4. Xeloda 14 days on, 7 days off for 8 cycles finishing in January 2019 5. Goserlin with letrozole beginning in February 2019 Interval history: The patient is a 43-year-old woman who has history of breast cancer. She unfortunately had extensive lymph node involvement following neoadjuvant chemotherapy. Postoperatively, she has had adjuvant radiation with concurrent Xeloda and has continued with adjuvant Xeloda for 8 cycles which she just completed in January. Since her last visit here, she has continued on hormone therapy. She has been tolerating it fairly well. She does note significant hot flashes. She finds them annoying but not otherwise too significant. She has not had any persistent new aches or pains. No shortness of breath or cough. Her appetite has been fair. She has had some intermittent joint pain particularly in the feet. She has not noticed any changes in the chest wall but has had some tenderness in the right axillary area. She has been using her lymphedema sleeve and doing some massage but does not find it particularly helpful. She has not noticed any masses in the area. She does note some irritability and mood changes that she attributes to the hormone therapy. She has been on Lexapro and wonders if a higher dose might be helpful. Her medications include only Lexapro and letrozole. - Patient Self-Reported Symptoms SR Constitution: Fatigue/Malaise SR eye issues: Vision changes SR ears, nose, mouth, throat issues: Ears ringing SR respiratory issues: Mucous SR Cardiovascular issues: Extreme swelling SR Skin issues: Dry skin SR Gastrointestinal issues: Poor or no appetite SR Genitourinary issues: Frequent urination SR Musculoskeletal issues: Joint pain or swelling, Muscle pain or cramps, Difficulty walking, Bone pain SR Neuro issues: Headache, Difficulty balancing SR Hematologic issues: Slow healing, Bleeding/bruising SR Endocrine issues: Heat intolerance, Hot flashes Home Medications and Allergies Home Medications Medication Instructions Recorded Confirmed Type letrozole 2.5 mg PO DAILY 100 Days #100 tab 03/04/19 05/06/19 Rx escitalopram oxalate [Lexapro] 20 mg PO DAILY #90 tab 05/06/19 Rx Allergies Allergy/AdvReac Type Severity Reaction Status Date / Time lactose Allergy Intermediate Gastrointestinal Verified 05/01/18 10:23 Upset Sulfa (Sulfonamide Allergy Mild Hives Verified 05/01/18 10:23 Antibiotics) egg AdvReac Intermediate Gastrointestinal Verified 05/01/18 10:23 Upset Exam Vital signs: Vital Signs Temp Pulse Resp BP Pulse Ox 05/06/19 11:04 98.8 F 67 16 133/78 96 Intake and Output 05/05/19 05/06/19 05/06/19 23:59 07:59 15:59 Other: Weight 84.5 kg Patient Weight 05/06/19 23:59 Weight 84.5 kg - Constitutional positive no acute distress, positive average body habitus - Routine HEENT Exam Head: Present: normocephalic, atraumatic Eye: Present: EOMI, PERRL. Absent: conjunctival icterus, scleral injection ENT: Present: mucous membranes moist, oropharynx clear - Routine Neck Exam Present: supple. Absent: lymphadenopathy, thyromegaly - Routine Chest/Breast/Axilla Exam Breast: Present: right mastectomy, left mastectomy Axillae: Absent: lymphadenopathy Comments: There is no axillary adenopathy or masses. There is no erythema the skin. Her mastectomy incisions are well-healed. There are no masses. - Routine Respiratory Exam Present: Clear to auscultation bilaterally. Absent: rales, wheezes - Routine Cardiovascular Exam Present: RRR, S1, S2. Absent: murmur - Routine Abdominal Exam Present: soft, normoactive bowel sounds. Absent: tenderness, organomegaly, mass - Routine Extremities Exam Absent: cyanosis, clubbing, edema - Routine Back/Spine Exam Back/Spine: Absent: vertebral tenderness - Routine Skin Exam Present: intact. Absent: petechiae, rash - Routine Neurological Exam Present: alert, oriented X3 - Routine Psychiatric Exam Present: normal affect, normal thought process Results - Labs Laboratory Last Values WBC 6.1 X10^3/uL (4.5-11.0) 05/05/19 07:45 RBC 4.81 X10^6/uL (4.0-5.2) 05/05/19 07:45 Hgb 13.8 g/dL (12.0-16.0) 05/05/19 07:45 Hct 41.5 % (36-46) 05/05/19 07:45 MCV 86.2 fL (80-100) 05/05/19 07:45 MCH 28.7 PG (26-34) 05/05/19 07:45 MCHC 33.3 % (30-36) 05/05/19 07:45 RDW 13.0 % (11.6-14.8) 05/05/19 07:45 Plt Count 251 X10^3/uL (150-400) 05/05/19 07:45 Neut % (Auto) 60.5 % (50-75) 05/05/19 07:45 Lymph % (Auto) 31.5 % (25-40) 05/05/19 07:45 [place] % (Auto) 6.1 % (3-14) 05/05/19 07:45 Eos % (Auto) 1.2 % (2-4) L 05/05/19 07:45 Baso % (Auto) 0.7 % (0-2) 05/05/19 07:45 Neut # (Auto) 3700 /uL (9937-7046) 05/05/19 07:45 Lymph # (Auto) 1900 /uL (9108-4867) 05/05/19 07:45 [place] # (Auto) 400 /uL (0-900) 05/05/19 07:45 Eos # (Auto) 100 /uL (0-450) 05/05/19 07:45 Baso # (Auto) 0 /uL (0-100) 05/05/19 07:45 Sodium 140 mmol/L (137-145) 05/05/19 07:45 Potassium 4.9 mmol/L (3.4-5.1) 05/05/19 07:45 Chloride 103 mmol/L (98-107) 05/05/19 07:45 Carbon Dioxide 28 mmol/L (22-32) 05/05/19 07:45 BUN 14 mg/dL (7-17) 05/05/19 07:45 Creatinine 0.60 mg/dL (0.52-1.04) 05/05/19 07:45 Estimated GFR > 60.0 mL/min (>60) 05/05/19 07:45 BUN/Creatinine Ratio 23.3 (6-22) H 05/05/19 07:45 Glucose 90 mg/dL (70-100) 05/05/19 07:45 Calcium 9.9 mg/dL (8.4-10.2) 05/05/19 07:45 Total Bilirubin 1.2 mg/dL (0.2-1.3) 05/05/19 07:45 AST 24 IU/L (14-36) 05/05/19 07:45 ALT 22 IU/L (9-52) 05/05/19 07:45 Alkaline Phosphatase 76 U/L (38-126) 05/05/19 07:45 Total Protein 7.2 g/dL (6.3-8.2) 05/05/19 07:45 Albumin 4.4 g/dL (3.5-5.0) 05/05/19 07:45 Globulin 2.8 g/dL (1.7-4.1) 05/05/19 07:45 Albumin/Globulin Ratio 1.6 (1.0-2.8) 05/05/19 07:45 Breast [facility] [facility] 9 U/mL (< 32) 07/29/18 09:28 - Imaging Additional studies: Procedures Drainage of Chest Wall with Drainage Device, Open Approach (04/16/18) Excision of Right Axillary Lymphatic, Open Approach (04/16/18) Removal of Totally Implantable Vascular Access Device from Upper Extremity Subcutaneous Tissue and Fascia, Open Approach (04/16/18) Resection of Bilateral Breast, Open Approach (04/16/18) Assessment and Plan (1) Breast cancer Problem details: 42-year-old woman with aggressive breast cancer with the large residual tumor and many positive nodes following neoadjuvant chemotherapy. She has completed her adjuvant Xeloda. She will continue with letrozole and monthly Zoladex. She is due for an injection today. Current visit: No Status: Acute (2) Osteopenia Current visit: Yes Status: Acute Her DEXA scan shows osteopenia with a T-score as low as -1.9 in the femoral head neck. She is now on aromatase inhibitor and is effectively postmenopausal because of her hormone therapy. She is at risk for worsening bone density and risk for fracture. I think she would benefit from bisphosphonate. I will plan on treating her with Zometa every 6 months beginning today. (1) Breast cancer Qualifiers: Patient sex: female Laterality: right
[2019-05-06] MEDS: GOSERELIN 3.6 MG SUBCUT (12:23)
[2019-05-06] MEDS: ZOLEDRONIC ACID 4 MG in SODIUM CHLORIDE 0.9% 100 ML 315 ML IV (12:24)
--- NOTE | 2019-05-15 17:00 | PC.NURSE ---
[facility] ZOLEDRONIC ACID: Patient called reporting that the evening after her zoledronic acid infusion last week she developed chills, fever, nausea and vomiting and aching all over worse than anything I had with chemo which she had for 2 days, within this time she also developed a tightening weight on chest and a hoarse/sore tight throat. No SOB. Symptoms reported to Dr. Garcia who ordered her to be seen by PCP or [facility] which was communicated to patient by telephone. She voiced understanding.
[2019-06-02 11:05] LABS: Add Manual Diff / Slide Review NO; Basophils Absolute Auto 0 /uL (0-100); Basophils Percent Auto 0.5 % (0-2); Eosinophils Absolute Auto 100 /uL (0-450); Eosinophils Percent Auto 1.5 % (2-4); Hematocrit 41.4 % (36-46); Lymphocytes Absolute Auto 1800 /uL (1100-4500); Lymphocytes Percent Auto 29.6 % (25-40); Mean Corpuscular HGB Conc 33.8 % (30-36); Mean Corpuscular Hemoglobin 28.8 PG (26-34); Mean Corpuscular Volume 85.3 fL (80-100); Monocytes Absolute Auto 300 /uL (0-900); Monocytes Percent Auto 5.2 % (3-14); Neutrophils Absolute Auto 3900 /uL (1500-7000); Neutrophils Percent Auto 63.2 % (50-75); Platelet Count 246 X10^3/uL (150-400); Red Blood Cell Count 4.86 X10^6/uL (4.0-5.2); Red Cell Distribution Width 13.8 % (11.6-14.8); White Blood Cell Count 6.2 X10^3/uL (4.5-11.0)
[2019-06-02 11:15] LABS: Alanine Aminotransferase 17 IU/L (9-52); Albumin 4.4 g/dL (3.5-5.0); Albumin Globulin Ratio 1.4 (1.0-2.8); Alkaline Phosphatase 77 U/L (38-126); Aspartate Aminotransferase 18 IU/L (14-36); BUN Creatinine Ratio 18.3 (6-22); Blood Urea Nitrogen 11 mg/dL (7-17); Calcium 9.3 mg/dL (8.4-10.2); Carbon Dioxide 27 mmol/L (22-32); Chloride 103 mmol/L (98-107); Estimated Glomerular Filt Rate > 60.0 mL/min (>60); Globulin 3.1 g/dL (1.7-4.1); Glucose 95 mg/dL (70-100); HEMOLYSIS < 15 (0-50); Potassium 4.8 mmol/L (3.4-5.1); Sodium 140 mmol/L (137-145); Total Protein 7.5 g/dL (6.3-8.2)
[2019-06-04 15:01] VITALS: BP 134/76; PULSE 65; RESP 16; TEMP 36.6; O2SAT 97
[2019-06-04] MEDS: GOSERELIN 3.6 MG SUBCUT (15:17)
[2019-06-04 15:36] VITALS: BP 131/71; PULSE 51; RESP 18; TEMP 36.3; O2SAT 99
--- NOTE | 2019-06-04 15:59 | P.PNONC_ITS ---
PN -Subjective Interval history: Diagnosis: Breast cancer, ER/[place] positive HER2 negative. BRCA 1 and 2 were wild type Previous treatment: 1. Neoadjuvant chemotherapy with 4 cycles of Adriamycin and Cytoxan followed by 12 weeks of Taxol. 2. Bilateral mastectomy in March 2018 with residual [id number] disease. 3. Radiation therapy to the chest wall with concurrent Xeloda finishing June 2018. 4. Xeloda 14 days on, 7 days off for 8 cycles finishing in January 2019 5. Goserlin with letrozole beginning in February 2019 6. Zometa every 6 months 1st dose in April 2019 which was poorly tolerated Interval history: The patient is a 43-year-old woman who has history of breast cancer. She unfortunately had extensive lymph node involvement following neoadjuvant chemotherapy. Postoperatively, she has had adjuvant radiation with concurrent Xeloda and has continued with adjuvant Xeloda for 8 cycles which she just completed in January. Since her last visit here, she has continued on hormone therapy. She continues to tolerate it fairly well. She has occasional hot flashes but is not particularly bothered by them. She has some ongoing di scomfort near her axillary incision but has not felt any masses. She denies any other persistent aches or pains. No nausea or vomiting. No fevers chills or sweats. She denies any other changes in her health. She did have her 1st dose of Zometa about a month ago. She tolerated this poorly with several days of nausea vomiting weakness fatigue and joint pain. Her medications include only Lexapro and letrozole. - Patient Self-Reported Symptoms SR Constitution: Fatigue/Malaise SR eye issues: Vision changes SR ears, nose, mouth, throat issues: Ears ringing SR respiratory issues: Mucous SR Cardiovascular issues: Chest pain, discomfort, tightness SR Skin issues: Blistering or peeling SR Gastrointestinal issues: Poor or no appetite SR Genitourinary issues: Frequent urination SR Musculoskeletal issues: Joint pain or swelling SR Neuro issues: Headache, Difficulty balancing SR Hematologic issues: Slow healing, Bleeding/bruising SR Endocrine issues: Hot flashes Home Medications and Allergies Home Medications Medication Instructions Recorded Confirmed Type letrozole 2.5 mg PO DAILY 100 Days #100 tab 03/04/19 06/04/19 Rx escitalopram oxalate [Lexapro] 20 mg PO DAILY #90 tab 05/06/19 06/04/19 Rx Allergies Allergy/AdvReac Type Severity Reaction Status Date / Time lactose Allergy Intermediate Gastrointestinal Verified 05/01/18 10:23 Upset Sulfa (Sulfonamide Allergy Mild Hives Verified 05/01/18 10:23 Antibiotics) egg AdvReac Intermediate Gastrointestinal Verified 05/01/18 10:23 Upset Exam Vital signs: Vital Signs Temp Pulse Resp BP Pulse Ox 06/04/19 15:36 97.4 F L 51 L 18 131/71 99 06/04/19 15:01 97.9 F 65 16 134/76 97 Intake and Output 06/03/19 06/04/19 06/04/19 23:59 07:59 15:59 Other: Weight 84.5 kg Patient Weight 06/04/19 23:59 Weight 84.5 kg - Constitutional positive no acute distress, positive average body habitus - Routine HEENT Exam Head: Present: normocephalic, atraumatic Eye: Present: EOMI, PERRL. Absent: conjunctival icterus, scleral injection ENT: Present: mucous membranes moist, oropharynx clear - Routine Neck Exam Present: supple. Absent: lymphadenopathy, thyromegaly - Routine Chest/Breast/Axilla Exam Breast: Present: right mastectomy, left mastectomy Axillae: Absent: lymphadenopathy - Routine Respiratory Exam Present: Clear to auscultation bilaterally. Absent: rales, wheezes - Routine Cardiovascular Exam Present: RRR, S1, S2. Absent: murmur - Routine Abdominal Exam Present: soft, normoactive bowel sounds. Absent: tenderness, organomegaly, mass - Routine Extremities Exam Absent: cyanosis, clubbing, edema - Routine Back/Spine Exam Back/Spine: Absent: vertebral tenderness - Routine Skin Exam Present: intact. Absent: petechiae, rash - Routine Neurological Exam Present: alert, oriented X3 - Routine Psychiatric Exam Present: normal affect, normal thought process Results - Labs Laboratory Last Values WBC 6.2 X10^3/uL (4.5-11.0) 06/02/19 10:46 RBC 4.86 X10^6/uL (4.0-5.2) 06/02/19 10:46 Hgb 14.0 g/dL (12.0-16.0) 06/02/19 10:46 Hct 41.4 % (36-46) 06/02/19 10:46 MCV 85.3 fL (80-100) 06/02/19 10:46 MCH 28.8 PG (26-34) 06/02/19 10:46 MCHC 33.8 % (30-36) 06/02/19 10:46 RDW 13.8 % (11.6-14.8) 06/02/19 10:46 Plt Count 246 X10^3/uL (150-400) 06/02/19 10:46 Neut % (Auto) 63.2 % (50-75) 06/02/19 10:46 Lymph % (Auto) 29.6 % (25-40) 06/02/19 10:46 [place] % (Auto) 5.2 % (3-14) 06/02/19 10:46 Eos % (Auto) 1.5 % (2-4) L 06/02/19 10:46 Baso % (Auto) 0.5 % (0-2) 06/02/19 10:46 Neut # (Auto) 3900 /uL (7590-6560) 06/02/19 10:46 Lymph # (Auto) 1800 /uL (7722-6965) 06/02/19 10:46 [place] # (Auto) 300 /uL (0-900) 06/02/19 10:46 Eos # (Auto) 100 /uL (0-450) 06/02/19 10:46 Baso # (Auto) 0 /uL (0-100) 06/02/19 10:46 Sodium 140 mmol/L (137-145) 06/02/19 10:46 Potassium 4.8 mmol/L (3.4-5.1) 06/02/19 10:46 Chloride 103 mmol/L (98-107) 06/02/19 10:46 Carbon Dioxide 27 mmol/L (22-32) 06/02/19 10:46 BUN 11 mg/dL (7-17) 06/02/19 10:46 Creatinine 0.60 mg/dL (0.52-1.04) 06/02/19 10:46 Estimated GFR > 60.0 mL/min (>60) 06/02/19 10:46 BUN/Creatinine Ratio 18.3 (6-22) 06/02/19 10:46 Glucose 95 mg/dL (70-100) 06/02/19 10:46 Calcium 9.3 mg/dL (8.4-10.2) 06/02/19 10:46 Total Bilirubin 1.0 mg/dL (0.2-1.3) 06/02/19 10:46 AST 18 IU/L (14-36) 06/02/19 10:46 ALT 17 IU/L (9-52) 06/02/19 10:46 Alkaline Phosphatase 77 U/L (38-126) 06/02/19 10:46 Total Protein 7.5 g/dL (6.3-8.2) 06/02/19 10:46 Albumin 4.4 g/dL (3.5-5.0) 06/02/19 10:46 Globulin 3.1 g/dL (1.7-4.1) 06/02/19 10:46 Albumin/Globulin Ratio 1.4 (1.0-2.8) 06/02/19 10:46 Breast [facility] [employer] Ag 9 U/mL (< 32) 07/29/18 09:28 - Imaging Additional studies: Procedures Drainage of Chest Wall with Drainage Device, Open Approach (04/16/18) Excision of Right Axillary Lymphatic, Open Approach (04/16/18) Removal of Totally Implantable Vascular Access Device from Upper Extremity Subcutaneous Tissue and Fascia, Open Approach (04/16/18) Resection of Bilateral Breast, Open Approach (04/16/18) Assessment and Plan (1) Breast cancer Problem details: 42-year-old woman with aggressive breast cancer with the large residual tumor and many positive nodes following neoadjuvant chemotherapy. She will continue with hormone therapy. She will return to clinic in about 2 months for follow-up. She will be due for another Zometa in October. We may want to consider switching to Xgeva. Current visit: No Status: Acute (2) Osteopenia Current visit: Yes Status: Acute She tolerated Zometa poorly. At her next dose, we may want to consider Xgeva.. (1) Breast cancer Qualifiers: Patient sex: female Laterality: right
[2019-07-01 09:29] LABS: Add Manual Diff / Slide Review NO; Basophils Absolute Auto 0 /uL (0-100); Basophils Percent Auto 0.6 % (0-2); Eosinophils Absolute Auto 100 /uL (0-450); Eosinophils Percent Auto 0.9 % (2-4); Hematocrit 40.5 % (36-46); Hemoglobin 13.7 g/dL (12.0-16.0); Lymphocytes Absolute Auto 1800 /uL (1100-4500); Lymphocytes Percent Auto 27.6 % (25-40); Mean Corpuscular HGB Conc 33.8 % (30-36); Mean Corpuscular Hemoglobin 28.6 PG (26-34); Mean Corpuscular Volume 84.7 fL (80-100); Monocytes Absolute Auto 300 /uL (0-900); Monocytes Percent Auto 4.9 % (3-14); Neutrophils Absolute Auto 4400 /uL (1500-7000); Platelet Count 259 X10^3/uL (150-400); Red Blood Cell Count 4.78 X10^6/uL (4.0-5.2); Red Cell Distribution Width 13.9 % (11.6-14.8); White Blood Cell Count 6.7 X10^3/uL (4.5-11.0)
[2019-07-01 09:43] LABS: Alanine Aminotransferase 14 IU/L (<35); Albumin 4.5 g/dL (3.5-5.0); Albumin Globulin Ratio 1.6 (1.0-2.8); Alkaline Phosphatase 62 U/L (38-126); Aspartate Aminotransferase 22 IU/L (14-36); BUN Creatinine Ratio 16.7 (6-22); Blood Urea Nitrogen 10 mg/dL (7-17); Calcium 9.1 mg/dL (8.4-10.2); Carbon Dioxide 29 mmol/L (22-32); Chloride 104 mmol/L (98-107); Estimated Glomerular Filt Rate > 60.0 mL/min (>60); Globulin 2.9 g/dL (1.7-4.1); Glucose 101 mg/dL (70-100); HEMOLYSIS < 15 (0-50); Potassium 5.1 mmol/L (3.4-5.1); Sodium 141 mmol/L (137-145); Total Protein 7.4 g/dL (6.3-8.2)
[2019-07-01 15:10] VITALS: BP 123/76; PULSE 71; RESP 16; TEMP 36.6; O2SAT 98
[2019-07-01] MEDS: GOSERELIN 3.6 MG SUBCUT (15:22)
[2019-07-26 10:27] LABS: Add Manual Diff / Slide Review NO; Basophils Absolute Auto 0 /uL (0-100); Basophils Percent Auto 0.2 % (0-2); Eosinophils Absolute Auto 100 /uL (0-450); Eosinophils Percent Auto 1.3 % (2-4); Hematocrit 40.2 % (36-46); Hemoglobin 13.5 g/dL (12.0-16.0); Lymphocytes Absolute Auto 1800 /uL (1100-4500); Lymphocytes Percent Auto 28.6 % (25-40); Mean Corpuscular HGB Conc 33.5 % (30-36); Mean Corpuscular Hemoglobin 28.6 PG (26-34); Mean Corpuscular Volume 85.1 fL (80-100); Monocytes Absolute Auto 300 /uL (0-900); Monocytes Percent Auto 5.1 % (3-14); Neutrophils Absolute Auto 4000 /uL (1500-7000); Neutrophils Percent Auto 64.8 % (50-75); Platelet Count 241 X10^3/uL (150-400); Red Blood Cell Count 4.73 X10^6/uL (4.0-5.2); Red Cell Distribution Width 14.5 % (11.6-14.8); White Blood Cell Count 6.2 X10^3/uL (4.5-11.0)
[2019-07-26 10:33] LABS: Alanine Aminotransferase 13 IU/L (<35); Albumin 4.3 g/dL (3.5-5.0); Albumin Globulin Ratio 1.5 (1.0-2.8); Alkaline Phosphatase 50 U/L (38-126); Aspartate Aminotransferase 17 IU/L (14-36); BUN Creatinine Ratio 23.3 (6-22); Bilirubin Total 1.1 mg/dL (0.2-1.3); Blood Urea Nitrogen 14 mg/dL (7-17); Calcium 9.3 mg/dL (8.4-10.2); Carbon Dioxide 27 mmol/L (22-32); Chloride 105 mmol/L (98-107); Estimated Glomerular Filt Rate > 60.0 mL/min (>60); Globulin 2.9 g/dL (1.7-4.1); Glucose 99 mg/dL (70-100); HEMOLYSIS < 15 (0-50); Potassium 4.4 mmol/L (3.4-5.1); Sodium 138 mmol/L (137-145); Total Protein 7.2 g/dL (6.3-8.2)
[2019-07-29 14:48] VITALS: BP 138/74; PULSE 70; RESP 16; TEMP 37.2; O2SAT 96
--- NOTE | 2019-07-29 15:10 | P.PNONC_ITS ---
PN -Subjective Interval history: Diagnosis: Breast cancer, ER/[place] positive HER2 negative. BRCA 1 and 2 were wild type Previous treatment: 1. Neoadjuvant chemotherapy with 4 cycles of Adriamycin and Cytoxan followed by 12 weeks of Taxol. 2. Bilateral mastectomy in March 2018 with residual [id number] disease. 3. Radiation therapy to the chest wall with concurrent Xeloda finishing June 2018. 4. Xeloda 14 days on, 7 days off for 8 cycles finishing in January 2019 5. Goserlin with letrozole beginning in February 2019 6. Zometa every 6 months 1st dose in April 2019 which was poorly tolerated Interval history: The patient is a 43-year-old woman who has history of breast cancer. She unfortunately had extensive lymph node involvement following neoadjuvant chemotherapy. Postoperatively, she has had adjuvant radiation with concurrent Xeloda and has continued with adjuvant Xeloda for 8 cycles which she just completed in January. Since her last visit here, she has continued on hormone therapy with goserlin and letrozole. She continues to tolerate it fairly well. She has occasional hot flashes but is not particularly bothered by them. She has had some increasing joint stiffness particularly in the hands and wrist. She takes occasional Aleve for this. It is not interfering in her activities too much. She tells me that she is scheduled for CT scan in House later this month and will be undergoing flap reconstruction. She also tells me that she had hormone studies done prior to her diagnosis of breast cancer that showed she was postmenopausal. She has not had a menstrual period since 2014 or 2015. She did have her 1st dose of Zometa in April. She tolerated this poorly with several days of nausea vomiting weakness fatigue and joint pain. Her medications include only Lexapro and letrozole. - Patient Self-Reported Symptoms SR Constitution: Fatigue/Malaise SR eye issues: Vision changes SR ears, nose, mouth, throat issues: Ears ringing SR respiratory issues: Shortness of breath SR Cardiovascular issues: Shortness of breath with activity or lying flat, Extreme swelling, Dizzy/lightheaded SR Skin issues: Dry skin, Nail changes SR Gastrointestinal issues: Poor or no appetite SR Genitourinary issues: Frequent urination SR Musculoskeletal issues: Joint pain or swelling, Muscle pain or cramps, Back or neck pain SR Neuro issues: Lightheaded/dizzy SR Hematologic issues: Slow healing, Bleeding/bruising SR Endocrine issues: Cold intolerance, Hot flashes Home Medications and Allergies Home Medications Medication Instructions Recorded Confirmed Type letrozole 2.5 mg PO DAILY 100 Days #100 tab 03/04/19 07/29/19 Rx escitalopram oxalate [Lexapro] 20 mg PO DAILY #90 tab 05/06/19 07/29/19 Rx Allergies Allergy/AdvReac Type Severity Reaction Status Date / Time lactose Allergy Intermediate Gastrointestinal Verified 05/01/18 10:23 Upset Sulfa (Sulfonamide Allergy Mild Hives Verified 05/01/18 10:23 Antibiotics) egg AdvReac Intermediate Gastrointestinal Verified 05/01/18 10:23 Upset Exam Vital signs: Vital Signs Temp Pulse Resp BP Pulse Ox 07/29/19 14:48 99.0 F 70 16 138/74 96 Intake and Output 07/28/19 07/29/19 07/29/19 23:59 07:59 15:59 Other: Weight 84.1 kg Patient Weight 07/29/19 23:59 Weight 84.1 kg - Constitutional positive no acute distress, positive average body habitus - Routine HEENT Exam Head: Present: normocephalic, atraumatic Eye: Present: EOMI, PERRL. Absent: conjunctival icterus, scleral injection ENT: Present: mucous membranes moist, dentition normal - Routine Neck Exam Present: supple. Absent: lymphadenopathy, thyromegaly - Routine Chest/Breast/Axilla Exam Breast: Present: right mastectomy, left mastectomy Axillae: Absent: lymphadenopathy - Routine Respiratory Exam Present: Clear to auscultation bilaterally. Absent: rales, wheezes - Routine Cardiovascular Exam Present: RRR, S1, S2. Absent: murmur - Routine Abdominal Exam Present: soft, normoactive bowel sounds. Absent: tenderness, organomegaly, mass - Routine Extremities Exam Absent: cyanosis, clubbing, edema - Routine Back/Spine Exam Back/Spine: Absent: vertebral tenderness - Routine Skin Exam Present: intact. Absent: petechiae, rash - Routine Neurological Exam Present: alert, oriented X3 - Routine Psychiatric Exam Present: normal affect, normal thought process Results - Labs Laboratory Last Values WBC 6.2 X10^3/uL (4.5-11.0) 07/26/19 09:34 RBC 4.73 X10^6/uL (4.0-5.2) 07/26/19 09:34 Hgb 13.5 g/dL (12.0-16.0) 07/26/19 09:34 Hct 40.2 % (36-46) 07/26/19 09:34 MCV 85.1 fL (80-100) 07/26/19 09:34 MCH 28.6 PG (26-34) 07/26/19 09:34 MCHC 33.5 % (30-36) 07/26/19 09:34 RDW 14.5 % (11.6-14.8) 07/26/19 09:34 Plt Count 241 X10^3/uL (150-400) 07/26/19 09:34 Neut % (Auto) 64.8 % (50-75) 07/26/19 09:34 Lymph % (Auto) 28.6 % (25-40) 07/26/19 09:34 [place] % (Auto) 5.1 % (3-14) 07/26/19 09:34 Eos % (Auto) 1.3 % (2-4) L 07/26/19 09:34 Baso % (Auto) 0.2 % (0-2) 07/26/19 09:34 Neut # (Auto) 4000 /uL (6973-5256) 07/26/19 09:34 Lymph # (Auto) 1800 /uL (4416-0618) 07/26/19 09:34 [place] # (Auto) 300 /uL (0-900) 07/26/19 09:34 Eos # (Auto) 100 /uL (0-450) 07/26/19 09:34 Baso # (Auto) 0 /uL (0-100) 07/26/19 09:34 Sodium 138 mmol/L (137-145) 07/26/19 09:34 Potassium 4.4 mmol/L (3.4-5.1) 07/26/19 09:34 Chloride 105 mmol/L (98-107) 07/26/19 09:34 Carbon Dioxide 27 mmol/L (22-32) 07/26/19 09:34 BUN 14 mg/dL (7-17) 07/26/19 09:34 Creatinine 0.60 mg/dL (0.52-1.04) 07/26/19 09:34 Estimated GFR > 60.0 mL/min (>60) 07/26/19 09:34 BUN/Creatinine Ratio 23.3 (6-22) H 07/26/19 09:34 Glucose 99 mg/dL (70-100) 07/26/19 09:34 Calcium 9.3 mg/dL (8.4-10.2) 07/26/19 09:34 Total Bilirubin 1.1 mg/dL (0.2-1.3) 07/26/19 09:34 AST 17 IU/L (14-36) 07/26/19 09:34 ALT 13 IU/L (<35) 07/26/19 09:34 Alkaline Phosphatase 50 U/L (38-126) 07/26/19 09:34 Total Protein 7.2 g/dL (6.3-8.2) 07/26/19 09:34 Albumin 4.3 g/dL (3.5-5.0) 07/26/19 09:34 Globulin 2.9 g/dL (1.7-4.1) 07/26/19 09:34 Albumin/Globulin Ratio 1.5 (1.0-2.8) 07/26/19 09:34 Breast [facility] Ag 9 U/mL (< 32) 07/29/18 09:28 - Imaging Additional studies: Procedures Drainage of Chest Wall with Drainage Device, Open Approach (04/16/18) Excision of Right Axillary Lymphatic, Open Approach (04/16/18) Removal of Totally Implantable Vascular Access Device from Upper Extremity Subcutaneous Tissue and Fascia, Open Approach (04/16/18) Resection of Bilateral Breast, Open Approach (04/16/18) Assessment and Plan (1) Breast cancer Problem details: 42-year-old woman with aggressive breast cancer with the large residual tumor and many positive nodes following neoadjuvant chemotherapy. She did have laboratory studies done back in 2016 showing that she clearly was postmenopausal. I think we can stop the goserlin. She is having some musculoskeletal complaints and hot flashes with her aromatase inhibitors but finds that manageable. She will return to clinic in about 3 months for follow- up. She will be due for Zometa around that time but tolerated her 1st dose poorly. Current visit: No Status: Acute (2) Osteopenia Current visit: Yes Status: Acute She tolerated Zometa poorly. At her next dose, we may want to consider Xgeva.. (1) Breast cancer Qualifiers: Patient sex: female Laterality: right
--- NOTE | 2019-10-16 12:00 | ONC.SCHED ---
Moved patient out a week from 11/03 - 11/11/19. Please do not move again.
[2019-11-10 09:19] LABS: Add Manual Diff / Slide Review NO; Basophils Absolute Auto 0 /uL (0-100); Basophils Percent Auto 0.4 % (0-2); Eosinophils Absolute Auto 100 /uL (0-450); Eosinophils Percent Auto 1.2 % (2-4); Hematocrit 38.6 % (36-46); Hemoglobin 12.8 g/dL (12.0-16.0); Lymphocytes Absolute Auto 2300 /uL (1100-4500); Lymphocytes Percent Auto 32.7 % (25-40); Mean Corpuscular HGB Conc 33.1 % (30-36); Mean Corpuscular Hemoglobin 28.1 PG (26-34); Monocytes Absolute Auto 400 /uL (0-900); Monocytes Percent Auto 5.6 % (3-14); Neutrophils Absolute Auto 4300 /uL (1500-7000); Neutrophils Percent Auto 60.1 % (50-75); Platelet Count 279 X10^3/uL (150-400); Red Blood Cell Count 4.54 X10^6/uL (4.0-5.2); Red Cell Distribution Width 13.8 % (11.6-14.8); White Blood Cell Count 7.1 X10^3/uL (4.5-11.0)
[2019-11-10 09:36] LABS: Alanine Aminotransferase 15 IU/L (<35); Albumin 4.5 g/dL (3.5-5.0); Albumin Globulin Ratio 1.4 (1.0-2.8); Alkaline Phosphatase 65 U/L (38-126); Aspartate Aminotransferase 20 IU/L (14-36); BUN Creatinine Ratio 23.4 (6-22); Bilirubin Total 0.7 mg/dL (0.2-1.3); Blood Urea Nitrogen 15 mg/dL (7-17); Calcium 9.5 mg/dL (8.4-10.2); Carbon Dioxide 25 mmol/L (22-32); Chloride 105 mmol/L (98-107); Estimated Glomerular Filt Rate > 60.0 mL/min (>60); Globulin 3.2 g/dL (1.7-4.1); Glucose 112 mg/dL (70-100); HEMOLYSIS < 15 (0-50); Potassium 4.5 mmol/L (3.4-5.1); Sodium 139 mmol/L (137-145); Total Protein 7.7 g/dL (6.3-8.2)
[2019-11-10 10:18] LABS: Vitamin D 25 Hydroxy (D3) 16.3 ng/mL (30.0-100.0)
[2019-11-11 12:24] VITALS: BP 139/97; PULSE 62; RESP 16; TEMP 36.5; O2SAT 99
--- NOTE | 2019-11-11 12:26 | P.PNONC_ITS ---
PN -Subjective Interval history: ID/CC: 44 year old with right breast cancer, ER/[place] positive HER2 negative. BRCA1 and 2 were wild type HPI: Blanche is a 44-year-old female. In late 2017, patient noticed ?squishy mass in the right breast?. Patient underwent bilateral mammogram on 07/13/2017 which identified a focus of asymmetry in the right breast amorphous calcifications. This was confirmed by ultrasound of the right breast on 07/13/2017 to be a hypo- echoic breast mass measuring 13 mm in greatest diameter. A suspicious appearing right axillary lymph node with a thickened cortex was also identified. Patient underwent ultrasound-guided biopsy of the right breast mass and axillary lymph node on 07/25/2017. Core needle biopsy from right breast 1000 position showed invasive ductal carcinoma, grade 3/3, with positive LVI, ER positive 90%, [place] positive 80%, HER2 IHC 1+. Biopsy from the right axilla showed metastatic adenocarcinoma, ER/[place] positive at 100% and 80% respectively. HER2 2+ (IHC), negative by FISH. Patient underwent neoadjuvant chemotherapy with Adriamycin/Cytoxan for 4 cycles followed by weekly paclitaxel for 12 weeks. On 11/07/2017: bilateral breast MRI confirmed marked decrease in the non-masslike enhancement within the right breast, which measured 1.7 x 0.5 x 2.4 cm, down from 5.6 x 2.3 x 2.0 cm consis tent with response to chemotherapy. The right axillary lymphadenopathy appeared to have resolved. On 04/16/2018, she underwent bilateral skin sparing simple mastectomies and right axillary lymph node dissection including level 1 and level 2 lymph nodes. Surgical pathology showed widely dispersed viable tumor foci in the region of dense fibrosis with an overall greatest size of 10.9 cm. The histologic type was infiltrating ductal carcinoma. Laurens grade 2/3. It was unifocal without ductal carcinoma in-situ and without lobular carcinoma in-situ. Surgical margins were negative except superior margin. Total of 20 lymph nodes were removed 14 them positive for metastasis. Extranodal extension was also identified. Of the involved nodes, 8 or macro metastasis while 6 were micro-metastasis. There was multifocal extranodal extension, the largest measuring 5 mm. (ypT3, ypN3a). She was seen recently at [facility] for a second opinion on 05/13/2018. Because of her young age, extensive disease and high risk they recommended adjuvant chemotherapy with Capecitabine concurrent with RT. Adjuvant endocrine therapy was also recommended for at least 5 years with subsequent consideration for an adjuvant SWOG trial 1207 of aromatase inhibitor +/- everolimus. From 06/03/2018 through 07/12/2018 patient received adjuvant concurrent radiotherapy with Xeloda. She then continued adjuvant Xeloda for 8 cycles and completed in January 2019. Thereafter, she was started on endocrine therapy initially with goseralin and letrozole, but later changed to letrazole. She had hormone studies done prior to her diagnosis of breast cancer that showed she was postmenopausal. She has not had a menstrual period since 2014 or 2015. She also underwent [employer] study that showed no clinically significant mutations in BRCA1/2. VUS LUISANA [id number]) was noted. She had her 1st dose of Zometa in April,. She tolerated this poorly with several days of nausea vomiting weakness fatigue and joint pain. She then underwent bilateral GINO flap reconstruction on 09/04/2019 under the care of Dr. Chery Mello from [facility]. Interim Events: She is now taking letrozole. She is having joint pain affecting feet, hands, and right knees. She has no hot flashes, no night sweats. She is not taking the lupron any more. She stopped 3 months ago. She has a little bit chest pain on the right side, which she thought is related surgery or due to her right sided lymphedema. Treatment Summary: 1. Neoadjuvant chemotherapy with 4 cycles of Adriamycin and Cytoxan followed by 12 weeks of Taxol. 2. Bilateral mastectomy in March 2018 with residual [id number] disease. 3. Radiation therapy to the chest wall with concurrent Xeloda finishing June 2018. 4. Xeloda 14 days on, 7 days off for 8 cycles finishing in January 2019 5. Goserlin with letrozole beginning in February 2019 6. Zometa every 6 months 1st dose in April 2019 which was poorly tolerated - Patient Self-Reported Symptoms SR Constitution: Fatigue/Malaise, Night Sweats SR eye issues: Vision changes SR ears, nose, mouth, throat issues: Ears ringing SR respiratory issues: Mucous SR Cardiovascular issues: Extreme swelling SR Skin issues: Dry skin SR Gastrointestinal issues: Poor or no appetite SR Genitourinary issues: Frequent urination SR Musculoskeletal issues: Joint pain or swelling, Muscle pain or cramps, Difficulty walking, Bone pain SR Neuro issues: Headache SR Hematologic issues: Slow healing SR Endocrine issues: Cold intolerance, Hot flashes - Additional ROS All systems PM: reviewed and no additional remarkable complaints except as stated Home Medications and Allergies Home Medications Medication Instructions Recorded Confirmed Type escitalopram oxalate 20 mg tablet 20 mg PO DAILY #90 tab 11/10/19 Rx letrozole 2.5 mg tablet 2.5 mg PO DAILY 100 Days #100 tab 11/10/19 Rx Allergies Allergy/AdvReac Type Severity Reaction Status Date / Time lactose Allergy Intermediate Gastrointestinal Verified 10/31/19 09:33 Upset Sulfa (Sulfonamide Allergy Mild Hives Verified 10/31/19 09:33 Antibiotics) egg AdvReac Intermediate Gastrointestinal Verified 10/31/19 09:33 Upset mannitol [From Zometa] AdvReac Intermediate angioedema, Verified 10/31/19 09:35 vomiting, joint pain zoledronic acid [From Zometa] AdvReac Intermediate angioedema, Verified 10/31/19 09:35 vomiting, joint pain Exam Vital signs: Last Vital Signs Temp 98.7 F 11/11/19 13:14 Pulse 53 L 11/11/19 13:14 Resp 16 11/11/19 13:14 BP 140/78 11/11/19 13:14 Pulse Ox 99 11/11/19 13:14 Narrative: ECOG 1 Gen: WDWN, NAD, pleasant and cooperative. HEENT: NCAT, EOMI, PERRLA, anicteric sclera. Neck: Supple, No palpable thyromegaly or lymphadenopathy. Respiratory: CTAB, no wheezes audible. No JVD Cardiovascular: RRR, S1 and S2 normal, no M/G/R. Abdomen: Soft, NTND, BS normal, no palpable organomegaly Extremities: No LE pitting edema. Lymphatic: no palpable lymph nodes in the neck, axillae, or groins. Neurological: AOx3, CN II-XII grossly intact. No focal motor or sensory deficit. Psychiatric: Normal affect, appropriate mood, no depression, no anxiety. Breasts: Both breasts were status post recent reconstruction. All incisions were well healed. All physical examinations were chaperoned Results - Labs Laboratory Last Values WBC 7.1 X10^3/uL (4.5-11.0) 11/10/19 09:04 RBC 4.54 X10^6/uL (4.0-5.2) 11/10/19 09:04 Hgb 12.8 g/dL (12.0-16.0) 11/10/19 09:04 Hct 38.6 % (36-46) 11/10/19 09:04 MCV 85.0 fL (80-100) 11/10/19 09:04 MCH 28.1 PG (26-34) 11/10/19 09:04 MCHC 33.1 % (30-36) 11/10/19 09:04 RDW 13.8 % (11.6-14.8) 11/10/19 09:04 Plt Count 279 X10^3/uL (150-400) 11/10/19 09:04 Neut % (Auto) 60.1 % (50-75) 11/10/19 09:04 Lymph % (Auto) 32.7 % (25-40) 11/10/19 09:04 [place] % (Auto) 5.6 % (3-14) 11/10/19 09:04 Eos % (Auto) 1.2 % (2-4) L 11/10/19 09:04 Baso % (Auto) 0.4 % (0-2) 11/10/19 09:04 Neut # (Auto) 4300 /uL (4136-8430) 11/10/19 09:04 Lymph # (Auto) 2300 /uL (1471-9518) 11/10/19 09:04 [place] # (Auto) 400 /uL (0-900) 11/10/19 09:04 Eos # (Auto) 100 /uL (0-450) 11/10/19 09:04 Baso # (Auto) 0 /uL (0-100) 11/10/19 09:04 Sodium 139 mmol/L (137-145) 11/10/19 09:04 Potassium 4.5 mmol/L (3.4-5.1) 11/10/19 09:04 Chloride 105 mmol/L (98-107) 11/10/19 09:04 Carbon Dioxide 25 mmol/L (22-32) 11/10/19 09:04 BUN 15 mg/dL (7-17) 11/10/19 09:04 Creatinine 0.64 mg/dL (0.52-1.04) 11/10/19 09:04 Estimated GFR > 60.0 mL/min (>60) 11/10/19 09:04 BUN/Creatinine Ratio 23.4 (6-22) H 11/10/19 09:04 Glucose 112 mg/dL (70-100) H 11/10/19 09:04 Calcium 9.5 mg/dL (8.4-10.2) 11/10/19 09:04 Total Bilirubin 0.7 mg/dL (0.2-1.3) 11/10/19 09:04 AST 20 IU/L (14-36) 11/10/19 09:04 ALT 15 IU/L (<35) 11/10/19 09:04 Alkaline Phosphatase 65 U/L (38-126) 11/10/19 09:04 Total Protein 7.7 g/dL (6.3-8.2) 11/10/19 09:04 Albumin 4.5 g/dL (3.5-5.0) 11/10/19 09:04 Globulin 3.2 g/dL (1.7-4.1) 11/10/19 09:04 Albumin/Globulin Ratio 1.4 (1.0-2.8) 11/10/19 09:04 Breast [facility] [employer] Ag 9 U/mL (< 32) 07/29/18 09:28 25-OH Vitamin D Total 16.3 ng/mL (30.0-100.0) L 11/10/19 09:04 Assessment and Plan (1) Breast cancer Overview: 44 year old female with right breast ER+, [place]+, HER2-, node+, invasive ductal carcinoma diagnosed ultrasound-guided biopsy of the right breast mass and axillary lymph node on 07/25/2017. She underwent neoadjuvent AC>T followed by bi lateral mastectomies on 04/16/2018. Path stage ypT3, ypN3a. Superior margin positive. She then received adjuvant concurrent Xeloda and XRT and adjuvant Xeloda x 8 cycles. completed 01/2019. She was then started on endocrine therapy with Letrazole. She also had bilateral GINO flap reconstruction on 09/04/2019. Genetic study showed no BRCA1/2 mutations. Assessment: Clinically, patient has been doing well without any worrisome signs or symptoms to suggest disease recurrence. Patient has tolerated letrozole well. Talked with that I will continue current letrozole. Patient voiced understanding. Plan: Continue Letrazole 2.5 mg daily RTC in 4 months (2) Osteopenia She tolerated Zometa poorly. At her next dose, we may want to consider Xgeva..
[2019-11-11 13:14] VITALS: BP 140/78; PULSE 53; RESP 16; TEMP 37.1; O2SAT 99
--- NOTE | 2019-11-11 13:43 | PC.NURSE ---
Patient with previous order from Dr. Lora for zoledronic acid. Patient reported N/V, joint pain, sob with last treatment. Per Dr. Lora's last note, was considering changing patient to denosumab due to side effects from zoledronic acid. Discussed with Dr. Garcia, per Dr. Garcia change zoledronic acid to denosumab 60 mg q6 months and start when approved by patient's insurance. Patient notified of new plan. Adeola Corona RP
--- NOTE | 2019-11-13 10:16 | ONC.SCHED ---
Faxed PA request with dictation to [facility] for Prolia/Denosumab
--- NOTE | 2019-11-19 10:10 | ONC.SCHED ---
Obtained PA for Prolia/Denosumab for first injection here. Scheduled Eleonora for injection today, 11/19/19. Submitted request for Site of Care exception and scanned into account.
[2019-11-19 15:41] VITALS: BP 148/69; PULSE 61; RESP 18; TEMP 36.8; O2SAT 98
[2019-11-19] MEDS: DENOSUMAB 60 MG/ML SYRINGE SUBCUT (15:41)
== END ==
PROVIDERS: Nurse Practitioner Gerontology; Family Provider Family Medicine; PCP Family Medicine
DX: C50.411 Malignant neoplasm of upper-outer quadrant of right female breast (principal); C77.3 Secondary and unspecified malignant neoplasm of axilla and upper limb lymph nodes; M85.80 Other specified disorders of bone density and structure, unspecified site; Z17.0 Estrogen receptor positive status [ER+]
CPT/HCPCS: 36415; 80053; 82306; 85025; 86300; 96372; 96374; 96375; 96402; 99213; 99214; 99215; J0897; J3489; J9202

== ENCOUNTER 2020-02-16 13:33 | Emergency (ER) | payer OTHER, SELFPAY ==
[2018-04-16 19:04] VITALS: BMI 31.8
[2020-02-16 13:35] VITALS: BP 168/94; PULSE 75; RESP 16; TEMP 37; O2SAT 100
--- NOTE | 2020-02-16 14:35 | DI.CT.S_ITS ---
PROCEDURE: CT FACIAL BONES WO CON INDICATIONS: facial trauma, loose and impacted tooth, nasal swelling TECHNIQUE: Noncontrast 2.5 mm thick axial images acquired from the mandible through the frontal sinuses, with coronal and sagittal reformatting. For radiation dose reduction, the following was used: automated exposure control, adjustment of mA and/or kV according to patient size. COMPARISON: None. FINDINGS: Image quality: Excellent. Bones and teeth: Orbital interiano are intact. There is a mildly comminuted fracture involving the alveolar process of the maxilla immediately to the left of midline with associated involvement of the portion of the maxilla in which the roots of the left upper front teeth reside. There are periapical lucencies involving the 4 upper frontal teeth. No other facial fractures or mandibular fractures. Degenerative arthritis involving the right TMJ. Sinus interiano show no fracture or deformity. Nasal bones and septum are intact. Visualized portions of the mandible demonstrate no fractures or subluxation. Zygomatic arches are intact. Pterygoid plates are intact. Visualized portions of the skull base and auditory canals are intact. Sinuses: Paranasal sinuses are aerated, without fluid levels, mucosal thickening, or mucoceles. Mastoid air cells are aerated. Soft tissues: No edema, masses, or fluid collections. No enlarged lymph nodes. No soft tissue lacerations or debris. Vascular: Visualized vascular structures appear normal in the absence of contrast. Bony vascular foramina and canals are intact. IMPRESSION: 1. Mildly comminuted fracture of the alveolar process of the maxilla immediately to the left of midline, involving midportion of the maxilla in which the roots of the left upper front teeth reside. 2. Periapical lucencies involving the 4 front of upper teeth Dictated by: Héctor Burch M.D. on 02/16/2020 at 14:56 Approved by: Héctor Burch M.D. on 02/16/2020 at 15:08
--- NOTE | 2020-02-16 14:35 | DI.CT.S_ITS ---
PROCEDURE: CT HEAD/BRAIN WO CON INDICATIONS: facial trauma, hit by a ladder on the face, fell TECHNIQUE: Noncontrast 4.5 mm thick angled axial sections acquired from the foramen magnum to the vertex, with coronal and sagittal reformats. For radiation dose reduction, the following was used: automated exposure control, adjustment of mA and/or kV according to patient size. COMPARISON: None. FINDINGS: Image quality: Excellent. CSF spaces: Basal cisterns are patent. No extra-axial fluid collections. Ventricles are normal in size and shape. Brain: No midline shift. No intracranial masses or hemorrhage. Patel-white matter interface is normal. Skull and face: Calvarium and visualized facial bones are intact, without suspicious lesions. Sinuses: Visualized sinuses and mastoids are clear. IMPRESSION: Negative for acute stroke, hemorrhage, or mass. No evidence of significant intracranial sequelae of acute trauma. Dictated by: Héctor Burch M.D. on 02/16/2020 at 15:09 Approved by: Héctor Burhc M.D. on 02/16/2020 at 15:09
--- NOTE | 2020-02-16 15:30 | PC.NURSE ---
pt denying any dizziness or lightheadedness while ambulating to bathroom
--- NOTE | 2020-02-16 15:47 | ED.WOUNDLAC ---
HPI - Wound/Laceration <NATE MayP - Last Filed: 02/17/20 02:31> General Chief Complaint: Wound/Laceration Stated Complaint: fell off a ladder Time Seen by Provider: 02/16/20 14:26 Source: patient Mode of arrival: Ambulatory Limitations: no limitations History of Present Illness HPI narrative: This is a 44 year female, former smoker, who presents to ED with chief complain of dental injury. Patient states she was painting and working on a A shape ladder. When patient was standing on a 1 side of ladder, accidentally the other side of ladder was folded and hit her mouth. Then, she hit the wall of the house when she fell off the ladder and landed on buttock. Patient reports slightly loose teeth with impactom into the gum in the upper front teeth. Patient has mild bleeding from the mouth and lower lip. Patient also reports discomfort and swelling in the chin. Patient reports mild discomfort on low back. Patient denies losing consciousness, mid cervical tenderness. Patient reports is able to move her upper extremities without difficulty with intact sensation. Last Tdap updated in February 2016. Related Data Previous Rx's Medication Instructions Recorded escitalopram oxalate 20 mg tablet 20 mg PO DAILY #90 tab 11/10/19 letrozole 2.5 mg tablet 2.5 mg PO DAILY 100 Days #100 tab 11/10/19 cyclobenzaprine 10 mg PO BID PRN #10 tab 02/16/20 hydrocodone-acetaminophen [Spiro] 1 tab PO Q8H PRN #7 tab 02/16/20 Allergies Allergy/AdvReac Type Severity Reaction Status Date / Time lactose Allergy Intermediate Gastrointestinal Verified 02/16/20 13:39 Upset Sulfa (Sulfonamide Allergy Mild Hives Verified 02/16/20 13:39 Antibiotics) egg AdvReac Intermediate Gastrointestinal Verified 02/16/20 13:39 Upset mannitol [From Zometa] AdvReac Intermediate angioedema, Verified 02/16/20 13:39 vomiting, joint pain zoledronic acid [From Zometa] AdvReac Intermediate angioedema, Verified 02/16/20 13:39 vomiting, joint pain Review of Systems <JACKIE May - Last Filed: 02/17/20 02:31> Review of Systems Narrative: General: Denies fever, chills, fatigue, malaise, sweats. HEENT: See HPI Respiratory: Denies dyspnea, cough, wheezing, hemoptysis, sputum. Cardiovascular: Denies chest pain, palpitations, orthopnea, edema. Gastrointestinal: Denies nausea, vomiting, abdominal pain, diarrhea, constipation, melena. : Denies dysuria, frequency, incontinence, hematuria, urinary retention. Musculoskeletal: See HPI Skin: See HPI Neurologic: Denies weakness, headache, numbness, change in speech, confusion, seizures, incoordination. Psychiatric: No concerning psychosocial issues. 12-point review of systems is negative except for those stated above. Patient History <JACKIE May - Last Filed: 02/17/20 02:31> Medical History Abnormal Pap smear of cervix (Chronic ~2004) Breast cancer, right (Acute) Chicken pox (Resolved) Depression (Chronic ~2004) Headache (Chronic) History of chemotherapy (Acute) Irregular menstrual cycle (Chronic) Migraines (Chronic ~2015) Neuropathy (Acute) Port-A-Cath in place (Acute) Seasonal allergies (Chronic) Skin rash (Chronic) Vaginal delivery (Resolved) Surgical History Anesthesia (Resolved) H/O bilateral mastectomy (Resolved) History of oral surgery (~2000) Family History Father Age: 79 Skin cancer Hypertension Grandmother Age: 88 Mental health problem Dementia Mother Age: 71 Hypertension High cholesterol Brother Family history of thyroid problem Brother History of substance abuse Grandfather No problems noted. Grandfather No problems noted. Grandmother No problems noted. 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 Head: Normal cephalic, atraumatic. No scalp or temporal tenderness, palpable mass or rash. EYES: Pupils are equal, round, and reactive to light and accommodation. Extraocular muscles are intact bilaterally. There is no subconjunctival hemorrhage, exudate and sclera non-icteric. Neck: Trachea in midline. No JVD, non-tender without lymphadenopathy. No masses or thyroid megaly. Supple, non-tender and no meningeal signs. CARDIAC: Normal regular rate and rhythm without murmurs, gallops, or rubs. No chest wall tenderness. No peripheral edema, cyanosis or pallor. Capillary refill is less than 2 seconds. RESPIRATORY: Lungs are clear to auscultate bilaterally. No cough, wheezes, rales, or rhonchi. No stridor, respiratory distress, increase work of breathing, or accessary muscle used. ABD: Abdomen soft, nontender and non-distended. No guarding or rebound tenderness to palpate. Bowel sounds are normal in all 4 quadrants. There is no palpable masses or organomegaly. EXT: Full painless ROM of all extremities with no loss of sensation, strength, effusion or edema. SKIN: Warm, dry, normal color for patient. No erythema, lesions or rash over visible areas. BACK: Nontender without deformity or crepitance. No flank tenderness. NEUROLOGICAL: Alert and oriented to place, time and person. Sensation and motor function intact bilaterally. No facial droops, dysphasia. PSYCHIATRIC: Good judgement and reason, without hallucinations, abnormal affect or abnormal behaviors during the examination. Patient is not suicidal. Initial Vital Signs Initial Vital Signs: Vital Signs Temperature 98.6 F 02/16/20 13:35 Pulse Rate 75 02/16/20 13:35 Respiratory Rate 16 02/16/20 13:35 Blood Pressure 168/94 H 02/16/20 13:35 Pulse Oximetry 100 02/16/20 13:35 [facility] Head: normocephalic Ears: hearing grossly normal bilaterally and external ears normal Nose: nares normal, septum normal, No epistaxis and No nasal discharge Mouth: oral mucosae normal, No tongue normal (Small superficial laceration on tongue), oropharynx normal, moist mucous membranes, No audible dysphonia, No drooling, lip abnormal (Small lower lip ), mouth trauma and No muffled voice Teeth and gingiva: abnormal tooth or associated gingiva (Impacted and loose 3 upper front teeth) Throat: posterior oropharynx normal and uvula midline <Waldemar Hathaway MD - Last Filed: 02/28/20 07:25> Initial Vital Signs Initial Vital Signs: Vital Signs Temperature 98.6 F 02/16/20 13:35 Pulse Rate 75 02/16/20 13:35 Respiratory Rate 16 02/16/20 13:35 Blood Pressure 168/94 H 02/16/20 13:35 Pulse Oximetry 100 02/16/20 13:35 Scores <Nikolas LundbergJACKIE Auguste - Last Filed: 02/17/20 02:31> GCS Kelly coma scale eye opening: Spontaneous Higden coma scale verbal response: Orientated Kelly coma scale motor response: Obey commands Higden coma scale total score: 15 Nexus Score for C-Spine Focal Neurologic deficit present: No Midline spinal tenderness present: No Altered level of conciousness present: No Intoxication present: No Distracting Injury Present: Yes Nexus Criteria for C-spine: 1 Course <JACKIE May - Last Filed: 02/17/20 02:31> Orders Ordered: Discontinued Medications Acetaminophen (Tylenol) 975 mg PO NOW ONE Stop: 02/16/20 14:38 Last Admin: 02/16/20 16:29 Dose: 975 mg Documented by: FREDIS Amoxicillin (Trimox) 500 mg PO NOW ONE Stop: 02/16/20 15:48 Last Admin: 02/16/20 16:29 Dose: 500 mg Documented by: FREDIS Vital Signs Vital signs: Vital Signs - 8 hr 02/16/20 13:35 Temperature 98.6 F Pulse Rate 75 Respiratory Rate 16 Blood Pressure 168/94 H Pulse Oximetry 100 <Waldemar Hathaway MD - Last Filed: 02/28/20 07:25> Orders Ordered: Discontinued Medications Acetaminophen (Tylenol) 975 mg PO NOW ONE Stop: 02/16/20 14:38 Last Admin: 02/16/20 16:29 Dose: 975 mg Documented by: FREDIS Amoxicillin (Trimox) 500 mg PO NOW ONE Stop: 02/16/20 15:48 Last Admin: 02/16/20 16:29 Dose: 500 mg Documented by: FREDIS Vital Signs Vital signs: Vital Signs - 8 hr 02/16/20 13:35 Temperature 98.6 F Pulse Rate 75 Respiratory Rate 16 Blood Pressure 168/94 H Pulse Oximetry 100 MDM - Wound/Laceration <JACKIE May - Last Filed: 02/17/20 02:31> Differential Diagnosis Differential diagnosis: Likely avulsion of skin (Lower lip) and other (Dental injury, facial fracture, facial contusion, intracranial hemorrhage, closed head injury, back pain) Medical Records Attestation: I reviewed the patient's medical records. Imaging Data CT scan - head: Radiologist's Impression: [address] [address] [address] Scan Report Signed Patient: Blanche Nguyen CMR#: [id number] : 1975Acct:[id number] Age/Sex: 44 / FDate of Service: 02/16/20 Loc: ED Accession Number: [id number] Procedure: CT head/brain wo con Ordering Provider: Nikolas Sargent PROCEDURE: CT HEAD/BRAIN WO CON INDICATIONS: facial trauma, hit by a ladder on the face, fell TECHNIQUE: Noncontrast 4.5 mm thick angled axial sections acquired from the foramen magnum to the vertex, with coronal and sagittal reformats. For radiation dose reduction, the following was used: automated exposure control, adjustment of mA and/or kV according to patient size. COMPARISON: None. FINDINGS: Image quality: Excellent. CSF spaces: Basal cisterns are patent. No extra-axial fluid collections. Ventricles are normal in size and shape. Brain: No midline shift. No intracranial masses or hemorrhage. Patel-white matter interface is normal. Skull and face: Calvarium and visualized facial bones are intact, without suspicious lesions. Sinuses: Visualized sinuses and mastoids are clear. IMPRESSION: Negative for acute stroke, hemorrhage, or mass. No evidence of significant intracranial sequelae of acute trauma. Dictated by: Héctor Burch M.D. on 02/16/2020 at 15:09 Approved by: Héctor Burch M.D. on 02/16/2020 at 15:09 CT-Facial bones: Radiologist's Impression: SukhjinderdustinBlanche euceda C 44 F [address] [place] [address] CT Scan Report Signed Patient: Blanche Nguyen [facility]#: [id number] : 1975Acct:[id number] Age/Sex: 44 / FDate of Service: 02/16/20 Loc: ED Accession Number: [id number] Procedure: CT head/brain wo con Ordering Provider: Nikolas Sargent PROCEDURE: CT HEAD/BRAIN WO CON INDICATIONS: facial trauma, hit by a ladder on the face, fell TECHNIQUE: Noncontrast 4.5 mm thick angled axial sections acquired from the foramen magnum to the vertex, with coronal and sagittal reformats. For radiation dose reduction, the following was used: automated exposure control, adjustment of mA and/or kV according to patient size. COMPARISON: None. FINDINGS: Image quality: Excellent. CSF spaces: Basal cisterns are patent. No extra-axial fluid collections. Ventricles are normal in size and shape. Brain: No midline shift. No intracranial masses or hemorrhage. Patel-white matter interface is normal. Skull and face: Calvarium and visualized facial bones are intact, without suspicious lesions. Sinuses: Visualized sinuses and mastoids are clear. IMPRESSION: Negative for acute stroke, hemorrhage, or mass. No evidence of significant intracranial sequelae of acute trauma. Dictated by: Héctor Burch M.D. on 02/16/2020 at 15:09 Approved by: Héctor Burch M.D. on 02/16/2020 at 15:09 [facility] Narrative Medical decision making narrative: No c spine tenderness to palpate with full range of motion with flexion, extension and rotation without pain. Patient reports no loss of consciousness then she is not on anticoagulants at this time. Patient has history of osteopenia and breast cancer. Patient contacted her dentist, Dr. Rody Jimenez at [facility] while in ED via text and it was planned to follow up with Dr. Fleming if needed. Head CT was negative for acute findings. Facial bone CT indicates Mild comminuted fracture of the alveolar process of the maxilla immediately to the left of midline. There is also Periapical lucencies involving 4 front of upper teech. Intake orbital wall and no other facial fractures or mandibular fractures appreciated. Consulted Dr. Fleming over the phone call and he kindly accepted patient's care to follow-up tomorrow and recommended to remain soft diet and start on antibiotic medication. Warm salt water gargle frequently especially after each eating and to follow-up with Dr. Fleming's office tomorrow. The first dose of amoxicillin was provided while in ED with Tylenol for management. Patient used ice pack on affected face for comfort and swelling. Small discolored avulsion tissue on lower lip has been debried and stopped bleeding by direct pressure. Patient discharged to home with small dose of Flexeril for lower back muscle relaxant and Spiro for severe pain. Otherwise patient advised to take [id number] Tylenol for discomfort. Narcotic and muscle relaxant medication has been discussed with patient. Return precautions were discussed with patient and Patient verbalized understanding and agreement with the treatment plan. Discharge Plan Departure Patient Disposition: Home Clinical Impression: Maxillary fracture Qualifiers: Encounter type: initial encounter Fracture type: closed Laterality: left Qualified Code(s): S02.40DA - Maxillary fracture, left side, initial encounter for closed fracture Dental injury Qualifiers: Encounter type: initial encounter Qualified Code(s): S09.93XA - Unspecified injury of face, initial encounter Back contusion Qualifiers: Encounter type: initial encounter Laterality: unspecified laterality Qualified Code(s): S20.229A - Contusion of unspecified back wall of thorax, initial encounter Discharge Date/Time: 02/16/20 16:44 Instructions: DI for Low Back Pain, Skull and Facial Fracture, DI for Dental Pain Activity Restrictions/Additional Instructions: You have been diagnosed with [facial trauma. CT test indicates mildly comminuted fracture involving maxilla immediately to the left of midline. There is for impacted for upper teeth. Head CT was negative for acute findings.]. What to do: *Take your medications as directed. Please take amoxicillin 500 mg 3 times a day for next 7 days to prevent infection. Please avoid biting into hard food and keep soft diet. Please rinse well with salt water after each eating. You can use [id number] Tylenol 650-1000 mg up to 4 times a day as needed for pain. Since you may have denture procedure tomorrow, you may have to avoid Motrin/ibuprofen/naproxen products. Use ice pack on affected site for swelling and pain. Please avoid blowing your nose hard. Amoxicillin has been transmitted to [facility]. *Follow up with your primary care provider in 2-3 days, call for an appointment. Please follow-up with Dr. Fleming tomorrow. If you do not receive a phone call from them by mid morning, please contact them. Let them know you were seen in the ED and that we asked you to be seen in follow up. *Return to ED if you have any new, worsening, or concerning symptoms, such as [chest pain, difficulty breathing, fever, unable to tolerate fluids, increasing pain or any acute concerns.]. Prescriptions: New cyclobenzaprine 10 mg tablet 10 mg PO BID PRN (Reason: muscle spasm) Qty: 10 RF: 0 hydrocodone-acetaminophen [Spiro] 5-325 mg tablet 1 tab PO Q8H PRN (Reason: pain) Qty: 7 RF: 0 No Action escitalopram oxalate [Lexapro] 20 mg tablet 20 mg PO DAILY Qty: 90 RF: 3 letrozole 2.5 mg tablet 2.5 mg PO DAILY 100 Days Qty: 100 RF: 3 Referrals: Shawn Fleming DMD [Physician] - Emma Sunshine DO [Primary Care Provider] -
[2020-02-16] MEDS: AMOXICILLIN 250 MG CAPSULE 500 MG PO (16:29)
[2020-02-16] MEDS: ACETAMINOPHEN 325 MG TABLET 975 MG PO (16:29)
[2020-02-16 16:41] VITALS: BP 138/82; PULSE 65; RESP 18; O2SAT 99
== END 2020-02-16 16:44 | disposition home or self-care (01) ==
PROVIDERS: Emergency Provider Nurse Practitioner Family; Family Provider Family Medicine; PCP Family Medicine
DX: S02.40DA Maxillary fracture, left side, initial encounter for closed fracture (principal); S09.93XA Unspecified injury of face, initial encounter; S20.229A Contusion of unspecified back wall of thorax, initial encounter; W11.XXXA Fall on and from ladder, initial encounter
CPT/HCPCS: 70450; 70486; 99282; 99284

== ENCOUNTER → 2021-03-24 08:02 | Outpatient (CLI) | payer OTHER, SELFPAY ==
[2018-04-16 19:04] VITALS: BMI 31.8
[2021-03-24 10:11] LABS: Add Manual Diff / Slide Review NO; Basophils Absolute Auto 0 /uL (0-100); Basophils Percent Auto 0.3 % (0-2); Eosinophils Absolute Auto 100 /uL (0-450); Eosinophils Percent Auto 1.4 % (2-4); Hematocrit 40.8 % (36-46); Hemoglobin 13.5 g/dL (12.0-16.0); Lymphocytes Absolute Auto 2200 /uL (1100-4500); Lymphocytes Percent Auto 32.6 % (25-40); Mean Corpuscular HGB Conc 33.1 % (30-36); Mean Corpuscular Hemoglobin 28.3 PG (26-34); Mean Corpuscular Volume 85.5 fL (80-100); Monocytes Absolute Auto 400 /uL (0-900); Monocytes Percent Auto 5.4 % (3-14); Neutrophils Absolute Auto 4000 /uL (1500-7000); Neutrophils Percent Auto 60.3 % (50-75); Platelet Count 245 X10^3/uL (150-400); Red Blood Cell Count 4.78 X10^6/uL (4.0-5.2); Red Cell Distribution Width 13.4 % (11.6-14.8); White Blood Cell Count 6.7 X10^3/uL (4.5-11.0)
[2021-03-24 11:10] LABS: Alanine Aminotransferase 24 IU/L (<35); Albumin 4.1 g/dL (3.5-5.0); Albumin Globulin Ratio 1.5 (1.0-2.8); Alkaline Phosphatase 68 U/L (38-126); Aspartate Aminotransferase 22 IU/L (14-36); BUN Creatinine Ratio 16.9 (6-22); Bilirubin Total 0.8 mg/dL (0.2-1.3); Blood Urea Nitrogen 12 mg/dL (7-17); Calcium 9.7 mg/dL (8.4-10.2); Carbon Dioxide 28 mmol/L (22-32); Chloride 104 mmol/L (98-107); Cholesterol 217 mg/dL (140-199); Estimated Glomerular Filt Rate > 60.0 mL/min (>60); Globulin 2.8 g/dL (1.7-4.1); Glucose 93 mg/dL (70-100); HDL Cholesterol 40 mg/dL (40-60); HEMOLYSIS < 15 (0-50); LDL Cholesterol Calculated 146 mg/dL (<100); Potassium 4.8 mmol/L (3.4-5.1); Sodium 141 mmol/L (137-145); Total Protein 6.9 g/dL (6.3-8.2); Triglycerides 156 mg/dL (35-150)
[2021-03-24 11:26] LABS: Vitamin D 25 Hydroxy (D3) 20.4 ng/mL (30.0-100.0)
== END ==
PROVIDERS: Family Provider Family Medicine; PCP Family Medicine; Referring Provider Family Medicine; Visit Provider Family Medicine
DX: E55.9 Vitamin D deficiency, unspecified (principal); M85.80 Other specified disorders of bone density and structure, unspecified site; C50.919 Malignant neoplasm of unspecified site of unspecified female breast; E66.9 Obesity, unspecified
CPT/HCPCS: 36415; 80053; 80061; 82306; 85025

== ENCOUNTER → 2021-07-01 13:38 | Outpatient (CLI) | payer OTHER, SELFPAY ==
[2018-04-16 19:04] VITALS: BMI 31.8
[2021-07-01] MEDS: COVID-19 VACC #3, MRNA(MOD) 50 MCG/0.25 ML VIAL IM (13:44)
== END ==
PROVIDERS: Family Provider Family Medicine; PCP Family Medicine; Visit Provider Internal Medicine
DX: Z23 Encounter for immunization (principal)
CPT/HCPCS: 0013A; 91301

== ENCOUNTER → 2021-11-30 07:53 | Outpatient (CLI) | payer OTHER, SELFPAY ==
[2018-04-16 19:04] VITALS: BMI 31.8
[2021-11-30 08:47] LABS: Add Manual Diff / Slide Review NO; Basophils Absolute Auto 0 /uL (0-100); Basophils Percent Auto 0.3 % (0-2); Eosinophils Absolute Auto 100 /uL (0-450); Hematocrit 39.6 % (36-46); Hemoglobin 13.7 g/dL (12.0-16.0); Lymphocytes Absolute Auto 1900 /uL (1100-4500); Lymphocytes Percent Auto 24.3 % (25-40); Mean Corpuscular HGB Conc 34.4 % (30-36); Mean Corpuscular Hemoglobin 29.2 PG (26-34); Mean Corpuscular Volume 84.7 fL (80-100); Monocytes Absolute Auto 400 /uL (0-900); Monocytes Percent Auto 4.6 % (3-14); Neutrophils Absolute Auto 5500 /uL (1500-7000); Neutrophils Percent Auto 69.8 % (50-75); Platelet Count 253 X10^3/uL (150-400); Red Blood Cell Count 4.68 X10^6/uL (4.0-5.2); Red Cell Distribution Width 13.5 % (11.6-14.8); White Blood Cell Count 7.8 X10^3/uL (4.5-11.0)
[2021-11-30 08:59] LABS: Hemoglobin A1C% w Est Avg Glu 5.3 % (4.0-6.0)
[2021-11-30 09:03] LABS: Alanine Aminotransferase 13 IU/L (<35); Albumin 4.7 g/dL (3.5-5.0); Albumin Globulin Ratio 1.6 (1.0-2.8); Alkaline Phosphatase 62 U/L (38-126); Aspartate Aminotransferase 18 IU/L (14-36); BUN Creatinine Ratio 19.3 (6-22); Bilirubin Total 0.9 mg/dL (0.2-1.3); Blood Urea Nitrogen 16 mg/dL (7-17); Calcium 9.9 mg/dL (8.4-10.2); Carbon Dioxide 27 mmol/L (22-32); Chloride 104 mmol/L (98-107); Cholesterol 207 mg/dL (140-199); Estimated Glomerular Filt Rate > 60.0 mL/min (>60); Globulin 2.9 g/dL (1.7-4.1); Glucose 101 mg/dL (70-100); HDL Cholesterol 39 mg/dL (40-60); HEMOLYSIS < 15 (0-50); LDL Cholesterol Calculated 138 mg/dL (<100); Potassium 4.8 mmol/L (3.4-5.1); Sodium 142 mmol/L (137-145); Total Protein 7.6 g/dL (6.3-8.2); Triglycerides 152 mg/dL (35-150)
[2021-11-30 09:23] LABS: Free T3, Triiodothyronine Free 3.17 pg/mL (2.77-5.27); Free T4, Direct Thyroxine 1.22 ng/dL (0.78-2.19)
[2021-11-30 09:36] LABS: Thyroid Stimulating Hormone 1.31 uIU/mL (0.47-4.68)
[2021-12-09 20:16] LABS: 1,25-Dihydroxy, Vitamin D-2 <10 pg/mL (.)
== END ==
PROVIDERS: Family Provider Family Medicine; PCP Family Medicine; Referring Provider Nurse Practitioner Psychiatric/Mental Health; Visit Provider Nurse Practitioner Psychiatric/Mental Health
DX: Z79.899 Other long term (current) drug therapy (principal); F31.81 Bipolar II disorder; E55.9 Vitamin D deficiency, unspecified
CPT/HCPCS: 36415; 80053; 80061; 82652; 83036; 84439; 84443; 84481; 85025

== ENCOUNTER → 2023-06-22 08:24 | Outpatient (CLI) | payer OTHER, SELFPAY ==
[2018-04-16 19:04] VITALS: BMI 31.8
[2023-06-22 09:28] LABS: Add Manual Diff / Slide Review NO; Basophils Absolute Auto 0 /uL (0-100); Basophils Percent Auto 0.5 % (0-2); Eosinophils Absolute Auto 100 /uL (0-450); Hematocrit 39.8 % (36-46); Hemoglobin 13.3 g/dL (12.0-16.0); Lymphocytes Absolute Auto 2200 /uL (1100-4500); Mean Corpuscular HGB Conc 33.4 % (30-36); Mean Corpuscular Hemoglobin 28.3 PG (26-34); Mean Corpuscular Volume 84.8 fL (80-100); Monocytes Absolute Auto 400 /uL (0-900); Neutrophils Absolute Auto 4800 /uL (1500-7000); Neutrophils Percent Auto 64.5 % (50-75); Platelet Count 288 X10^3/uL (150-400); Red Blood Cell Count 4.69 X10^6/uL (4.0-5.2); Red Cell Distribution Width 13.9 % (11.6-14.8); White Blood Cell Count 7.5 X10^3/uL (4.5-11.0)
[2023-06-22 09:51] LABS: Alanine Aminotransferase 21 IU/L (<35); Albumin 4.2 g/dL (3.5-5.0); Albumin Globulin Ratio 1.4 (1.0-2.8); Aspartate Aminotransferase 19 IU/L (14-36); BUN Creatinine Ratio 19.2 (6-22); Blood Urea Nitrogen 14 mg/dL (7-17); Calcium 9.6 mg/dL (8.4-10.2); Carbon Dioxide 29 mmol/L (22-32); Chloride 102 mmol/L (98-107); Cholesterol 213 mg/dL (140-199); Estimated Glomerular Filt Rate > 60 mL/min (>60); Glucose 98 mg/dL (70-100); HDL Cholesterol 34 mg/dL (40-60); HEMOLYSIS < 15 (0-50); LDL Cholesterol Calculated 145 mg/dL (<100); Potassium 4.6 mmol/L (3.4-5.1); Sodium 138 mmol/L (137-145); Total Protein 7.2 g/dL (6.3-8.2); Triglycerides 169 mg/dL (35-150)
[2023-06-22 09:52] LABS: Hemoglobin A1C% w Est Avg Glu 5.6 % (4.0-6.0)
[2023-06-22 10:17] LABS: Alkaline Phosphatase 65 U/L (38-126); Bilirubin Total 0.8 mg/dL (0.2-1.3)
[2023-06-22 10:41] LABS: HIV 1 & 2 Ab/Ag 4th Gen Combo NEGATIVE (NEGATIVE); Hep C Virus Ab w/Reflex Quant NEGATIVE s/c (NEGATIVE)
== END ==
PROVIDERS: Family Provider Family Medicine; PCP Family Medicine; Referring Provider Family Medicine; Visit Provider Family Medicine
DX: E78.5 Hyperlipidemia, unspecified (principal); F31.81 Bipolar II disorder; E66.9 Obesity, unspecified; Z85.3 Personal history of malignant neoplasm of breast
CPT/HCPCS: 36415; 80053; 80061; 83036; 85025; 86803; 87389

== ENCOUNTER 2023-10-30 10:02 | Day surgery (SDC) | payer OTHER, SELFPAY ==
[2018-04-16 19:04] VITALS: BMI 31.8
[2023-10-30 10:32] VITALS: BP 130/78; PULSE 79; RESP 18; TEMP 35.9; O2SAT 96
[2023-10-30] MEDS: LACTATED RINGERS 1,000 ML 42 ML IV (10:38)
--- NOTE | 2023-10-30 10:47 | PM.HP.1 ---
History of Present Illness History of Present Illness Date Patient Seen: 10/30/23 Time Patient Seen: 10:47 Chief complaint: Screening Colonoscopy Narrative: 48-year-old woman history of breast cancer here for 1st time screening colonoscopy. No abdominal concerns today. No family history of intestinal malignancy. [facility] Medical History History of breast cancer Bipolar 2 disorder Vitamin D deficiency Hyperlipidemia Class 1 obesity Depression Vaginal delivery Seasonal allergies Migraines (~2015) Headache Skin rash Chicken pox Irregular menstrual cycle Abnormal Pap smear of cervix (~2004) Neuropathy Port-A-Cath in place History of chemotherapy Depression (~2004) Breast cancer, right Surgical History H/O bilateral mastectomy Anesthesia History of oral surgery (~2000) Family History Father Age: 83 Skin cancer Hypertension Grandmother Age: 92 Mental health problem Dementia Mother Age: 75 Hypertension High cholesterol Brother Family history of thyroid problem Brother History of substance abuse Grandfather No problems noted. Grandfather No problems noted. Grandmother No problems noted. 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) Smoking Status: Former smoker alcohol intake: current substance use type: does not use and other (CBD during chemo) Meds Home Medications and Allergies Home Medications Medication Instructions Recorded Confirmed Type letrozole 2.5 mg tablet 2.5 mg PO DAILY 100 days #100 tabs 11/10/19 10/30/23 Rx bupropion HCl 150 mg 24 hr tablet, 150 mg PO QAM 04/05/21 10/30/23 History extended release aripiprazole 2 mg tablet 4 mg PO DAILY 03/27/22 10/30/23 History lamotrigine 50 mg tablet,extended 75 mg PO DAILY 03/27/22 10/30/23 History release 24 hr Allergies Allergy/AdvReac Type Severity Reaction Status Date / Time lactose Allergy Intermediate Gastrointestinal Verified 10/30/23 10:26 Upset Sulfa (Sulfonamide Allergy Mild Hives Verified 10/30/23 10:26 Antibiotics) egg AdvReac Intermediate Gastrointestinal Verified 10/30/23 10:26 Upset mannitol [From Zometa] AdvReac Intermediate angioedema, Verified 10/30/23 10:26 vomiting, joint pain zoledronic acid [From Zometa] AdvReac Intermediate angioedema, Verified 10/30/23 10:26 vomiting, joint pain Exam Vital Signs (past 8 hours): - 10/30/23 10:32 Temperature 96.7 F L Pulse Rate 79 Respiratory Rate 18 Blood Pressure 130/78 Pulse Oximetry 96 Oxygen Delivery Method Room Air Oxygen Delivery Method Room Air Narrative Exam Narrative: General adult woman alert oriented no acute distress Chest nonlabored respiration Extremities warm well perfused Assessment & Plan Assessment & Plan narrative: The patient requires colorectal screening and colonoscopy is recommended. Technical details were discussed. Risks, benefits, alternatives explained. Risks including but not limited to myocardial infarction, aspiration, bleeding, pain, missed lesion, incomplete examination, need for further radiographic studies, colonic perforation, and need for major abdominal surgery were discussed. All questions were answered to their satisfaction, and they are in agreement with this plan.
--- NOTE | 2023-10-30 10:51 | P.OP.COLON_ITS ---
Operative Date/Time/Diagnoses Date of procedure: 10/30/23 Time of procedure: 10:51 Pre-op diagnosis: Colorectal screening Procedure & Clinicians Study performed: Colonoscopy Same procedure as scheduled: Yes Indications: Colorectal screening Surgeon: Cornelio Bearden Procedure Notes Procedure in detail: The history and physical was performed/updated and the patient is ASA class is 2. The procedure was discussed in detail with the patient. Potential risks complications including infection, bleeding, missed diagnosis, perforation, need for surgery, and were explained. Their questions were answered and informed consent was obtained. Patient was brought to the procedure room and placed standard monitoring equipment. The patient's vital signs were monitored continuously throughout the entire procedure. Prior to starting time-out was performed. The patient was placed in the left lateral recumbent position. Procedural sedation was administered by anesthesia. Examination began with a thorough inspection of the perianal area there was no evidence of fissures, fistulae, external hemorrhoids or cutaneous malignancy. The colonoscopy scope was then placed into the anal canal and was advanced to the cecum, which was identified by the ileocecal valve , the appendiceal orifice and the confluence of the taenia. The scope was then slowly withdrawn examining colon thoroughly in all directions, irrigating it of any residual stool. The scope was retroflexed within the rectum The patient tolerated the procedure well. They will be discharged once criteria are met. The prep was of good/excellent quality. The withdrawl time was 6 minutes. FINDINGS * Unremarkable colonoscopy. Normal colonic mucosa without masses polyps or inflammation. Specimen(s): none sent Impression: Normal colonoscopy Post-procedure Recommendations: Colonoscopy in 10 years Disposition: same day surgery
[2023-10-30 11:11] VITALS: BP 124/82; PULSE 67; RESP 17; TEMP 36.6; O2SAT 98
[2023-10-30 11:16] VITALS: BP 120/81; PULSE 60; RESP 12; O2SAT 97
[2023-10-30 11:21] VITALS: BP 127/84; PULSE 84; RESP 16; TEMP 36.6; O2SAT 99
[2023-10-30 11:25] VITALS: BP 140/90; PULSE 58; RESP 16; O2SAT 100
== END 2023-10-30 11:30 | disposition home or self-care (01) ==
PROVIDERS: Family Provider Family Medicine; PCP Family Medicine; Referring Provider Surgery; Visit Provider Surgery
PROC: 0DJD8ZZ Inspection of Lower Intestinal Tract, Via Natural or Artificial Opening Endoscopic (ICD-10-PCS; CPT 45378; principal; 2023-10-30 11:00)
DX: Z12.11 Encounter for screening for malignant neoplasm of colon (principal)
CPT/HCPCS: 45378; J2704

== ENCOUNTER → 2024-06-30 15:49 | Outpatient (CLI) | payer OTHER, SELFPAY ==
[2018-04-16 19:04] VITALS: BMI 31.8
[2024-06-30 17:16] LABS: Hematocrit 39.6 % (36-46); Hemoglobin 13.1 g/dL (12.0-16.0); Mean Corpuscular HGB Conc 33.1 % (30-36); Mean Corpuscular Hemoglobin 28.6 PG (26-34); Mean Corpuscular Volume 86.2 fL (80-100); Platelet Count 308 X10^3/uL (150-400); Red Blood Cell Count 4.59 X10^6/uL (4.0-5.2); Red Cell Distribution Width 13.4 % (11.6-14.8); White Blood Cell Count 9.3 X10^3/uL (4.5-11.0)
[2024-06-30 17:36] LABS: Hemoglobin A1C% w Est Avg Glu 5.4 % (4.0-6.0)
[2024-06-30 17:48] LABS: Alanine Aminotransferase 21 IU/L (<35); Albumin 3.9 g/dL (3.5-5.0); Albumin Globulin Ratio 1.4 (1.0-2.8); Alkaline Phosphatase 66 U/L (38-126); Aspartate Aminotransferase 19 IU/L (14-36); BUN Creatinine Ratio 13.9 (6-22); Bilirubin Total 0.5 mg/dL (0.2-1.3); Blood Urea Nitrogen 10 mg/dL (7-17); Calcium 9.6 mg/dL (8.4-10.2); Carbon Dioxide 26 mmol/L (22-32); Chloride 105 mmol/L (98-107); Cholesterol 205 mg/dL (140-199); Estimated Glomerular Filt Rate > 60 mL/min (>60); Globulin 2.8 g/dL (1.7-4.1); Glucose 112 mg/dL (70-100); HDL Cholesterol 35 mg/dL (40-60); HEMOLYSIS < 15 (0-50); LDL Cholesterol Calculated 114 mg/dL (<100); Sodium 138 mmol/L (137-145); Total Protein 6.7 g/dL (6.3-8.2); Triglycerides 281 mg/dL (35-150)
== END ==
LOC: LAB 15:50
PROVIDERS: Family Provider Family Medicine; PCP Family Medicine; Referring Provider Family Medicine; Visit Provider Family Medicine
DX: Z00.00 Encounter for general adult medical examination without abnormal findings (principal); F31.81 Bipolar II disorder; E78.2 Mixed hyperlipidemia; M85.80 Other specified disorders of bone density and structure, unspecified site
CPT/HCPCS: 36415; 80053; 80061; 83036; 85027

== ENCOUNTER → 2025-07-01 11:23 | Outpatient (CLI) | payer OTHER, SELFPAY ==
[2018-04-16 19:04] VITALS: BMI 31.8
--- NOTE | 2025-07-01 11:25 | DI.RAD.S_ITS ---
PROCEDURE: XR KNEE LT 3V
--- NOTE | 2025-07-01 11:25 | DI.RAD.S_ITS ---
PROCEDURE: XR KNEE RT 3V
[2025-07-01 12:10] LABS: Hematocrit 40.4 % (36-46); Hemoglobin 13.7 g/dL (12.0-16.0); Mean Corpuscular HGB Conc 33.9 % (30-36); Mean Corpuscular Hemoglobin 29.0 PG (26-34); Mean Corpuscular Volume 85.4 fL (80-100); Platelet Count 289 X10^3/uL (150-400)
[2025-07-01 12:20] LABS: Hemoglobin A1C% w Est Avg Glu 5.0 % (4.0-6.0)
[2025-07-01 12:57] LABS: Alanine Aminotransferase 15 IU/L (<35); Albumin 4.5 g/dL (3.5-5.0); Albumin Globulin Ratio 1.7 (1.0-2.8); Alkaline Phosphatase 65 U/L (38-126); Blood Urea Nitrogen 14 mg/dL (7-17); Calcium 9.9 mg/dL (8.4-10.2); Carbon Dioxide 27 mmol/L (22-32); Chloride 102 mmol/L (98-107); Cholesterol 185 mg/dL (140-199); Estimated Glomerular Filt Rate > 60 mL/min (>60); Globulin 2.6 g/dL (1.7-4.1); Glucose 98 mg/dL (70-99); HDL Cholesterol 39 mg/dL (40-60); HEMOLYSIS < 15 (0-50); Potassium 4.4 mmol/L (3.4-5.1); Sodium 138 mmol/L (137-145); Total Protein 7.1 g/dL (6.3-8.2); Triglycerides 130 mg/dL (35-150)
== END ==
PROVIDERS: Family Provider Family Medicine; PCP Family Medicine; Referring Provider Family Medicine; Visit Provider Family Medicine
DX: M17.0 Bilateral primary osteoarthritis of knee (principal); M25.561 Pain in right knee; M25.562 Pain in left knee; E78.2 Mixed hyperlipidemia; F31.81 Bipolar II disorder
CPT/HCPCS: 36415; 73562; 80053; 80061; 83036; 85027